=== PATIENT | male | born 1935 | race Hispanic/Latino ===

== ENCOUNTER 2016-10-25 07:08 | Inpatient (IN) | payer MEDICARE ==
[2016-10-25] MEDS ORDERED: BABY ASPIRIN PO ONE (07:36)
--- NOTE | 2016-10-25 07:41 | Emergency Department Report ---
ED Chest Pain HPI - General Chief Complaint: Chest Pain Stated Complaint: CHEST PAIN Time Seen by Provider: 10/25/16 07:35 Source: patient Mode of arrival: Ambulatory Limitations: No Limitations - History of Present Illness Initial Comments: 81-year-old male presents to the emergency department complaining of chest pain. Patient reports the onset of chest pain last night before going to bed. Patient states he does not know what time this was. Pain has been constant since onset. Pain is located in the center of his chest and radiates both to the left and to the right. Pain is described as "just pain". Patient reports one episode of nausea and vomiting. He denies shortness of breath, dizziness, or diaphoresis. Patient reports a history of [place], and states he thinks this feels different. There are no other complaints. MD Complaint: chest pain -: Gradual, During the night Onset: during rest Pain Location: substernal Pain Radiation: other (right and left chest) Severity: moderate Quality: other ("pain") Consistency: constant Improves With: nothing Worsens With: nothing re: nausea, vomting. denies: diaphoresis, dyspnea Other Symptoms: denies: syncope, palpitations Treatments Prior to Arrival: none Aspirin use within the Past 7 Days: (1) Yes - Related Data Home Medications Medication Instructions Recorded Confirmed Last Taken Unobtainable 10/25/16 10/25/16 Unknown Allergies Allergy/AdvReac Type Severity Reaction Status Date / Time No Known Allergies Allergy Unverified 10/25/16 07:21 HAMMAD score - Hammad Score Age > 65: (1) Yes Aspirin use within the Past 7 Days: (1) Yes 3 or more CAD Risk Factors: (1) Yes 2 or more Angina events in past 24 hrs: (0) No Known CAD with more than 50% Stenosis: (1) Yes Elevated Cardiac Markers: (1) Yes ST Deviation Greater than 0.5mm: (1) Yes HAMMAD Score: 6 ED Review of Systems ROS: Stated complaint: CHEST PAIN Other details as noted in HPI Comment: All other systems reviewed and negative Cardiovascular: chest pain Gastrointestinal: nausea, vomiting ED Past Medical Hx - Past Medical History Previous Medical History?: Yes Hx Heart Attack/AMI: Yes Additional medical history: CAD, [place] - Surgical History Past Surgical History?: Yes Hx Open Heart Surgery: Yes - Family History Family history: no significant - Social History Smoking Status: Current Every Day Smoker Substance Use Type: Prescribed - Medications Home Medications: Home Medications Medication Instructions Recorded Confirmed Last Taken Type Unobtainable 10/25/16 10/25/16 Unknown History ED Physical Exam - General Limitations: No Limitations General appearance: alert, in no apparent distress - Head Head exam: Present: atraumatic, normocephalic - Eye Eye exam: Present: normal appearance, PERRL, EOMI - ENT ENT exam: Present: normal exam, normal orophraynx, mucous membranes moist - Neck Neck exam: Present: normal inspection, full ROM. Absent: tenderness - Respiratory Respiratory exam: Present: normal lung sounds bilaterally. Absent: respiratory distress - Cardiovascular Cardiovascular Exam: Present: regular rate, normal rhythm, normal heart sounds - GI/Abdominal GI/Abdominal exam: Present: soft, normal bowel sounds. Absent: distended, tenderness - Extremities Exam Extremities exam: Present: normal inspection, full ROM. Absent: tenderness - Back Exam Back exam: Present: normal inspection, full ROM. Absent: tenderness - Neurological Exam Neurological exam: Present: alert, oriented X3. Absent: motor sensory deficit - Skin Skin exam: Present: warm, dry, intact ED Course Vital Signs 10/25/16 10/25/16 10/25/16 07:21 07:29 07:31 Temperature 97.5 F L Pulse Rate 86 89 Respiratory 20 13 Rate Blood Pressure 103/67 99/66 99/66 O2 Sat by Pulse 95 86 92 Oximetry 10/25/16 10/25/16 07:41 07:51 Temperature Pulse Rate 88 86 Respiratory 20 18 Rate Blood Pressure 99/66 99/66 O2 Sat by Pulse 96 95 Oximetry ED Medical Decision Making - Lab Data Result diagrams: 10/25/16 07:27 10/25/16 07:27 - EKG Data -: EKG Interpreted by Me EKG shows normal: sinus rhythm, intervals Rate: normal - EKG Data When compared to previous EKG there are: previous EKG unavailable Interpretation: other (sinus rhythm, first-degree AV block, ventricular trigeminy, less than [address] elevation in leads 3 and aVF, ST depression in leads 1, aVL, V1 through V4) 10/25/16 08:52 Repeat ECG done approximately 30 minutes after the first, read by me. Normal sinus rhythm with first-degree AV block. Ventricular trigeminy has resolved. Persistent ST segment deviation as noted on the original ECG. - Medical Decision Making Lab results reviewed and discussed with the patient. Patient has a mildly elevated initial troponin. Patient has been discussed with Dr. Hughes, cardiology. At this time, there is no indication for catheter finisher and inspector. Patient will be admitted by the hospitalist for further evaluation. - Differential Diagnosis ACS, GERD, chest wall pain Critical care attestation.: If time is entered above; I have spent that time in minutes in the direct care of this critically ill patient, excluding procedure time. ED Disposition Clinical Impression: Chest pain in adult, Elevated troponin Disposition: OP ADMITTED IP TO THIS HOSP Is pt being admited?: Yes Condition: Stable Instructions: Chest Pain (ED) Time of Disposition: 08:54
[2016-10-25 07:45] LABS: Basophils % (Auto) 0.8 % (0.0-1.8); Eosinophils % (Auto) 0.1 % (0.0-4.3); Hematocrit 48.9 % (35.5-45.6); Hemoglobin 15.8 gm/dl (11.8-15.2); Mean Corpuscular HGB Conc 32 % (32-34); Mean Corpuscular Hemoglobin 28 pg (28-32); Mean Corpuscular Volume 86 fl (84-94); Platelet Count 181 K/mm3 (140-440); Red Blood Count 5.69 M/mm3 (3.65-5.03); Red Cell Distribution Width 14.4 % (13.2-15.2); White Blood Count 12.7 K/mm3 (4.5-11.0)
[2016-10-25 07:54] LABS: Anion Gap 19 mmol/L; BUN/Creatinine Ratio 16.36; Blood Urea Nitrogen 18 mg/dL (9-20); Calcium 9.4 mg/dL (8.4-10.2); Carbon Dioxide 22 mmol/L (22-30); Chloride 96.9 mmol/L (98-107); Glucose 316 mg/dL (75-100); Potassium 4.3 mmol/L (3.6-5.0); Sodium 134 mmol/L (137-145)
[2016-10-25] MEDS ORDERED: NACL 0.9% 1000 ML 1,000 ML IV ONE (08:17)
[2016-10-25] MEDS ORDERED: MORPHINE IV ONE ×2 (08:17→09:34)
[2016-10-25 09:05] LABS: Cholesterol 249 mg/dL (50-199); HDL Cholesterol 40 mg/dL (40-59); LDL Cholesterol,Direct 182 mg/dL (50-130); Triglycerides 139 mg/dL (2-149)
--- NOTE | 2016-10-25 09:05 | Admit Criteria Form ---
Admission Criteria Documentation: CHEST PAIN Clinical Indications for Admission to Inpatient Care (Place 'X' for any and all applicable criteria): Admission is indicated for chest pain and ANY ONE of the following(1)(2)(3)(4)(5 ): [ ]I. Angina with acute coronary syndrome (Also use Myocardial Infarction or Angina guideline) [ ]II. Hemodynamic instability [ X]III. Angina needing acute intervention as indicated by ALL of the following (11)(12): [X ]a) Unstable angina is present as indicated by angina that is ANY ONE of the following: [ ]i) New onset [X ]ii) Nocturnal [ ]iii) Prolonged at rest [ ]iv) Progressive [ X]b) Angina warrants acute intervention as indicated by ANY ONE of the following: [ ]i) Recurrent angina (e.g, not responding as previously to treatment) [ ]ii) Angina at rest or with low-level activities despite initial medical therapy [ ]iii) New or presumably new ST-segment depression on ECG [ ]iv) Signs or symptoms of heart failure (eg, dyspnea, pulmonary edema) [ ]v) New or worsening mitral regurgitation [ ]vi) Hemodynamic instability [ ]vii) Dangerous arrhythmia (eg, sustained ventricular tachycardia) [ ]viii) History of percutaneous coronary intervention within 6 months [ ]ix) History of coronary artery bypass graft surgery [X ]x) HAMMAD risk score of 2 or greater[A] [ ]xi) History of Diabetes(14) [ ]xii) High-risk cardiac ischemia findings on noninvasive testing (e.g, echocardiogram, treadmill testing, nuclear scan) [ ]xiii) Chronic renal insufficiency (ie, estimated GFR less than 60 mL/min/1.732m) [ ]xiv) Left ventricular ejection fraction less than 40% [ X]IV. Evidence of VT (eg, cardiac biomarkers positive, ST-segment elevation on ECG) also use Myocardial Infarction Criteria Form. [ ]V. Pulmonary edema [ ]. Respiratory distress [ ]VII. Chest pain indicative of serious diagnosis other than coronary artery disease (eg, aortic dissection) [ ]VIII. Contraindications and/or Inappropriate clinical situations for Observational Care in patients with Chest Pain, when ANY ONE of the following is required: [ ]a) Patient with risk factor for pulmonary embolism, acute coronary syndrome and myocardial infarction (18) [ ]b) Patient with Pulmonary embolism require an average LOS of 4.3 days, therefore emergency department observation management is inappropriate 18,23 [ ]c) Painful condition/s in the elderly, have the highest rate of recidivism after emergency department observation management (10.8%) 20,21,22 [ ]d) Elevated cardiac biomarker requires intensive and exhaustive care (19) [ X]IX. General contraindications and/or Inappropriate clinical situations for Observational Care in patients with Chest Pain, when ANY ONE of the following is required: [X ]a) Prediction of prolongation of LOS based on ANY ONE of the following may be considered as a contraindication for observational care 2, 3, 4, 5, 6, 7, 8, 9, 10, 11 [X ]i) Age > 65 yrs. [ ]ii) Patient arriving by ambulance [ ]iii) Patient with high acuity [ ]iv) Patient requiring vital sign monitoring [ ]v) Patient on IV medication [ ]b) Systolic blood pressures 180mmHg 3,12 [ ]c) Patient with altered mental status including delirium and other alteration of consciousness, (3) [ ]d) Patient whose discharge disposition will be to a residential home or rehabilitation home should not be managed in Emergency Department Observation Unit. CMS rule requires 3 days hospital stay before such placement. 3,13 [ ]e) Patient with failure to thrive due to broad array of etiologies 3,16,17 [ ]f) Inability to ambulate 3,14 Extended stay beyond goal length of stay may be needed for (1)(28): [ ]a) Specific condition diagnosed after evaluation (eg, pulmonary embolism, aortic dissection) [ ]b) Unstable angina [ ]c) Continued suspicion of acute coronary syndrome with inability to complete needed cardiac evaluation (eg, patient clinically unable to undergo stress testing) [ ]d) Myocardial infarction (Contents from ANGINA and CHEST PAIN clinical indications for admission to inpatient care have been integrated in this form) The original [employer] content created by [employer] has been revised. The portions of the content which have been revised are identified through the use of italic text or in bold, and [facility] has neither reviewed nor approved the modified material. All other unmodified content is copyright [employer] [facility]. Please see references footnoted in the original [facility] [employer] edition 2016 Admission Criteria Met: Yes
--- NOTE | 2016-10-25 10:21 | XRay Report ---
AP CHEST: HISTORY: chest pain No comparison. Previous CABG changes are noted. Mild cardiomegaly and moderate pulmonary venous congestion are identified. Trace pleural effusions are likely present. No consolidation or pneumothorax. The thoracic cage is intact. IMPRESSION: Correlate for mild CHF.
[2016-10-25] MEDS ORDERED: ZOFRAN IV PRN (11:24)
[2016-10-25] MEDS ORDERED: MILK OF MAGNESIA PO PRN (11:24)
[2016-10-25] MEDS ORDERED: TYLENOL PO PRN (11:24)
[2016-10-25] MEDS ORDERED: DULCOLAX PR PRN (11:24)
[2016-10-25] MEDS ORDERED: D50W (25GM) IV PRN (11:30)
[2016-10-25] MEDS: HEPARIN/ 0.45% NACL-25,000 UNIT/500 ML 25,000 UNITS/500 ML BAG IV SCH (11:51)
[2016-10-25 11:55] LABS: INR 1.05 (0.87-1.13)
[2016-10-25 11:56] LABS: Partial Thromboplastin Time 24.6 Sec. (24.2-36.6)
[2016-10-25] MEDS ORDERED: LASIX IV SCH (12:00)
--- NOTE | 2016-10-25 15:01 | History and Physical Report ---
History of Present Illness Date of admission: 10/25/16 08:55 Chief complaint: This is a 81-year-old man who presents with chest pain 1 day. He has a past medical history hypertension and history of circumflex coronary artery disease and [place] in the past. Status post CABG, follows with [facility]. Who presents with chest pain since upper last night. He states that the pain is substernal in 10 and radiates to both sides of his chest he has vomited 1, since the injury ER he had an episode of shortness of breath dizziness and weakness. He had an episode of hypotension in the ER, he then went on to receive some IV fluids, after which she became hypoxic, and was treated with some Lasix. He states that he feels better now but chest pain still comes and goes. Past History Past Medical History: other (hypertension, coronary artery disease status post CABG) Past Surgical History: Other (CABG) Social history: no significant social history Family history: no significant family history Medications and Allergies Allergies Allergy/AdvReac Type Severity Reaction Status Date / Time No Known Allergies Allergy Verified 10/25/16 11:07 Home Medications Medication Instructions Recorded Confirmed Last Taken Type Unobtainable 10/25/16 10/25/16 Unknown History Active Meds: Active Medications Acetaminophen (Tylenol) 650 mg PO Q4H PRN PRN Reason: Pain MILD(1-3)/Fever >100.5/BLAKE Bisacodyl (Dulcolax) 10 mg MS QDAY PRN PRN Reason: Constipation unrelieved by MOM Dextrose (D50w (25gm)) 50 ml IV PRN PRN PRN Reason: Hypoglycemia Furosemide (Lasix) 20 mg IV Q12H BUTCH Last Admin: 10/25/16 12:04 Dose: 20 mg Heparin Sodium/Sodium Chloride (Heparin/ 0.45% Nacl-25,000 Unit/500 Ml) 25,000 units in 500 mls @ 20 mls/hr IV TITRATE BUTCH; 1,000 UNITS/HR PRN Reason: Protocol Last Admin: 10/25/16 11:51 Dose: 1,000 units/hr, 20 mls/hr Insulin Human Regular (Novolin R) 0 units SUB-Q Q6HR BUTCH PRN Reason: Protocol Last Admin: 10/25/16 12:21 Dose: Not Given Magnesium Hydroxide (Milk Of Magnesia) 30 ml PO Q4H PRN PRN Reason: Constipation Morphine Sulfate (Morphine) 2 mg IV Q4H PRN PRN Reason: Pain, Moderate (4-6) Ondansetron HCl (Zofran) 4 mg IV Q8H PRN PRN Reason: N/V unrelieved by Reglan Oxycodone/Acetaminophen (Percocet 5/325) 1 tab PO Q6H PRN PRN Reason: Pain, Moderate (4-6) Review of Systems All systems: negative (as stated in HPI) Exam - Physical Exam Narrative exam: General: Appears ill HEENT: MMM, EOMI cardiac: S1-S2 heard lungs: Bibasilar crackles abdomen: soft, nontender, nondistended bowel sounds positive extremities: no edema clubbing or cyanosis Skin: no rash or lesion Neuro: no focal deficit Psych: appropriate behavior and mood, cognition intact - Constitutional Vitals: Temp Pulse Resp BP Pulse Ox 97.5 F L 90 17 101/74 90 10/25/16 07:21 10/25/16 13:00 10/25/16 13:00 10/25/16 13:00 10/25/16 14:07 Results - Labs CBC & Chem 7: 10/25/16 07:27 10/25/16 07:27 Labs: Laboratory Last Values WBC 12.7 K/mm3 (4.5-11.0) H 10/25/16 07:27 RBC 5.69 M/mm3 (3.65-5.03) H 10/25/16 07:27 Hgb 15.8 gm/dl (11.8-15.2) H 10/25/16 07:27 Hct 48.9 % (35.5-45.6) H 10/25/16 07:27 MCV 86 fl (84-94) 10/25/16 07:27 MCH 28 pg (28-32) 10/25/16 07:27 MCHC 32 % (32-34) 10/25/16 07:27 RDW 14.4 % (13.2-15.2) 10/25/16 07:27 Plt Count 181 K/mm3 (140-440) 10/25/16 07:27 Lymph % (Auto) 11.5 % (13.4-35.0) L 10/25/16 07:27 [place] % (Auto) 2.7 % (0.0-7.3) 10/25/16 07:27 Eos % (Auto) 0.1 % (0.0-4.3) 10/25/16 07:27 Baso % (Auto) 0.8 % (0.0-1.8) 10/25/16 07:27 Lymph # 1.5 K/mm3 (1.2-5.4) 10/25/16 07:27 [place] # 0.3 K/mm3 (0.0-0.8) 10/25/16 07:27 Eos # 0.0 K/mm3 (0.0-0.4) 10/25/16 07: Baso # 0.1 K/mm3 (0.0-0.1) 10/25/16 07:27 Seg Neutrophils % 84.9 % (40.0-70.0) H 10/25/16 07:27 Seg Neutrophils # 10.8 K/mm3 (1.8-7.7) H 10/25/16 07:27 PT 13.6 Sec. (12.2-14.9) 10/25/16 11:21 INR 1.05 (0.87-1.13) 10/25/16 11:21 APTT 24.6 Sec. (24.2-36.6) 10/25/16 11:21 Sodium 134 mmol/L (137-145) L 10/25/16 07:27 Potassium 4.3 mmol/L (3.6-5.0) 10/25/16 07:27 Chloride 96.9 mmol/L (98-107) L 10/25/16 07:27 Carbon Dioxide 22 mmol/L (22-30) 10/25/16 07:27 Anion Gap 19 mmol/L 10/25/16 07:27 BUN 18 mg/dL (9-20) 10/25/16 07:27 Creatinine 1.1 mg/dL (0.8-1.5) 10/25/16 07:27 Estimated GFR > 60 ml/min 10/25/16 07:27 BUN/Creatinine Ratio 16.36 % 10/25/16 07:27 Glucose 316 mg/dL (75-100) H 10/25/16 07:27 POC Glucose 299 (70-105) H 10/25/16 11:55 Calcium 9.4 mg/dL (8.4-10.2) 10/25/16 07:27 Troponin T 0.167 ng/mL (0.00-0.029) H* D 10/25/16 10:23 NT-Pro-B Natriuret Pep 1278 pg/mL (0-900) H 10/25/16 10:19 Triglycerides 139 mg/dL (2-149) 10/25/16 07:27 Cholesterol 249 mg/dL (50-199) H 10/25/16 07:27 LDL Cholesterol Direct 182 mg/dL (50-130) H 10/25/16 07:27 HDL Cholesterol 40 mg/dL (40-59) 10/25/16 07:27 Cholesterol/HDL Ratio 6.22 % 10/25/16 07:27 - Imaging and Cardiology Chest x-ray: image reviewed (no pneumonia seen) Assessment and Plan Assessment and plan: 81-year-old male past medical history of coronary artery disease who presented chest pain found to have non-STEMI 1. Non-STEMI Cardiology, [place] helping consult for possible, continue heparin drip 2. CHF exacerbation with pulmonary venous congestion Status post Lasix, judicious use of fluids 3. Acute hypoxic respiratory failure Continue oxygen supplementation 4. Diabetes Continues with sliding scale This patient is critically ill and is being admitted to the ICU, critical care time spent 32 minutes
--- NOTE | 2016-10-25 18:23 | Consultation ---
History of Present Illness Consult date: 10/25/16 Consult reason: chest pain, congestive heart failure History of present illness: The patient is a 81-year-old man with an extensive cardiac history. He underwent three-way coronary bypass surgery more than 25 years ago. Since then , he has also undergone coronary stent placement. There has been no recent cardiac ischemic workup. He is admitted to the hospital at this time with chest pain. While in the emergency room, he was reported to develop acute pulmonary edema. He is currently on the telemetry unit, on oxygen facemask. His shortness of breath has improved but not completely resolved. There is no further chest pain. I reviewed his serial ECGs. There is normal sinus rhythm, with ischemic ST depression in the anterior precordial leads. There is evidence of an inferior myocardial infarction of undetermined age. Past History Past Medical History: CAD, other (hypertension, coronary artery disease status post CABG) Past Surgical History: CABG, Other (CABG) Social history: no significant social history Family history: no significant family history Medications and Allergies Allergies Allergy/AdvReac Type Severity Reaction Status Date / Time No Known Allergies Allergy Verified 10/25/16 11:07 Home Medications Medication Instructions Recorded Confirmed Last Taken Type Unobtainable 10/25/16 10/25/16 Unknown History Active Meds: Active Medications Acetaminophen (Tylenol) 650 mg PO Q4H PRN PRN Reason: Pain MILD(1-3)/Fever >100.5/BLAKE Bisacodyl (Dulcolax) 10 mg NE QDAY PRN PRN Reason: Constipation unrelieved by MOM Dextrose (D50w (25gm)) 50 ml IV PRN PRN PRN Reason: Hypoglycemia Furosemide (Lasix) 20 mg IV Q12H BUTCH Last Admin: 10/25/16 12:04 Dose: 20 mg Heparin Sodium/Sodium Chloride (Heparin/ 0.45% Nacl-25,000 Unit/500 Ml) 25,000 units in 500 mls @ 20 mls/hr IV TITRATE BUTCH; 1,000 UNITS/HR PRN Reason: Protocol Last Admin: 10/25/16 11:51 Dose: 1,000 units/hr, 20 mls/hr Influenza Virus Vaccine Quadrival (Fluarix Quad [id number](36 Mos+)) 60 mcg IM .ONCE ONE Stop: 10/26/16 12:01 Insulin Human Regular (Novolin R) 0 units SUB-Q Q6HR BUTCH PRN Reason: Protocol Last Admin: 10/25/16 17:36 Dose: 1 units Magnesium Hydroxide (Milk Of Magnesia) 30 ml PO Q4H PRN PRN Reason: Constipation Morphine Sulfate (Morphine) 2 mg IV Q4H PRN PRN Reason: Pain, Moderate (4-6) Ondansetron HCl (Zofran) 4 mg IV Q8H PRN PRN Reason: N/V unrelieved by Reglan Oxycodone/Acetaminophen (Percocet 5/325) 1 tab PO Q6H PRN PRN Reason: Pain, Moderate (4-6) Pneumococcal Polyvalent Vaccine (Pneumovax 23) 0.5 ml IM .ONCE ONE Stop: 10/26/16 12:01 Review of Systems Cardiovascular: chest pain, shortness of breath, no orthopnea, no palpitations, no rapid/irregular heart beat, no edema, no syncope, no lightheadedness Physical Examination Vital Signs Temp Pulse Resp BP Pulse Ox 97.5 F L 86 20 103/67 95 10/25/16 07:21 10/25/16 07:21 10/25/16 07:21 10/25/16 07:21 10/25/16 07:21 General appearance: mild distress HEENT: Positive: PERRL Neck: Positive: neck supple Cardiac: Positive: Reg Rate and Rhythm Lungs: Positive: Decreased Breath Sounds, Rhonchi Neuro: Positive: Grossly Intact Abdomen: Positive: Soft Male genitourinary: Positive: normal Skin: Positive: Clear Extremities: Absent: edema Results 10/25/16 07:27 10/25/16 07:27 Coagulation 10/25/16 Range/Units 11:21 PT 13.6 (12.2-14.9) Sec. INR 1.05 (0.87-1.13) APTT 24.6 (24.2-36.6) Sec. EKG interpretations - Telemetry EKG Rhythm: Sinus Rhythm Assessment and Plan - Patient Problems (1) Acute myocardial infarction Current Visit: Yes Status: Acute Qualifiers: Myocardial infarction ST status: M Involved coronary artery: I Plan to address problem: The patient will be recommended to the better managed in the CCU, transfer to the CCU is recommended. Heparin, beta blockers and nitrates. Cardiac catheterization will be recommended in the morning once his shortness of breath is resolved he is able to lay flat comfortably. (2) Acute pulmonary edema Current Visit: Yes Status: Acute Plan to address problem: Diuretics, optimal heart failure treatment.
[2016-10-25] MEDS ORDERED: NACL 0.9% 500 ML 500 ML IV SCH (19:00)
[2016-10-25] MEDS: ECOTRIN PO SCH (22:25)
[2016-10-25] MEDS: LOPRESSOR PO SCH (22:49)
[2016-10-26] MEDS ORDERED: GEODON IM ONE (01:28)
[2016-10-26] MEDS: MORPHINE IV PRN ×3 (01:30→20:50)
[2016-10-26] MEDS ORDERED: WATER FOR INJ (PF) 10 ML ONE (01:45)
[2016-10-26] MEDS ORDERED: DUONEB 0.5 MG-3 MG/3 ML SOLN IH ONE (02:29)
[2016-10-26 02:39] LABS: ISTAT Base Excess -6; ISTAT HCO3 19.4; ISTAT PCO2 31.6 (35-45); ISTAT PH 7.395 (7.35-7.45); ISTAT PO2 58 (80-105); ISTAT SO2 90; ISTAT TCO2 20
[2016-10-26] MEDS: LASIX IV SCH ×2 (02:43→18:31)
[2016-10-26 04:55] LABS: Basophils % (Auto) 0.2 % (0.0-1.8); Eosinophils % (Auto) 0.1 % (0.0-4.3); Hemoglobin 15.6 gm/dl (11.8-15.2); Mean Corpuscular HGB Conc 33 % (32-34); Mean Corpuscular Hemoglobin 28 pg (28-32); Mean Corpuscular Volume 86 fl (84-94); Platelet Count 164 K/mm3 (140-440); White Blood Count 16.2 K/mm3 (4.5-11.0)
[2016-10-26 04:56] LABS: BUN/Creatinine Ratio 19.16; Calcium 8.4 mg/dL (8.4-10.2); Chloride 96.5 mmol/L (98-107)
[2016-10-26 05:20] LABS: Potassium 4.6 mmol/L (3.6-5.0)
[2016-10-26] MEDS: NITRO-BID 2% TP SCH ×4 (05:58→18:30)
[2016-10-26] MEDS ORDERED: LASIX IV SCH (06:00)
[2016-10-26] MEDS ORDERED: HEPARIN 10,000 UNITS/10 ML IV ONE (06:01)
[2016-10-26] MEDS: ECOTRIN PO SCH (07:36)
[2016-10-26] MEDS ORDERED: HEPARIN/NS 5000 UNIT/500ML(CATH LAB) 1,000 ML IR ONE (09:59)
[2016-10-26] MEDS ORDERED: VERSED ONE (09:59)
[2016-10-26] MEDS ORDERED: XYLOCAINE 2% INFILTRATI ONE (09:59)
[2016-10-26] MEDS ORDERED: SUBLIMAZE ONE (09:59)
[2016-10-26] MEDS ORDERED: NITROGLYCERIN SYRINGE 3 ML ONE (10:00)
--- NOTE | 2016-10-26 10:06 | Progress Note ---
Assessment and Plan Assessment and plan: Acute NSTEMI. On aspirin Plavix , Lopressor. Discussed with cardiology. For cardiac cath today Chest pain due to acute NSTEMI. Acute systolic heart failure. Continue Lasix, Lopressor Ischemic cardiomyopathy CAD s/p CABG Acute encephalopathy. haldol prn Diabetes mellitus type II. Fingerstick glucose before every meal and at bedtime DVT prophylaxis. On Heparin. Full code status History Interval history: chest pain, confused Hospitalist Physical - Physical exam Narrative exam: Gen: Not in acute distress, obese HEENT: Normocephalic, atraumatic Neck: supple, no JVD Lungs: Bilateral cracklesLungs clear to auscultation, bilaterally, no crackles or wheeze Heart S1-S2 regular, no murmurs, rubs or gallop, Abdomen: soft, non tender, normal bowel sounds present Ext: No edema, no clubbing, no cyanosis Neuro: Awake.alert, confused. oriented to person but not to place or time. - Constitutional Vitals: Temp Pulse Resp BP Pulse Ox 97.7 F 98 H 17 98/59 96 10/26/16 05:23 10/26/16 08:00 10/26/16 08:00 10/26/16 08:00 10/26/16 08:56 General appearance: Present: mild distress Results - Labs CBC & Chem 7: 10/26/16 03:40 10/26/16 03:40 Labs: Laboratory Last Values WBC 16.2 K/mm3 (4.5-11.0) H 10/26/16 03:40 RBC 5.60 M/mm3 (3.65-5.03) H 10/26/16 03:40 Hgb 15.6 gm/dl (11.8-15.2) H 10/26/16 03:40 Hct 48.0 % (35.5-45.6) H 10/26/16 03:40 MCV 86 fl (84-94) 10/26/16 03:40 MCH 28 pg (28-32) 10/26/16 03:40 MCHC 33 % (32-34) 10/26/16 03:40 RDW 14.0 % (13.2-15.2) 10/26/16 03:40 Plt Count 164 K/mm3 (140-440) 10/26/16 03:40 Lymph % (Auto) 8.1 % (13.4-35.0) L 10/26/16 03:40 [place] % (Auto) 5.5 % (0.0-7.3) 10/26/16 03:40 Eos % (Auto) 0.1 % (0.0-4.3) 10/26/16 03:40 Baso % (Auto) 0.2 % (0.0-1.8) 10/26/16 03:40 Lymph # 1.3 K/mm3 (1.2-5.4) 10/26/16 03:40 [place] # 0.9 K/mm3 (0.0-0.8) H 10/26/16 03:40 Eos # 0.0 K/mm3 (0.0-0.4) 10/26/16 03:40 Baso # 0.0 K/mm3 (0.0-0.1) 10/26/16 03:40 Seg Neutrophils % 86.1 % (40.0-70.0) H 10/26/16 03:40 Seg Neutrophils # 14.0 K/mm3 (1.8-7.7) H 10/26/16 03:40 PT 13.6 Sec. (12.2-14.9) 10/25/16 11:21 INR 1.05 (0.87-1.13) 10/25/16 11:21 APTT 24.6 Sec. (24.2-36.6) 10/25/16 11:21 Heparin Anti-Xa Level < 0.10 U.I./ml (0.3-0.7) L 10/26/16 03:40 POC ABG pH 7.395 (7.35-7.45) 10/26/16 02:24 POC ABG pCO2 31.6 (35-45) L 10/26/16 02:24 POC ABG pO2 58 (80-105) L 10/26/16 02:24 POC ABG HCO3 19.4 10/26/16 02:24 POC ABG Total CO2 20 10/26/16 02:24 POC ABG O2 Sat 90 10/26/16 02:24 POC ABG Base Excess -6 10/26/16 02:24 FiO2 50 % 10/26/16 02:24 Sodium 134 mmol/L (137-145) L 10/26/16 03:40 Potassium 4.6 mmol/L (3.6-5.0) 10/26/16 03:40 Chloride 96.5 mmol/L (98-107) L 10/26/16 03:40 Carbon Dioxide 17 mmol/L (22-30) L 10/26/16 03:40 Anion Gap 25 mmol/L 10/26/16 03:40 BUN 23 mg/dL (9-20) H 10/26/16 03:40 Creatinine 1.2 mg/dL (0.8-1.5) 10/26/16 03:40 Estimated GFR 58 ml/min 10/26/16 03:40 BUN/Creatinine Ratio 19.16 % 10/26/16 03:40 Glucose 301 mg/dL (75-100) H 10/26/16 03:40 POC Glucose 288 (70-105) H 10/26/16 05:50 Calcium 8.4 mg/dL (8.4-10.2) 10/26/16 03:40 Troponin T 0.209 ng/mL (0.00-0.029) H* D 10/25/16 13:59 NT-Pro-B Natriuret Pep 1278 pg/mL (0-900) H 10/25/16 10:19 Triglycerides 139 mg/dL (2-149) 10/25/16 07:27 Cholesterol 249 mg/dL (50-199) H 10/25/16 07:27 LDL Cholesterol Direct 182 mg/dL (50-130) H 10/25/16 07:27 HDL Cholesterol 40 mg/dL (40-59) 10/25/16 07:27 Cholesterol/HDL Ratio 6.22 % 10/25/16 07:27
[2016-10-26] MEDS ORDERED: LOPRESSOR IV ONE (10:32)
--- NOTE | 2016-10-26 11:11 | Consultation ---
History of Present Illness Consult date: 10/26/16 Requesting physician: WALESKA TOWNSEND Reason for consult: other (Acute Hypoxemic respiratory Failure; Acute NH) History of present illness: PULMONARY/CCM CONSULT (Full note dictated # [id number]) Please see dictated notes for full details Past History Past Medical History: CAD, other (hypertension, coronary artery disease status post CABG) Past Surgical History: CABG, Other (CABG) Social history: no significant social history Family history: no significant family history Medications and Allergies Allergies Allergy/AdvReac Type Severity Reaction Status Date / Time No Known Allergies Allergy Verified 10/25/16 11:07 Home Medications Medication Instructions Recorded Confirmed Last Taken Type Unobtainable 10/25/16 10/25/16 Unknown History Active Meds: Active Medications Acetaminophen (Tylenol) 650 mg PO Q4H PRN PRN Reason: Pain MILD(1-3)/Fever >100.5/BLAKE Aspirin (Ecotrin) 325 mg PO QDAY [facility] Last Admin: 10/26/16 07:36 Dose: 325 mg Atorvastatin Calcium (Lipitor) 20 mg PO QHS BUTCH Last Admin: 10/25/16 22:25 Dose: 20 mg Bisacodyl (Dulcolax) 10 mg WA QDAY PRN PRN Reason: Constipation unrelieved by MOM Dextrose (D50w (25gm)) 50 ml IV PRN PRN PRN Reason: Hypoglycemia Furosemide (Lasix) 40 mg IV 0600,1800 [facility] Last Admin: 10/26/16 02:43 Dose: 40 mg Heparin Sodium/Sodium Chloride (Heparin/ 0.45% Nacl-25,000 Unit/500 Ml) 25,000 units in 500 mls @ 20 mls/hr IV TITRATE BUTCH; 1,000 UNITS/HR PRN Reason: Protocol Last Titration: 10/26/16 06:39 Dose: 1,350 units/hr, 27 mls/hr Influenza Virus Vaccine Quadrival (Fluarix Quad [id number](36 Mos+)) 60 mcg IM .ONCE ONE Stop: 10/26/16 12:01 Insulin Human Regular (Novolin R) 0 units SUB-Q Q6HR BUTCH PRN Reason: Protocol Last Admin: 10/26/16 06:38 Dose: 3 units Lisinopril (Zestril) 2.5 mg PO QDAY BUTCH Magnesium Hydroxide (Milk Of Magnesia) 30 ml PO Q4H PRN PRN Reason: Constipation Metoprolol Tartrate (Lopressor) 25 mg PO BID [facility] Last Admin: 10/25/16 22:49 Dose: Not Given Morphine Sulfate (Morphine) 2 mg IV Q4H PRN PRN Reason: Pain, Moderate (4-6) Last Admin: 10/26/16 01:30 Dose: 2 mg Nitroglycerin (Nitro-Bid 2%) 1 inch TP QIDNTG BUTCH PRN Reason: Protocol Last Admin: 10/26/16 05:58 Dose: Not Given Ondansetron HCl (Zofran) 4 mg IV Q8H PRN PRN Reason: N/V unrelieved by Reglan Oxycodone/Acetaminophen (Percocet 5/325) 1 tab PO Q6H PRN PRN Reason: Pain, Moderate (4-6) Pneumococcal Polyvalent Vaccine (Pneumovax 23) 0.5 ml IM .ONCE ONE Stop: 10/26/16 12:01 Physical Examination Vital signs: Vital Signs Temp Pulse Resp BP Pulse Ox 97.5 F L 86 20 103/67 95 10/25/16 07:21 10/25/16 07:21 10/25/16 07:21 10/25/16 07:21 10/25/16 07:21 Results - Laboratory Findings CBC and BMP: 10/26/16 03:40 10/26/16 03:40 ABG POC ABG pH 7.395 (7.35-7.45) 10/26/16 02:24 POC ABG pCO2 31.6 (35-45) L 10/26/16 02:24 POC ABG pO2 58 (80-105) L 10/26/16 02:24 POC ABG HCO3 19.4 10/26/16 02:24 POC ABG Total CO2 20 10/26/16 02:24 POC ABG O2 Sat 90 10/26/16 02:24 PT/INR, D-dimer PT 13.6 Sec. (12.2-14.9) 10/25/16 11:21 INR 1.05 (0.87-1.13) 10/25/16 11:21 Abnormal lab findings: Abnormal Labs 10/25/16 10/25/16 10/25/16 10:19 10:23 11:55 WBC RBC Hgb Hct Lymph % (Auto) [place] # Seg Neutrophils % Seg Neutrophils # Heparin Anti-Xa Level POC ABG pCO2 POC ABG pO2 Sodium Chloride Carbon Dioxide BUN Glucose POC Glucose 299 H Troponin T 0.167 H* D NT-Pro-B Natriuret Pep 1278 H 10/25/16 10/25/16 10/25/16 13:59 17:31 22:12 WBC RBC Hgb Hct Lymph % (Auto) [place] # Seg Neutrophils % Seg Neutrophils # Heparin Anti-Xa Level 2.00 H POC ABG pCO2 POC ABG pO2 Sodium Chloride Carbon Dioxide BUN Glucose POC Glucose 188 H Troponin T 0.209 H* D NT-Pro-B Natriuret Pep 10/26/16 10/26/16 10/26/16 00:05 02:24 03:40 WBC 16.2 H RBC 5.60 H Hgb 15.6 H Hct 48.0 H Lymph % (Auto) 8.1 L [place] # 0.9 H Seg Neutrophils % 86.1 H Seg Neutrophils # 14.0 H Heparin Anti-Xa Level POC ABG pCO2 31.6 L POC ABG pO2 58 L Sodium Chloride Carbon Dioxide BUN Glucose POC Glucose 264 H Troponin T NT-Pro-B Natriuret Pep 10/26/16 10/26/16 10/26/16 03:40 03:40 05:50 WBC RBC Hgb Hct Lymph % (Auto) [place] # Seg Neutrophils % Seg Neutrophils # Heparin Anti-Xa Level < 0.10 L POC ABG pCO2 POC ABG pO2 Sodium 134 L Chloride 96.5 L Carbon Dioxide 17 L BUN 23 H Glucose 301 H POC Glucose 288 H Troponin T NT-Pro-B Natriuret Pep
--- NOTE | 2016-10-26 11:42 | Progress Note ---
Assessment and Plan Assessment: Acute NM CAD s/p CABG Patent BRISCOE to LAD Patent SVG to Diag Occluded SVG to OM Severely calcified [place] vessel disease: 100% proximal LAD, 90% diffuse Cx, and 99% scattered in stent restenosis of the proximal and mid RCA Ischemic cardiomyopathy, LVEF 20% Acute systolic heart failure Leukocytosis, likely reactive Poorly controlled DM Poorly controlled hyperlipidemia Mild dementia Recommendations: Medical therapy for underlying CAD (Dr Hughes will review the coronary angiograms also) Resume IV heparin in 6 hours post cath (for a total of 48 hours) Load with plavix po 300 mg now and 75 mg starting tomorrow Increase lipitor to 80 mg po qhs Aggressive DM control Subjective Date of service: 10/26/16 Principal diagnosis: Acute NM Interval history: Patient underwent a heart cath today without complications Objective Vital Signs Temp Pulse Pulse Pulse Pulse Pulse Resp 10/26/16 08:56 10/26/16 08:00 98 H 17 10/26/16 07:31 100 H 21 10/26/16 07:01 10/26/16 06:31 107 H 21 10/26/16 06:01 106 H 19 10/26/16 05:58 10/26/16 05:30 105 H 19 10/26/16 05:23 97.7 F 10/26/16 05:15 113 H 22 10/26/16 05:01 113 H 22 10/26/16 04:31 94 H 34 H 10/26/16 04:10 98.3 F 10/26/16 04:00 100 H 21 10/26/16 03:31 112 H 24 10/26/16 03:00 100 H 20 10/26/16 02:45 119 H 20 10/26/16 02:42 102 H 10/26/16 02:35 99 H 10/26/16 02:30 105 H 22 10/26/16 02:25 105 H 10/26/16 02:00 130 H 34 H 10/26/16 01:31 120 H 35 H 10/26/16 01:30 120 H 35 H 10/26/16 01:00 94 H 20 10/26/16 00:31 95 H 24 10/26/16 00:00 94 H 19 10/25/16 23:55 97.7 F 10/25/16 23:30 100 H 23 10/25/16 23:00 99 H 24 10/25/16 22:30 94 H 19 10/25/16 22:00 96 H 20 10/25/16 21:36 10/25/16 21:31 94 H 16 10/25/16 21:24 93 H 10/25/16 15:37 98.5 F 88 89 24 10/25/16 15:33 10/25/16 14:07 10/25/16 13:31 100 H 26 H 10/25/16 13:00 90 17 10/25/16 12:00 94 H 23 Resp Resp BP BP Pulse Ox 10/26/16 08:56 96 10/26/16 08:00 98/59 94 10/26/16 07:31 100/72 97 10/26/16 07:01 110/58 98 10/26/16 06:31 110/58 96 10/26/16 06:01 110/58 96 10/26/16 05:58 110/58 10/26/16 05:30 110/58 93 10/26/16 05:23 10/26/16 05:15 10/26/16 05:01 103/57 88 10/26/16 04:31 97/61 89 10/26/16 04:10 10/26/16 04:00 83/53 92 10/26/16 03:31 87/56 94 10/26/16 03:00 87/56 10/26/16 02:45 26 H 10/26/16 02:42 10/26/16 02:35 22 10/26/16 02:30 107/70 87 10/26/16 02:25 22 10/26/16 02:00 134/87 84 10/26/16 01:31 99/61 82 L 10/26/16 01:30 34 H 10/26/16 01:00 91/57 90 10/26/16 00:31 95/63 89 10/26/16 00:00 95/63 93 10/25/16 23:55 10/25/16 23:30 103/61 92 10/25/16 23:00 93/56 89 10/25/16 22:30 104/74 92 10/25/16 22:00 108/76 90 10/25/16 21:36 96 10/25/16 21:31 93 10/25/16 21:24 92 10/25/16 15:37 154/88 90 10/25/16 15:33 101/ 97 10/25/16 14:07 90 10/25/16 13:31 101/74 92 10/25/16 13:00 89 10/25/16 12:00 102/66 94 - Physical Examination HEENT: Positive: PERRL Neck: Positive: neck supple Cardiac: Positive: Reg Rate and Rhythm Lungs: Positive: Decreased Breath Sounds, Wheezes, Rhonchi Neuro: Positive: Grossly Intact Abdomen: Positive: Soft Skin: Positive: Clear Extremities: Absent: edema - Labs and Meds Coagulation 10/25/16 Range/Units 11:21 PT 13.6 (12.2-14.9) Sec. INR 1.05 (0.87-1.13) APTT 24.6 (24.2-36.6) Sec. CBC 10/26/16 Range/Units 03:40 WBC 16.2 H (4.5-11.0) K/mm3 RBC 5.60 H (3.65-5.03) M/mm3 Hgb 15.6 H (11.8-15.2) gm/dl Hct 48.0 H (35.5-45.6) % Plt Count 164 (140-440) K/mm3 Lymph # 1.3 (1.2-5.4) K/mm3 [place] # 0.9 H (0.0-0.8) K/mm3 Eos # 0.0 (0.0-0.4) K/mm3 Baso # 0.0 (0.0-0.1) K/mm3 Comprehensive Metabolic Panel 10/26/16 Range/Units 03:40 Sodium 134 L (137-145) mmol/L Potassium 4.6 (3.6-5.0) mmol/L Chloride 96.5 L (98-107) mmol/L Carbon Dioxide 17 L (22-30) mmol/L BUN 23 H (9-20) mg/dL Creatinine 1.2 (0.8-1.5) mg/dL Glucose 301 H (75-100) mg/dL Calcium 8.4 (8.4-10.2) mg/dL
[2016-10-26] MEDS ORDERED: FLUARIX QUAD 2016-2017(36 MOS+) IM ONE (12:00)
[2016-10-26] MEDS ORDERED: PNEUMOVAX 23 IM ONE (12:00)
[2016-10-26] MEDS: LOPRESSOR PO SCH ×2 (12:22→21:23)
[2016-10-26] MEDS: ZESTRIL PO SCH (12:23)
[2016-10-26] MEDS ORDERED: PLAVIX PO ONE (13:00)
--- NOTE | 2016-10-26 14:00 | Cardiac Catherization Report ---
LEFT HEART CATHETERIZATION INDICATION FOR PROCEDURE: Acute myocardial infarction. ORDERING PHYSICIAN: Di Hughes MD PROCEDURES PERFORMED: 1. Selective left and right coronary angiography. 2. Selective angiography of the saphenous vein graft to the first diagonal artery. 3. Selective angiography to saphenous vein graft to the obtuse marginal. 4. Selective angiography of the BRISCOE graft to the LAD. 5. Left ventriculography. DESCRIPTION OF PROCEDURE: After obtaining written consent, the patient was draped using sterile technique. Lidocaine 2% was injected into the right groin. Using a micropuncture technique, a 5-Turkmen vascular sheath was inserted into the right common femoral artery. A 5-Turkmen JR4 catheter was used to selectively engage the left coronary artery. A 5-Turkmen JR4 catheter was used to selectively engage the right coronary artery. A 5-Turkmen JR4 catheter was used to perform a hand injected LV gram. A 5-Turkmen JR4 catheter was used to selectively engage the saphenous vein graft to the first diagonal artery. A 5-Turkmen JR4 catheter was used to selectively engage the saphenous vein graft to the obtuse marginal. An ROSSANA graft was used to selectively engage the BRISCOE graft to the LAD. No complications occurred during the procedure. Hemostasis was achieved at the end of the procedure using manual pressure. SPECIMEN REMOVED: None. ESTIMATED BLOOD LOSS: Minimal. FINDINGS: HEMODYNAMICS: The aortic pressure was 103/69 with a left ventricular systolic pressure of 102 mmHg and the left ventricular end-diastolic pressure of 24 mmHg. CARDIAC STRUCTURES: The left ventricle is severely hypokinetic. The left ventricular ejection fraction is estimated at 20%. CORONARY ANATOMY: 1. This is a right dominant circulation. 2. The left main has evidence of a distal 50% stenosis. 3. The LAD is 100% occluded distal to the takeoff of the first septal product accountant. The proximal and ostial LAD are heavily diseased diffusely. 4. The left circumflex artery is a very small caliber vessel that is severely and diffusely diseased all the way from the ostium extending into the distal AV groove vessel and the distal circumflex. 5. The right coronary artery has evidence of a stent noted in the proximal and mid segment. There is extensive calcified in-stent restenosis of this stent with close to 90% to 99% luminal compromise. 6. The saphenous vein graft to the diagonal artery is patent with good distal vessel run-off. 7. The BRISCOE to the LAD graft is patent with good distal vessel run-off. 8. The saphenous vein graft to the obtuse marginal is occluded in the first, third segment of this graft. There is staining and the contrast x2 hang in this segment for a prolonged period of time after injection. Cannot rule out an acute thrombus. IMPRESSION: 1. Severe [place] vessel coronary artery disease with a 50% distal left main, 100% proximal LAD, 90% severe calcified diffuse circumflex disease, and 99% calcified in-stent restenosis of the proximal and mid right coronary artery. 2. Patent BRISCOE to the LAD and patent saphenous vein graft to the first diagonal artery. 3. Occluded saphenous vein graft to the first obtuse marginal with 100% occlusion noted in the first, third portion of this graft, cannot also exclude an acute thrombus. This is likely the etiology of this patient's myocardial infarction. 4. Severely hypokinetic left ventricle with an ejection fraction of 20%. 5. LVEDP measured at 24 mmHg. RECOMMENDATIONS: 1. Continue medical therapy for the time being. 2. Load with Plavix [address] Hughes will review coronary angiograms and decide on plan. 2. Discussed at length with the patient as well as his son, Mr. Mark Anthony Espinoza. JOB# [id number] TERE/LEXI
[2016-10-26] MEDS: HALDOL IM PRN ×2 (16:13→21:37)
[2016-10-26] MEDS ORDERED: PROVENTIL IH PRN (17:02)
--- NOTE | 2016-10-26 17:32 | Event Note ---
Date: 10/26/16 Cardiac cath angio reviewed: 1. Patent BRISCOE-LAD 2. Patent SVG-Diag 3. Occluded SVG-OM. This appears to be a [employer], target vessel is a small caliber OM. 4. RCA was not previously bypassed, BUT has a prior stent mid vessel. Vessel is subtotally occluded within stented segment. 5. Severe ischemic cardiomyopathy, EF 20%. SVG to OM not a reasonable target-[employer] in a 27y old SVG. The RCA complex instent restenosis is possible target, but high risk in elderly patient with advanced heart failure and multiple co-morbidities. Discussed with patient's son-they agree to pursue medical therapy for CAD and heart failure. In addition to aggressive antiischemic and heart failure meds, we will add a trial of IV Milrinone.
[2016-10-26] MEDS: LEVAQUIN PO SCH (18:32)
[2016-10-26] MEDS: PRIMACOR 20 MG in D5W 80 ML IV SCH (18:52)
[2016-10-26] MEDS: PERCOCET 5/325 PO PRN (19:15)
[2016-10-26] MEDS: PULMICORT IH SCH (19:29)
[2016-10-26] MEDS: BROVANA NEBU IH SCH (19:29)
[2016-10-26 20:54] LABS: C-Reactive Protein 9.3 mg/dL (0.00-1.30); Magnesium 1.8 mg/dL (1.7-2.3); Phosphorous 2.8 mg/dL (2.5-4.5)
[2016-10-26] MEDS: ZAROXOLYN PO SCH (21:27)
[2016-10-26] MEDS: PEPCID PO SCH (21:36)
--- NOTE | 2016-10-27 00:59 | Consultation ---
CONSULTING PHYSICIAN: Merna Johnson MD REASON FOR CONSULTATION: Acute coronary syndrome, pulmonary edema, acute hypoxemic respiratory failure. CHIEF COMPLAINT AND HISTORY OF PRESENT ILLNESS: The patient is a 81-year-old male with past medical history indeed significant for diagnosis of coronary artery disease, and according to his son, he did have coronary artery bypass grafting done about 25-30 years ago. He describes his dad has been noncompliant, continuing to smoke. He came into the Emergency Room complaining of chest pain. This is about yesterday. He described it has happened the night before presentation. It has been constant, located in the center of his chest, radiated to both left and right-side. Really a poor historian or just got tired of telling the same story over and over. He h ad one episode of nausea and vomiting and was evaluated in the Emergency Room. Las were done. They did show elevation in cardiac enzymes, Cardiology consult was placed. The patient also seems to have gone into flash pulmonary edema while in the Emergency Room. They report that he developed new onset wheezing and ultimately Cardiology was consulted. The plan was to initially admit him to the critical care unit and stabilize him, but he was taken in for a cardiac catheterization this morning. When I stopped to see him, he was resting in bed. He denied any chest pains. He denied any cough or expectoration. He apparently has not been on any of his medications for about a year. According to his family, he got tired of taking all the medications. He has a 20+ pack year tobacco smoking history. Denied any gross or streaky hemoptysis. That really is as much of the history of presentation as I have. PAST MEDICAL HISTORY: Coronary artery disease, history of hypertension. He is hard of hearing. He is obese. PAST SURGICAL HISTORY: He has had coronary artery bypass grafting in the past according to the kids. MEDICATIONS: List is as follows: Tylenol 650 mg p.o. q.4h. p.r.n., aspirin 325 mg p.o. daily, Lipitor 80 mg p.o. at bedtime, Plavix 75 mg p.o. daily, Pepcid 20 mg p.o. daily, Lasix 40 mg IV q.12h., Haldol 5 mg IM q.6h. p.r.n. agitation. He is on a heparin drip, insulin via sliding scale, lisinopril 2.5 mg p.o. daily, metoprolol 25 mg p.o. b.i.d., p.r.n. morphine sulfate 2 mg IV q.4h. p.r.n. moderate pain, nitroglycerin 2% patch 1 inch q.i.d., Zofran 4 mg IV q.4h. p.r.n., and p.r.n. Percocet. ALLERGIES: No known drug allergies. DIET: He is obese, acute weight loss or gain history is unknown. FAMILY AND SOCIAL HISTORY: Lives in the community. He has a 20+ pack year tobacco smoking history. No alcohol, tobacco, or illicit drug use or abuse reported otherwise. REVIEW OF SYSTEMS: No overt loss of consciousness. No new onset seizures. No new onset focal weakness. No gross hematochezia or melena. No gross hematuria or dysuria. No hematemesis. No hemoptysis. He did have nausea and vomiting. Complete review of systems obtained. Pertinent positives and/or negatives as in body of history above, otherwise they are noncontributory. PHYSICAL EXAMINATION: VITAL SIGNS: At presentation in the emergency room, he was afebrile, temperature 97.5 degrees Fahrenheit, pulse was 86, respiratory rate was 20, blood pressure was 103/67, oxygen sats 95%, inspired oxygen concentration was not recorded at that time. Currently, he is on about 2 liters nasal cannula, doing about 95%. HEAD, EYES, EARS, NOSE, AND THROAT: Pupils are equal, round, about 3 mm, reactive to light. Extraocular muscle movements could not be assessed. Grossly, there were no palpable lymph nodes in the supraclavicular or submandibular lymph node chains. Oropharynx is a Mallampati #3-4 oropharynx. No significant posterior oropharyngeal erythema. LUNGS: Auscultation of both lung grey, diminished bilateral breath sounds, slightly prolonged expiratory phase, bibasilar rales, no wheezing. HEART: Heart sounds 1 and 2 are heard at the time of my evaluation, regular rate and rhythm. ABDOMEN: Soft, full, bowel sounds are positive, did not appear tender. EXTREMITIES: Without overt digital clubbing, cyanosis, or pedal edema. NEUROLOGIC: The exam was grossly nonfocal. LABORATORY DATA: From my review are as follows: White cell count 12,700, hemoglobin 15.8, hematocrit 48.9, and platelet count 181. INR 1.05. Serum sodium was 134, potassium 4.3, chloride 97, bicarbonate 22, BUN 18, creatinine 1.1, glucose 316. Troponin was up at 0.041, up to 0.209 prior to cardiac catheterization. LDL cholesterol was 182. Radiographic studies have been reviewed. I have also reviewed the radiologist's interpretation, I do agree with him. Apart from increased interstitial markings that appear chronically looking he has hilar predominant infiltrates with some cephalization and increased interstitial markings bilaterally. Median sternotomy wires are in place. No gross pneumothorax, no overt pleural effusions. ASSESSMENT AND PLAN: We have an elderly gentleman coming in with apart from acute coronary syndrome really acute chronic obstructive pulmonary disease exacerbation. I do agree there is probably an element of flash pulmonary edema that might have happened. It is unclear what will have caused the flash pulmonary edema except to blame it on the acute coronary syndrome itself. In terms of his ejection fraction that is measured at 20% systolic ejection fraction on the catheterization report. From a respiratory standpoint, I will offer him CPAP therapy at bedtime. He may well have an element of sleep apnea. It will help with the cardiovascular hemodynamics and help improve his oxygenation and recruit alveoli. Bronchodilator treatments will be scheduled those will be longacting bronchodilators and inhaled corticosteroids. I will make the short acting bronchodilators p.r.n. No plan or indication for systemic steroids at this time. Sputum will be sent for Gram stain, cultures and sensitivities and he will be treated with community-acquired pneumonia therapy empirically. From a severe COPD standpoint, plus or minus possible occult pneumonia. Sputum will be sent for Gram stain, cultures and sensitivities. From a cardiovascular standpoint, he is status post cardiac catheterization. Discussions are ongoing as to the best management, he seems to have multivessel disease. Medical management might be the recommendation. It is unclear if he is a surgical candidate. I will defer to cardiology in terms of the treatment. For now, he is on antiplatelet therapy and the pertinent disease modifying drugs including LAURENT inhibitor therapy. Finally from a respiratory standpoint, diuresis should continue. From a cardiovascular standpoint, as mentioned above, I will defer to Cardiology. From a GI and nutritional standpoint, oral nutrition will be the feeding modality of choice. He is appropriately on GI prophylaxis. Aspiration precautions will be maintained. From a renal standpoint, no major electrolyte abnormalities. I do note the serum bicarbonate level is suggesting possible metabolic acidosis, we will follow that closely. Inputs and outputs will be monitored. Electrolytes will be corrected as necessary. From an infectious disease standpoint, I will put him on Levaquin monotherapy. Sputum will be sent for Gram stain culture and sensitivities and hopefully after about 5 days of therapy, we can stop that if he is still here. From a SENIOR DATA WAREHOUSE ARCHITECT standpoint, the exam is grossly nonfocal. No acute indication for neuro imaging. We will follow him clinically. From a hematologic standpoint, he is on full anticoagulation. I will keep an eye on his platelet count and followed him clinically. From a general and hospital healthcare maintenance standpoint, he is on GI and DVT prophylaxis, I should say GI prophylaxis and full anticoagulation. Flu and pneumonia vaccination will be per protocol. Thank you very much for the consult. He will be observed in the intensive care unit while decisions are made on his care. He certainly is at risk for further decompensation. He is critically ill. At this point, I spent about 30-35 minutes of critical care time without overlap and excluding any procedural time that may be necessary. I have discussed the care plan with the family and they are in agreement. JOB# [id number] ELI/LEXI
[2016-10-27] MEDS: MORPHINE IV PRN (01:03)
[2016-10-27 04:33] LABS: Hemoglobin 14.8 gm/dl (11.8-15.2)
[2016-10-27] MEDS: LASIX IV SCH ×2 (05:56→18:44)
[2016-10-27] MEDS: PULMICORT IH SCH ×2 (07:23→20:11)
[2016-10-27] MEDS: BROVANA NEBU IH SCH ×2 (07:23→20:11)
--- NOTE | 2016-10-27 09:30 | XRay Report ---
Single view chest: Compared to 10/25/16. History: Pneumonia versus pulmonary edema. Findings: Cardiomegaly. Trachea is midline. Decrease in pulmonary vascular congestion compared to previous study. Normal CP angles. Impression: Improvement in pulmonary venous congestion compared to previous study.
--- NOTE | 2016-10-27 09:33 | Progress Note ---
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 The RCA complex instent restenosis is possible target, but high risk in elderly patient with advanced heart failure and multiple co-morbidities. Dr. Hughes has discussed with patient's son - they have agreed to pursue medical therapy Continue BB, DAPT, and statin. On heparin gtt. Ischemic cardiomyopathy, LVEF 20% - continue BB, ACEi and milrinone. Continue current therapy Acute systolic heart failure Leukocytosis, likely reactive Poorly controlled DM Poorly controlled hyperlipidemia Mild dementia Subjective Date of service: 10/27/16 Principal diagnosis: Acute NC Interval history: No acute events overnight. Resting comfortably. Patient is restrained. He is alert, but oriented only to person. Telemetry shows sinus tachycardia. Objective Vital Signs Temp Pulse Pulse Pulse Pulse Resp Resp 10/27/16 07:44 10/27/16 07:36 10/27/16 07:35 127 H 20 10/27/16 07:24 120 H 24 10/27/16 06:00 118 H 15 10/27/16 05:00 120 H 14 10/27/16 04:00 98.7 F 132 H 123 H 20 16 10/27/16 03:00 124 H 18 10/27/16 02:00 125 H 17 10/27/16 01:03 21 10/27/16 01:00 121 H 17 10/27/16 00:00 98.3 F 123 H 18 10/26/16 23:00 122 H 21 10/26/16 22:09 137 H 27 H 10/26/16 22:00 143 H 28 H 10/26/16 21:23 140 H 10/26/16 21:20 22 10/26/16 21:01 149 H 20 10/26/16 20:50 33 H 10/26/16 20:01 128 H 20 10/26/16 20:00 97.2 F L 140 H 142 H 137 H 33 H 10/26/16 19:45 82 22 10/26/16 19:30 80 22 10/26/16 19:15 15 10/26/16 19:00 127 H 25 H 04/21/17 18:30 128 H 10/26/16 18:03 81 29 H 10/26/16 18:01 95 H 30 H 10/26/16 17:31 10/26/16 17:00 97.7 F 99 H 25 H 10/26/16 16:31 117 H 21 10/26/16 16:00 111 H 21 10/26/16 15:31 107 H 13 10/26/16 15:00 96 H 22 10/26/16 14:30 95 H 15 10/26/16 14:00 98 H 14 10/26/16 13:30 94 H 19 10/26/16 13:00 97.7 F 96 H 19 10/26/16 12:30 99 H 16 10/26/16 12:00 94 H 22 10/26/16 11:33 94 H Resp BP Pulse Ox 10/27/16 07:44 96 10/27/16 07:36 96 10/27/16 07:35 10/27/16 07:24 10/27/16 06:00 112/68 98 10/27/16 05:00 105/65 96 10/27/16 04:00 26 H 108/64 98 10/27/16 03:00 103/73 99 10/27/16 02:00 105/58 98 10/27/16 01:03 10/27/16 01:00 102/63 98 10/27/16 00:00 96/61 96 10/26/16 23:00 103/66 97 10/26/16 22:09 107/67 96 10/26/16 22:00 107/67 94 10/26/16 21:23 113/75 10/26/16 21:20 10/26/16 21:01 124/79 83 L 10/26/16 20:50 10/26/16 20:01 124/79 90 10/26/16 20:00 33 H 107/67 93 10/26/16 19:45 10/26/16 19:30 10/26/16 19:15 10/26/16 19:00 114/84 86 10/26/16 18:30 115/88 10/26/16 18:03 115/88 10/26/16 18:01 115/88 10/26/16 17:31 96/58 10/26/16 17:00 96/58 94 10/26/16 16:31 108/72 91 10/26/16 16:00 114/82 89 10/26/16 15:31 100/67 87 10/26/16 15:00 105/71 92 10/26/16 14:30 95/66 94 10/26/16 14:00 99/67 91 10/26/16 13:30 96/66 95 10/26/16 13:00 95/60 93 10/26/16 12:30 87/59 91 10/26/16 12:00 92/64 91 10/26/16 11:33 101/67 93 - Physical Examination HEENT: Positive: PERRL Neck: Positive: neck supple Neuro: Positive: Grossly Intact Abdomen: Positive: Soft Skin: Positive: Clear Extremities: Absent: edema - Labs and Meds CBC 10/27/16 Range/Units 04:11 Hgb 14.8 (11.8-15.2) gm/dl Hct 45.0 (35.5-45.6) % Plt Count 157 (140-440) K/mm3
--- NOTE | 2016-10-27 09:33 | Progress Note ---
Assessment and Plan Assessment and plan: Acute NSTEMI. On aspirin Plavix , Lopressor. Cardiac cath done yesterday showed multivessel disease. Medical management recommended. Chest pain due to acute NSTEMI. No more chest pain-resolved. Acute systolic heart failure. Continue Lasix iv, Lopressor Ischemic cardiomyopathy. EF 20% CAD s/p CABG Acute encephalopathy with altered mental status. haldol prn. CT head without contrast ordered to rule out any pathology Diabetes mellitus type II. Fingerstick glucose before every meal and at bedtime DVT prophylaxis. On Heparin. Full code status History Interval history: No more chest pain, Still confused Agitated-0n restraints Hospitalist Physical - Physical exam Narrative exam: Gen: Not in acute distress, obese HEENT: Normocephalic, atraumatic Neck: supple, no JVD Lungs: Bilateral crackles, no wheezing Heart S1-S2 regular, no murmurs, rubs or gallop, Abdomen: soft, non tender, normal bowel sounds present Ext: No edema, no clubbing, no cyanosis Neuro: Awake.alert, confused. oriented to person but not to place or time. - Constitutional Vitals: Temp Pulse Resp BP Pulse Ox 98.7 F 127 H 20 112/68 96 10/27/16 04:00 10/27/16 07:35 10/27/16 07:35 10/27/16 06:00 10/27/16 07:44 General appearance: Present: mild distress Results - Labs CBC & Chem 7: 10/27/16 04:11 10/26/16 03:40 Labs: Laboratory Last Values WBC 16.2 K/mm3 (4.5-11.0) H 10/26/16 03:40 RBC 5.60 M/mm3 (3.65-5.03) H 10/26/16 03:40 Hgb 14.8 gm/dl (11.8-15.2) 10/27/16 04:11 Hct 45.0 % (35.5-45.6) 10/27/16 04:11 MCV 86 fl (84-94) 10/26/16 03:40 MCH 28 pg (28-32) 10/26/16 03:40 MCHC 33 % (32-34) 10/26/16 03:40 RDW 14.0 % (13.2-15.2) 10/26/16 03:40 Plt Count 157 K/mm3 (140-440) 10/27/16 04:11 Lymph % (Auto) 8.1 % (13.4-35.0) L 10/26/16 03:40 [place] % (Auto) 5.5 % (0.0-7.3) 10/26/16 03:40 Eos % (Auto) 0.1 % (0.0-4.3) 10/26/16 03:40 Baso % (Auto) 0.2 % (0.0-1.8) 10/26/16 03:40 Lymph # 1.3 K/mm3 (1.2-5.4) 10/26/16 03:40 [place] # 0.9 K/mm3 (0.0-0.8) H 10/26/16 03:40 Eos # 0.0 K/mm3 (0.0-0.4) 10/26/16 03:40 Baso # 0.0 K/mm3 (0.0-0.1) 10/26/16 03:40 Seg Neutrophils % 86.1 % (40.0-70.0) H 10/26/16 03:40 Seg Neutrophils # 14.0 K/mm3 (1.8-7.7) H 10/26/16 03:40 PT 13.6 Sec. (12.2-14.9) 10/25/16 11:21 INR 1.05 (0.87-1.13) 10/25/16 11:21 APTT 24.6 Sec. (24.2-36.6) 10/25/16 11:21 Heparin Anti-Xa Level 0.63 U.I./ml (0.3-0.7) 10/27/16 04:11 POC ABG pH 7.395 (7.35-7.45) 10/26/16 02:24 POC ABG pCO2 31.6 (35-45) L 10/26/16 02:24 POC ABG pO2 58 (80-105) L 10/26/16 02:24 POC ABG HCO3 19.4 10/26/16 02:24 POC ABG Total CO2 20 10/26/16 02:24 POC ABG O2 Sat 90 10/26/16 02:24 POC ABG Base Excess -6 10/26/16 02:24 FiO2 50 % 10/26/16 02:24 Sodium 134 mmol/L (137-145) L 10/26/16 03:40 Potassium 4.6 mmol/L (3.6-5.0) 10/26/16 03:40 Chloride 96.5 mmol/L (98-107) L 10/26/16 03:40 Carbon Dioxide 17 mmol/L (22-30) L 10/26/16 03:40 Anion Gap 25 mmol/L 10/26/16 03:40 BUN 23 mg/dL (9-20) H 10/26/16 03:40 Creatinine 1.2 mg/dL (0.8-1.5) 10/26/16 03:40 Estimated GFR 58 ml/min 10/26/16 03:40 BUN/Creatinine Ratio 19.16 % 10/26/16 03:40 Glucose 301 mg/dL (75-100) H 10/26/16 03:40 POC Glucose 270 (70-105) H 10/27/16 08:09 Calcium 8.4 mg/dL (8.4-10.2) 10/26/16 03:40 Phosphorus 2.8 mg/dL (2.5-4.5) 10/26/16 20:21 Magnesium 1.8 mg/dL (1.7-2.3) 10/26/16 20:21 Troponin T 0.209 ng/mL (0.00-0.029) H* D 10/25/16 13:59 C-Reactive Protein 9.30 mg/dL (0.00-1.30) H 10/26/16 20:21 NT-Pro-B Natriuret Pep 1278 pg/mL (0-900) H 10/25/16 10:19 Triglycerides 139 mg/dL (2-149) 10/25/16 07:27 Cholesterol 249 mg/dL (50-199) H 10/25/16 07:27 LDL Cholesterol Direct 182 mg/dL (50-130) H 10/25/16 07:27 HDL Cholesterol 40 mg/dL (40-59) 10/25/16 07:27 Cholesterol/HDL Ratio 6.22 % 10/25/16 07:27
[2016-10-27] MEDS: ZAROXOLYN PO SCH (10:00)
[2016-10-27] MEDS: ZESTRIL PO SCH (10:00)
[2016-10-27] MEDS: NITRO-BID 2% TP SCH ×3 (10:30→18:45)
[2016-10-27] MEDS: PEPCID PO SCH (10:31)
[2016-10-27] MEDS: ECOTRIN PO SCH (10:31)
[2016-10-27] MEDS: PLAVIX PO SCH (10:31)
[2016-10-27] MEDS: LOPRESSOR PO SCH ×2 (10:32→21:42)
[2016-10-27] MEDS: LEVAQUIN PO SCH (10:37)
--- NOTE | 2016-10-27 13:25 | Progress Note ---
Assessment and Plan - Patient Problems (1) Acute hypoxemic respiratory failure Current Visit: Yes Status: Acute Plan to address problem: - continue supplemental oxygen - continue qhs CPAP - continue diuresis - continue to optimize CAD medical management - continue milrinone drip per cardiology - continue bronchodilators and pulmonary toilet (2) Acute pulmonary edema Current Visit: Yes Status: Acute Plan to address problem: - as above (3) Obesity (BMI 30.0-34.9) Current Visit: Yes Status: Acute Plan to address problem: - weight loss counselled - outpatient PSG (4) Acute myocardial infarction Current Visit: Yes Status: Acute Qualifiers: Myocardial infarction ST status: M Involved coronary artery: I Plan to address problem: - on milrinone drip - diuresis - DMOD's per cardiology (5) Discharge planning issues Current Visit: Yes Status: Acute Plan to address problem: - observe in ICU overnight on milrinone drip ...remains critically ill on life sustaining interventions including vasopressors and at risk for further deterioration including ...32' CCT Subjective Date of service: 10/27/16 Principal diagnosis: Acute Hypoxemic Respiratory Failure; Acute [place] Interval history: Seen and examined at bedside; 24 hour events reviewed; nursing and respiratory care staff consulted; no adverse overnight events reported to me; resting peacefully in bed; denies acute chest pains or increased SOB; tolerated CPAP overnight Objective Vital Signs - 12hr 10/27/16 10/27/16 10/27/16 02:00 03:00 04:00 Temperature 98.7 F Pulse Rate 125 H 124 H 132 H Pulse Rate [ 123 H Anterior Bilateral Throughout] Respiratory 17 18 20 Rate Respiratory 16 Rate [Anterior Bilateral Throughout] Respiratory 26 H Rate [Chest] Blood Pressure 105/58 103/73 108/64 O2 Sat by Pulse 98 99 98 Oximetry 10/27/16 10/27/16 10/27/16 05:00 06:00 07:24 Temperature Pulse Rate 120 H 118 H Pulse Rate [ 120 H Anterior Bilateral Throughout] Respiratory 14 15 Rate Respiratory 24 Rate [Anterior Bilateral Throughout] Respiratory Rate [Chest] Blood Pressure 105/65 112/68 O2 Sat by Pulse 96 98 Oximetry 10/27/16 10/27/16 10/27/16 07:35 07:36 07:44 Temperature Pulse Rate Pulse Rate [ 127 H Anterior Bilateral Throughout] Respiratory Rate Respiratory 20 Rate [Anterior Bilateral Throughout] Respiratory Rate [Chest] Blood Pressure O2 Sat by Pulse 96 96 Oximetry 10/27/16 10/27/16 10/27/16 08:00 10:00 10:30 Temperature 98.4 F 98.1 F Pulse Rate 128 H Pulse Rate [ Anterior Bilateral Throughout] Respiratory Rate Respiratory Rate [Anterior Bilateral Throughout] Respiratory Rate [Chest] Blood Pressure 103/64 O2 Sat by Pulse Oximetry 10/27/16 10:32 Temperature Pulse Rate 127 H Pulse Rate [ Anterior Bilateral Throughout] Respiratory Rate Respiratory Rate [Anterior Bilateral Throughout] Respiratory Rate [Chest] Blood Pressure 103/64 O2 Sat by Pulse Oximetry Constitutional: no acute distress, alert Eyes: non-icteric ENT: oropharynx moist Neck: supple, no lymphadenopathy Effort: normal Ascultation: Bilateral: diminished breath sounds, rales (posterior bases but scant) Cardiovascular: regular rate and rhythm Gastrointestinal: normoactive bowel sounds, soft, non-tender, non-distended Integumentary: normal Extremities: no cyanosis, no edema, pink and warm, pulses normal Neurologic: normal mental status, non-focal exam, pupils equal and round, motor strength normal and Psychiatric: mood appropriate, affect normal CBC and BMP: 10/27/16 04:11 10/26/16 03:40 ABG, PT/INR, D-dimer: ABG POC ABG pH 7.395 (7.35-7.45) 10/26/16 02:24 POC ABG pCO2 31.6 (35-45) L 10/26/16 02:24 POC ABG pO2 58 (80-105) L 10/26/16 02:24 POC ABG HCO3 19.4 10/26/16 02:24 POC ABG Total CO2 20 10/26/16 02:24 POC ABG O2 Sat 90 10/26/16 02:24 PT/INR, D-dimer PT 13.6 Sec. (12.2-14.9) 10/25/16 11:21 INR 1.05 (0.87-1.13) 10/25/16 11:21 Abnormal lab findings: Abnormal Labs 10/25/16 10/25/16 10/25/16 10:19 10:23 11:55 WBC RBC Hgb Hct Lymph % (Auto) [place] # Seg Neutrophils % Seg Neutrophils # Heparin Anti-Xa Level POC ABG pCO2 POC ABG pO2 Sodium Chloride Carbon Dioxide BUN Glucose POC Glucose 299 H Hemoglobin A1c Troponin T 0.167 H* D C-Reactive Protein NT-Pro-B Natriuret Pep 1278 H 10/25/16 10/25/16 10/25/16 13:59 17:31 22:12 WBC RBC Hgb Hct Lymph % (Auto) [place] # Seg Neutrophils % Seg Neutrophils # Heparin Anti-Xa Level 2.00 H POC ABG pCO2 POC ABG pO2 Sodium Chloride Carbon Dioxide BUN Glucose POC Glucose 188 H Hemoglobin A1c Troponin T 0.209 H* D C-Reactive Protein NT-Pro-B Natriuret Pep 10/26/16 10/26/16 10/26/16 00:05 02:24 03:40 WBC 16.2 H RBC 5.60 H Hgb 15.6 H Hct 48.0 H Lymph % (Auto) 8.1 L [place] # 0.9 H Seg Neutrophils % 86.1 H Seg Neutrophils # 14.0 H Heparin Anti-Xa Level POC ABG pCO2 31.6 L POC ABG pO2 58 L Sodium Chloride Carbon Dioxide BUN Glucose POC Glucose 264 H Hemoglobin A1c Troponin T C-Reactive Protein NT-Pro-B Natriuret Pep 10/26/16 10/26/16 10/26/16 03:40 03:40 05:50 WBC RBC Hgb Hct Lymph % (Auto) [place] # Seg Neutrophils % Seg Neutrophils # Heparin Anti-Xa Level < 0.10 L POC ABG pCO2 POC ABG pO2 Sodium 134 L Chloride 96.5 L Carbon Dioxide 17 L BUN 23 H Glucose 301 H POC Glucose 288 H Hemoglobin A1c Troponin T C-Reactive Protein NT-Pro-B Natriuret Pep 10/26/16 10/26/16 10/26/16 11:54 17:15 20:21 WBC RBC Hgb Hct Lymph % (Auto) [place] # Seg Neutrophils % Seg Neutrophils # Heparin Anti-Xa Level < 0.10 L POC ABG pCO2 POC ABG pO2 Sodium Chloride Carbon Dioxide BUN Glucose POC Glucose 254 H 189 H Hemoglobin A1c Troponin T C-Reactive Protein NT-Pro-B Natriuret Pep 10/26/16 10/26/16 10/27/16 20:21 22:44 00:20 WBC RBC Hgb Hct Lymph % (Auto) [place] # Seg Neutrophils % Seg Neutrophils # Heparin Anti-Xa Level 0.19 L POC ABG pCO2 POC ABG pO2 Sodium Chloride Carbon Dioxide BUN Glucose POC Glucose 195 H Hemoglobin A1c Troponin T C-Reactive Protein 9.30 H NT-Pro-B Natriuret Pep 10/27/16 10/27/16 10/27/16 04:11 08:09 11:38 WBC RBC Hgb Hct Lymph % (Auto) [place] # Seg Neutrophils % Seg Neutrophils # Heparin Anti-Xa Level POC ABG pCO2 POC ABG pO2 Sodium Chloride Carbon Dioxide BUN Glucose POC Glucose 270 H 286 H Hemoglobin A1c 9.5 H Troponin T C-Reactive Protein NT-Pro-B Natriuret Pep Chest x-ray: image reviewed
[2016-10-27] MEDS: PRIMACOR 20 MG in D5W 80 ML IV SCH ×2 (14:00→22:00)
[2016-10-27] MEDS: HEPARIN/ 0.45% NACL-25,000 UNIT/500 ML 25,000 UNITS/500 ML BAG IV SCH (17:40)
--- NOTE | 2016-10-27 18:46 | Cat Scan Report ---
FINAL REPORT EXAM: CT HEAD/BRAIN WO CON HISTORY: Altered mental status TECHNIQUE: Axial noncontrast CT images of the brain were performed. Total exam DLP 1792.70 mGy-cm FINDINGS: There is severe cortical and central atrophy with confluent periventricular white matter hypodensity compatible with small vessel ischemic disease. There are multiple completed locations in the basal ganglia and anterior limb internal capsule on the left. There is normal ju[place]-white differentiation without midline shift or mass effect. There are no acute extra-axial fluid collections or intraparenchymal blood products. Ventricles and cisterns have normal size and configuration. There is bilateral ethmoid and right mastoid opacification. The nasal septum is deviated to the left. There is no displaced calvarial fracture. IMPRESSION: Extensive cortical and central atrophy with completed basal ganglia lacunar infarcts. No acute bleed or transcortical infarct. If clinically indicated, recommend MRI brain with diffusion-weighted imaging.
[2016-10-27] MEDS: HALDOL IM PRN (21:41)
[2016-10-28 05:37] LABS: Hematocrit 41.4 % (35.5-45.6); Hemoglobin 13.6 gm/dl (11.8-15.2); Mean Corpuscular HGB Conc 33 % (32-34); Mean Corpuscular Hemoglobin 28 pg (28-32); Mean Corpuscular Volume 85 fl (84-94); Platelet Count 150 K/mm3 (140-440); Red Blood Count 4.87 M/mm3 (3.65-5.03); Red Cell Distribution Width 14.1 % (13.2-15.2); White Blood Count 12.5 K/mm3 (4.5-11.0)
[2016-10-28 05:41] LABS: Calcium 8.5 mg/dL (8.4-10.2)
[2016-10-28 05:47] LABS: Potassium 3.2 mmol/L (3.6-5.0)
[2016-10-28] MEDS: LASIX IV SCH ×2 (06:34→18:00)
[2016-10-28] MEDS: NITRO-BID 2% TP SCH ×4 (06:34→18:20)
[2016-10-28] MEDS: BROVANA NEBU IH SCH ×2 (08:37→20:40)
[2016-10-28] MEDS: PULMICORT IH SCH ×2 (08:38→20:40)
--- NOTE | 2016-10-28 08:41 | Progress Note ---
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 The RCA complex instent restenosis is possible target, but high risk in elderly patient with advanced heart failure and multiple co-morbidities. Dr. Hughes has discussed with patient's son - they have agreed to pursue medical therapy Continue BB, DAPT, and statin. On heparin gtt. Ischemic cardiomyopathy, LVEF 20% - continue BB, ACEi and milrinone. Continue current therapy. I/Os not accurate due to patient voiding in the bed. No mena in place. Acute systolic heart failure - on BB, ACEi and milrinone. Leukocytosis, likely reactive Poorly controlled DM Poorly controlled hyperlipidemia - now on high intensity statin Mild dementia Subjective Date of service: 10/28/16 Principal diagnosis: Acute Hypoxemic Respiratory Failure; Acute [place] Interval history: No acute events overnight. Resting comfortably. Patient is restrained. Telemetry shows sinus tachycardia with heart rate slightly improved. Patient is sleeping with BiPaP. Remains confused. Objective Vital Signs Temp Pulse Pulse Pulse Pulse Resp Resp 10/28/16 08:32 10/28/16 08:10 116 H 24 10/28/16 06:34 117 H 10/28/16 06:00 123 H 22 10/28/16 05:00 129 H 18 10/28/16 04:00 98.8 F 134 H 121 H 16 10/28/16 03:00 128 H 16 10/28/16 02:00 124 H 22 10/28/16 01:00 128 H 10/28/16 00:00 98.6 F 108 H 124 H 20 10/27/16 23:00 109 H 21 10/27/16 22:47 106 H 20 10/27/16 22:00 120 H 23 10/27/16 21:42 134 H 10/27/16 21:00 143 H 25 H 10/27/16 20:22 127 H 15 10/27/16 20:16 98.2 F 10/27/16 20:13 124 H 14 10/27/16 20:11 10/27/16 20:00 120 H 120 H 22 10/27/16 19:00 98.4 F 118 H 21 10/27/16 18:45 118 H 10/27/16 18:00 122 H 18 10/27/16 17:00 132 H 16 10/27/16 16:00 98.6 F 111 H 118 H 118 H 16 10/27/16 15:00 112 H 19 10/27/16 14:00 112 H 17 10/27/16 13:00 129 H 17 10/27/16 12:00 98.1 F 121 H 16 10/27/16 11:00 125 H 18 10/27/16 10:32 127 H 10/27/16 10:30 128 H 10/27/16 10:00 118 H 21 10/27/16 09:00 133 H 122 H 122 H 26 H BP Pulse Ox 10/28/16 08:32 99 10/28/16 08:10 10/28/16 06:34 99/55 10/28/16 06:00 99/55 97 10/28/16 05:00 98/60 91 10/28/16 04:00 106/74 97 10/28/16 03:00 99 10/28/16 02:00 101/62 98 10/28/16 01:00 113/69 97 10/28/16 00:00 106/71 96 10/27/16 23:00 112/78 100 10/27/16 22:47 96/62 99 10/27/16 22:00 95/64 94 10/27/16 21:42 104/62 10/27/16 21:00 104/69 94 10/27/16 20:22 10/27/16 20:16 10/27/16 20:13 10/27/16 20:11 96 10/27/16 20:00 115/50 96 10/27/16 19:00 96/63 95 10/27/16 18:45 97/65 10/27/16 18:00 103/80 96 10/27/16 17:00 115/65 96 10/27/16 16:00 111/55 95 10/27/16 15:00 97/60 97 10/27/16 14:00 100/60 92 10/27/16 13:00 82/45 93 10/27/16 12:00 98/60 95 04/22/17 11:00 90/65 94 04/22/17 10:32 103/64 10/27/16 10:30 103/64 10/27/16 10:00 88/60 90 10/27/16 09:00 95/53 94 - Physical Examination HEENT: Positive: PERRL Neck: Positive: neck supple Neuro: Positive: Grossly Intact Abdomen: Positive: Soft Skin: Positive: Clear Extremities: Absent: edema - Labs and Meds CBC 10/28/16 Range/Units 04:43 WBC 12.5 H (4.5-11.0) K/mm3 RBC 4.87 (3.65-5.03) M/mm3 Hgb 13.6 (11.8-15.2) gm/dl Hct 41.4 (35.5-45.6) % Plt Count 150 (140-440) K/mm3 Comprehensive Metabolic Panel 10/28/16 Range/Units 04:43 Potassium 3.2 L D (3.6-5.0) mmol/L Carbon Dioxide 21 L (22-30) mmol/L BUN 27 H (9-20) mg/dL Creatinine 1.5 (0.8-1.5) mg/dL Glucose 183 H (75-100) mg/dL Calcium 8.5 (8.4-10.2) mg/dL
[2016-10-28] MEDS: K-DUR PO SCH ×2 (09:24→14:06)
[2016-10-28] MEDS: PRIMACOR 20 MG in D5W 80 ML IV SCH ×2 (09:26→19:00)
[2016-10-28] MEDS: PLAVIX PO SCH (09:27)
[2016-10-28] MEDS: PEPCID PO SCH (09:27)
[2016-10-28] MEDS: ECOTRIN PO SCH (09:27)
[2016-10-28] MEDS: LEVAQUIN PO SCH (09:28)
[2016-10-28] MEDS: ZAROXOLYN PO SCH (10:00)
[2016-10-28] MEDS: ZESTRIL PO SCH (10:00)
[2016-10-28] MEDS: LOPRESSOR PO SCH ×2 (10:00→21:57)
--- NOTE | 2016-10-28 12:27 | Progress Note ---
Assessment and Plan Assessment and plan: Acute NSTEMI. On aspirin Plavix , Lopressor. Cardiac cath done,showed multivessel disease. Medical management recommended. Chest pain due to acute NSTEMI. No more chest pain-resolved. Acute systolic heart failure. Continue Lasix iv, Lopressor, Milrinone drip Ischemic cardiomyopathy. EF 20% CAD s/p CABG Acute encephalopathy with altered mental status. haldol prn. CT head without contrast no acute changes. Diabetes mellitus type II. Fingerstick glucose before every meal and at bedtime DVT prophylaxis. On Heparin. Full code status poss dementia. agitated,confused. Haldol prn History Interval history: No more chest pain, Still confused Agitated-0n restraints Hospitalist Physical - Physical exam Narrative exam: Gen: Not in acute distress, obese HEENT: Normocephalic, atraumatic Neck: supple, no JVD Lungs: Bilateral crackles, no wheezing Heart S1-S2 regular, no murmurs, rubs or gallop, Abdomen: soft, non tender, normal bowel sounds present Ext: No edema, no clubbing, no cyanosis Neuro: Awake.alert, confused. oriented to person but not to place or time, agitated on and off - Constitutional Vitals: Temp Pulse Resp BP Pulse Ox 98.8 F 120 H 19 95/64 97 10/28/16 12:00 10/28/16 12:00 10/28/16 12:00 10/28/16 12:00 10/28/16 11:00 Results - Labs CBC & Chem 7: 10/28/16 04:43 10/28/16 04:43 Labs: Laboratory Last Values WBC 12.5 K/mm3 (4.5-11.0) H 10/28/16 04:43 RBC 4.87 M/mm3 (3.65-5.03) 10/28/16 04:43 Hgb 13.6 gm/dl (11.8-15.2) 10/28/16 04:43 Hct 41.4 % (35.5-45.6) 10/28/16 04:43 MCV 85 fl (84-94) 10/28/16 04:43 MCH 28 pg (28-32) 10/28/16 04:43 MCHC 33 % (32-34) 10/28/16 04:43 RDW 14.1 % (13.2-15.2) 10/28/16 04:43 Plt Count 150 K/mm3 (140-440) 10/28/16 04:43 Lymph % (Auto) 8.1 % (13.4-35.0) L 10/26/16 03:40 [place] % (Auto) 5.5 % (0.0-7.3) 10/26/16 03:40 Eos % (Auto) 0.1 % (0.0-4.3) 10/26/16 03:40 Baso % (Auto) 0.2 % (0.0-1.8) 10/26/16 03:40 Lymph # 1.3 K/mm3 (1.2-5.4) 10/26/16 03:40 [place] # 0.9 K/mm3 (0.0-0.8) H 10/26/16 03:40 Eos # 0.0 K/mm3 (0.0-0.4) 10/26/16 03:40 Baso # 0.0 K/mm3 (0.0-0.1) 10/26/16 03:40 Seg Neutrophils % 86.1 % (40.0-70.0) H 10/26/16 03:40 Seg Neutrophils # 14.0 K/mm3 (1.8-7.7) H 10/26/16 03:40 PT 13.6 Sec. (12.2-14.9) 10/25/16 11:21 INR 1.05 (0.87-1.13) 10/25/16 11:21 APTT 24.6 Sec. (24.2-36.6) 10/25/16 11:21 Heparin Anti-Xa Level 0.60 U.I./ml (0.3-0.7) 10/27/16 11:45 POC ABG pH 7.395 (7.35-7.45) 10/26/16 02:24 POC ABG pCO2 31.6 (35-45) L 10/26/16 02:24 POC ABG pO2 58 (80-105) L 10/26/16 02:24 POC ABG HCO3 19.4 10/26/16 02:24 POC ABG Total CO2 20 10/26/16 02:24 POC ABG O2 Sat 90 10/26/16 02:24 POC ABG Base Excess -6 10/26/16 02:24 FiO2 50 % 10/26/16 02:24 Sodium 134 mmol/L (137-145) L 10/26/16 03:40 Potassium 3.2 mmol/L (3.6-5.0) L D 10/28/16 04:43 Chloride 96.5 mmol/L (98-107) L 10/26/16 03:40 Carbon Dioxide 21 mmol/L (22-30) L 10/28/16 04:43 Anion Gap 25 mmol/L 10/26/16 03:40 BUN 27 mg/dL (9-20) H 10/28/16 04:43 Creatinine 1.5 mg/dL (0.8-1.5) 10/28/16 04:43 Estimated GFR 45 ml/min 10/28/16 04:43 BUN/Creatinine Ratio 18.00 % 10/28/16 04:43 Glucose 183 mg/dL (75-100) H 10/28/16 04:43 POC Glucose 271 (70-105) H 10/28/16 11:11 Hemoglobin A1c 9.5 % (4-6) H 10/27/16 04:11 Calcium 8.5 mg/dL (8.4-10.2) 10/28/16 04:43 Phosphorus 2.8 mg/dL (2.5-4.5) 10/26/16 20:21 Magnesium 1.8 mg/dL (1.7-2.3) 10/26/16 20:21 Troponin T 0.209 ng/mL (0.00-0.029) H* D 10/25/16 13:59 C-Reactive Protein 9.30 mg/dL (0.00-1.30) H 10/26/16 20:21 NT-Pro-B Natriuret Pep 1278 pg/mL (0-900) H 10/25/16 10:19 Triglycerides 139 mg/dL (2-149) 10/25/16 07:27 Cholesterol 249 mg/dL (50-199) H 10/25/16 07:27 LDL Cholesterol Direct 182 mg/dL (50-130) H 10/25/16 07:27 HDL Cholesterol 40 mg/dL (40-59) 10/25/16 07:27 Cholesterol/HDL Ratio 6.22 % 10/25/16 07:27
[2016-10-28] MEDS: HEPARIN/ 0.45% NACL-25,000 UNIT/500 ML 25,000 UNITS/500 ML BAG IV SCH (13:39)
--- NOTE | 2016-10-28 15:58 | Progress Note ---
Assessment and Plan - Patient Problems (1) Acute hypoxemic respiratory failure Current Visit: Yes Status: Acute Plan to address problem: - continue supplemental oxygen - continue qhs CPAP - continue diuresis - continue to optimize CAD medical management - continue milrinone drip per cardiology - continue bronchodilators and pulmonary toilet (2) Acute pulmonary edema Current Visit: Yes Status: Acute Plan to address problem: - as above (3) Obesity (BMI 30.0-34.9) Current Visit: Yes Status: Acute Plan to address problem: - weight loss counselled - outpatient PSG (4) Acute myocardial infarction Current Visit: Yes Status: Acute Qualifiers: Myocardial infarction ST status: M Involved coronary artery: I Plan to address problem: - on milrinone drip - diuresis - DMOD's per cardiology (5) Discharge planning issues Current Visit: Yes Status: Acute Plan to address problem: - continue observe in ICU overnight on milrinone drip - transfer out once OK with cardiology team input ...remains critically ill on life sustaining interventions including vasopressors and at risk for further deterioration including ...30' CCT Subjective Date of service: 10/28/16 Principal diagnosis: Acute Hypoxemic Respiratory Failure; Acute [place] Interval history: Seen and examined at bedside; 24 hour events reviewed; nursing and respiratory care staff consulted; no adverse overnight events reported to me; remains on milrinone drip but still with agitation / sundowning syndrome at times Objective Vital Signs - 12hr 10/28/16 10/28/16 10/28/16 04:00 05:00 06:00 Temperature 98.8 F Pulse Rate 134 H 129 H 123 H Pulse Rate [ Anterior Bilateral Throughout] Pulse Rate [ 121 H From Monitor] Pulse Rate [ Left Radial] Pulse Rate [ Right Radial] Respiratory 16 18 22 Rate Respiratory Rate [Anterior Bilateral Throughout] Blood Pressure 106/74 98/60 99/55 O2 Sat by Pulse 97 91 97 Oximetry 10/28/16 10/28/16 10/28/16 06:34 07:00 08:00 Temperature 98.5 F Pulse Rate 117 H 118 H 113 H Pulse Rate [ Anterior Bilateral Throughout] Pulse Rate [ 124 H From Monitor] Pulse Rate [ 124 H Left Radial] Pulse Rate [ 124 H Right Radial] Respiratory 18 19 Rate Respiratory Rate [Anterior Bilateral Throughout] Blood Pressure 99/55 95/64 96/61 O2 Sat by Pulse 98 98 Oximetry 10/28/16 10/28/16 10/28/16 08:10 08:32 09:00 Temperature Pulse Rate 113 H Pulse Rate [ 116 H Anterior Bilateral Throughout] Pulse Rate [ From Monitor] Pulse Rate [ Left Radial] Pulse Rate [ Right Radial] Respiratory 18 Rate Respiratory 24 Rate [Anterior Bilateral Throughout] Blood Pressure 91/60 O2 Sat by Pulse 99 94 Oximetry 10/28/16 10/28/16 10/28/16 09:16 10:00 11:00 Temperature Pulse Rate 129 H 114 H 114 H Pulse Rate [ Anterior Bilateral Throughout] Pulse Rate [ 111 H From Monitor] Pulse Rate [ 111 H Left Radial] Pulse Rate [ 111 H Right Radial] Respiratory 22 19 Rate Respiratory Rate [Anterior Bilateral Throughout] Blood Pressure 91/60 82/52 92/58 O2 Sat by Pulse 98 97 Oximetry 10/28/16 10/28/16 12:00 14:06 Temperature 98.8 F Pulse Rate 114 H 114 H Pulse Rate [ Anterior Bilateral Throughout] Pulse Rate [ From Monitor] Pulse Rate [ Left Radial] Pulse Rate [ Right Radial] Respiratory 19 Rate Respiratory Rate [Anterior Bilateral Throughout] Blood Pressure 95/64 90/50 O2 Sat by Pulse Oximetry Constitutional: no acute distress, alert Eyes: non-icteric ENT: oropharynx moist Neck: supple, no lymphadenopathy Effort: mildly labored Ascultation: Bilateral: diminished breath sounds, rales (posterior bases but scant) Cardiovascular: regular rate and rhythm Gastrointestinal: normoactive bowel sounds, soft, non-tender, non-distended Integumentary: normal Extremities: no cyanosis, no edema, pink and warm, pulses normal Neurologic: normal mental status, non-focal exam, pupils equal and round, motor strength normal and Psychiatric: mood appropriate, affect normal CBC and BMP: 10/30/16 05:24 10/30/16 05:24 ABG, PT/INR, D-dimer: ABG POC ABG pH 7.395 (7.35-7.45) 10/26/16 02:24 POC ABG pCO2 31.6 (35-45) L 10/26/16 02:24 POC ABG pO2 58 (80-105) L 10/26/16 02:24 POC ABG HCO3 19.4 10/26/16 02:24 POC ABG Total CO2 20 10/26/16 02:24 POC ABG O2 Sat 90 10/26/16 02:24 PT/INR, D-dimer PT 13.6 Sec. (12.2-14.9) 10/25/16 11:21 INR 1.05 (0.87-1.13) 10/25/16 11:21 Abnormal lab findings: Abnormal Labs 10/25/16 10/25/16 10/25/16 10:19 10:23 11:55 WBC RBC Hgb Hct Lymph % (Auto) [place] # Seg Neutrophils % Seg Neutrophils # Heparin Anti-Xa Level POC ABG pCO2 POC ABG pO2 Sodium Potassium Chloride Carbon Dioxide BUN Glucose POC Glucose 299 H Hemoglobin A1c Troponin T 0.167 H* D C-Reactive Protein NT-Pro-B Natriuret Pep 1278 H 10/25/16 10/25/16 10/25/16 13:59 17:31 22:12 WBC RBC Hgb Hct Lymph % (Auto) [place] # Seg Neutrophils % Seg Neutrophils # Heparin Anti-Xa Level 2.00 H POC ABG pCO2 POC ABG pO2 Sodium Potassium Chloride Carbon Dioxide BUN Glucose POC Glucose 188 H Hemoglobin A1c Troponin T 0.209 H* D C-Reactive Protein NT-Pro-B Natriuret Pep 10/26/16 10/26/16 10/26/16 00:05 02:24 03:40 WBC 16.2 H RBC 5.60 H Hgb 15.6 H Hct 48.0 H Lymph % (Auto) 8.1 L [place] # 0.9 H Seg Neutrophils % 86.1 H Seg Neutrophils # 14.0 H Heparin Anti-Xa Level POC ABG pCO2 31.6 L POC ABG pO2 58 L Sodium Potassium Chloride Carbon Dioxide BUN Glucose POC Glucose 264 H Hemoglobin A1c Troponin T C-Reactive Protein NT-Pro-B Natriuret Pep 10/26/16 10/26/16 10/26/16 03:40 03:40 05:50 WBC RBC Hgb Hct Lymph % (Auto) [place] # Seg Neutrophils % Seg Neutrophils # Heparin Anti-Xa Level < 0.10 L POC ABG pCO2 POC ABG pO2 Sodium 134 L Potassium Chloride 96.5 L Carbon Dioxide 17 L BUN 23 H Glucose 301 H POC Glucose 288 H Hemoglobin A1c Troponin T C-Reactive Protein NT-Pro-B Natriuret Pep 10/26/16 10/26/16 10/26/16 11:54 17:15 20:21 WBC RBC Hgb Hct Lymph % (Auto) [place] # Seg Neutrophils % Seg Neutrophils # Heparin Anti-Xa Level < 0.10 L POC ABG pCO2 POC ABG pO2 Sodium Potassium Chloride Carbon Dioxide BUN Glucose POC Glucose 254 H 189 H Hemoglobin A1c Troponin T C-Reactive Protein NT-Pro-B Natriuret Pep 10/26/16 10/26/16 10/27/16 20:21 22:44 00:20 WBC RBC Hgb Hct Lymph % (Auto) [place] # Seg Neutrophils % Seg Neutrophils # Heparin Anti-Xa Level 0.19 L POC ABG pCO2 POC ABG pO2 Sodium Potassium Chloride Carbon Dioxide BUN Glucose POC Glucose 195 H Hemoglobin A1c Troponin T C-Reactive Protein 9.30 H NT-Pro-B Natriuret Pep 10/27/16 10/27/16 10/27/16 04:11 08:09 11:38 WBC RBC Hgb Hct Lymph % (Auto) [place] # Seg Neutrophils % Seg Neutrophils # Heparin Anti-Xa Level POC ABG pCO2 POC ABG pO2 Sodium Potassium Chloride Carbon Dioxide BUN Glucose POC Glucose 270 H 286 H Hemoglobin A1c 9.5 H Troponin T C-Reactive Protein NT-Pro-B Natriuret Pep 10/27/16 10/27/16 10/28/16 16:18 23:20 04:43 WBC 12.5 H RBC Hgb Hct Lymph % (Auto) [place] # Seg Neutrophils % Seg Neutrophils # Heparin Anti-Xa Level POC ABG pCO2 POC ABG pO2 Sodium Potassium Chloride Carbon Dioxide BUN Glucose POC Glucose 236 H 196 H Hemoglobin A1c Troponin T C-Reactive Protein NT-Pro-B Natriuret Pep 10/28/16 10/28/16 10/28/16 04:43 06:06 08:32 WBC RBC Hgb Hct Lymph % (Auto) [place] # Seg Neutrophils % Seg Neutrophils # Heparin Anti-Xa Level POC ABG pCO2 POC ABG pO2 Sodium Potassium 3.2 L D Chloride Carbon Dioxide 21 L BUN 27 H Glucose 183 H POC Glucose 174 H 185 H Hemoglobin A1c Troponin T C-Reactive Protein NT-Pro-B Natriuret Pep 10/28/16 11:11 WBC RBC Hgb Hct Lymph % (Auto) [place] # Seg Neutrophils % Seg Neutrophils # Heparin Anti-Xa Level POC ABG pCO2 POC ABG pO2 Sodium Potassium Chloride Carbon Dioxide BUN Glucose POC Glucose 271 H Hemoglobin A1c Troponin T C-Reactive Protein NT-Pro-B Natriuret Pep
[2016-10-28] MEDS: MORPHINE IV PRN (21:57)
[2016-10-29] MEDS: HALDOL IM PRN (00:01)
[2016-10-29] MEDS: PRIMACOR 20 MG in D5W 80 ML IV SCH (02:23)
[2016-10-29 04:30] LABS: Hematocrit 40.8 % (35.5-45.6); Hemoglobin 13.6 gm/dl (11.8-15.2); Mean Corpuscular HGB Conc 33 % (32-34); Mean Corpuscular Hemoglobin 28 pg (28-32); Mean Corpuscular Volume 84 fl (84-94); Platelet Count 169 K/mm3 (140-440); Red Blood Count 4.84 M/mm3 (3.65-5.03); Red Cell Distribution Width 13.9 % (13.2-15.2); White Blood Count 11.2 K/mm3 (4.5-11.0)
[2016-10-29 04:49] LABS: BUN/Creatinine Ratio 17.33; Calcium 8.5 mg/dL (8.4-10.2); Chloride 93.9 mmol/L (98-107); Potassium 3.6 mmol/L (3.6-5.0)
[2016-10-29] MEDS: NITRO-BID 2% TP SCH ×2 (05:04→10:00)
[2016-10-29] MEDS: LASIX IV SCH (05:08)
--- NOTE | 2016-10-29 08:49 | Progress Note ---
Assessment and Plan Assessment and plan: Acute NSTEMI. On aspirin Plavix , Lopressor. Cardiac cath done,showed multi- vessel disease. Medical management recommended. cardiology following Chest pain due to acute NSTEMI. No more chest pain-resolved. Acute systolic heart failure. Continue Lasix iv, Lopressor, Milrinone drip Ischemic cardiomyopathy. EF 20% CAD s/p CABG Acute encephalopathy with altered mental status. haldol prn. CT head without contrast no acute changes. Diabetes mellitus type II. Fingerstick glucose before every meal and at bedtime DVT prophylaxis. On Heparin. Full code status Likely dementia. He is agitated,confused. On Haldol prn History Interval history: No more chest pain, Still confused Agitated - on restraints Hospitalist Physical - Physical exam Narrative exam: Gen: Not in acute distress, obese HEENT: Normocephalic, atraumatic Neck: supple, no JVD Lungs: Less bilateral crackles, no wheezing Heart S1-S2 regular, no murmurs, rubs or gallop, Abdomen: soft, non tender, normal bowel sounds present Ext: No edema, no clubbing, no cyanosis Neuro: Awake.alert, confused. oriented to person but not to place or time, agitated on and off - Constitutional Vitals: Temp Pulse Resp BP Pulse Ox 97.4 F L 107 H 15 104/61 100 10/29/16 08:00 10/29/16 08:00 10/29/16 08:00 10/29/16 08:00 10/29/16 08:00 General appearance: Present: mild distress Results - Labs CBC & Chem 7: 10/29/16 03:55 10/29/16 03:55 Labs: Laboratory Last Values WBC 11.2 K/mm3 (4.5-11.0) H 10/29/16 03:55 RBC 4.84 M/mm3 (3.65-5.03) 10/29/16 03:55 Hgb 13.6 gm/dl (11.8-15.2) 10/29/16 03:55 Hct 40.8 % (35.5-45.6) 10/29/16 03:55 MCV 84 fl (84-94) 10/29/16 03:55 MCH 28 pg (28-32) 10/29/16 03:55 MCHC 33 % (32-34) 10/29/16 03:55 RDW 13.9 % (13.2-15.2) 10/29/16 03:55 Plt Count 169 K/mm3 (140-440) 10/29/16 03:55 Lymph % (Auto) 8.1 % (13.4-35.0) L 10/26/16 03:40 [place] % (Auto) 5.5 % (0.0-7.3) 10/26/16 03:40 Eos % (Auto) 0.1 % (0.0-4.3) 10/26/16 03:40 Baso % (Auto) 0.2 % (0.0-1.8) 10/26/16 03:40 Lymph # 1.3 K/mm3 (1.2-5.4) 10/26/16 03:40 [place] # 0.9 K/mm3 (0.0-0.8) H 10/26/16 03:40 Eos # 0.0 K/mm3 (0.0-0.4) 10/26/16 03:40 Baso # 0.0 K/mm3 (0.0-0.1) 10/26/16 03:40 Seg Neutrophils % 86.1 % (40.0-70.0) H 10/26/16 03:40 Seg Neutrophils # 14.0 K/mm3 (1.8-7.7) H 10/26/16 03:40 PT 13.6 Sec. (12.2-14.9) 10/25/16 11:21 INR 1.05 (0.87-1.13) 10/25/16 11:21 APTT 24.6 Sec. (24.2-36.6) 10/25/16 11:21 Heparin Anti-Xa Level 0.35 U.I./ml (0.3-0.7) 10/28/16 12:46 POC ABG pH 7.395 (7.35-7.45) 10/26/16 02:24 POC ABG pCO2 31.6 (35-45) L 10/26/16 02:24 POC ABG pO2 58 (80-105) L 10/26/16 02:24 POC ABG HCO3 19.4 10/26/16 02:24 POC ABG Total CO2 20 10/26/16 02:24 POC ABG O2 Sat 90 10/26/16 02:24 POC ABG Base Excess -6 10/26/16 02:24 FiO2 50 % 10/26/16 02:24 Sodium 135 mmol/L (137-145) L 10/29/16 03:55 Potassium 3.6 mmol/L (3.6-5.0) 10/29/16 03:55 Chloride 93.9 mmol/L (98-107) L 10/29/16 03:55 Carbon Dioxide 21 mmol/L (22-30) L 10/29/16 03:55 Anion Gap 24 mmol/L 10/29/16 03:55 BUN 26 mg/dL (9-20) H 10/29/16 03:55 Creatinine 1.5 mg/dL (0.8-1.5) 10/29/16 03:55 Estimated GFR 45 ml/min 10/29/16 03:55 BUN/Creatinine Ratio 17.33 % 10/29/16 03:55 Glucose 197 mg/dL (75-100) H 10/29/16 03:55 POC Glucose 138 (70-105) H 10/29/16 00:11 Hemoglobin A1c 9.5 % (4-6) H 10/27/16 04:11 Calcium 8.5 mg/dL (8.4-10.2) 10/29/16 03:55 Phosphorus 2.8 mg/dL (2.5-4.5) 10/26/16 20:21 Magnesium 1.8 mg/dL (1.7-2.3) 10/26/16 20:21 Troponin T 0.209 ng/mL (0.00-0.029) H* D 10/25/16 13:59 C-Reactive Protein 9.30 mg/dL (0.00-1.30) H 10/26/16 20:21 NT-Pro-B Natriuret Pep 1278 pg/mL (0-900) H 10/25/16 10:19 Triglycerides 139 mg/dL (2-149) 10/25/16 07:27 Cholesterol 249 mg/dL (50-199) H 10/25/16 07:27 LDL Cholesterol Direct 182 mg/dL (50-130) H 10/25/16 07:27 HDL Cholesterol 40 mg/dL (40-59) 10/25/16 07:27 Cholesterol/HDL Ratio 6.22 % 10/25/16 07:27
[2016-10-29] MEDS: HEPARIN/ 0.45% NACL-25,000 UNIT/500 ML 25,000 UNITS/500 ML BAG IV SCH (09:02)
[2016-10-29] MEDS: LOPRESSOR PO SCH ×2 (10:01→16:00)
[2016-10-29] MEDS: ZAROXOLYN PO SCH (10:01)
[2016-10-29] MEDS: ZESTRIL PO SCH (10:02)
[2016-10-29] MEDS: BROVANA NEBU IH SCH ×2 (10:21→20:40)
[2016-10-29] MEDS: PULMICORT IH SCH ×2 (10:21→20:40)
[2016-10-29] MEDS: PEPCID PO SCH (10:45)
[2016-10-29] MEDS: ECOTRIN PO SCH (10:45)
[2016-10-29] MEDS: PLAVIX PO SCH (10:45)
[2016-10-29] MEDS: LEVAQUIN PO SCH (10:45)
--- NOTE | 2016-10-29 11:07 | Progress Note ---
Assessment and Plan - Patient Problems (1) Acute hypoxemic respiratory failure Current Visit: Yes Status: Acute Plan to address problem: - continue supplemental oxygen - continue qhs CPAP - continue diuresis - continue to optimize CAD medical management - continue bronchodilators and pulmonary toilet (2) Acute pulmonary edema Current Visit: Yes Status: Acute Plan to address problem: - as above (3) Obesity (BMI 30.0-34.9) Current Visit: Yes Status: Acute Plan to address problem: - weight loss counselled - outpatient PSG will be beneficial (4) Acute myocardial infarction Current Visit: Yes Status: Acute Qualifiers: Myocardial infarction ST status: M Involved coronary artery: I Plan to address problem: - diuresis - DMOD's per cardiology - medical management planned over surgery (5) Discharge planning issues Current Visit: Yes Status: Acute Plan to address problem: - transfer out once OK with cardiology team input Subjective Date of service: 10/29/16 Principal diagnosis: Acute Hypoxemic Respiratory Failure; Acute [place] Interval history: Seen and examined at bedside; 24 hour events reviewed; nursing and respiratory care staff consulted; no adverse overnight events reported to me; resting in bed ; denies acute chest pains or increased SOB Objective Vital Signs - 12hr 10/28/16 10/29/16 10/29/16 23:35 00:00 01:00 Temperature 98.0 F Pulse Rate 115 H 117 H 116 H Pulse Rate [ Anterior Bilateral Throughout] Pulse Rate [ 106 H From Monitor] Respiratory 24 18 20 Rate Respiratory Rate [Anterior Bilateral Throughout] Blood Pressure 127/85 116/69 111/66 O2 Sat by Pulse 98 98 99 Oximetry 10/29/16 10/29/16 10/29/16 02:00 03:00 04:00 Temperature 97.8 F Pulse Rate 111 H 117 H 105 H Pulse Rate [ Anterior Bilateral Throughout] Pulse Rate [ 107 H From Monitor] Respiratory 20 15 14 Rate Respiratory Rate [Anterior Bilateral Throughout] Blood Pressure 106/68 116/71 101/56 O2 Sat by Pulse 98 98 97 Oximetry 10/29/16 10/29/16 10/29/16 05:00 05:04 06:00 Temperature Pulse Rate 105 H 106 H 109 H Pulse Rate [ Anterior Bilateral Throughout] Pulse Rate [ From Monitor] Respiratory 16 16 Rate Respiratory Rate [Anterior Bilateral Throughout] Blood Pressure 98/60 98/49 98/71 O2 Sat by Pulse 100 100 Oximetry 10/29/16 10/29/16 10/29/16 07:00 08:00 09:01 Temperature 97.4 F L Pulse Rate 101 H 107 H 111 H Pulse Rate [ Anterior Bilateral Throughout] Pulse Rate [ 118 H From Monitor] Respiratory 15 25 H 13 Rate Respiratory Rate [Anterior Bilateral Throughout] Blood Pressure 104/64 104/61 78/24 O2 Sat by Pulse 98 99 97 Oximetry 10/29/16 10/29/16 10/29/16 09:52 10:00 10:01 Temperature Pulse Rate 108 H 110 H Pulse Rate [ Anterior Bilateral Throughout] Pulse Rate [ From Monitor] Respiratory 16 Rate Respiratory Rate [Anterior Bilateral Throughout] Blood Pressure 89/57 93/64 O2 Sat by Pulse 94 96 Oximetry 10/29/16 10/29/16 10:02 10:22 Temperature Pulse Rate 110 H Pulse Rate [ 106 H Anterior Bilateral Throughout] Pulse Rate [ From Monitor] Respiratory Rate Respiratory 14 Rate [Anterior Bilateral Throughout] Blood Pressure 93/64 O2 Sat by Pulse Oximetry Constitutional: no acute distress, alert Eyes: non-icteric ENT: oropharynx moist Neck: supple, no lymphadenopathy Effort: normal Ascultation: Bilateral: diminished breath sounds, rales (posterior bases but scant) Cardiovascular: regular rate and rhythm Gastrointestinal: normoactive bowel sounds, soft, non-tender, non-distended Integumentary: normal Extremities: no cyanosis, no edema, pink and warm, pulses normal Neurologic: normal mental status, non-focal exam, pupils equal and round, motor strength normal and Psychiatric: mood appropriate, affect normal CBC and BMP: 10/31/16 05:11 10/30/16 05:24 ABG, PT/INR, D-dimer: ABG POC ABG pH 7.395 (7.35-7.45) 10/26/16 02:24 POC ABG pCO2 31.6 (35-45) L 10/26/16 02:24 POC ABG pO2 58 (80-105) L 10/26/16 02:24 POC ABG HCO3 19.4 10/26/16 02:24 POC ABG Total CO2 20 10/26/16 02:24 POC ABG O2 Sat 90 10/26/16 02:24 PT/INR, D-dimer PT 13.6 Sec. (12.2-14.9) 10/25/16 11:21 INR 1.05 (0.87-1.13) 10/25/16 11:21 Abnormal lab findings: Abnormal Labs 10/25/16 10/25/16 10/25/16 10:19 10:23 11:55 WBC RBC Hgb Hct Lymph % (Auto) [place] # Seg Neutrophils % Seg Neutrophils # Heparin Anti-Xa Level POC ABG pCO2 POC ABG pO2 Sodium Potassium Chloride Carbon Dioxide BUN Glucose POC Glucose 299 H Hemoglobin A1c Troponin T 0.167 H* D C-Reactive Protein NT-Pro-B Natriuret Pep 1278 H 10/25/16 10/25/16 10/25/16 13:59 17:31 22:12 WBC RBC Hgb Hct Lymph % (Auto) [place] # Seg Neutrophils % Seg Neutrophils # Heparin Anti-Xa Level 2.00 H POC ABG pCO2 POC ABG pO2 Sodium Potassium Chloride Carbon Dioxide BUN Glucose POC Glucose 188 H Hemoglobin A1c Troponin T 0.209 H* D C-Reactive Protein NT-Pro-B Natriuret Pep 10/26/16 10/26/16 10/26/16 00:05 02:24 03:40 WBC 16.2 H RBC 5.60 H Hgb 15.6 H Hct 48.0 H Lymph % (Auto) 8.1 L [place] # 0.9 H Seg Neutrophils % 86.1 H Seg Neutrophils # 14.0 H Heparin Anti-Xa Level POC ABG pCO2 31.6 L POC ABG pO2 58 L Sodium Potassium Chloride Carbon Dioxide BUN Glucose POC Glucose 264 H Hemoglobin A1c Troponin T C-Reactive Protein NT-Pro-B Natriuret Pep 10/26/16 10/26/16 10/26/16 03:40 03:40 05:50 WBC RBC Hgb Hct Lymph % (Auto) [place] # Seg Neutrophils % Seg Neutrophils # Heparin Anti-Xa Level < 0.10 L POC ABG pCO2 POC ABG pO2 Sodium 134 L Potassium Chloride 96.5 L Carbon Dioxide 17 L BUN 23 H Glucose 301 H POC Glucose 288 H Hemoglobin A1c Troponin T C-Reactive Protein NT-Pro-B Natriuret Pep 10/26/16 10/26/16 10/26/16 11:54 17:15 20:21 WBC RBC Hgb Hct Lymph % (Auto) [place] # Seg Neutrophils % Seg Neutrophils # Heparin Anti-Xa Level < 0.10 L POC ABG pCO2 POC ABG pO2 Sodium Potassium Chloride Carbon Dioxide BUN Glucose POC Glucose 254 H 189 H Hemoglobin A1c Troponin T C-Reactive Protein NT-Pro-B Natriuret Pep 10/26/16 10/26/16 10/27/16 20:21 22:44 00:20 WBC RBC Hgb Hct Lymph % (Auto) [place] # Seg Neutrophils % Seg Neutrophils # Heparin Anti-Xa Level 0.19 L POC ABG pCO2 POC ABG pO2 Sodium Potassium Chloride Carbon Dioxide BUN Glucose POC Glucose 195 H Hemoglobin A1c Troponin T C-Reactive Protein 9.30 H NT-Pro-B Natriuret Pep 10/27/16 10/27/16 10/27/16 04:11 08:09 11:38 WBC RBC Hgb Hct Lymph % (Auto) [place] # Seg Neutrophils % Seg Neutrophils # Heparin Anti-Xa Level POC ABG pCO2 POC ABG pO2 Sodium Potassium Chloride Carbon Dioxide BUN Glucose POC Glucose 270 H 286 H Hemoglobin A1c 9.5 H Troponin T C-Reactive Protein NT-Pro-B Natriuret Pep 10/27/16 10/27/16 10/28/16 16:18 23:20 04:43 WBC 12.5 H RBC Hgb Hct Lymph % (Auto) [place] # Seg Neutrophils % Seg Neutrophils # Heparin Anti-Xa Level POC ABG pCO2 POC ABG pO2 Sodium Potassium Chloride Carbon Dioxide BUN Glucose POC Glucose 236 H 196 H Hemoglobin A1c Troponin T C-Reactive Protein NT-Pro-B Natriuret Pep 10/28/16 10/28/16 10/28/16 04:43 06:06 08:32 WBC RBC Hgb Hct Lymph % (Auto) [place] # Seg Neutrophils % Seg Neutrophils # Heparin Anti-Xa Level POC ABG pCO2 POC ABG pO2 Sodium Potassium 3.2 L D Chloride Carbon Dioxide 21 L BUN 27 H Glucose 183 H POC Glucose 174 H 185 H Hemoglobin A1c Troponin T C-Reactive Protein NT-Pro-B Natriuret Pep 10/28/16 10/29/16 10/29/16 11:11 00:11 03:55 WBC 11.2 H RBC Hgb Hct Lymph % (Auto) [place] # Seg Neutrophils % Seg Neutrophils # Heparin Anti-Xa Level POC ABG pCO2 POC ABG pO2 Sodium Potassium Chloride Carbon Dioxide BUN Glucose POC Glucose 271 H 138 H Hemoglobin A1c Troponin T C-Reactive Protein NT-Pro-B Natriuret Pep 10/29/16 03:55 WBC RBC Hgb Hct Lymph % (Auto) [place] # Seg Neutrophils % Seg Neutrophils # Heparin Anti-Xa Level POC ABG pCO2 POC ABG pO2 Sodium 135 L Potassium Chloride 93.9 L Carbon Dioxide 21 L BUN 26 H Glucose 197 H POC Glucose Hemoglobin A1c Troponin T C-Reactive Protein NT-Pro-B Natriuret Pep
--- NOTE | 2016-10-29 12:45 | Progress Note ---
Assessment and Plan Acute OK CAD s/p remote CABG Cardiac cath findings: 1. Patent BRISCOE-LAD 2. Patent SVG-Diag 3. Occluded SVG-OM. This appears to be a [employer]UFA[employer]ING [employer], target vessel is a small caliber OM. 4. RCA was not previously bypassed, BUT has a prior stent mid vessel. Vessel is subtotally occluded within stented segment. 5. Severe ischemic cardiomyopathy, EF 20%. Ischemic Cardiomyopathy Acute systolic heart failure Mild Dementia Diabetes mellitus Hyperlipidemia Recommendations: Medical therapy for CAD and heart failure to include diuretics, nitrates, afterload reduction, beta blockers, DAPT and statin therapy. Ok for transfer to telemetry. Subjective Date of service: 10/29/16 Principal diagnosis: Acute Hypoxemic Respiratory Failure; Acute [place] Interval history: Patient resting in bed comfortably with eyes closed. No cardiac events reported overnight. Objective Vital Signs Temp Pulse Pulse Pulse Pulse Pulse Resp 10/29/16 11:22 108 H 16 10/29/16 11:00 111 H 16 10/29/16 10:22 106 H 10/29/16 10:02 110 H 10/29/16 10:01 110 H 10/29/16 10:00 108 H 16 10/29/16 09:52 10/29/16 09:01 111 H 13 10/29/16 08:00 97.4 F L 107 H 118 H 25 H 10/29/16 07:00 101 H 15 10/29/16 06:00 109 H 16 10/29/16 05:04 106 H 10/29/16 05:00 105 H 16 10/29/16 04:00 97.8 F 105 H 107 H 14 10/29/16 03:00 117 H 15 10/29/16 02:00 111 H 20 10/29/16 01:00 116 H 20 10/29/16 00:00 98.0 F 117 H 106 H 18 10/28/16 23:35 115 H 24 10/28/16 23:01 115 H 21 10/28/16 22:00 114 H 21 10/28/16 21:57 116 H 22 10/28/16 21:00 113 H 22 10/28/16 20:56 114 H 10/28/16 20:43 10/28/16 20:41 112 H 10/28/16 20:03 112 H 22 10/28/16 20:00 98.0 F 115 H 112 H 20 10/28/16 19:00 111 H 21 10/28/16 18:20 109 H 10/28/16 18:00 107 H 20 10/28/16 17:00 115 H 16 10/28/16 16:00 97.6 F 114 H 111 H 111 H 111 H 21 10/28/16 15:00 110 H 16 10/28/16 14:06 114 H 10/28/16 14:00 113 H 18 10/28/16 13:00 122 H 19 Resp BP Pulse Ox 10/29/16 11:22 95 10/29/16 11:00 87/51 95 10/29/16 10:22 14 10/29/16 10:02 93/64 10/29/16 10:01 93/64 10/29/16 10:00 89/57 96 10/29/16 09:52 94 10/29/16 09:01 /24 97 10/29/16 08:00 104/61 99 10/29/16 07:00 104/64 98 10/29/16 06:00 98/71 100 10/29/16 05:04 98/49 10/29/16 05:00 98/60 100 10/29/16 04:00 101/56 97 10/29/16 03:00 116/71 98 10/29/16 02:00 106/68 98 10/29/16 01:00 111/66 99 10/29/16 00:00 116/69 98 10/28/16 23:35 127/85 98 10/28/16 23:01 106/71 95 10/28/16 22:00 102/65 94 10/28/16 21:57 104/67 10/28/16 21:00 102/73 96 10/28/16 20:56 19 10/28/16 20:43 95 10/28/16 20:41 19 10/28/16 20:03 110/72 96 10/28/16 20:00 110/72 97 10/28/16 19:00 107/74 97 10/28/16 18:20 94/64 10/28/16 18:00 96/64 96 10/28/16 17:00 100/55 94 10/28/16 16:00 88/64 95 04/23/17 15:00 87/57 96 04/23/17 14:06 90/50 10/28/16 14:00 82/52 94 10/28/16 13:00 83/55 97 - Physical Examination General: No Apparent Distress Cardiac: Positive: Reg Rate and Rhythm Extremities: Absent: edema - Labs and Meds CBC 10/29/16 Range/Units 03:55 WBC 11.2 H (4.5-11.0) K/mm3 RBC 4.84 (3.65-5.03) M/mm3 Hgb 13.6 (11.8-15.2) gm/dl Hct 40.8 (35.5-45.6) % Plt Count 169 (140-440) K/mm3 Comprehensive Metabolic Panel 10/29/16 Range/Units 03:55 Sodium 135 L (137-145) mmol/L Potassium 3.6 (3.6-5.0) mmol/L Chloride 93.9 L (98-107) mmol/L Carbon Dioxide 21 L (22-30) mmol/L BUN 26 H (9-20) mg/dL Creatinine 1.5 (0.8-1.5) mg/dL Glucose 197 H (75-100) mg/dL Calcium 8.5 (8.4-10.2) mg/dL
[2016-10-29] MEDS: RANEXA ER PO SCH (21:36)
[2016-10-29] MEDS: HEPARIN SUB-Q SCH (21:36)
[2016-10-30] MEDS: LOPRESSOR PO SCH ×3 (01:03→14:47)
[2016-10-30 06:16] LABS: BUN/Creatinine Ratio 20.71; Calcium 9.3 mg/dL (8.4-10.2); Chloride 92.9 mmol/L (98-107)
[2016-10-30 07:41] LABS: Red Blood Count TNR M/mm3 (3.65-5.03); White Blood Count TNR K/mm3 (4.5-11.0)
[2016-10-30 07:42] LABS: Hematocrit TNR % (35.5-45.6); Hemoglobin TNR gm/dl (11.8-15.2); Mean Corpuscular HGB Conc TNR % (32-34); Mean Corpuscular Hemoglobin TNR pg (28-32); Mean Corpuscular Volume TNR fl (84-94); Platelet Count TNR K/mm3 (140-440); Red Cell Distribution Width TNR % (13.2-15.2)
[2016-10-30] MEDS: PULMICORT IH SCH ×2 (07:49→20:50)
[2016-10-30] MEDS: BROVANA NEBU IH SCH ×2 (07:49→20:50)
--- NOTE | 2016-10-30 08:15 | Progress Note ---
Assessment and Plan Assessment and plan: Acute NSTEMI. On aspirin Plavix , Lopressor. Cardiac cath done,showed multi- vessel disease. Medical management recommended. cardiology following Chest pain due to acute NSTEMI. No more chest pain-resolved. Off heparin drip Acute systolic heart failure. Continue Lasix iv, Lopressor. He is now off Milrinone drip Ischemic cardiomyopathy. EF 20% CAD s/p CABG Acute encephalopathy with altered mental status. haldol prn. CT head without contrast no acute changes. Diabetes mellitus type II. Fingerstick glucose before every meal and at bedtime Hyponatremia, mild. DVT prophylaxis. On Heparin. Full code status Likely dementia. He is agitated,confused. On Haldol prn he is medically stable to transfer to Telemetry. History Interval history: No more chest pain, Still confused Hospitalist Physical - Physical exam Narrative exam: Gen: Not in acute distress, obese HEENT: Normocephalic, atraumatic Neck: supple, no JVD Lungs: Less bilateral crackles, no wheezing Heart S1-S2 regular, no murmurs, rubs or gallop, Abdomen: soft, non tender, normal bowel sounds present Ext: No edema, no clubbing, no cyanosis Neuro: Awake.alert, confused. oriented to person but not to place or time, agitated on and off - Constitutional Vitals: Temp Pulse Resp BP Pulse Ox 98.0 F 112 H 21 99/70 88 10/30/16 04:00 10/30/16 07:56 10/30/16 07:56 10/30/16 07:38 10/30/16 07:50 General appearance: Present: mild distress Results - Labs CBC & Chem 7: 10/30/16 05:24 10/30/16 05:24 Labs: Laboratory Last Values WBC TNR 10/30/16 05:24 RBC TNR 10/30/16 05:24 Hgb TNR 10/30/16 05:24 Hct TNR 10/30/16 05:24 MCV TNR 10/30/16 05:24 MCH TNR 10/30/16 05:24 MCHC TNR 10/30/16 05:24 RDW TNR 10/30/16 05:24 Plt Count TNR 10/30/16 05:24 Lymph % (Auto) 8.1 % (13.4-35.0) L 10/26/16 03:40 [place] % (Auto) 5.5 % (0.0-7.3) 10/26/16 03:40 Eos % (Auto) 0.1 % (0.0-4.3) 10/26/16 03:40 Baso % (Auto) 0.2 % (0.0-1.8) 10/26/16 03:40 Lymph # 1.3 K/mm3 (1.2-5.4) 10/26/16 03:40 [place] # 0.9 K/mm3 (0.0-0.8) H 10/26/16 03:40 Eos # 0.0 K/mm3 (0.0-0.4) 10/26/16 03:40 Baso # 0.0 K/mm3 (0.0-0.1) 10/26/16 03:40 Seg Neutrophils % 86.1 % (40.0-70.0) H 10/26/16 03:40 Seg Neutrophils # 14.0 K/mm3 (1.8-7.7) H 10/26/16 03:40 PT 13.6 Sec. (12.2-14.9) 10/25/16 11:21 INR 1.05 (0.87-1.13) 10/25/16 11:21 APTT 24.6 Sec. (24.2-36.6) 10/25/16 11:21 Heparin Anti-Xa Level 0.35 U.I./ml (0.3-0.7) 10/28/16 12:46 POC ABG pH 7.395 (7.35-7.45) 10/26/16 02:24 POC ABG pCO2 31.6 (35-45) L 10/26/16 02:24 POC ABG pO2 58 (80-105) L 10/26/16 02:24 POC ABG HCO3 19.4 10/26/16 02:24 POC ABG Total CO2 20 10/26/16 02:24 POC ABG O2 Sat 90 10/26/16 02:24 POC ABG Base Excess -6 10/26/16 02:24 FiO2 50 % 10/26/16 02:24 Sodium 136 mmol/L (137-145) L 10/30/16 05:24 Potassium 4.0 mmol/L (3.6-5.0) 10/30/16 05:24 Chloride 92.9 mmol/L (98-107) L 10/30/16 05:24 Carbon Dioxide 21 mmol/L (22-30) L 10/30/16 05:24 Anion Gap 26 mmol/L 10/30/16 05:24 BUN 29 mg/dL (9-20) H 10/30/16 05:24 Creatinine 1.4 mg/dL (0.8-1.5) 10/30/16 05:24 Estimated GFR 49 ml/min 10/30/16 05:24 BUN/Creatinine Ratio 20.71 % 10/30/16 05:24 Glucose 200 mg/dL (75-100) H 10/30/16 05:24 POC Glucose 221 (70-105) H 10/30/16 06:54 Hemoglobin A1c 9.5 % (4-6) H 10/27/16 04:11 Calcium 9.3 mg/dL (8.4-10.2) 10/30/16 05:24 Phosphorus 2.8 mg/dL (2.5-4.5) 10/26/16 20:21 Magnesium 1.8 mg/dL (1.7-2.3) 10/26/16 20:21 Troponin T 0.209 ng/mL (0.00-0.029) H* D 10/25/16 13:59 C-Reactive Protein 9.30 mg/dL (0.00-1.30) H 10/26/16 20:21 NT-Pro-B Natriuret Pep 1278 pg/mL (0-900) H 10/25/16 10:19 Triglycerides 139 mg/dL (2-149) 10/25/16 07:27 Cholesterol 249 mg/dL (50-199) H 10/25/16 07:27 LDL Cholesterol Direct 182 mg/dL (50-130) H 10/25/16 07:27 HDL Cholesterol 40 mg/dL (40-59) 10/25/16 07:27 Cholesterol/HDL Ratio 6.22 % 10/25/16 07:27
[2016-10-30] MEDS ORDERED: LASIX PO SCH (10:00)
[2016-10-30] MEDS ORDERED: IMDUR PO SCH (10:00)
[2016-10-30] MEDS ORDERED: ZAROXOLYN PO SCH (10:00)
[2016-10-30] MEDS: LEVAQUIN PO SCH (10:09)
[2016-10-30] MEDS: RANEXA ER PO SCH ×2 (10:09→21:34)
[2016-10-30] MEDS: ZESTRIL PO SCH (10:10)
[2016-10-30] MEDS: PLAVIX PO SCH (10:12)
[2016-10-30] MEDS: HEPARIN SUB-Q SCH ×2 (10:13→21:34)
[2016-10-30] MEDS: HALFPRIN EC PO SCH (10:21)
[2016-10-30] MEDS: HALDOL IM PRN (10:21)
[2016-10-30] MEDS: PEPCID PO SCH (10:42)
--- NOTE | 2016-10-30 11:17 | Progress Note ---
Assessment and Plan - Patient Problems (1) Acute myocardial infarction Current Visit: Yes Status: Acute Qualifiers: Myocardial infarction ST status: M Involved coronary artery: I Plan to address problem: Conservative medical therapy. (2) Acute pulmonary edema Current Visit: Yes Status: Acute Plan to address problem: Heart failure is resolved on medical therapy, recommend removal of the Pa catheter, patient should be transferred to the medical floor with telemetry, and physical therapy initiated. Subjective Date of service: 10/30/16 Principal diagnosis: Acute Hypoxemic Respiratory Failure; Acute [place] Interval history: Patient is nonpitting his chair, breathing comfortably. He appears intermittently confused. Objective Vital Signs Temp Pulse Pulse Pulse Resp Resp BP 10/30/16 10:12 110 H 10/30/16 10:10 112 H 10/30/16 08:00 97.3 F L 10/30/16 07:56 112 H 21 10/30/16 07:55 107 H 22 10/30/16 07:50 10/30/16 07:38 110 H 99/70 10/30/16 07:00 106 H 24 99/70 10/30/16 06:24 122 H 10/30/16 06:01 122 H 20 106/81 10/30/16 05:00 108 H 23 98/72 10/30/16 04:01 117 H 23 98/67 10/30/16 04:00 98.0 F 10/30/16 03:00 119 H 20 98/67 10/30/16 02:00 116 H 26 H 97/70 10/30/16 01:03 109 H 95/64 10/30/16 01:00 109 H 18 87/66 10/30/16 00:15 97.5 F L 10/30/16 00:03 108 H 23 95/64 10/30/16 00:01 111 H 25 H 95/64 10/29/16 23:00 110 H 18 98/70 10/29/16 22:00 112 H 16 94/61 10/29/16 21:45 111 H 10/29/16 21:00 115 H 27 H 102/70 10/29/16 20:47 106 H 20 10/29/16 20:46 10/29/16 20:36 107 H 20 10/29/16 20:00 109 H 22 78/56 10/29/16 19:45 98.1 F 110 H 18 04/24/17 19:00 99 H 16 81/53 10/29/16 18:00 106 H 18 95/58 10/29/16 17:00 101 H 17 95/65 10/29/16 16:01 101 H 12 85/58 10/29/16 16:00 97.6 F 105 H 99 H 15 95/65 10/29/16 15:00 100 H 19 92/64 10/29/16 14:00 103 H 21 91/49 10/29/16 13:00 106 H 15 94/61 10/29/16 12:00 97.9 F 110 H 15 100/58 10/29/16 11:22 108 H 16 Pulse Ox 10/30/16 10:12 10/30/16 10:10 10/30/16 08:00 10/30/16 07:56 10/30/16 07:55 10/30/16 07:50 88 10/30/16 07:38 10/30/16 07:00 91 10/30/16 06:24 92 10/30/16 06:01 91 10/30/16 05:00 90 10/30/16 04:01 10/30/16 04:00 10/30/16 03:00 10/30/16 02:00 10/30/16 01:03 10/30/16 01:00 94 10/30/16 00:15 10/30/16 00:03 10/30/16 00:01 10/29/16 23:00 94 10/29/16 22:00 92 10/29/16 21:45 94 10/29/16 21:00 93 10/29/16 20:47 10/29/16 20:46 95 10/29/16 20:36 10/29/16 20:00 94 10/29/16 19:45 95 10/29/16 19:00 95 10/29/16 18:00 99 10/29/16 17:00 99 10/29/16 16:01 97 10/29/16 16:00 98 10/29/16 15:00 99 10/29/16 14:00 97 10/29/16 13:00 97 10/29/16 12:00 96 10/29/16 11:22 95 - Physical Examination General: No Apparent Distress HEENT: Positive: PERRL Neck: Positive: neck supple Cardiac: Positive: Reg Rate and Rhythm Lungs: Positive: Decreased Breath Sounds Neuro: Positive: Cranial Nerve 2-12 Intact, Motor Function Intact Abdomen: Positive: Soft Skin: Positive: Clear Extremities: Absent: edema - Labs and Meds CBC 10/30/16 Range/Units 05:24 WBC TNR RBC TNR Hgb TNR Hct TNR Plt Count TNR Comprehensive Metabolic Panel 10/30/16 Range/Units 05:24 Sodium 136 L (137-145) mmol/L Potassium 4.0 (3.6-5.0) mmol/L Chloride 92.9 L (98-107) mmol/L Carbon Dioxide 21 L (22-30) mmol/L BUN 29 H (9-20) mg/dL Creatinine 1.4 (0.8-1.5) mg/dL Glucose 200 H (75-100) mg/dL Calcium 9.3 (8.4-10.2) mg/dL
--- NOTE | 2016-10-30 11:40 | Progress Note ---
Assessment and Plan - Patient Problems (1) Acute hypoxemic respiratory failure Current Visit: Yes Status: Acute Plan to address problem: - continue supplemental oxygen - continue qhs CPAP - continue diuresis - continue to optimize CAD medical management - continue bronchodilators and pulmonary toilet (2) Acute pulmonary edema Current Visit: Yes Status: Acute Plan to address problem: - resolved (3) Obesity (BMI 30.0-34.9) Current Visit: Yes Status: Acute Plan to address problem: - weight loss counselled - outpatient PSG will be beneficial (4) Acute myocardial infarction Current Visit: Yes Status: Acute Qualifiers: Myocardial infarction ST status: M Involved coronary artery: I Plan to address problem: - diuresis stopped - DMOD's per cardiology - medical management planned over surgery (5) Discharge planning issues Current Visit: Yes Status: Acute Plan to address problem: - transfer out to telemetry - home at discharge Subjective Date of service: 10/30/16 Principal diagnosis: Acute Hypoxemic Respiratory Failure; Acute [place] Interval history: Seen and examined at bedside; 24 hour events reviewed; nursing and respiratory care staff consulted; no adverse overnight events reported to me; episode of hypotension earlier that responded to volume bolus; doing better; denies acute chest pains or increased SOB Objective Vital Signs - 12hr 10/30/16 10/30/16 10/30/16 00:01 00:03 00:15 Temperature 97.5 F L Pulse Rate 111 H 108 H Pulse Rate [ Anterior Bilateral Throughout] Respiratory 25 H 23 Rate Respiratory Rate [Anterior Bilateral Throughout] Blood Pressure 95/64 95/64 O2 Sat by Pulse Oximetry 10/30/16 10/30/16 10/30/16 01:00 01:03 02:00 Temperature Pulse Rate 109 H 109 H 116 H Pulse Rate [ Anterior Bilateral Throughout] Respiratory 18 26 H Rate Respiratory Rate [Anterior Bilateral Throughout] Blood Pressure 87/66 95/64 97/70 O2 Sat by Pulse 94 Oximetry 10/30/16 10/30/16 10/30/16 03:00 04:00 04:01 Temperature 98.0 F Pulse Rate 119 H 117 H Pulse Rate [ Anterior Bilateral Throughout] Respiratory 20 23 Rate Respiratory Rate [Anterior Bilateral Throughout] Blood Pressure 98/67 98/67 O2 Sat by Pulse Oximetry 10/30/16 10/30/16 10/30/16 05:00 06:01 06:24 Temperature Pulse Rate 108 H 122 H 122 H Pulse Rate [ Anterior Bilateral Throughout] Respiratory 23 20 Rate Respiratory Rate [Anterior Bilateral Throughout] Blood Pressure 98/72 106/81 O2 Sat by Pulse 90 91 92 Oximetry 10/30/16 10/30/16 10/30/16 07:00 07:38 07:50 Temperature Pulse Rate 106 H 110 H Pulse Rate [ Anterior Bilateral Throughout] Respiratory 24 Rate Respiratory Rate [Anterior Bilateral Throughout] Blood Pressure 99/70 99/70 O2 Sat by Pulse 91 88 Oximetry 10/30/16 10/30/16 10/30/16 07:55 07:56 08:00 Temperature 97.3 F L Pulse Rate Pulse Rate [ 107 H 112 H Anterior Bilateral Throughout] Respiratory Rate Respiratory 22 21 Rate [Anterior Bilateral Throughout] Blood Pressure O2 Sat by Pulse Oximetry 10/30/16 10/30/16 10:10 10:12 Temperature Pulse Rate 112 H 110 H Pulse Rate [ Anterior Bilateral Throughout] Respiratory Rate Respiratory Rate [Anterior Bilateral Throughout] Blood Pressure O2 Sat by Pulse Oximetry Constitutional: no acute distress, alert Eyes: non-icteric ENT: oropharynx moist Neck: supple, no lymphadenopathy Effort: normal Ascultation: Bilateral: clear, diminished breath sounds Cardiovascular: regular rate and rhythm Gastrointestinal: normoactive bowel sounds, soft, non-tender, non-distended Integumentary: normal Extremities: no cyanosis, no edema, pink and warm, pulses normal Neurologic: normal mental status, non-focal exam, pupils equal and round, motor strength normal and Psychiatric: mood appropriate, affect normal CBC and BMP: 10/31/16 05:11 10/30/16 05:24 ABG, PT/INR, D-dimer: ABG POC ABG pH 7.395 (7.35-7.45) 10/26/16 02:24 POC ABG pCO2 31.6 (35-45) L 10/26/16 02:24 POC ABG pO2 58 (80-105) L 10/26/16 02:24 POC ABG HCO3 19.4 10/26/16 02:24 POC ABG Total CO2 20 10/26/16 02:24 POC ABG O2 Sat 90 10/26/16 02:24 PT/INR, D-dimer PT 13.6 Sec. (12.2-14.9) 10/25/16 11:21 INR 1.05 (0.87-1.13) 10/25/16 11:21 Abnormal lab findings: Abnormal Labs 10/25/16 10/25/16 10/25/16 10:19 10:23 11:55 WBC RBC Hgb Hct Lymph % (Auto) [place] # Seg Neutrophils % Seg Neutrophils # Heparin Anti-Xa Level POC ABG pCO2 POC ABG pO2 Sodium Potassium Chloride Carbon Dioxide BUN Glucose POC Glucose 299 H Hemoglobin A1c Troponin T 0.167 H* D C-Reactive Protein NT-Pro-B Natriuret Pep 1278 H 10/25/16 10/25/16 10/25/16 13:59 17:31 22:12 WBC RBC Hgb Hct Lymph % (Auto) [place] # Seg Neutrophils % Seg Neutrophils # Heparin Anti-Xa Level 2.00 H POC ABG pCO2 POC ABG pO2 Sodium Potassium Chloride Carbon Dioxide BUN Glucose POC Glucose 188 H Hemoglobin A1c Troponin T 0.209 H* D C-Reactive Protein NT-Pro-B Natriuret Pep 10/26/16 10/26/16 10/26/16 00:05 02:24 03:40 WBC 16.2 H RBC 5.60 H Hgb 15.6 H Hct 48.0 H Lymph % (Auto) 8.1 L [place] # 0.9 H Seg Neutrophils % 86.1 H Seg Neutrophils # 14.0 H Heparin Anti-Xa Level POC ABG pCO2 31.6 L POC ABG pO2 58 L Sodium Potassium Chloride Carbon Dioxide BUN Glucose POC Glucose 264 H Hemoglobin A1c Troponin T C-Reactive Protein NT-Pro-B Natriuret Pep 10/26/16 10/26/16 10/26/16 03:40 03:40 05:50 WBC RBC Hgb Hct Lymph % (Auto) [place] # Seg Neutrophils % Seg Neutrophils # Heparin Anti-Xa Level < 0.10 L POC ABG pCO2 POC ABG pO2 Sodium 134 L Potassium Chloride 96.5 L Carbon Dioxide 17 L BUN 23 H Glucose 301 H POC Glucose 288 H Hemoglobin A1c Troponin T C-Reactive Protein NT-Pro-B Natriuret Pep 10/26/16 10/26/16 10/26/16 11:54 17:15 20:21 WBC RBC Hgb Hct Lymph % (Auto) [place] # Seg Neutrophils % Seg Neutrophils # Heparin Anti-Xa Level < 0.10 L POC ABG pCO2 POC ABG pO2 Sodium Potassium Chloride Carbon Dioxide BUN Glucose POC Glucose 254 H 189 H Hemoglobin A1c Troponin T C-Reactive Protein NT-Pro-B Natriuret Pep 10/26/16 10/26/16 10/27/16 20:21 22:44 00:20 WBC RBC Hgb Hct Lymph % (Auto) [place] # Seg Neutrophils % Seg Neutrophils # Heparin Anti-Xa Level 0.19 L POC ABG pCO2 POC ABG pO2 Sodium Potassium Chloride Carbon Dioxide BUN Glucose POC Glucose 195 H Hemoglobin A1c Troponin T C-Reactive Protein 9.30 H NT-Pro-B Natriuret Pep 10/27/16 10/27/16 10/27/16 04:11 08:09 11:38 WBC RBC Hgb Hct Lymph % (Auto) [place] # Seg Neutrophils % Seg Neutrophils # Heparin Anti-Xa Level POC ABG pCO2 POC ABG pO2 Sodium Potassium Chloride Carbon Dioxide BUN Glucose POC Glucose 270 H 286 H Hemoglobin A1c 9.5 H Troponin T C-Reactive Protein NT-Pro-B Natriuret Pep 10/27/16 10/27/16 10/28/16 16:18 23:20 04:43 WBC 12.5 H RBC Hgb Hct Lymph % (Auto) [place] # Seg Neutrophils % Seg Neutrophils # Heparin Anti-Xa Level POC ABG pCO2 POC ABG pO2 Sodium Potassium Chloride Carbon Dioxide BUN Glucose POC Glucose 236 H 196 H Hemoglobin A1c Troponin T C-Reactive Protein NT-Pro-B Natriuret Pep 10/28/16 10/28/16 10/28/16 04:43 06:06 08:32 WBC RBC Hgb Hct Lymph % (Auto) [place] # Seg Neutrophils % Seg Neutrophils # Heparin Anti-Xa Level POC ABG pCO2 POC ABG pO2 Sodium Potassium 3.2 L D Chloride Carbon Dioxide 21 L BUN 27 H Glucose 183 H POC Glucose 174 H 185 H Hemoglobin A1c Troponin T C-Reactive Protein NT-Pro-B Natriuret Pep 10/28/16 10/28/16 10/29/16 11:11 15:53 00:11 WBC RBC Hgb Hct Lymph % (Auto) [place] # Seg Neutrophils % Seg Neutrophils # Heparin Anti-Xa Level POC ABG pCO2 POC ABG pO2 Sodium Potassium Chloride Carbon Dioxide BUN Glucose POC Glucose 271 H 210 H 138 H Hemoglobin A1c Troponin T C-Reactive Protein NT-Pro-B Natriuret Pep 10/29/16 10/29/16 10/29/16 03:55 03:55 11:44 WBC 11.2 H RBC Hgb Hct Lymph % (Auto) [place] # Seg Neutrophils % Seg Neutrophils # Heparin Anti-Xa Level POC ABG pCO2 POC ABG pO2 Sodium 135 L Potassium Chloride 93.9 L Carbon Dioxide 21 L BUN 26 H Glucose 197 H POC Glucose 238 H Hemoglobin A1c Troponin T C-Reactive Protein NT-Pro-B Natriuret Pep 10/29/16 10/30/16 10/30/16 17:02 00:43 05:24 WBC RBC Hgb Hct Lymph % (Auto) [place] # Seg Neutrophils % Seg Neutrophils # Heparin Anti-Xa Level POC ABG pCO2 POC ABG pO2 Sodium 136 L Potassium Chloride 92.9 L Carbon Dioxide 21 L BUN 29 H Glucose 200 H POC Glucose 144 H 191 H Hemoglobin A1c Troponin T C-Reactive Protein NT-Pro-B Natriuret Pep 10/30/16 06:54 WBC RBC Hgb Hct Lymph % (Auto) [place] # Seg Neutrophils % Seg Neutrophils # Heparin Anti-Xa Level POC ABG pCO2 POC ABG pO2 Sodium Potassium Chloride Carbon Dioxide BUN Glucose POC Glucose 221 H Hemoglobin A1c Troponin T C-Reactive Protein NT-Pro-B Natriuret Pep
[2016-10-30] MEDS: XANAX PO SCH ×2 (14:35→23:32)
[2016-10-30] MEDS ORDERED: NACL 0.9% 500 ML 500 ML IV SCH (21:06)
[2016-10-31] MEDS ORDERED: NACL 0.9% 500 ML 500 ML IV ONE (05:34)
[2016-10-31 07:23] LABS: Hematocrit 42.8 % (35.5-45.6)
[2016-10-31] MEDS: BROVANA NEBU IH SCH ×2 (07:30→20:44)
[2016-10-31] MEDS: PULMICORT IH SCH ×2 (07:30→20:44)
--- NOTE | 2016-10-31 10:03 | Progress Note ---
Assessment and Plan Acute NH CAD s/p remote CABG Cardiac cath findings: 1. Patent BRISCOE-LAD 2. Patent SVG-Diag 3. Occluded SVG-OM. This appears to be a [employer], target vessel is a small caliber OM. 4. RCA was not previously bypassed, BUT has a prior stent mid vessel. Vessel is subtotally occluded within stented segment. 5. Severe ischemic cardiomyopathy, EF 20%. 6. Medical therapy recommended Ischemic Cardiomyopathy Acute systolic heart failure Mild Dementia Diabetes mellitus Hyperlipidemia Subjective Date of service: 10/31/16 Principal diagnosis: Acute Hypoxemic Respiratory Failure; Acute [place] Interval history: Patient resting in bed comfortably. He denies chest pain and shortness of breath. Hypotensive this morning. Patient remains asymptomatic. Objective Vital Signs Temp Pulse Pulse Pulse Pulse Pulse Pulse 10/31/16 07:39 86 10/31/16 07:32 10/31/16 07:31 84 10/31/16 07:20 97.0 F L 90 10/31/16 05:01 97.8 F 94 H 10/31/16 05:00 86 10/31/16 00:15 97.6 F 84 10/30/16 22:42 100 H 10/30/16 21:02 85 88 10/30/16 20:58 10/30/16 20:57 98.2 F 89 10/30/16 16:30 10/30/16 16:00 97.3 F L 84 10/30/16 15:00 92 H 10/30/16 14:51 93 H 10/30/16 14:47 98 H 10/30/16 14:00 10/30/16 12:42 110 H 10/30/16 12:00 97.2 F L 10/30/16 10:12 110 H 10/30/16 10:10 112 H Resp Resp Resp BP BP BP Pulse Ox 10/31/16 07:39 18 10/31/16 07:32 96 10/31/16 07:31 18 10/31/16 07:20 22 72/51 94 10/31/16 05:01 20 74/43 94 10/31/16 05:00 10/31/16 00:15 18 93/57 94 10/30/16 22:42 88/54 10/30/16 21:02 18 16 10/30/16 20:58 94 10/30/16 20:57 20 77/50 92 10/30/16 16:30 93 10/30/16 16:00 21 61/37 93 10/30/16 15:00 23 66/41 91 10/30/16 14:51 107/71 10/30/16 14:47 10/30/16 14:00 94 10/30/16 12:42 10/30/16 12:00 10/30/16 10:12 10/30/16 10:10 - Physical Examination General: No Apparent Distress HEENT: Positive: PERRL Neck: Positive: neck supple Cardiac: Positive: Reg Rate and Rhythm Lungs: Positive: Decreased Breath Sounds Neuro: Positive: Grossly Intact, Weakness - Labs and Meds CBC 10/31/16 Range/Units 05:11 Hgb 14.0 (11.8-15.2) gm/dl Hct 42.8 (35.5-45.6) % Plt Count 168 (140-440) K/mm3
--- NOTE | 2016-10-31 10:26 | Progress Note ---
Assessment and Plan Assessment and plan: Acute NSTEMI. On aspirin Plavix , Lopressor. Cardiac cath done,showed multi- vessel disease. Medical management recommended. cardiology following Chest pain due to acute NSTEMI. No more chest pain-resolved. Off heparin drip Acute systolic heart failure. On Lasix, lopressor. He is now off Milrinone drip Hypotension. hold all anti-hypertensives. Ischemic cardiomyopathy. EF 20% CAD s/p CABG Acute encephalopathy with altered mental status. haldol prn. CT head without contrast no acute changes. Diabetes mellitus type II. Fingerstick glucose before every meal and at bedtime Hyponatremia, mild. DVT prophylaxis. On Heparin. Full code status Likely dementia. He is agitated,confused. On Haldol prn he History Interval history: No more chest pain, Still confused, low blood pressure Hospitalist Physical - Physical exam Narrative exam: Gen: Not in acute distress, obese HEENT: Normocephalic, atraumatic Neck: supple, no JVD Lungs: Less bilateral crackles, no wheezing Heart S1-S2 regular, no murmurs, rubs or gallop, Abdomen: soft, non tender, normal bowel sounds present Ext: No edema, no clubbing, no cyanosis Neuro: Awake.alert, confused. oriented to person but not to place or time, agitated on and off - Constitutional Vitals: Temp Pulse Resp BP Pulse Ox 97.0 F L 86 18 72/51 96 10/31/16 07:20 10/31/16 07:39 10/31/16 07:39 10/31/16 07:20 10/31/16 07:32 General appearance: Present: mild distress Results - Labs CBC & Chem 7: 10/31/16 05:11 10/30/16 05:24 Labs: Laboratory Last Values WBC TNR 10/30/16 05:24 RBC TNR 10/30/16 05:24 Hgb 14.0 gm/dl (11.8-15.2) 10/31/16 05:11 Hct 42.8 % (35.5-45.6) 10/31/16 05:11 MCV TNR 10/30/16 05:24 MCH TNR 10/30/16 05:24 MCHC TNR 10/30/16 05:24 RDW TNR 10/30/16 05:24 Plt Count 168 K/mm3 (140-440) 10/31/16 05:11 Lymph % (Auto) 8.1 % (13.4-35.0) L 10/26/16 03:40 [place] % (Auto) 5.5 % (0.0-7.3) 10/26/16 03:40 Eos % (Auto) 0.1 % (0.0-4.3) 10/26/16 03:40 Baso % (Auto) 0.2 % (0.0-1.8) 10/26/16 03:40 Lymph # 1.3 K/mm3 (1.2-5.4) 10/26/16 03:40 [place] # 0.9 K/mm3 (0.0-0.8) H 10/26/16 03:40 Eos # 0.0 K/mm3 (0.0-0.4) 10/26/16 03:40 Baso # 0.0 K/mm3 (0.0-0.1) 10/26/16 03:40 Seg Neutrophils % 86.1 % (40.0-70.0) H 10/26/16 03:40 Seg Neutrophils # 14.0 K/mm3 (1.8-7.7) H 10/26/16 03:40 PT 13.6 Sec. (12.2-14.9) 10/25/16 11:21 INR 1.05 (0.87-1.13) 10/25/16 11:21 APTT 24.6 Sec. (24.2-36.6) 10/25/16 11:21 Heparin Anti-Xa Level 0.35 U.I./ml (0.3-0.7) 10/28/16 12:46 POC ABG pH 7.395 (7.35-7.45) 10/26/16 02:24 POC ABG pCO2 31.6 (35-45) L 10/26/16 02:24 POC ABG pO2 58 (80-105) L 10/26/16 02:24 POC ABG HCO3 19.4 10/26/16 02:24 POC ABG Total CO2 20 10/26/16 02:24 POC ABG O2 Sat 90 10/26/16 02:24 POC ABG Base Excess -6 10/26/16 02:24 FiO2 50 % 10/26/16 02:24 Sodium 136 mmol/L (137-145) L 10/30/16 05:24 Potassium 4.0 mmol/L (3.6-5.0) 10/30/16 05:24 Chloride 92.9 mmol/L (98-107) L 10/30/16 05:24 Carbon Dioxide 21 mmol/L (22-30) L 10/30/16 05:24 Anion Gap 26 mmol/L 10/30/16 05:24 BUN 29 mg/dL (9-20) H 10/30/16 05:24 Creatinine 1.4 mg/dL (0.8-1.5) 10/30/16 05:24 Estimated GFR 49 ml/min 10/30/16 05:24 BUN/Creatinine Ratio 20.71 % 10/30/16 05:24 Glucose 200 mg/dL (75-100) H 10/30/16 05:24 POC Glucose 137 (70-105) H 10/31/16 06:12 Hemoglobin A1c 9.5 % (4-6) H 10/27/16 04:11 Calcium 9.3 mg/dL (8.4-10.2) 10/30/16 05:24 Phosphorus 2.8 mg/dL (2.5-4.5) 10/26/16 20:21 Magnesium 1.8 mg/dL (1.7-2.3) 10/26/16 20:21 Troponin T 0.209 ng/mL (0.00-0.029) H* D 10/25/16 13:59 C-Reactive Protein 9.30 mg/dL (0.00-1.30) H 10/26/16 20:21 NT-Pro-B Natriuret Pep 1278 pg/mL (0-900) H 10/25/16 10:19 Triglycerides 139 mg/dL (2-149) 10/25/16 07:27 Cholesterol 249 mg/dL (50-199) H 10/25/16 07:27 LDL Cholesterol Direct 182 mg/dL (50-130) H 10/25/16 07:27 HDL Cholesterol 40 mg/dL (40-59) 10/25/16 07:27 Cholesterol/HDL Ratio 6.22 % 10/25/16 07:27
[2016-10-31] MEDS: HEPARIN SUB-Q SCH ×2 (10:52→21:27)
[2016-10-31] MEDS: HALFPRIN EC PO SCH (11:38)
[2016-10-31] MEDS: PLAVIX PO SCH (11:38)
[2016-10-31] MEDS: RANEXA ER PO SCH ×2 (11:38→21:27)
[2016-10-31] MEDS: XANAX PO SCH ×2 (11:40→21:26)
[2016-10-31] MEDS: PEPCID PO SCH (11:42)
--- NOTE | 2016-10-31 11:56 | Progress Note ---
Assessment and Plan Patient sleeping at this time. No acute respiratory distress. Resting on 3 litres O2. O2 satuaration 96%. - Patient Problems (1) Acute hypoxemic respiratory failure Current Visit: Yes Status: Acute Plan to address problem: O2 supplementation 3 litres. Brovanna/Budesonide aerosol treatments q 12 hours. Albuterol inhalor q 6 hours prn for shortness of breath. Continue S/C Heparin. Continue Famotidine. (2) Acute myocardial infarction Current Visit: Yes Status: Acute Qualifiers: Myocardial infarction ST status: M Involved coronary artery: I Plan to address problem: Management as per cardiology. (3) Acute pulmonary edema Current Visit: Yes Status: Acute Plan to address problem: Improved. Repeat chest xray showed improvement in pulmonary venous congestion. (4) Obesity (BMI 30.0-34.9) Current Visit: Yes Status: Acute Plan to address problem: Dietary consultation for weight reduction diet. Recommend sleep study as out patient. Subjective Date of service: 10/31/16 Principal diagnosis: Acute Hypoxemic Respiratory Failure; Acute AR Interval history: Patient sleeping at this time. No acute respiratory distress. Resting on 3 litres O2. O2 satuaration 96%. Objective Vital Signs - 12hr 10/31/16 10/31/16 10/31/16 00:15 05:00 05:01 Temperature 97.6 F 97.8 F Pulse Rate 86 Pulse Rate [ Bilateral] Pulse Rate [ 84 94 H From Monitor] Pulse Rate [ Right Radial] Respiratory 18 20 Rate Respiratory Rate [Bilateral ] Blood Pressure 93/57 74/43 [Left Arm] Blood Pressure [Right Arm] O2 Sat by Pulse 94 94 Oximetry 10/31/16 10/31/16 10/31/16 07:20 07:31 07:32 Temperature 97.0 F L Pulse Rate Pulse Rate [ 84 Bilateral] Pulse Rate [ From Monitor] Pulse Rate [ 90 Right Radial] Respiratory 22 Rate Respiratory 18 Rate [Bilateral ] Blood Pressure [Left Arm] Blood Pressure 72/51 [Right Arm] O2 Sat by Pulse 94 96 Oximetry 10/31/16 07:39 Temperature Pulse Rate Pulse Rate [ 86 Bilateral] Pulse Rate [ From Monitor] Pulse Rate [ Right Radial] Respiratory Rate Respiratory 18 Rate [Bilateral ] Blood Pressure [Left Arm] Blood Pressure [Right Arm] O2 Sat by Pulse Oximetry Constitutional: no acute distress, alert Eyes: non-icteric ENT: oropharynx moist Neck: supple, no lymphadenopathy Effort: mildly labored Ascultation: Bilateral: diminished breath sounds, rales (posterior bases but scant) Cardiovascular: regular rate and rhythm Gastrointestinal: normoactive bowel sounds, soft, non-tender, non-distended Integumentary: normal Extremities: no cyanosis, no edema, pink and warm, pulses normal Neurologic: normal mental status, non-focal exam, pupils equal and round, motor strength normal and Psychiatric: mood appropriate, affect normal CBC and BMP: 10/31/16 05:11 10/30/16 05:24 ABG, PT/INR, D-dimer: ABG POC ABG pH 7.395 (7.35-7.45) 10/26/16 02:24 POC ABG pCO2 31.6 (35-45) L 10/26/16 02:24 POC ABG pO2 58 (80-105) L 10/26/16 02:24 POC ABG HCO3 19.4 10/26/16 02:24 POC ABG Total CO2 20 10/26/16 02:24 POC ABG O2 Sat 90 10/26/16 02:24 PT/INR, D-dimer PT 13.6 Sec. (12.2-14.9) 10/25/16 11:21 INR 1.05 (0.87-1.13) 10/25/16 11:21 Abnormal lab findings: Abnormal Labs 10/25/16 10/25/16 10/25/16 10:19 10:23 11:55 WBC RBC Hgb Hct Lymph % (Auto) Porter # Seg Neutrophils % Seg Neutrophils # Heparin Anti-Xa Level POC ABG pCO2 POC ABG pO2 Sodium Potassium Chloride Carbon Dioxide BUN Glucose POC Glucose 299 H Hemoglobin A1c Troponin T 0.167 H* D C-Reactive Protein NT-Pro-B Natriuret Pep 1278 H 10/25/16 10/25/16 10/25/16 13:59 17:31 22:12 WBC RBC Hgb Hct Lymph % (Auto) [place] # Seg Neutrophils % Seg Neutrophils # Heparin Anti-Xa Level 2.00 H POC ABG pCO2 POC ABG pO2 Sodium Potassium Chloride Carbon Dioxide BUN Glucose POC Glucose 188 H Hemoglobin A1c Troponin T 0.209 H* D C-Reactive Protein NT-Pro-B Natriuret Pep 10/26/16 10/26/16 10/26/16 00:05 02:24 03:40 WBC 16.2 H RBC 5.60 H Hgb 15.6 H Hct 48.0 H Lymph % (Auto) 8.1 L Porter # 0.9 H Seg Neutrophils % 86.1 H Seg Neutrophils # 14.0 H Heparin Anti-Xa Level POC ABG pCO2 31.6 L POC ABG pO2 58 L Sodium Potassium Chloride Carbon Dioxide BUN Glucose POC Glucose 264 H Hemoglobin A1c Troponin T C-Reactive Protein NT-Pro-B Natriuret Pep 10/26/16 10/26/16 10/26/16 03:40 03:40 05:50 WBC RBC Hgb Hct Lymph % (Auto) [place] # Seg Neutrophils % Seg Neutrophils # Heparin Anti-Xa Level < 0.10 L POC ABG pCO2 POC ABG pO2 Sodium 134 L Potassium Chloride 96.5 L Carbon Dioxide 17 L BUN 23 H Glucose 301 H POC Glucose 288 H Hemoglobin A1c Troponin T C-Reactive Protein NT-Pro-B Natriuret Pep 10/26/16 10/26/16 10/26/16 11:54 17:15 20:21 WBC RBC Hgb Hct Lymph % (Auto) [place] # Seg Neutrophils % Seg Neutrophils # Heparin Anti-Xa Level < 0.10 L POC ABG pCO2 POC ABG pO2 Sodium Potassium Chloride Carbon Dioxide BUN Glucose POC Glucose 254 H 189 H Hemoglobin A1c Troponin T C-Reactive Protein NT-Pro-B Natriuret Pep 10/26/16 10/26/16 10/27/16 20:21 22:44 00:20 WBC RBC Hgb Hct Lymph % (Auto) [place] # Seg Neutrophils % Seg Neutrophils # Heparin Anti-Xa Level 0.19 L POC ABG pCO2 POC ABG pO2 Sodium Potassium Chloride Carbon Dioxide BUN Glucose POC Glucose 195 H Hemoglobin A1c Troponin T C-Reactive Protein 9.30 H NT-Pro-B Natriuret Pep 10/27/16 10/27/16 10/27/16 04:11 08:09 11:38 WBC RBC Hgb Hct Lymph % (Auto) [place] # Seg Neutrophils % Seg Neutrophils # Heparin Anti-Xa Level POC ABG pCO2 POC ABG pO2 Sodium Potassium Chloride Carbon Dioxide BUN Glucose POC Glucose 270 H 286 H Hemoglobin A1c 9.5 H Troponin T C-Reactive Protein NT-Pro-B Natriuret Pep 10/27/16 10/27/16 10/28/16 16:18 23:20 04:43 WBC 12.5 H RBC Hgb Hct Lymph % (Auto) [place] # Seg Neutrophils % Seg Neutrophils # Heparin Anti-Xa Level POC ABG pCO2 POC ABG pO2 Sodium Potassium Chloride Carbon Dioxide BUN Glucose POC Glucose 236 H 196 H Hemoglobin A1c Troponin T C-Reactive Protein NT-Pro-B Natriuret Pep 10/28/16 10/28/16 10/28/16 04:43 06:06 08:32 WBC RBC Hgb Hct Lymph % (Auto) [place] # Seg Neutrophils % Seg Neutrophils # Heparin Anti-Xa Level POC ABG pCO2 POC ABG pO2 Sodium Potassium 3.2 L D Chloride Carbon Dioxide 21 L BUN 27 H Glucose 183 H POC Glucose 174 H 185 H Hemoglobin A1c Troponin T C-Reactive Protein NT-Pro-B Natriuret Pep 10/28/16 10/28/16 10/29/16 11:11 15:53 00:11 WBC RBC Hgb Hct Lymph % (Auto) Porter # Seg Neutrophils % Seg Neutrophils # Heparin Anti-Xa Level POC ABG pCO2 POC ABG pO2 Sodium Potassium Chloride Carbon Dioxide BUN Glucose POC Glucose 271 H 210 H 138 H Hemoglobin A1c Troponin T C-Reactive Protein NT-Pro-B Natriuret Pep 10/29/16 10/29/16 10/29/16 03:55 03:55 11:44 WBC 11.2 H RBC Hgb Hct Lymph % (Auto) Porter # Seg Neutrophils % Seg Neutrophils # Heparin Anti-Xa Level POC ABG pCO2 POC ABG pO2 Sodium 135 L Potassium Chloride 93.9 L Carbon Dioxide 21 L BUN 26 H Glucose 197 H POC Glucose 238 H Hemoglobin A1c Troponin T C-Reactive Protein NT-Pro-B Natriuret Pep 10/29/16 10/30/16 10/30/16 17:02 00:43 05:24 WBC RBC Hgb Hct Lymph % (Auto) Porter # Seg Neutrophils % Seg Neutrophils # Heparin Anti-Xa Level POC ABG pCO2 POC ABG pO2 Sodium 136 L Potassium Chloride 92.9 L Carbon Dioxide 21 L BUN 29 H Glucose 200 H POC Glucose 144 H 191 H Hemoglobin A1c Troponin T C-Reactive Protein NT-Pro-B Natriuret Pep 10/30/16 10/30/16 10/30/16 06:54 11:25 16:59 WBC RBC Hgb Hct Lymph % (Auto) [place] # Seg Neutrophils % Seg Neutrophils # Heparin Anti-Xa Level POC ABG pCO2 POC ABG pO2 Sodium Potassium Chloride Carbon Dioxide BUN Glucose POC Glucose 221 H 268 H 122 H Hemoglobin A1c Troponin T C-Reactive Protein NT-Pro-B Natriuret Pep 10/30/16 10/31/16 23:27 06:12 WBC RBC Hgb Hct Lymph % (Auto) Porter # Seg Neutrophils % Seg Neutrophils # Heparin Anti-Xa Level POC ABG pCO2 POC ABG pO2 Sodium Potassium Chloride Carbon Dioxide BUN Glucose POC Glucose 145 H 137 H Hemoglobin A1c Troponin T C-Reactive Protein NT-Pro-B Natriuret Pep
[2016-11-01] MEDS: HEPARIN SUB-Q SCH ×2 (09:48→21:51)
[2016-11-01] MEDS: PERCOCET 5/325 PO PRN ×2 (09:49→18:08)
[2016-11-01] MEDS: HALFPRIN EC PO SCH (09:49)
[2016-11-01] MEDS: PEPCID PO SCH (09:50)
[2016-11-01] MEDS: PLAVIX PO SCH (09:50)
[2016-11-01] MEDS: BROVANA NEBU IH SCH ×2 (09:51→19:55)
[2016-11-01] MEDS: RANEXA ER PO SCH ×2 (09:51→21:51)
[2016-11-01] MEDS: PULMICORT IH SCH ×2 (09:52→19:55)
--- NOTE | 2016-11-01 10:14 | Progress Note ---
Assessment and Plan Acute DC CAD s/p remote CABG Cardiac cath findings: 1. Patent BRISCOE-LAD 2. Patent SVG-Diag 3. Occluded SVG-OM. This appears to be a [place] PACKER, target vessel is a small caliber OM. 4. RCA was not previously bypassed, BUT has a prior stent mid vessel. Vessel is subtotally occluded within stented segment. 5. Severe ischemic cardiomyopathy, EF 20%. 6. Medical therapy recommended Ischemic Cardiomyopathy Acute systolic heart failure Mild Dementia Diabetes mellitus Hyperlipidemia Plan: Lisinopril, imdur, lasix and metolazone discontinued due to hypotension. Continue aspirin, plavix, lipitor and ranexa for coronary artery disease. Patient is being treated conservatively for acute DC and ischemic cardiomyopathy given advanced age and underlying dementia. Subjective Date of service: 11/01/16 Principal diagnosis: Acute Hypoxemic Respiratory Failure; Acute DC Interval history: Patient resting with eyes closed. Daughter at bedside. No cardiac events reported overnight. Stable low normal BP of 101/55 currently. Objective Vital Signs Temp Pulse Pulse Pulse Pulse Pulse Resp 11/01/16 09:01 97.6 F 92 H 20 11/01/16 08:59 98.0 F 92 H 92 H 20 11/01/16 04:00 97.5 F L 93 H 20 11/01/16 00:00 98.4 F 89 22 10/31/16 23:39 94 H 18 10/31/16 20:55 95 H 10/31/16 20:52 98.2 F 95 H 22 10/31/16 20:47 10/31/16 20:46 97 H 10/31/16 20:00 20 10/31/16 19:56 97 H 10/31/16 15:15 98.4 F 88 22 10/31/16 13:00 82 10/31/16 11:35 97.5 F L 82 20 Resp BP BP Pulse Ox 11/01/16 09:01 101/55 100 11/01/16 08:59 101/55 100 11/01/16 04:00 96/55 97 11/01/16 00:00 70/50 98 10/31/16 23:39 97 10/31/16 20:55 20 10/31/16 20:52 80/50 96 10/31/16 20:47 92 10/31/16 20:46 20 10/31/16 20:00 97 10/31/16 19:56 10/31/16 15:15 86/60 93 10/31/16 13:00 10/31/16 11:35 77/51 94 - Physical Examination General: No Apparent Distress Cardiac: Positive: Reg Rate and Rhythm Neuro: Positive: Grossly Intact, Weakness Extremities: Absent: edema
--- NOTE | 2016-11-01 10:36 | Progress Note ---
Assessment and Plan Assessment and plan: Acute NSTEMI. On aspirin Plavix , Lopressor. Cardiac cath done,showed multi- vessel disease. Medical management recommended. cardiology following . No more chest pain Chest pain due to acute NSTEMI. No more chest pain-resolved. Off heparin drip Acute systolic heart failure. On Lasix, lopressor. He is now off Milrinone drip Hypotension. Hold all anti-hypertensives. Ischemic cardiomyopathy. EF 20% CAD s/p CABG Acute encephalopathy with altered mental status. haldol prn. CT head without contrast no acute changes. Diabetes mellitus type II. Fingerstick glucose before every meal and at bedtime Hyponatremia, mild. DVT prophylaxis. On Heparin. Full code status Likely dementia. He is agitated,confused. I discussed with daughter at bedside, who confirms he is at baseline. He was living byself before admission. daughter interested in Rehab. I discussed with community case manager. History Interval history: No more chest pain, Still confused, low blood pressure yesterday, better today Daughter say his mental status at baseline Hospitalist Physical - Physical exam Narrative exam: Gen: Not in acute distress, obese HEENT: Normocephalic, atraumatic Neck: supple, no JVD Lungs: Less bilateral crackles, no wheezing Heart S1-S2 regular, no murmurs, rubs or gallop, Abdomen: soft, non tender, normal bowel sounds present Ext: No edema, no clubbing, no cyanosis Neuro: Awake.alert, confused. oriented to person but not to place or time, - Constitutional Vitals: Temp Pulse Resp BP Pulse Ox 97.6 F 92 H 20 101/55 100 11/01/16 09:01 11/01/16 09:01 11/01/16 09:01 11/01/16 09:01 11/01/16 09:01 Results - Labs CBC & Chem 7: 10/31/16 05:11 10/30/16 05:24 Labs: Laboratory Last Values WBC TNR 10/30/16 05:24 RBC TNR 10/30/16 05:24 Hgb 14.0 gm/dl (11.8-15.2) 10/31/16 05:11 Hct 42.8 % (35.5-45.6) 10/31/16 05:11 MCV TNR 10/30/16 05:24 MCH TNR 10/30/16 05:24 MCHC TNR 10/30/16 05:24 RDW TNR 10/30/16 05:24 Plt Count 168 K/mm3 (140-440) 10/31/16 05:11 Lymph % (Auto) 8.1 % (13.4-35.0) L 10/26/16 03:40 [place] % (Auto) 5.5 % (0.0-7.3) 10/26/16 03:40 Eos % (Auto) 0.1 % (0.0-4.3) 10/26/16 03:40 Baso % (Auto) 0.2 % (0.0-1.8) 10/26/16 03:40 Lymph # 1.3 K/mm3 (1.2-5.4) 10/26/16 03:40 [place] # 0.9 K/mm3 (0.0-0.8) H 10/26/16 03:40 Eos # 0.0 K/mm3 (0.0-0.4) 10/26/16 03:40 Baso # 0.0 K/mm3 (0.0-0.1) 10/26/16 03:40 Seg Neutrophils % 86.1 % (40.0-70.0) H 10/26/16 03:40 Seg Neutrophils # 14.0 K/mm3 (1.8-7.7) H 10/26/16 03:40 PT 13.6 Sec. (12.2-14.9) 10/25/16 11:21 INR 1.05 (0.87-1.13) 10/25/16 11:21 APTT 24.6 Sec. (24.2-36.6) 10/25/16 11:21 Heparin Anti-Xa Level 0.35 U.I./ml (0.3-0.7) 10/28/16 12:46 POC ABG pH 7.395 (7.35-7.45) 10/26/16 02:24 POC ABG pCO2 31.6 (35-45) L 10/26/16 02:24 POC ABG pO2 58 (80-105) L 10/26/16 02:24 POC ABG HCO3 19.4 10/26/16 02:24 POC ABG Total CO2 20 10/26/16 02:24 POC ABG O2 Sat 90 10/26/16 02:24 POC ABG Base Excess -6 10/26/16 02:24 FiO2 50 % 10/26/16 02:24 Sodium 136 mmol/L (137-145) L 10/30/16 05:24 Potassium 4.0 mmol/L (3.6-5.0) 10/30/16 05:24 Chloride 92.9 mmol/L (98-107) L 10/30/16 05:24 Carbon Dioxide 21 mmol/L (22-30) L 10/30/16 05:24 Anion Gap 26 mmol/L 10/30/16 05:24 BUN 29 mg/dL (9-20) H 10/30/16 05:24 Creatinine 1.4 mg/dL (0.8-1.5) 10/30/16 05:24 Estimated GFR 49 ml/min 10/30/16 05:24 BUN/Creatinine Ratio 20.71 % 10/30/16 05:24 Glucose 200 mg/dL (75-100) H 10/30/16 05:24 POC Glucose 70 (70-105) 11/01/16 00:40 Hemoglobin A1c 9.5 % (4-6) H 10/27/16 04:11 Calcium 9.3 mg/dL (8.4-10.2) 10/30/16 05:24 Phosphorus 2.8 mg/dL (2.5-4.5) 10/26/16 20:21 Magnesium 1.8 mg/dL (1.7-2.3) 10/26/16 20:21 Troponin T 0.209 ng/mL (0.00-0.029) H* D 10/25/16 13:59 C-Reactive Protein 9.30 mg/dL (0.00-1.30) H 10/26/16 20:21 NT-Pro-B Natriuret Pep 1278 pg/mL (0-900) H 10/25/16 10:19 Triglycerides 139 mg/dL (2-149) 10/25/16 07:27 Cholesterol 249 mg/dL (50-199) H 10/25/16 07:27 LDL Cholesterol Direct 182 mg/dL (50-130) H 10/25/16 07:27 HDL Cholesterol 40 mg/dL (40-59) 10/25/16 07:27 Cholesterol/HDL Ratio 6.22 % 10/25/16 07:27
--- NOTE | 2016-11-01 12:55 | Consultation ---
History of Present Illness - Reason for Consult Consult date: 11/01/16 Evaluate for Acute IRU - History of Present Illness 81 y.o. male admitted secondary to chest pain and shortness of breath; also noted to have vomiting episode x1 and hypotension. Pt treated for CHF exacerbation with IV lasix, milrinone drip; NSTEMI, s/p cardiac cath and IV heparin. Pt found to have multivessel disease recommended for medical management. Course also significant for acute respiratory failure, on supplemental oxygen (not on at home); acute encephalopathy, now improved, however pt likely with baseline mild dementia; ongoing hypotension, now off all oral anti-hypertensives. Consult placed for post-acute placement recommendations. Past History Past Medical History: CAD, hypertension, other (ischemic cardiomyopathy) Past Surgical History: CABG, Other (cardiac stents) Social history: Lives alone, smoking Family history: CAD, diabetes, hypertension, stroke Medications and Allergies Allergies Allergy/AdvReac Type Severity Reaction Status Date / Time No Known Allergies Allergy Verified 10/25/16 11:07 Home Medications Medication Instructions Recorded Confirmed Last Taken Type Unobtainable 10/25/16 10/25/16 Unknown History Active Meds: Active Medications Acetaminophen (Tylenol) 650 mg PO Q4H PRN PRN Reason: Pain MILD(1-3)/Fever >100.5/BLAKE Albuterol (Proventil) 2.5 mg IH Q4HRT PRN PRN Reason: Shortness Of Breath Arformoterol Tartrate (Brovana Nebu) 15 mcg IH Q12HRT [facility] Last Admin: 11/01/16 09:51 Dose: 15 mcg Aspirin (Halfprin Ec) 81 mg PO QDAY [facility] Last Admin: 11/01/16 09:49 Dose: 81 mg Atorvastatin Calcium (Lipitor) 80 mg PO QHS [facility] Last Admin: 10/31/16 21:26 Dose: 80 mg Bisacodyl (Dulcolax) 10 mg [place] QDAY PRN PRN Reason: Constipation unrelieved by MOM Budesonide (Pulmicort) 0.5 mg IH Q12HRT [facility] Last Admin: 11/01/16 09:52 Dose: 0.5 mg Clopidogrel Bisulfate (Plavix) 75 mg PO QDAY [facility] Last Admin: 11/01/16 09:50 Dose: 75 mg Dextrose (D50w (25gm)) 50 ml IV PRN PRN PRN Reason: Hypoglycemia Famotidine (Pepcid) 20 mg PO QDAY [facility] Last Admin: 11/01/16 09:50 Dose: 20 mg Haloperidol Lactate (Haldol) 5 mg IM Q6H PRN PRN Reason: Agitation Last Admin: 10/30/16 10:21 Dose: 5 mg Heparin Sodium (Porcine) (Heparin) 5,000 unit SUB-Q Q12HR [facility] Last Admin: 11/01/16 09:48 Dose: 5,000 unit Insulin Human Isoph/Insulin Regular (Novolin 70/30) 15 unit SUB-Q BIDDIAB [facility] Last Admin: 10/31/16 18:45 Dose: 15 unit Insulin Human Regular (Novolin R) 0 units SUB-Q Q6HR [facility] PRN Reason: Protocol Last Admin: 11/01/16 08:41 Dose: Not Given Magnesium Hydroxide (Milk Of Magnesia) 30 ml PO Q4H PRN PRN Reason: Constipation Ondansetron HCl (Zofran) 4 mg IV Q8H PRN PRN Reason: N/V unrelieved by Reglan Oxycodone/Acetaminophen (Percocet 5/325) 1 tab PO Q6H PRN PRN Reason: Pain, Moderate (4-6) Last Admin: 11/01/16 09:49 Dose: 1 tab Quetiapine Fumarate (Seroquel) 50 mg PO QHS [facility] Last Admin: 10/31/16 21:26 Dose: 50 mg Ranolazine (Ranexa Er) 500 mg PO BID [facility] Last Admin: 11/01/16 09:51 Dose: 500 mg Review of Systems All systems: negative Constitutional: poor appetite (graces at baseline) Ears, nose, mouth and throat: no headache Cardiovascular: lightheadedness, no chest pain Respiratory: no cough Gastrointestinal: no nausea, no vomiting Genitourinary Male: other (mena) Musculoskeletal: gait dysfunction Exam - Constitutional Vitals: Vital Signs - 12hr 11/01/16 11/01/16 11/01/16 04:00 08:59 09:01 Temperature 97.5 F L 98.0 F 97.6 F Pulse Rate 92 H Pulse Rate [ 93 H 92 H From Monitor] Pulse Rate [ 92 H Right Radial] Respiratory 20 20 20 Rate Blood Pressure 96/55 101/55 101/55 [Right Arm] O2 Sat by Pulse 97 100 100 Oximetry 11/01/16 10:00 Temperature Pulse Rate Pulse Rate [ From Monitor] Pulse Rate [ Right Radial] Respiratory 18 Rate Blood Pressure [Right Arm] O2 Sat by Pulse 97 Oximetry General appearance: no acute distress - EENT Eyes: EOM intact ENT: hearing intact - Neck Neck: supple, normal ROM - Respiratory Respiratory effort: normal Respiratory: bilateral: CTA - Cardiovascular Rhythm: regular Heart Sounds: Present: S1 & S2 - Extremities Extremities: No edema - Gastrointestinal General gastrointestinal: Present: soft, non-tender, non-distended, normal bowel sounds - Integumentary Integumentary: Present: clear - Neurologic Neurologic: CNII-XII intact, moves all extremities (4/5) - Psychiatric Psychiatric: appropriate mood/affect, no memory intact (pleasantly confused; oriented to self, birthdate, family), cooperative - Allied health notes Allied health notes reviewed: PT (supervision/SBA for bed mobility, transfers, gait 20 feet) FIMS assesment as documented by PT/OT/ST: Locomotion- walk/wheelchair Ambulation Distance 20 - Labs CBC & Chem 7: 10/31/16 05:11 10/30/16 05:24 Labs: Laboratory Results - last 72 hr 10/25/16 10/29/16 10/29/16 10:23 11:44 17:02 WBC RBC Hgb Hct MCV MCH MCHC RDW Plt Count Sodium Potassium Chloride Carbon Dioxide Anion Gap BUN Creatinine Estimated GFR BUN/Creatinine Ratio Glucose POC Glucose 238 H 144 H Calcium Troponin T 0.167 H* D 10/30/16 10/30/16 10/30/16 00:43 05:24 05:24 WBC TNR RBC TNR Hgb TNR Hct TNR MCV TNR MCH TNR MCHC TNR RDW TNR Plt Count TNR Sodium 136 L Potassium 4.0 Chloride 92.9 L Carbon Dioxide 21 L Anion Gap 26 BUN 29 H Creatinine 1.4 Estimated GFR 49 BUN/Creatinine Ratio 20.71 Glucose 200 H POC Glucose 191 H Calcium 9.3 Troponin T 10/30/16 10/30/16 10/30/16 06:54 11:25 16:59 WBC RBC Hgb Hct MCV MCH MCHC RDW Plt Count Sodium Potassium Chloride Carbon Dioxide Anion Gap BUN Creatinine Estimated GFR BUN/Creatinine Ratio Glucose POC Glucose 221 H 268 H 122 H Calcium Troponin T 10/30/16 10/31/16 10/31/16 23:27 05:11 06:12 WBC RBC Hgb 14.0 Hct 42.8 MCV MCH MCHC RDW Plt Count 168 Sodium Potassium Chloride Carbon Dioxide Anion Gap BUN Creatinine Estimated GFR BUN/Creatinine Ratio Glucose POC Glucose 145 H 137 H Calcium Troponin T 10/31/16 11/01/16 11:37 00:40 WBC RBC Hgb Hct MCV MCH MCHC RDW Plt Count Sodium Potassium Chloride Carbon Dioxide Anion Gap BUN Creatinine Estimated GFR BUN/Creatinine Ratio Glucose POC Glucose 166 H 70 Calcium Troponin T Assessment and Plan Patient was assessed and evaluated for Acute Inpatient Rehab Unit. 81 y.o. male with acute NSTEMI, acute CHF exacerbation, acute respiratory failure, hypotension; unsteady gait. Rehab options discussed in detail with pt and family (daughter and son present in room). At current, pt continues with symptomatic hypotension with standing; SBP dropped to 70s attempting to ambulate with PT. Functionally, pt is doing well requiring S/SBA for bed mobility, transfers, and gait. Once BP has stabilized, pt will likely not have therapy needs. However, pt may need more family supervision at discharge due to mild confusion for safety, as patient lived alone prior to admission. Case discussed with IM, Dr. Hahn, on today. Will continue to follow. Thank you for consultation. - Patient Problems (1) Acute myocardial infarction Current Visit: Yes Status: Acute Qualifiers: Myocardial infarction ST status: M Involved coronary artery: I (2) CHF (congestive heart failure) Current Visit: Yes Status: Acute Qualifiers: Congestive heart failure type: C Congestive heart failure chronicity: C (3) Acute hypoxemic respiratory failure Current Visit: Yes Status: Acute (4) Hypotension Current Visit: Yes Status: Acute Qualifiers: Hypotension type: orthostatic hypotension Trimester: T Qualified Code(s) : I95.1 - Orthostatic hypotension (5) Unsteady gait Current Visit: Yes Status: Acute
--- NOTE | 2016-11-01 13:02 | Progress Note ---
Assessment and Plan - Patient Problems (1) Acute hypoxemic respiratory failure Current Visit: Yes Status: Acute Plan to address problem: - continue supplemental oxygen - continue qhs CPAP - diuresis per cardiology recs - continue to optimize CAD medical management - continue bronchodilators and pulmonary toilet (2) Acute pulmonary edema Current Visit: Yes Status: Acute Plan to address problem: - resolved (3) Obesity (BMI 30.0-34.9) Current Visit: Yes Status: Acute Plan to address problem: - weight loss counselled - outpatient PSG will be beneficial (4) Acute myocardial infarction Current Visit: Yes Status: Acute Qualifiers: Myocardial infarction ST status: M Involved coronary artery: I Plan to address problem: - diuresis stopped - DMOD's per cardiology - medical management planned over surgery (5) Discharge planning issues Current Visit: Yes Status: Acute Plan to address problem: - acute rehabilitation vs SNF Subjective Date of service: 11/01/16 Principal diagnosis: Acute Hypoxemic Respiratory Failure; Acute [place] Interval history: Seen and examined at bedside; 24 hour events reviewed; nursing and respiratory care staff consulted; no adverse overnight events reported to me; resting peacefully; remains on supplemental oxygen; no emesis or overt aspiration; tolerating qhs CPAP Objective Vital Signs - 12hr 11/01/16 11/01/16 11/01/16 04:00 08:59 09:01 Temperature 97.5 F L 98.0 F 97.6 F Pulse Rate 92 H Pulse Rate [ 93 H 92 H From Monitor] Pulse Rate [ 92 H Right Radial] Respiratory 20 20 20 Rate Blood Pressure 96/55 101/55 101/55 [Right Arm] O2 Sat by Pulse 97 100 100 Oximetry 11/01/16 10:00 Temperature Pulse Rate Pulse Rate [ From Monitor] Pulse Rate [ Right Radial] Respiratory 18 Rate Blood Pressure [Right Arm] O2 Sat by Pulse 97 Oximetry Constitutional: no acute distress, alert Eyes: non-icteric ENT: oropharynx moist Neck: supple, no lymphadenopathy Effort: mildly labored Ascultation: Bilateral: diminished breath sounds, rales (posterior bases but scant) Cardiovascular: regular rate and rhythm Gastrointestinal: normoactive bowel sounds, soft, non-tender, non-distended Integumentary: normal Extremities: no cyanosis, no edema, pink and warm, pulses normal Neurologic: normal mental status, non-focal exam, pupils equal and round, motor strength normal and Psychiatric: mood appropriate, affect normal CBC and BMP: 11/02/16 04:53 11/02/16 05:02 ABG, PT/INR, D-dimer: ABG POC ABG pH 7.395 (7.35-7.45) 10/26/16 02:24 POC ABG pCO2 31.6 (35-45) L 10/26/16 02:24 POC ABG pO2 58 (80-105) L 10/26/16 02:24 POC ABG HCO3 19.4 10/26/16 02:24 POC ABG Total CO2 20 10/26/16 02:24 POC ABG O2 Sat 90 10/26/16 02:24 PT/INR, D-dimer PT 13.6 Sec. (12.2-14.9) 10/25/16 11:21 INR 1.05 (0.87-1.13) 10/25/16 11:21 Abnormal lab findings: Abnormal Labs 10/25/16 10/25/16 10/25/16 10:19 10:23 11:55 WBC RBC Hgb Hct Lymph % (Auto) [place] # Seg Neutrophils % Seg Neutrophils # Heparin Anti-Xa Level POC ABG pCO2 POC ABG pO2 Sodium Potassium Chloride Carbon Dioxide BUN Glucose POC Glucose 299 H Hemoglobin A1c Troponin T 0.167 H* D C-Reactive Protein NT-Pro-B Natriuret Pep 1278 H 10/25/16 10/25/16 10/25/16 13:59 17:31 22:12 WBC RBC Hgb Hct Lymph % (Auto) [place] # Seg Neutrophils % Seg Neutrophils # Heparin Anti-Xa Level 2.00 H POC ABG pCO2 POC ABG pO2 Sodium Potassium Chloride Carbon Dioxide BUN Glucose POC Glucose 188 H Hemoglobin A1c Troponin T 0.209 H* D C-Reactive Protein NT-Pro-B Natriuret Pep 10/26/16 10/26/16 10/26/16 00:05 02:24 03:40 WBC 16.2 H RBC 5.60 H Hgb 15.6 H Hct 48.0 H Lymph % (Auto) 8.1 L [place] # 0.9 H Seg Neutrophils % 86.1 H Seg Neutrophils # 14.0 H Heparin Anti-Xa Level POC ABG pCO2 31.6 L POC ABG pO2 58 L Sodium Potassium Chloride Carbon Dioxide BUN Glucose POC Glucose 264 H Hemoglobin A1c Troponin T C-Reactive Protein NT-Pro-B Natriuret Pep 10/26/16 10/26/16 10/26/16 03:40 03:40 05:50 WBC RBC Hgb Hct Lymph % (Auto) [place] # Seg Neutrophils % Seg Neutrophils # Heparin Anti-Xa Level < 0.10 L POC ABG pCO2 POC ABG pO2 Sodium 134 L Potassium Chloride 96.5 L Carbon Dioxide 17 L BUN 23 H Glucose 301 H POC Glucose 288 H Hemoglobin A1c Troponin T C-Reactive Protein NT-Pro-B Natriuret Pep 10/26/16 10/26/16 10/26/16 11:54 17:15 20:21 WBC RBC Hgb Hct Lymph % (Auto) [place] # Seg Neutrophils % Seg Neutrophils # Heparin Anti-Xa Level < 0.10 L POC ABG pCO2 POC ABG pO2 Sodium Potassium Chloride Carbon Dioxide BUN Glucose POC Glucose 254 H 189 H Hemoglobin A1c Troponin T C-Reactive Protein NT-Pro-B Natriuret Pep 10/26/16 10/26/16 10/27/16 20:21 22:44 00:20 WBC RBC Hgb Hct Lymph % (Auto) [place] # Seg Neutrophils % Seg Neutrophils # Heparin Anti-Xa Level 0.19 L POC ABG pCO2 POC ABG pO2 Sodium Potassium Chloride Carbon Dioxide BUN Glucose POC Glucose 195 H Hemoglobin A1c Troponin T C-Reactive Protein 9.30 H NT-Pro-B Natriuret Pep 10/27/16 10/27/16 10/27/16 04:11 08:09 11:38 WBC RBC Hgb Hct Lymph % (Auto) [place] # Seg Neutrophils % Seg Neutrophils # Heparin Anti-Xa Level POC ABG pCO2 POC ABG pO2 Sodium Potassium Chloride Carbon Dioxide BUN Glucose POC Glucose 270 H 286 H Hemoglobin A1c 9.5 H Troponin T C-Reactive Protein NT-Pro-B Natriuret Pep 10/27/16 10/27/16 10/28/16 16:18 23:20 04:43 WBC 12.5 H RBC Hgb Hct Lymph % (Auto) [place] # Seg Neutrophils % Seg Neutrophils # Heparin Anti-Xa Level POC ABG pCO2 POC ABG pO2 Sodium Potassium Chloride Carbon Dioxide BUN Glucose POC Glucose 236 H 196 H Hemoglobin A1c Troponin T C-Reactive Protein NT-Pro-B Natriuret Pep 10/28/16 10/28/16 10/28/16 04:43 06:06 08:32 WBC RBC Hgb Hct Lymph % (Auto) [place] # Seg Neutrophils % Seg Neutrophils # Heparin Anti-Xa Level POC ABG pCO2 POC ABG pO2 Sodium Potassium 3.2 L D Chloride Carbon Dioxide 21 L BUN 27 H Glucose 183 H POC Glucose 174 H 185 H Hemoglobin A1c Troponin T C-Reactive Protein NT-Pro-B Natriuret Pep 10/28/16 10/28/16 10/29/16 11:11 15:53 00:11 WBC RBC Hgb Hct Lymph % (Auto) [place] # Seg Neutrophils % Seg Neutrophils # Heparin Anti-Xa Level POC ABG pCO2 POC ABG pO2 Sodium Potassium Chloride Carbon Dioxide BUN Glucose POC Glucose 271 H 210 H 138 H Hemoglobin A1c Troponin T C-Reactive Protein NT-Pro-B Natriuret Pep 10/29/16 10/29/16 10/29/16 03:55 03:55 11:44 WBC 11.2 H RBC Hgb Hct Lymph % (Auto) [place] # Seg Neutrophils % Seg Neutrophils # Heparin Anti-Xa Level POC ABG pCO2 POC ABG pO2 Sodium 135 L Potassium Chloride 93.9 L Carbon Dioxide 21 L BUN 26 H Glucose 197 H POC Glucose 238 H Hemoglobin A1c Troponin T C-Reactive Protein NT-Pro-B Natriuret Pep 10/29/16 10/30/16 10/30/16 17:02 00:43 05:24 WBC RBC Hgb Hct Lymph % (Auto) [place] # Seg Neutrophils % Seg Neutrophils # Heparin Anti-Xa Level POC ABG pCO2 POC ABG pO2 Sodium 136 L Potassium Chloride 92.9 L Carbon Dioxide 21 L BUN 29 H Glucose 200 H POC Glucose 144 H 191 H Hemoglobin A1c Troponin T C-Reactive Protein NT-Pro-B Natriuret Pep 10/30/16 10/30/16 10/30/16 06:54 11:25 16:59 WBC RBC Hgb Hct Lymph % (Auto) [place] # Seg Neutrophils % Seg Neutrophils # Heparin Anti-Xa Level POC ABG pCO2 POC ABG pO2 Sodium Potassium Chloride Carbon Dioxide BUN Glucose POC Glucose 221 H 268 H 122 H Hemoglobin A1c Troponin T C-Reactive Protein NT-Pro-B Natriuret Pep 10/30/16 10/31/16 10/31/16 23:27 06:12 11:37 WBC RBC Hgb Hct Lymph % (Auto) [place] # Seg Neutrophils % Seg Neutrophils # Heparin Anti-Xa Level POC ABG pCO2 POC ABG pO2 Sodium Potassium Chloride Carbon Dioxide BUN Glucose POC Glucose 145 H 137 H 166 H Hemoglobin A1c Troponin T C-Reactive Protein NT-Pro-B Natriuret Pep
[2016-11-02 05:26] LABS: Hematocrit 43.8 % (35.5-45.6); Hemoglobin 14.5 gm/dl (11.8-15.2); Mean Corpuscular HGB Conc 33 % (32-34); Mean Corpuscular Hemoglobin 28 pg (28-32); Mean Corpuscular Volume 84 fl (84-94); Platelet Count 186 K/mm3 (140-440); Red Cell Distribution Width 14.3 % (13.2-15.2); White Blood Count 10.2 K/mm3 (4.5-11.0)
[2016-11-02 06:27] LABS: BUN/Creatinine Ratio 22.72; Calcium 8.7 mg/dL (8.4-10.2); Chloride 93.9 mmol/L (98-107); Potassium 3.5 mmol/L (3.6-5.0)
[2016-11-02] MEDS: PERCOCET 5/325 PO PRN ×3 (07:50→18:50)
[2016-11-02] MEDS: BROVANA NEBU IH SCH ×2 (07:56→20:37)
[2016-11-02] MEDS: PULMICORT IH SCH ×2 (07:56→20:37)
--- NOTE | 2016-11-02 09:42 | Consultation ---
History of Present Illness - Reason for Consult Consult date: 11/02/16 acute renal failure, hypokalemia - History of Present Illness The patient is a 81-year-old WM with history significant for Obesity, Dm type 2 , Hypertension, CAD s/p CABG and Tobacco use presented to the ER on 10/25/16 with one day h/o chest pain. On further evaluation he was found to have Pulmonary edema. Patient underwent Cardiac Cath and decided by Cards to continue medical treatment. His baseline creatinine is between 1.2 and 1.5, which has increased to 2.2 today. BP is low for the past few days. With diuresis his pulmonary edema and shortness of breath has improved. Patient denies any h/o kidney stone or recurrent UTIs. He is not followed by any Process Controls Technician. Past History Past Medical History: CAD, diabetes, hypertension, other (ischemic cardiomyopathy) Past Surgical History: CABG, Other (cardiac stents) Social history: Lives alone, smoking Family history: CAD, diabetes, hypertension, stroke Medications and Allergies Allergies Allergy/AdvReac Type Severity Reaction Status Date / Time No Known Allergies Allergy Verified 10/25/16 11:07 Home Medications Medication Instructions Recorded Confirmed Last Taken Type Unobtainable 10/25/16 10/25/16 Unknown History Active Meds: Active Medications Acetaminophen (Tylenol) 650 mg PO Q4H PRN PRN Reason: Pain MILD(1-3)/Fever >100.5/BLAKE Albuterol (Proventil) 2.5 mg IH Q4HRT PRN PRN Reason: Shortness Of Breath Arformoterol Tartrate (Brovana Nebu) 15 mcg IH Q12HRT [facility] Last Admin: 11/02/16 07:56 Dose: 15 mcg Aspirin (Halfprin Ec) 81 mg PO QDAY [facility] Last Admin: 11/01/16 09:49 Dose: 81 mg Atorvastatin Calcium (Lipitor) 80 mg PO QHS [facility] Last Admin: 11/01/16 21:51 Dose: 80 mg Bisacodyl (Dulcolax) 10 mg MI QDAY PRN PRN Reason: Constipation unrelieved by MOM Budesonide (Pulmicort) 0.5 mg IH Q12HRT [facility] Last Admin: 11/02/16 07:56 Dose: 0.5 mg Clopidogrel Bisulfate (Plavix) 75 mg PO QDAY [facility] Last Admin: 11/01/16 09:50 Dose: 75 mg Dextrose (D50w (25gm)) 50 ml IV PRN PRN PRN Reason: Hypoglycemia Famotidine (Pepcid) 20 mg PO QDAY [facility] Last Admin: 11/01/16 09:50 Dose: 20 mg Haloperidol Lactate (Haldol) 5 mg IM Q6H PRN PRN Reason: Agitation Last Admin: 10/30/16 10:21 Dose: 5 mg Heparin Sodium (Porcine) (Heparin) 5,000 unit SUB-Q Q12HR [facility] Last Admin: 11/01/16 21:51 Dose: 5,000 unit Insulin Human Isoph/Insulin Regular (Novolin 70/30) 6 unit SUB-Q BIDDIAB [facility] Last Admin: 11/02/16 08:42 Dose: Not Given Insulin Human Regular (Novolin R) 0 units SUB-Q Q6HR [facility] PRN Reason: Protocol Last Admin: 11/02/16 06:25 Dose: Not Given Magnesium Hydroxide (Milk Of Magnesia) 30 ml PO Q4H PRN PRN Reason: Constipation Ondansetron HCl (Zofran) 4 mg IV Q8H PRN PRN Reason: N/V unrelieved by Reglan Oxycodone/Acetaminophen (Percocet 5/325) 1 tab PO Q6H PRN PRN Reason: Pain, Moderate (4-6) Last Admin: 11/02/16 07:50 Dose: 1 tab Quetiapine Fumarate (Seroquel) 50 mg PO QHS [facility] Last Admin: 11/01/16 21:51 Dose: 50 mg Ranolazine (Ranexa Er) 500 mg PO BID [facility] Last Admin: 11/01/16 21:51 Dose: 500 mg Review of Systems Constitutional: no weight loss, no weight gain, no fever, no chills, no anorexia Ears, nose, mouth and throat: no sinus pain, no epistaxis Cardiovascular: chest pain, orthopnea, shortness of breath, dyspnea on exertion , high blood pressure, no edema, no syncope, no lightheadedness, no leg edema Respiratory: cough, shortness of breath, dyspnea on exertion, no hemoptysis Gastrointestinal: no abdominal pain, no nausea, no vomiting, no melena Genitourinary Male: no dysuria, no hematuria Rectal: no bleeding Musculoskeletal: no neck stiffness, no neck pain Integumentary: no rash, no wounds Neurological: no head injury, no seizures Psychiatric: no disorientation, no hallucinations Hematologic/Lymphatic: no easy bleeding Allergic/Immunologic: no wheezing Exam - Vital Signs Vital signs: Vital Signs Temp Pulse Resp BP Pulse Ox 97.5 F L 86 20 103/67 95 10/25/16 07:21 10/25/16 07:21 10/25/16 07:21 10/25/16 07:21 10/25/16 07:21 - General Appearance General appearance: well-developed, well-nourished, appears stated age, obese, other (no distress) EENT: ATNC, PERRL, mucous membranes moist, hearing intact, vision intact Neck: Present: neck supple, trachea midline Respiratory: Clear to Ascultation Heart: regular, S1S2, no murmurs Gastrointestinal: Present: normoactive bowel sounds. 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 Will avoid IV fluids due to the h/o Pulmonary edema. If BP remains low consider Midodrine. Monitor renal function. Renal US pending. Replete K. (2) Acute pulmonary edema Current Visit: Yes Status: Acute Plan to address problem: Resolved. (3) Acute myocardial infarction Current Visit: Yes Status: Acute Qualifiers: Myocardial infarction ST status: M Involved coronary artery: I Plan to address problem: NSTEMI. (4) Acute hypoxemic respiratory failure Current Visit: Yes Status: Acute Plan to address problem: Improving. (5) Hypotension Current Visit: Yes Status: Acute Qualifiers: Hypotension type: orthostatic hypotension Trimester: T Qualified Code(s) : I95.1 - Orthostatic hypotension Plan to address problem: Monitor BP. (6) CAD (coronary artery disease), autologous vein bypass graft Current Visit: Yes Status: Chronic Qualifiers: Associated angina: A
[2016-11-02] MEDS: HALFPRIN EC PO SCH (09:54)
[2016-11-02] MEDS: RANEXA ER PO SCH ×2 (09:54→22:53)
[2016-11-02] MEDS: PEPCID PO SCH (09:54)
[2016-11-02] MEDS: PLAVIX PO SCH (09:54)
[2016-11-02] MEDS: HEPARIN SUB-Q SCH ×2 (09:55→22:58)
--- NOTE | 2016-11-02 10:50 | Progress Note ---
Assessment and Plan Assessment and plan: Acute NSTEMI. On aspirin Plavix , Lopressor. Cardiac cath done,showed multi- vessel disease. Medical management recommended. cardiology following . No more chest pain Chest pain due to acute NSTEMI. No more chest pain-resolved. Off heparin drip Acute systolic heart failure. On Lasix, lopressor. He is now off Milrinone drip. Acute kidney injury. Creatinine 2.2 today. Consult Nephro conceptor Hypotension. Held all anti-hypertensives. Ischemic cardiomyopathy. EF 20% CAD s/p CABG Acute encephalopathy with altered mental status. haldol prn. CT head without contrast no acute changes. Diabetes mellitus type II. Fingerstick glucose before every meal and at bedtime Hyponatremia, mild. DVT prophylaxis. On Heparin. Full code status Likely dementia. He is agitated,confused. I discussed with daughter at bedside, who confirms he is at baseline. He was living by himself before admission. daughter interested in Rehab. I discussed with market relationship manager. History Interval history: No more chest pain, Still confused, low blood pressure yesterday, better today Daughter say his mental status at baseline Hospitalist Physical - Physical exam Narrative exam: Gen: Not in acute distress, obese HEENT: Normocephalic, atraumatic Neck: supple, no JVD Lungs: Less bilateral crackles, no wheezing Heart S1-S2 regular, no murmurs, rubs or gallop, Abdomen: soft, non tender, normal bowel sounds present Ext: No edema, no clubbing, no cyanosis Neuro: Awake.alert, confused. oriented to person but not to place or time, - Constitutional Vitals: Temp Pulse Resp BP Pulse Ox 98.2 F 87 16 99/60 96 11/02/16 09:49 11/02/16 09:49 11/02/16 09:49 11/02/16 09:49 11/02/16 09:49 General appearance: Present: mild distress Results - Labs CBC & Chem 7: 11/02/16 04:53 11/03/16 06:52 Labs: Laboratory Last Values WBC 10.2 K/mm3 (4.5-11.0) 11/02/16 04:53 RBC 5.20 M/mm3 (3.65-5.03) H 11/02/16 04:53 Hgb 14.5 gm/dl (11.8-15.2) 11/02/16 04:53 Hct 43.8 % (35.5-45.6) 11/02/16 04:53 MCV 84 fl (84-94) 11/02/16 04:53 MCH 28 pg (28-32) 11/02/16 04:53 MCHC 33 % (32-34) 11/02/16 04:53 RDW 14.3 % (13.2-15.2) 11/02/16 04:53 Plt Count 186 K/mm3 (140-440) 11/02/16 04:53 Lymph % (Auto) 8.1 % (13.4-35.0) L 10/26/16 03:40 [place] % (Auto) 5.5 % (0.0-7.3) 10/26/16 03:40 Eos % (Auto) 0.1 % (0.0-4.3) 10/26/16 03:40 Baso % (Auto) 0.2 % (0.0-1.8) 10/26/16 03:40 Lymph # 1.3 K/mm3 (1.2-5.4) 10/26/16 03:40 [place] # 0.9 K/mm3 (0.0-0.8) H 10/26/16 03:40 Eos # 0.0 K/mm3 (0.0-0.4) 10/26/16 03:40 Baso # 0.0 K/mm3 (0.0-0.1) 10/26/16 03:40 Seg Neutrophils % 86.1 % (40.0-70.0) H 10/26/16 03:40 Seg Neutrophils # 14.0 K/mm3 (1.8-7.7) H 10/26/16 03:40 PT 13.6 Sec. (12.2-14.9) 10/25/16 11:21 INR 1.05 (0.87-1.13) 10/25/16 11:21 APTT 24.6 Sec. (24.2-36.6) 10/25/16 11:21 Heparin Anti-Xa Level 0.35 U.I./ml (0.3-0.7) 10/28/16 12:46 POC ABG pH 7.395 (7.35-7.45) 10/26/16 02:24 POC ABG pCO2 31.6 (35-45) L 10/26/16 02:24 POC ABG pO2 58 (80-105) L 10/26/16 02:24 POC ABG HCO3 19.4 10/26/16 02:24 POC ABG Total CO2 20 10/26/16 02:24 POC ABG O2 Sat 90 10/26/16 02:24 POC ABG Base Excess -6 10/26/16 02:24 FiO2 50 % 10/26/16 02:24 Sodium 134 mmol/L (137-145) L 11/02/16 05:02 Potassium 3.5 mmol/L (3.6-5.0) L 11/02/16 05:02 Chloride 93.9 mmol/L (98-107) L 11/02/16 05:02 Carbon Dioxide 22 mmol/L (22-30) 11/02/16 05:02 Anion Gap 22 mmol/L 11/02/16 05:02 BUN 50 mg/dL (9-20) H 11/02/16 05:02 Creatinine 2.2 mg/dL (0.8-1.5) H D 11/02/16 05:02 Estimated GFR 29 ml/min 11/02/16 05:02 BUN/Creatinine Ratio 22.72 % 11/02/16 05:02 Glucose 102 mg/dL (75-100) H 11/02/16 05:02 POC Glucose 93 (70-105) 11/02/16 06:06 Hemoglobin A1c 9.5 % (4-6) H 10/27/16 04:11 Calcium 8.7 mg/dL (8.4-10.2) 11/02/16 05:02 Phosphorus 2.8 mg/dL (2.5-4.5) 10/26/16 20:21 Magnesium 1.8 mg/dL (1.7-2.3) 10/26/16 20:21 Troponin T 0.209 ng/mL (0.00-0.029) H* D 10/25/16 13:59 C-Reactive Protein 9.30 mg/dL (0.00-1.30) H 10/26/16 20:21 NT-Pro-B Natriuret Pep 1278 pg/mL (0-900) H 10/25/16 10:19 Triglycerides 139 mg/dL (2-149) 10/25/16 07:27 Cholesterol 249 mg/dL (50-199) H 10/25/16 07:27 LDL Cholesterol Direct 182 mg/dL (50-130) H 10/25/16 07:27 HDL Cholesterol 40 mg/dL (40-59) 10/25/16 07:27 Cholesterol/HDL Ratio 6.22 % 10/25/16 07:27
--- NOTE | 2016-11-02 11:20 | Progress Note ---
Assessment and Plan Acute PR CAD s/p remote CABG Cardiac cath findings: 1. Patent BRISCOE-LAD 2. Patent SVG-Diag 3. Occluded SVG-OM. This appears to be a CLAY DIGGER, target vessel is a small caliber OM. 4. RCA was not previously bypassed, BUT has a prior stent mid vessel. Vessel is subtotally occluded within stented segment. 5. Severe ischemic cardiomyopathy, EF 20%. 6. Medical therapy recommended Ischemic Cardiomyopathy Acute systolic heart failure Acute renal failure Mild Dementia Diabetes mellitus Hyperlipidemia Plan: Patient is being treated conservatively for acute PR and ischemic cardiomyopathy given advanced age and underlying dementia. Subjective Date of service: 11/02/16 Principal diagnosis: Acute Hypoxemic Respiratory Failure; Acute PR Interval history: Patient resting with eyes closed. Son at bedside. No cardiac events reported overnight. Objective Vital Signs Temp Pulse Pulse Pulse Pulse Resp Resp 11/02/16 09:49 98.2 F 87 16 11/02/16 08:10 92 H 18 11/02/16 08:01 11/02/16 07:56 90 18 11/02/16 05:00 97.8 F 88 20 11/02/16 01:00 98.3 F 97 H 20 11/02/16 00:49 11/01/16 23:00 90 18 11/01/16 22:00 86 97 H 20 11/01/16 21:00 98.1 F 87 20 11/01/16 20:15 84 18 11/01/16 20:00 80 11/01/16 19:55 85 18 11/01/16 17:10 97.9 F 92 H 22 11/01/16 13:00 98.2 F 85 18 BP Pulse Ox 11/02/16 09:49 99/60 96 11/02/16 08:10 11/02/16 08:01 95 11/02/16 07:56 11/02/16 05:00 119/78 98 11/02/16 01:00 90/61 96 11/02/16 00:49 94 11/01/16 23:00 96 11/01/16 22:00 96 11/01/16 21:00 80/61 93 11/01/16 20:15 11/01/16 20:00 11/01/16 19:55 95 11/01/16 17:10 88/58 97 11/01/16 13:00 96/52 - Physical Examination General: No Apparent Distress Cardiac: Positive: Reg Rate and Rhythm Neuro: Positive: Grossly Intact, Weakness Extremities: Absent: edema - Labs and Meds CBC 11/02/16 Range/Units 04:53 WBC 10.2 (4.5-11.0) K/mm3 RBC 5.20 H (3.65-5.03) M/mm3 Hgb 14.5 (11.8-15.2) gm/dl Hct 43.8 (35.5-45.6) % Plt Count 186 (140-440) K/mm3 Comprehensive Metabolic Panel 11/02/16 Range/Units 05:02 Sodium 134 L (137-145) mmol/L Potassium 3.5 L (3.6-5.0) mmol/L Chloride 93.9 L (98-107) mmol/L Carbon Dioxide 22 (22-30) mmol/L BUN 50 H (9-20) mg/dL Creatinine 2.2 H D (0.8-1.5) mg/dL Glucose 102 H (75-100) mg/dL Calcium 8.7 (8.4-10.2) mg/dL
--- NOTE | 2016-11-02 13:14 | Progress Note ---
Assessment and Plan - Patient Problems (1) Acute hypoxemic respiratory failure Current Visit: Yes Status: Acute Plan to address problem: - continue supplemental oxygen - continue qhs CPAP - diuresis per cardiology recs - continue to optimize CAD medical management - continue bronchodilators and pulmonary toilet (2) Acute pulmonary edema Current Visit: Yes Status: Acute Plan to address problem: - resolved (3) Obesity (BMI 30.0-34.9) Current Visit: Yes Status: Acute Plan to address problem: - weight loss counselled - outpatient PSG will be beneficial (4) Acute myocardial infarction Current Visit: Yes Status: Acute Qualifiers: Myocardial infarction ST status: M Involved coronary artery: I Plan to address problem: - diuresis stopped - DMOD's per cardiology - medical management planned over surgery (5) VENITA (acute kidney injury) Current Visit: Yes Status: Acute Plan to address problem: - non oliguric - per nephrology recs (6) Discharge planning issues Current Visit: Yes Status: Acute Plan to address problem: - CPAP prescribed for its salutary effects on cardiovascular hemodynamics; he will benefit from a PSG post discharge but can be discharged without CPAP at this point . - acute rehabilitation vs SNF Subjective Date of service: 11/02/16 Principal diagnosis: Acute Hypoxemic Respiratory Failure; Acute [place] Interval history: Seen and examined at bedside; 24 hour events reviewed; nursing and respiratory care staff consulted; no adverse overnight events reported to me; no new issues ; d/c planning ongoing; he was seen by nephrology due to rising creatinine & BUN ; son in room Objective Vital Signs - 12hr 11/02/16 11/02/16 11/02/16 05:00 07:56 08:01 Temperature 97.8 F Pulse Rate [ 90 Anterior Bilateral Throughout] Pulse Rate [ 88 From Monitor] Pulse Rate [ Right Radial] Respiratory 20 Rate Respiratory 18 Rate [Anterior Bilateral Throughout] Blood Pressure 119/78 [Right Arm] O2 Sat by Pulse 98 95 Oximetry 11/02/16 11/02/16 08:10 09:49 Temperature 98.2 F Pulse Rate [ 92 H Anterior Bilateral Throughout] Pulse Rate [ From Monitor] Pulse Rate [ 87 Right Radial] Respiratory 16 Rate Respiratory 18 Rate [Anterior Bilateral Throughout] Blood Pressure 99/60 [Right Arm] O2 Sat by Pulse 96 Oximetry Constitutional: no acute distress, alert Eyes: non-icteric ENT: oropharynx moist Neck: supple, no lymphadenopathy Effort: normal Ascultation: Bilateral: clear, diminished breath sounds Cardiovascular: regular rate and rhythm Gastrointestinal: normoactive bowel sounds, soft, non-tender, non-distended Integumentary: normal Extremities: no cyanosis, no edema, pink and warm, pulses normal Neurologic: normal mental status, non-focal exam, pupils equal and round, motor strength normal and Psychiatric: mood appropriate, affect normal CBC and BMP: 11/02/16 04:53 11/02/16 05:02 ABG, PT/INR, D-dimer: ABG POC ABG pH 7.395 (7.35-7.45) 10/26/16 02:24 POC ABG pCO2 31.6 (35-45) L 10/26/16 02:24 POC ABG pO2 58 (80-105) L 10/26/16 02:24 POC ABG HCO3 19.4 10/26/16 02:24 POC ABG Total CO2 20 10/26/16 02:24 POC ABG O2 Sat 90 10/26/16 02:24 PT/INR, D-dimer PT 13.6 Sec. (12.2-14.9) 10/25/16 11:21 INR 1.05 (0.87-1.13) 10/25/16 11:21 Abnormal lab findings: Abnormal Labs 10/25/16 10/25/16 10/25/16 10:19 10:23 11:55 WBC RBC Hgb Hct Lymph % (Auto) [place] # Seg Neutrophils % Seg Neutrophils # Heparin Anti-Xa Level POC ABG pCO2 POC ABG pO2 Sodium Potassium Chloride Carbon Dioxide BUN Creatinine Glucose POC Glucose 299 H Hemoglobin A1c Troponin T 0.167 H* D C-Reactive Protein NT-Pro-B Natriuret Pep 1278 H 10/25/16 10/25/16 10/25/16 13:59 17:31 22:12 WBC RBC Hgb Hct Lymph % (Auto) [place] # Seg Neutrophils % Seg Neutrophils # Heparin Anti-Xa Level 2.00 H POC ABG pCO2 POC ABG pO2 Sodium Potassium Chloride Carbon Dioxide BUN Creatinine Glucose POC Glucose 188 H Hemoglobin A1c Troponin T 0.209 H* D C-Reactive Protein NT-Pro-B Natriuret Pep 10/26/16 10/26/16 10/26/16 00:05 02:24 03:40 WBC 16.2 H RBC 5.60 H Hgb 15.6 H Hct 48.0 H Lymph % (Auto) 8.1 L [place] # 0.9 H Seg Neutrophils % 86.1 H Seg Neutrophils # 14.0 H Heparin Anti-Xa Level POC ABG pCO2 31.6 L POC ABG pO2 58 L Sodium Potassium Chloride Carbon Dioxide BUN Creatinine Glucose POC Glucose 264 H Hemoglobin A1c Troponin T C-Reactive Protein NT-Pro-B Natriuret Pep 10/26/16 10/26/16 10/26/16 03:40 03:40 05:50 WBC RBC Hgb Hct Lymph % (Auto) [place] # Seg Neutrophils % Seg Neutrophils # Heparin Anti-Xa Level < 0.10 L POC ABG pCO2 POC ABG pO2 Sodium 134 L Potassium Chloride 96.5 L Carbon Dioxide 17 L BUN 23 H Creatinine Glucose 301 H POC Glucose 288 H Hemoglobin A1c Troponin T C-Reactive Protein NT-Pro-B Natriuret Pep 10/26/16 10/26/16 10/26/16 11:54 17:15 20:21 WBC RBC Hgb Hct Lymph % (Auto) [place] # Seg Neutrophils % Seg Neutrophils # Heparin Anti-Xa Level < 0.10 L POC ABG pCO2 POC ABG pO2 Sodium Potassium Chloride Carbon Dioxide BUN Creatinine Glucose POC Glucose 254 H 189 H Hemoglobin A1c Troponin T C-Reactive Protein NT-Pro-B Natriuret Pep 10/26/16 10/26/16 10/27/16 20:21 22:44 00:20 WBC RBC Hgb Hct Lymph % (Auto) [place] # Seg Neutrophils % Seg Neutrophils # Heparin Anti-Xa Level 0.19 L POC ABG pCO2 POC ABG pO2 Sodium Potassium Chloride Carbon Dioxide BUN Creatinine Glucose POC Glucose 195 H Hemoglobin A1c Troponin T C-Reactive Protein 9.30 H NT-Pro-B Natriuret Pep 10/27/16 10/27/16 10/27/16 04:11 08:09 11:38 WBC RBC Hgb Hct Lymph % (Auto) [place] # Seg Neutrophils % Seg Neutrophils # Heparin Anti-Xa Level POC ABG pCO2 POC ABG pO2 Sodium Potassium Chloride Carbon Dioxide BUN Creatinine Glucose POC Glucose 270 H 286 H Hemoglobin A1c 9.5 H Troponin T C-Reactive Protein NT-Pro-B Natriuret Pep 10/27/16 10/27/16 10/28/16 16:18 23:20 04:43 WBC 12.5 H RBC Hgb Hct Lymph % (Auto) [place] # Seg Neutrophils % Seg Neutrophils # Heparin Anti-Xa Level POC ABG pCO2 POC ABG pO2 Sodium Potassium Chloride Carbon Dioxide BUN Creatinine Glucose POC Glucose 236 H 196 H Hemoglobin A1c Troponin T C-Reactive Protein NT-Pro-B Natriuret Pep 10/28/16 10/28/16 10/28/16 04:43 06:06 08:32 WBC RBC Hgb Hct Lymph % (Auto) [place] # Seg Neutrophils % Seg Neutrophils # Heparin Anti-Xa Level POC ABG pCO2 POC ABG pO2 Sodium Potassium 3.2 L D Chloride Carbon Dioxide 21 L BUN 27 H Creatinine Glucose 183 H POC Glucose 174 H 185 H Hemoglobin A1c Troponin T C-Reactive Protein NT-Pro-B Natriuret Pep 10/28/16 10/28/16 10/29/16 11:11 15:53 00:11 WBC RBC Hgb Hct Lymph % (Auto) [place] # Seg Neutrophils % Seg Neutrophils # Heparin Anti-Xa Level POC ABG pCO2 POC ABG pO2 Sodium Potassium Chloride Carbon Dioxide BUN Creatinine Glucose POC Glucose 271 H 210 H 138 H Hemoglobin A1c Troponin T C-Reactive Protein NT-Pro-B Natriuret Pep 10/29/16 10/29/16 10/29/16 03:55 03:55 11:44 WBC 11.2 H RBC Hgb Hct Lymph % (Auto) [place] # Seg Neutrophils % Seg Neutrophils # Heparin Anti-Xa Level POC ABG pCO2 POC ABG pO2 Sodium 135 L Potassium Chloride 93.9 L Carbon Dioxide 21 L BUN 26 H Creatinine Glucose 197 H POC Glucose 238 H Hemoglobin A1c Troponin T C-Reactive Protein NT-Pro-B Natriuret Pep 10/29/16 10/30/16 10/30/16 17:02 00:43 05:24 WBC RBC Hgb Hct Lymph % (Auto) [place] # Seg Neutrophils % Seg Neutrophils # Heparin Anti-Xa Level POC ABG pCO2 POC ABG pO2 Sodium 136 L Potassium Chloride 92.9 L Carbon Dioxide 21 L BUN 29 H Creatinine Glucose 200 H POC Glucose 144 H 191 H Hemoglobin A1c Troponin T C-Reactive Protein NT-Pro-B Natriuret Pep 10/30/16 10/30/16 10/30/16 06:54 11:25 16:59 WBC RBC Hgb Hct Lymph % (Auto) [place] # Seg Neutrophils % Seg Neutrophils # Heparin Anti-Xa Level POC ABG pCO2 POC ABG pO2 Sodium Potassium Chloride Carbon Dioxide BUN Creatinine Glucose POC Glucose 221 H 268 H 122 H Hemoglobin A1c Troponin T C-Reactive Protein NT-Pro-B Natriuret Pep 10/30/16 10/31/16 10/31/16 23:27 06:12 11:37 WBC RBC Hgb Hct Lymph % (Auto) [place] # Seg Neutrophils % Seg Neutrophils # Heparin Anti-Xa Level POC ABG pCO2 POC ABG pO2 Sodium Potassium Chloride Carbon Dioxide BUN Creatinine Glucose POC Glucose 145 H 137 H 166 H Hemoglobin A1c Troponin T C-Reactive Protein NT-Pro-B Natriuret Pep 11/01/16 11/02/16 11/02/16 12:25 00:05 04:53 WBC RBC 5.20 H Hgb Hct Lymph % (Auto) [place] # Seg Neutrophils % Seg Neutrophils # Heparin Anti-Xa Level POC ABG pCO2 POC ABG pO2 Sodium Potassium Chloride Carbon Dioxide BUN Creatinine Glucose POC Glucose 151 H 64 L Hemoglobin A1c Troponin T C-Reactive Protein NT-Pro-B Natriuret Pep 11/02/16 05:02 WBC RBC Hgb Hct Lymph % (Auto) [place] # Seg Neutrophils % Seg Neutrophils # Heparin Anti-Xa Level POC ABG pCO2 POC ABG pO2 Sodium 134 L Potassium 3.5 L Chloride 93.9 L Carbon Dioxide BUN 50 H Creatinine 2.2 H D Glucose 102 H POC Glucose Hemoglobin A1c Troponin T C-Reactive Protein NT-Pro-B Natriuret Pep
[2016-11-02] MEDS ORDERED: K-DUR PO ONE (13:15)
--- NOTE | 2016-11-02 13:28 | Ultrasound Report ---
Renal ultrasound: Renal failure. The right renal length is 10 cm and the left is 11.5 cm. Both kidneys are moderately echogenic. In the dorsum of the left kidney there is a 1 cm lucency consistent with small cyst. In the superior pole of the left kidney there is a focal echogenicity measuring 6 mm the may represent a calculus. No hydronephrosis apparent. The patient has a Pa catheter in the urinary bladder and the bladder is contracted. Impressions: 1. Echogenic kidneys consistent with medical renal disease. 2. Small bowel obstructing left renal calculus.
[2016-11-02 13:40] LABS: Bilirubin,Urine NEG (Negative); Blood,Urine MOD (Negative); Ketones,Urine TR mg/dL (Negative); Leukocyte Esterase,Urine SM (Negative); Mucus,Urine FEW /HPF; Nitrite,Urine NEG (Negative); Protein,Urine <15 mg/dL mg/dL (Negative); Urobilinogen,Urine < 2.0 mg/dL (<2.0)
--- NOTE | 2016-11-02 14:58 | Event Note ---
Date: 11/02/16 IPR F/U, CHF, NSTEMI. Pt seen in room on this afternoon; continues with hypotension, unable to participate with PT on today. On PT evaluation completed on yesterday, pt S/SBA for bed mobility, transfers, and gait. Unable to safely participate in aggressive therapies due to hypotension; also supervision for mobility. Case discussed with CM; pending SNF placement.
[2016-11-02] MEDS: PROAMATINE PO SCH ×2 (17:50→22:54)
[2016-11-03] MEDS: HALDOL IM PRN (00:29)
[2016-11-03] MEDS: PROAMATINE PO SCH ×3 (07:05→21:59)
[2016-11-03] MEDS: PERCOCET 5/325 PO PRN (07:06)
[2016-11-03] MEDS: BROVANA NEBU IH SCH ×2 (07:32→19:54)
[2016-11-03] MEDS: PULMICORT IH SCH ×2 (07:32→19:54)
[2016-11-03 07:38] LABS: BUN/Creatinine Ratio 21.66; Calcium 8.8 mg/dL (8.4-10.2); Chloride 93.1 mmol/L (98-107); Magnesium 2.4 mg/dL (1.7-2.3); Potassium 3.8 mmol/L (3.6-5.0)
--- NOTE | 2016-11-03 08:41 | Progress Note ---
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 Creatinine is improving. Monitor renal function. Renal US pending. Replete K. (2) Acute pulmonary edema Current Visit: Yes Status: Acute Plan to address problem: Improved. (3) Acute myocardial infarction Current Visit: Yes Status: Acute Qualifiers: Myocardial infarction ST status: M Involved coronary artery: I Plan to address problem: NSTEMI. (4) Acute hypoxemic respiratory failure Current Visit: Yes Status: Acute Plan to address problem: Improving. (5) Hypotension Current Visit: Yes Status: Acute Qualifiers: Hypotension type: orthostatic hypotension Trimester: T Qualified Code(s) : I95.1 - Orthostatic hypotension Plan to address problem: Monitor BP. (6) CAD (coronary artery disease), autologous vein bypass graft Current Visit: Yes Status: Chronic Qualifiers: Associated angina: A Subjective Date of service: 11/03/16 Principal diagnosis: Acute Hypoxemic Respiratory Failure; Acute [place] Interval history: Patient is confused. Objective - Vital Signs Vital signs: Vital Signs - 12hr 11/02/16 11/02/16 11/02/16 20:45 20:58 22:00 Temperature Pulse Rate 90 Pulse Rate [ 90 Anterior Bilateral Throughout] Pulse Rate [ 90 From Monitor] Respiratory 16 Rate Respiratory 15 Rate [Anterior Bilateral Throughout] Blood Pressure [Right Arm] O2 Sat by Pulse 94 96 Oximetry 11/03/16 11/03/16 11/03/16 00:00 04:00 07:32 Temperature 97.6 F 97.9 F Pulse Rate Pulse Rate [ 85 Anterior Bilateral Throughout] Pulse Rate [ 98 H 88 From Monitor] Respiratory 20 20 Rate Respiratory 18 Rate [Anterior Bilateral Throughout] Blood Pressure 105/63 107/57 [Right Arm] O2 Sat by Pulse 90 99 Oximetry 11/03/16 11/03/16 11/03/16 07:37 07:38 07:50 Temperature Pulse Rate Pulse Rate [ 84 Anterior Bilateral Throughout] Pulse Rate [ From Monitor] Respiratory Rate Respiratory 18 Rate [Anterior Bilateral Throughout] Blood Pressure [Right Arm] O2 Sat by Pulse 100 100 Oximetry - General Appearance General appearance: well-developed, well-nourished, appears stated age, obese, other (on restrains) EENT: ATNC Neck: supple Respiratory: Present: Clear to Ascultation Cardiology: regular, S1S2, no murmurs Gastrointestinal: normoactive bowel sounds, no tenderness, no distended, obese Integumentary: no rash Neurologic: no focal deficit, no asterixis, confused, disoriented Musculoskeletal: other (no edema) - Lab 11/04/16 07:28 11/04/16 07:28 Most recent lab results Calcium 8.8 mg/dL (8.4-10.2) 11/03/16 06:52 Phosphorus 2.8 mg/dL (2.5-4.5) 10/26/16 20:21 Magnesium 2.40 mg/dL (1.7-2.3) H 11/03/16 06:52 Urine Creatinine 83.8 mg/dL (0.1-20.0) H 11/02/16 13:06 Urine Sodium 90 mEq/L 11/02/16 13:06
[2016-11-03] MEDS: PLAVIX PO SCH (10:17)
[2016-11-03] MEDS: HALFPRIN EC PO SCH (10:17)
[2016-11-03] MEDS: FLOMAX PO SCH (10:18)
[2016-11-03] MEDS: PEPCID PO SCH (10:18)
[2016-11-03] MEDS: RANEXA ER PO SCH ×2 (10:18→21:59)
[2016-11-03] MEDS: HEPARIN SUB-Q SCH ×2 (10:19→22:00)
--- NOTE | 2016-11-03 11:32 | Progress Note ---
Assessment and Plan Assessment and plan: Acute NSTEMI. On aspirin Plavix , Lopressor. Cardiac cath done,showed multi- vessel disease. Medical management recommended. cardiology following . No more chest pain Chest pain due to acute NSTEMI. No more chest pain-resolved. Off heparin drip Acute systolic heart failure. On Lasix, lopressor. He is now off Milrinone drip. Acute kidney injury due to ATN. Creatinine 1.8 today, improving. Nephrology following. Acute tubular necrosis. Hypotension. Held all anti-hypertensives. Started on Midodrine Ischemic cardiomyopathy. EF 20% CAD s/p CABG Acute encephalopathy with altered mental status. haldol prn. CT head without contrast no acute changes. Diabetes mellitus type II. Fingerstick glucose before every meal and at bedtime Hyponatremia, mild. DVT prophylaxis. On Heparin. Full code status Likely dementia. He is agitated,confused. I discussed with daughter at bedside, who confirms he is confused at baseline. He was living by himself before admission. manager programs working on rehab. History Interval history: No more chest pain, Still confused, BP on low side Daughter say his mental status at baseline Hospitalist Physical - Physical exam Narrative exam: Gen: Not in acute distress, obese HEENT: Normocephalic, atraumatic Neck: supple, no JVD Lungs: Less bilateral crackles, no wheezing Heart S1-S2 regular, no murmurs, rubs or gallop, Abdomen: soft, non tender, normal bowel sounds present Ext: No edema, no clubbing, no cyanosis Neuro: Awake.alert, confused. oriented to person but not to place or time, - Constitutional Vitals: Temp Pulse Resp BP Pulse Ox 98.6 F 92 H 20 103/69 100 11/03/16 08:00 11/03/16 08:00 11/03/16 08:00 11/03/16 08:00 11/03/16 08:00 General appearance: Present: mild distress Results - Labs CBC & Chem 7: 11/02/16 04:53 11/03/16 06:52 Labs: Laboratory Last Values WBC 10.2 K/mm3 (4.5-11.0) 11/02/16 04:53 RBC 5.20 M/mm3 (3.65-5.03) H 11/02/16 04:53 Hgb 14.5 gm/dl (11.8-15.2) 11/02/16 04:53 Hct 43.8 % (35.5-45.6) 11/02/16 04:53 MCV 84 fl (84-94) 11/02/16 04:53 MCH 28 pg (28-32) 11/02/16 04:53 MCHC 33 % (32-34) 11/02/16 04:53 RDW 14.3 % (13.2-15.2) 11/02/16 04:53 Plt Count 186 K/mm3 (140-440) 11/02/16 04:53 Lymph % (Auto) 8.1 % (13.4-35.0) L 10/26/16 03:40 Mcd[place] % (Auto) 5.5 % (0.0-7.3) 10/26/16 03:40 Eos % (Auto) 0.1 % (0.0-4.3) 10/26/16 03:40 Baso % (Auto) 0.2 % (0.0-1.8) 10/26/16 03:40 Lymph # 1.3 K/mm3 (1.2-5.4) 10/26/16 03:40 [place] # 0.9 K/mm3 (0.0-0.8) H 10/26/16 03:40 Eos # 0.0 K/mm3 (0.0-0.4) 10/26/16 03:40 Baso # 0.0 K/mm3 (0.0-0.1) 10/26/16 03:40 Seg Neutrophils % 86.1 % (40.0-70.0) H 10/26/16 03:40 Seg Neutrophils # 14.0 K/mm3 (1.8-7.7) H 10/26/16 03:40 PT 13.6 Sec. (12.2-14.9) 10/25/16 11:21 INR 1.05 (0.87-1.13) 10/25/16 11:21 APTT 24.6 Sec. (24.2-36.6) 10/25/16 11:21 Heparin Anti-Xa Level 0.35 U.I./ml (0.3-0.7) 10/28/16 12:46 POC ABG pH 7.395 (7.35-7.45) 10/26/16 02:24 POC ABG pCO2 31.6 (35-45) L 10/26/16 02:24 POC ABG pO2 58 (80-105) L 10/26/16 02:24 POC ABG HCO3 19.4 10/26/16 02:24 POC ABG Total CO2 20 10/26/16 02:24 POC ABG O2 Sat 90 10/26/16 02:24 POC ABG Base Excess -6 10/26/16 02:24 FiO2 50 % 10/26/16 02:24 Sodium 135 mmol/L (137-145) L 11/03/16 06:52 Potassium 3.8 mmol/L (3.6-5.0) 11/03/16 06:52 Chloride 93.1 mmol/L (98-107) L 11/03/16 06:52 Carbon Dioxide 26 mmol/L (22-30) 11/03/16 06:52 Anion Gap 20 mmol/L 11/03/16 06:52 BUN 39 mg/dL (9-20) H 11/03/16 06:52 Creatinine 1.8 mg/dL (0.8-1.5) H 11/03/16 06:52 Estimated GFR 37 ml/min 11/03/16 06:52 BUN/Creatinine Ratio 21.66 % 11/03/16 06:52 Glucose 156 mg/dL (75-100) H 11/03/16 06:52 POC Glucose 145 (70-105) H 11/03/16 07:13 Hemoglobin A1c 9.5 % (4-6) H 10/27/16 04:11 Calcium 8.8 mg/dL (8.4-10.2) 11/03/16 06:52 Phosphorus 2.8 mg/dL (2.5-4.5) 10/26/16 20:21 Magnesium 2.40 mg/dL (1.7-2.3) H 11/03/16 06:52 Troponin T 0.209 ng/mL (0.00-0.029) H* D 10/25/16 13:59 C-Reactive Protein 9.30 mg/dL (0.00-1.30) H 10/26/16 20:21 NT-Pro-B Natriuret Pep 1278 pg/mL (0-900) H 10/25/16 10:19 Triglycerides 139 mg/dL (2-149) 10/25/16 07:27 Cholesterol 249 mg/dL (50-199) H 10/25/16 07:27 LDL Cholesterol Direct 182 mg/dL (50-130) H 10/25/16 07:27 HDL Cholesterol 40 mg/dL (40-59) 10/25/16 07:27 Cholesterol/HDL Ratio 6.22 % 10/25/16 07:27 Urine Color Yellow (Yellow) 11/02/16 13:06 Urine Turbidity Clear (Clear) 11/02/16 13:06 Urine pH 5.0 (5.0-7.0) 11/02/16 13:06 Ur Specific [place] 1.013 (1.003-1.030) 11/02/16 13:06 Urine Protein <15 mg/dl mg/dL (Negative) 11/02/16 13:06 Urine Glucose (UA) Neg mg/dL (Negative) 11/02/16 13:06 Urine Ketones Tr mg/dL (Negative) 11/02/16 13:06 Urine Blood Mod (Negative) 11/02/16 13:06 Urine Nitrite Neg (Negative) 11/02/16 13:06 Urine Bilirubin Neg (Negative) 11/02/16 13:06 Urine Urobilinogen < 2.0 mg/dL (<2.0) 11/02/16 13:06 Ur Leukocyte Esterase Sm (Negative) 11/02/16 13:06 Urine WBC (Auto) 9.0 /HPF (0.0-6.0) H 11/02/16 13:06 Urine RBC (Auto) 21.0 /HPF (0.0-6.0) 11/02/16 13:06 U Epithel Cells (Auto) < 1.0 /HPF (0-13.0) 11/02/16 13:06 Urine Mucus Few /HPF 11/02/16 13:06 Urine Eosinophils None seen (None Seen) 11/02/16 13:06 Urine Creatinine 83.8 mg/dL (0.1-20.0) H 11/02/16 13:06 Urine Sodium 90 mEq/L 11/02/16 13:06
--- NOTE | 2016-11-03 13:21 | Progress Note ---
Assessment and Plan Acute SD CAD s/p remote CABG Cardiac cath findings: 1. Patent BRISCOE-LAD 2. Patent SVG-Diag 3. Occluded SVG-OM. This appears to be a [employer], target vessel is a small caliber OM. 4. RCA was not previously bypassed, BUT has a prior stent mid vessel. Vessel is subtotally occluded within stented segment. 5. Severe ischemic cardiomyopathy, EF 20%. 6. Medical therapy recommended Ischemic Cardiomyopathy Chronic hypotension: Improved with midodrine Acute renal failure Mild Dementia Diabetes mellitus Hyperlipidemia Plan: Patient is being treated conservatively for acute [place] and ischemic cardiomyopathy given advanced age and underlying dementia. Continue current therapy. Subjective Date of service: 11/03/16 Principal diagnosis: Acute Hypoxemic Respiratory Failure; Acute [place] Interval history: No cardiac complaints or acute events. Objective Vital Signs Temp Pulse Pulse Pulse Pulse Resp Resp 11/03/16 08:00 98.6 F 92 H 20 11/03/16 07:50 84 18 11/03/16 07:38 11/03/16 07:37 11/03/16 07:32 85 18 11/03/16 04:00 97.9 F 88 20 11/03/16 00:00 97.6 F 98 H 20 11/02/16 22:00 90 90 16 11/02/16 20:58 90 15 11/02/16 20:45 11/02/16 20:37 94 H 19 11/02/16 20:35 98.7 F 91 H 20 11/02/16 17:39 90 BP Pulse Ox 11/03/16 08:00 103/69 100 11/03/16 07:50 11/03/16 07:38 100 11/03/16 07:37 100 11/03/16 07:32 11/03/16 04:00 107/57 99 11/03/16 00:00 105/63 90 11/02/16 22:00 96 11/02/16 20:58 11/02/16 20:45 94 11/02/16 20:37 11/02/16 20:35 99/64 95 11/02/16 17:39 94/56 - Physical Examination General: No Apparent Distress HEENT: Positive: PERRL Neck: Positive: neck supple, trachea midline Cardiac: Positive: Reg Rate and Rhythm Lungs: Positive: clear to auscultation Neuro: Positive: Grossly Intact, Weakness Abdomen: Positive: Soft Skin: Positive: Clear Extremities: Absent: edema - Labs and Meds Comprehensive Metabolic Panel 11/03/16 Range/Units 06:52 Sodium 135 L (137-145) mmol/L Potassium 3.8 (3.6-5.0) mmol/L Chloride 93.1 L (98-107) mmol/L Carbon Dioxide 26 (22-30) mmol/L BUN 39 H (9-20) mg/dL Creatinine 1.8 H (0.8-1.5) mg/dL Glucose 156 H (75-100) mg/dL Calcium 8.8 (8.4-10.2) mg/dL
--- NOTE | 2016-11-03 16:11 | Progress Note ---
Assessment and Plan Patient sleeping at this time. No acute respiratory distress. Resting on 21/2 litres O2. O2 satuaration 92%. - Patient Problems (1) Acute hypoxemic respiratory failure Current Visit: Yes Status: Acute Plan to address problem: O2 supplementation 21/2 litres. Brovanna/Budesonide aerosol treatments q 12 hours. Albuterol inhalor q 6 hours prn for shortness of breath. Continue S/C Heparin. Continue Famotidine. (2) Acute myocardial infarction Current Visit: Yes Status: Acute Qualifiers: Myocardial infarction ST status: M Involved coronary artery: I Plan to address problem: Management as per cardiology. (3) Acute pulmonary edema Current Visit: Yes Status: Acute Plan to address problem: Improved. Repeat chest xray showed improvement in pulmonary venous congestion. (4) Obesity (BMI 30.0-34.9) Current Visit: Yes Status: Acute Plan to address problem: Dietary consultation for weight reduction diet. Recommend sleep study as out patient. Subjective Date of service: 11/03/16 Principal diagnosis: Acute Hypoxemic Respiratory Failure; Acute [place] Interval history: Patient sleeping at this time. No acute respiratory distress. Resting on 21/2 litres O2. O2 satuaration 92%. Objective Vital Signs - 12hr 11/03/16 11/03/16 11/03/16 07:32 07:37 07:38 Temperature Pulse Rate [ 85 Anterior Bilateral Throughout] Pulse Rate [ From Monitor] Respiratory Rate Respiratory 18 Rate [Anterior Bilateral Throughout] Blood Pressure [Right Arm] O2 Sat by Pulse 100 100 Oximetry 11/03/16 11/03/16 11/03/16 07:50 08:00 12:00 Temperature 98.6 F 97.4 F L Pulse Rate [ 84 Anterior Bilateral Throughout] Pulse Rate [ 92 H 89 From Monitor] Respiratory 20 20 Rate Respiratory 18 Rate [Anterior Bilateral Throughout] Blood Pressure 103/69 94/50 [Right Arm] O2 Sat by Pulse 100 92 Oximetry Constitutional: no acute distress, alert Eyes: non-icteric ENT: oropharynx moist Neck: supple, no lymphadenopathy Effort: normal Ascultation: Bilateral: diminished breath sounds, rales (posterior bases but scant) Cardiovascular: regular rate and rhythm Gastrointestinal: normoactive bowel sounds, soft, non-tender, non-distended Integumentary: normal Extremities: no cyanosis, no edema, pink and warm, pulses normal Neurologic: normal mental status, non-focal exam, pupils equal and round, motor strength normal and Psychiatric: mood appropriate, affect normal CBC and BMP: 11/02/16 04:53 11/03/16 06:52 ABG, PT/INR, D-dimer: ABG POC ABG pH 7.395 (7.35-7.45) 10/26/16 02:24 POC ABG pCO2 31.6 (35-45) L 10/26/16 02:24 POC ABG pO2 58 (80-105) L 10/26/16 02:24 POC ABG HCO3 19.4 10/26/16 02:24 POC ABG Total CO2 20 10/26/16 02:24 POC ABG O2 Sat 90 10/26/16 02:24 PT/INR, D-dimer PT 13.6 Sec. (12.2-14.9) 10/25/16 11:21 INR 1.05 (0.87-1.13) 10/25/16 11:21 Abnormal lab findings: Abnormal Labs 10/25/16 10/25/16 10/25/16 10:19 10:23 11:55 WBC RBC Hgb Hct Lymph % (Auto) Edgar # Seg Neutrophils % Seg Neutrophils # Heparin Anti-Xa Level POC ABG pCO2 POC ABG pO2 Sodium Potassium Chloride Carbon Dioxide BUN Creatinine Glucose POC Glucose 299 H Hemoglobin A1c Magnesium Troponin T 0.167 H* D C-Reactive Protein NT-Pro-B Natriuret Pep 1278 H Urine WBC (Auto) Urine Creatinine 10/25/16 10/25/16 10/25/16 13:59 17:31 22:12 WBC RBC Hgb Hct Lymph % (Auto) Edgar # Seg Neutrophils % Seg Neutrophils # Heparin Anti-Xa Level 2.00 H POC ABG pCO2 POC ABG pO2 Sodium Potassium Chloride Carbon Dioxide BUN Creatinine Glucose POC Glucose 188 H Hemoglobin A1c Magnesium Troponin T 0.209 H* D C-Reactive Protein NT-Pro-B Natriuret Pep Urine WBC (Auto) Urine Creatinine 10/26/16 10/26/16 10/26/16 00:05 02:24 03:40 WBC 16.2 H RBC 5.60 H Hgb 15.6 H Hct 48.0 H Lymph % (Auto) 8.1 L Edgar # 0.9 H Seg Neutrophils % 86.1 H Seg Neutrophils # 14.0 H Heparin Anti-Xa Level POC ABG pCO2 31.6 L POC ABG pO2 58 L Sodium Potassium Chloride Carbon Dioxide BUN Creatinine Glucose POC Glucose 264 H Hemoglobin A1c Magnesium Troponin T C-Reactive Protein NT-Pro-B Natriuret Pep Urine WBC (Auto) Urine Creatinine 10/26/16 10/26/16 10/26/16 03:40 03:40 05:50 WBC RBC Hgb Hct Lymph % (Auto) Edgar # Seg Neutrophils % Seg Neutrophils # Heparin Anti-Xa Level < 0.10 L POC ABG pCO2 POC ABG pO2 Sodium 134 L Potassium Chloride 96.5 L Carbon Dioxide 17 L BUN 23 H Creatinine Glucose 301 H POC Glucose 288 H Hemoglobin A1c Magnesium Troponin T C-Reactive Protein NT-Pro-B Natriuret Pep Urine WBC (Auto) Urine Creatinine 10/26/16 10/26/16 10/26/16 11:54 17:15 20:21 WBC RBC Hgb Hct Lymph % (Auto) Edgar # Seg Neutrophils % Seg Neutrophils # Heparin Anti-Xa Level < 0.10 L POC ABG pCO2 POC ABG pO2 Sodium Potassium Chloride Carbon Dioxide BUN Creatinine Glucose POC Glucose 254 H 189 H Hemoglobin A1c Magnesium Troponin T C-Reactive Protein NT-Pro-B Natriuret Pep Urine WBC (Auto) Urine Creatinine 10/26/16 10/26/16 10/27/16 20:21 22:44 00:20 WBC RBC Hgb Hct Lymph % (Auto) Edgar # Seg Neutrophils % Seg Neutrophils # Heparin Anti-Xa Level 0.19 L POC ABG pCO2 POC ABG pO2 Sodium Potassium Chloride Carbon Dioxide BUN Creatinine Glucose POC Glucose 195 H Hemoglobin A1c Magnesium Troponin T C-Reactive Protein 9.30 H NT-Pro-B Natriuret Pep Urine WBC (Auto) Urine Creatinine 10/27/16 10/27/16 10/27/16 04:11 08:09 11:38 WBC RBC Hgb Hct Lymph % (Auto) Edgar # Seg Neutrophils % Seg Neutrophils # Heparin Anti-Xa Level POC ABG pCO2 POC ABG pO2 Sodium Potassium Chloride Carbon Dioxide BUN Creatinine Glucose POC Glucose 270 H 286 H Hemoglobin A1c 9.5 H Magnesium Troponin T C-Reactive Protein NT-Pro-B Natriuret Pep Urine WBC (Auto) Urine Creatinine 10/27/16 10/27/16 10/28/16 16:18 23:20 04:43 WBC 12.5 H RBC Hgb Hct Lymph % (Auto) Edgar # Seg Neutrophils % Seg Neutrophils # Heparin Anti-Xa Level POC ABG pCO2 POC ABG pO2 Sodium Potassium Chloride Carbon Dioxide BUN Creatinine Glucose POC Glucose 236 H 196 H Hemoglobin A1c Magnesium Troponin T C-Reactive Protein NT-Pro-B Natriuret Pep Urine WBC (Auto) Urine Creatinine 10/28/16 10/28/16 10/28/16 04:43 06:06 08:32 WBC RBC Hgb Hct Lymph % (Auto) Edgar # Seg Neutrophils % Seg Neutrophils # Heparin Anti-Xa Level POC ABG pCO2 POC ABG pO2 Sodium Potassium 3.2 L D Chloride Carbon Dioxide 21 L BUN 27 H Creatinine Glucose 183 H POC Glucose 174 H 185 H Hemoglobin A1c Magnesium Troponin T C-Reactive Protein NT-Pro-B Natriuret Pep Urine WBC (Auto) Urine Creatinine 10/28/16 10/28/16 10/29/16 11:11 15:53 00:11 WBC RBC Hgb Hct Lymph % (Auto) Edgar # Seg Neutrophils % Seg Neutrophils # Heparin Anti-Xa Level POC ABG pCO2 POC ABG pO2 Sodium Potassium Chloride Carbon Dioxide BUN Creatinine Glucose POC Glucose 271 H 210 H 138 H Hemoglobin A1c Magnesium Troponin T C-Reactive Protein NT-Pro-B Natriuret Pep Urine WBC (Auto) Urine Creatinine 10/29/16 10/29/16 10/29/16 03:55 03:55 11:44 WBC 11.2 H RBC Hgb Hct Lymph % (Auto) Edgar # Seg Neutrophils % Seg Neutrophils # Heparin Anti-Xa Level POC ABG pCO2 POC ABG pO2 Sodium 135 L Potassium Chloride 93.9 L Carbon Dioxide 21 L BUN 26 H Creatinine Glucose 197 H POC Glucose 238 H Hemoglobin A1c Magnesium Troponin T C-Reactive Protein NT-Pro-B Natriuret Pep Urine WBC (Auto) Urine Creatinine 10/29/16 10/30/16 10/30/16 17:02 00:43 05:24 WBC RBC Hgb Hct Lymph % (Auto) Edgar # Seg Neutrophils % Seg Neutrophils # Heparin Anti-Xa Level POC ABG pCO2 POC ABG pO2 Sodium 136 L Potassium Chloride 92.9 L Carbon Dioxide 21 L BUN 29 H Creatinine Glucose 200 H POC Glucose 144 H 191 H Hemoglobin A1c Magnesium Troponin T C-Reactive Protein NT-Pro-B Natriuret Pep Urine WBC (Auto) Urine Creatinine 10/30/16 10/30/16 10/30/16 06:54 11:25 16:59 WBC RBC Hgb Hct Lymph % (Auto) Edgar # Seg Neutrophils % Seg Neutrophils # Heparin Anti-Xa Level POC ABG pCO2 POC ABG pO2 Sodium Potassium Chloride Carbon Dioxide BUN Creatinine Glucose POC Glucose 221 H 268 H 122 H Hemoglobin A1c Magnesium Troponin T C-Reactive Protein NT-Pro-B Natriuret Pep Urine WBC (Auto) Urine Creatinine 10/30/16 10/31/16 10/31/16 23:27 06:12 11:37 WBC RBC Hgb Hct Lymph % (Auto) Edgar # Seg Neutrophils % Seg Neutrophils # Heparin Anti-Xa Level POC ABG pCO2 POC ABG pO2 Sodium Potassium Chloride Carbon Dioxide BUN Creatinine Glucose POC Glucose 145 H 137 H 166 H Hemoglobin A1c Magnesium Troponin T C-Reactive Protein NT-Pro-B Natriuret Pep Urine WBC (Auto) Urine Creatinine 11/01/16 11/02/16 11/02/16 12:25 00:05 04:53 WBC RBC 5.20 H Hgb Hct Lymph % (Auto) Edgar # Seg Neutrophils % Seg Neutrophils # Heparin Anti-Xa Level POC ABG pCO2 POC ABG pO2 Sodium Potassium Chloride Carbon Dioxide BUN Creatinine Glucose POC Glucose 151 H 64 L Hemoglobin A1c Magnesium Troponin T C-Reactive Protein NT-Pro-B Natriuret Pep Urine WBC (Auto) Urine Creatinine 11/02/16 11/02/16 11/02/16 05:02 13:06 13:06 WBC RBC Hgb Hct Lymph % (Auto) Edgar # Seg Neutrophils % Seg Neutrophils # Heparin Anti-Xa Level POC ABG pCO2 POC ABG pO2 Sodium 134 L Potassium 3.5 L Chloride 93.9 L Carbon Dioxide BUN 50 H Creatinine 2.2 H D Glucose 102 H POC Glucose Hemoglobin A1c Magnesium Troponin T C-Reactive Protein NT-Pro-B Natriuret Pep Urine WBC (Auto) 9.0 H Urine Creatinine 83.8 H 11/02/16 11/02/16 11/03/16 18:45 23:53 06:52 WBC RBC Hgb Hct Lymph % (Auto) Edgar # Seg Neutrophils % Seg Neutrophils # Heparin Anti-Xa Level POC ABG pCO2 POC ABG pO2 Sodium 135 L Potassium Chloride 93.1 L Carbon Dioxide BUN 39 H Creatinine 1.8 H Glucose 156 H POC Glucose 226 H 171 H Hemoglobin A1c Magnesium 2.40 H Troponin T C-Reactive Protein NT-Pro-B Natriuret Pep Urine WBC (Auto) Urine Creatinine 11/03/16 07:13 WBC RBC Hgb Hct Lymph % (Auto) Edgar # Seg Neutrophils % Seg Neutrophils # Heparin Anti-Xa Level POC ABG pCO2 POC ABG pO2 Sodium Potassium Chloride Carbon Dioxide BUN Creatinine Glucose POC Glucose 145 H Hemoglobin A1c Magnesium Troponin T C-Reactive Protein NT-Pro-B Natriuret Pep Urine WBC (Auto) Urine Creatinine
[2016-11-04] MEDS: PROAMATINE PO SCH ×2 (06:26→14:58)
[2016-11-04 08:21] LABS: Hematocrit 45.3 % (35.5-45.6); Hemoglobin 15.1 gm/dl (11.8-15.2); Mean Corpuscular HGB Conc 33 % (32-34); Mean Corpuscular Hemoglobin 28 pg (28-32); Mean Corpuscular Volume 85 fl (84-94); Platelet Count 208 K/mm3 (140-440); Red Blood Count 5.34 M/mm3 (3.65-5.03); Red Cell Distribution Width 14.2 % (13.2-15.2)
[2016-11-04] MEDS: PULMICORT IH SCH ×2 (08:25→21:29)
[2016-11-04] MEDS: BROVANA NEBU IH SCH ×2 (08:25→21:29)
[2016-11-04 08:34] LABS: BUN/Creatinine Ratio 18.75; Calcium 8.8 mg/dL (8.4-10.2); Potassium 3.7 mmol/L (3.6-5.0)
--- NOTE | 2016-11-04 10:23 | Progress Note ---
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 Creatinine continues to improve. Monitor renal function. (2) Acute pulmonary edema Current Visit: Yes Status: Acute Plan to address problem: Improved. (3) Acute myocardial infarction Current Visit: Yes Status: Acute Qualifiers: Myocardial infarction ST status: M Involved coronary artery: I Plan to address problem: NSTEMI. Followed by Cards. (4) Acute hypoxemic respiratory failure Current Visit: Yes Status: Acute Plan to address problem: Followed by Pulmonary. (5) Hypotension Current Visit: Yes Status: Acute Qualifiers: Hypotension type: orthostatic hypotension Trimester: T Qualified Code(s) : I95.1 - Orthostatic hypotension Plan to address problem: On Midodrine. (6) CAD (coronary artery disease), autologous vein bypass graft Current Visit: Yes Status: Chronic Qualifiers: Associated angina: A Subjective Date of service: 11/04/16 Principal diagnosis: Acute Hypoxemic Respiratory Failure; Acute [place] Interval history: Patient is wearing BIPAP. Objective - Vital Signs Vital signs: Vital Signs - 12hr 11/03/16 11/04/16 11/04/16 22:37 00:00 04:00 Temperature 97.6 F 97.7 F Pulse Rate 103 H Pulse Rate [ 97 H 90 From Monitor] Respiratory 20 20 20 Rate Blood Pressure 113/71 117/76 [Right Arm] O2 Sat by Pulse 92 100 99 Oximetry 11/04/16 08:00 Temperature 97.5 F L Pulse Rate Pulse Rate [ 86 From Monitor] Respiratory 20 Rate Blood Pressure 89/58 [Right Arm] O2 Sat by Pulse 99 Oximetry - General Appearance General appearance: well-developed, well-nourished, appears stated age, obese, other (on BIPAP) EENT: ATNC, PERRL Neck: supple Respiratory: Present: Clear to Ascultation Cardiology: regular, S1S2, no murmurs Gastrointestinal: normoactive bowel sounds, no tenderness, no distended, obese Integumentary: no rash, warm and dry Neurologic: other (somnolent) Musculoskeletal: other (no edema) - Lab 11/04/16 07:28 11/04/16 07:28 Most recent lab results Calcium 8.8 mg/dL (8.4-10.2) 11/04/16 07:28 Phosphorus 2.8 mg/dL (2.5-4.5) 10/26/16 20:21 Magnesium 2.40 mg/dL (1.7-2.3) H 11/03/16 06:52 Urine Creatinine 83.8 mg/dL (0.1-20.0) H 11/02/16 13:06 Urine Sodium 90 mEq/L 11/02/16 13:06
[2016-11-04] MEDS: HALFPRIN EC PO SCH (10:26)
[2016-11-04] MEDS: PEPCID PO SCH (10:26)
[2016-11-04] MEDS: PLAVIX PO SCH (10:26)
[2016-11-04] MEDS: HEPARIN SUB-Q SCH ×2 (10:26→23:03)
[2016-11-04] MEDS: RANEXA ER PO SCH ×2 (10:26→23:04)
[2016-11-04] MEDS: FLOMAX PO SCH (10:26)
--- NOTE | 2016-11-04 10:35 | Progress Note ---
Assessment and Plan Acute AK CAD s/p remote CABG Cardiac cath findings: 1. Patent BRISCOE-LAD 2. Patent SVG-Diag 3. Occluded SVG-OM. 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 4. RCA was not previously bypassed, BUT has a prior stent mid vessel. Vessel is subtotally occluded within stented segment. 5. Severe ischemic cardiomyopathy, EF 20%. 6. Medical therapy recommended Ischemic Cardiomyopathy Chronic hypotension: Improved with midodrine Acute renal failure Mild Dementia Diabetes mellitus Hyperlipidemia Plan: Patient is being treated conservatively for acute AK and ischemic cardiomyopathy given advanced age and underlying dementia. Continue current therapy. Subjective Date of service: 11/04/16 Principal diagnosis: Acute Hypoxemic Respiratory Failure; Acute [place] Interval history: No acute events Objective Vital Signs Temp Pulse Pulse Pulse Resp Resp BP 11/04/16 08:00 97.5 F L 86 20 89/58 11/04/16 04:00 97.7 F 90 20 117/76 11/04/16 00:00 97.6 F 97 H 20 113/71 11/03/16 22:37 103 H 20 11/03/16 22:00 88 11/03/16 20:18 102 H 20 11/03/16 20:00 98.8 F 100 H 20 86/50 11/03/16 19:57 11/03/16 19:56 89 20 11/03/16 16:00 97.4 F L 96 H 20 94/61 11/03/16 12:00 97.4 F L 89 20 94/50 Pulse Ox 11/04/16 08:00 99 11/04/16 04:00 99 11/04/16 00:00 100 11/03/16 22:37 92 11/03/16 22:00 11/03/16 20:18 11/03/16 20:00 92 11/03/16 19:57 91 11/03/16 19:56 11/03/16 16:00 94 11/03/16 12:00 92 - Physical Examination General: No Apparent Distress HEENT: Positive: PERRL Neck: Positive: neck supple, trachea midline Cardiac: Positive: Reg Rate and Rhythm Lungs: Positive: clear to auscultation Neuro: Positive: Weakness Abdomen: Positive: Soft Skin: Positive: Clear Extremities: Absent: edema - Labs and Meds CBC 11/04/16 Range/Units 07:28 WBC 9.0 (4.5-11.0) K/mm3 RBC 5.34 H (3.65-5.03) M/mm3 Hgb 15.1 (11.8-15.2) gm/dl Hct 45.3 (35.5-45.6) % Plt Count 208 (140-440) K/mm3 Comprehensive Metabolic Panel 11/04/16 Range/Units 07:28 Sodium 133 L (137-145) mmol/L Potassium 3.7 (3.6-5.0) mmol/L Chloride 91.0 L (98-107) mmol/L Carbon Dioxide 27 (22-30) mmol/L BUN 30 H (9-20) mg/dL Creatinine 1.6 H (0.8-1.5) mg/dL Glucose 174 H (75-100) mg/dL Calcium 8.8 (8.4-10.2) mg/dL
--- NOTE | 2016-11-04 11:26 | Progress Note ---
Assessment and Plan Assessment and plan: Acute NSTEMI. On aspirin Plavix , Lopressor. Cardiac cath done,showed multi- vessel disease. Medical management recommended. cardiology following . No more chest pain Chest pain due to acute NSTEMI. No more chest pain-resolved. Off heparin drip Acute systolic heart failure. On Lasix, lopressor. He is now off Milrinone drip. Acute kidney injury due to ATN. Improving, Creatinine 1.6 today, improving. Nephrology following. Acute tubular necrosis. Hypotension. Held all anti-hypertensives. Continue Midodrine. Ischemic cardiomyopathy. EF 20% CAD s/p CABG Acute encephalopathy with altered mental status. haldol prn. CT head without contrast no acute changes. Diabetes mellitus type II. Fingerstick glucose before every meal and at bedtime Hyponatremia, mild. DVT prophylaxis. On Heparin. Full code status Likely dementia. He is agitated,confused. I discussed with daughter at bedside few days ago. She states he is confused at baseline, and probably has dementia.. He was living by himself before admission. alliance manager working on rehab. History Interval history: No more chest pain, Still confused, BP on low side Hospitalist Physical - Physical exam Narrative exam: Gen: Not in acute distress, obese HEENT: Normocephalic, atraumatic Neck: supple, no JVD Lungs: Less bilateral crackles, no wheezing Heart S1-S2 regular, no murmurs, rubs or gallop, Abdomen: soft, non tender, normal bowel sounds present Ext: No edema, no clubbing, no cyanosis Neuro: Awake.alert, confused. oriented to person but not to place or time, - Constitutional Vitals: Temp Pulse Resp BP Pulse Ox 97.5 F L 86 20 89/58 99 11/04/16 08:00 11/04/16 08:00 11/04/16 08:00 11/04/16 08:00 11/04/16 08:00 General appearance: Present: mild distress Results - Labs CBC & Chem 7: 11/04/16 07:28 11/04/16 07:28 Labs: Laboratory Last Values WBC 9.0 K/mm3 (4.5-11.0) 11/04/16 07:28 RBC 5.34 M/mm3 (3.65-5.03) H 11/04/16 07:28 Hgb 15.1 gm/dl (11.8-15.2) 11/04/16 07:28 Hct 45.3 % (35.5-45.6) 11/04/16 07:28 MCV 85 fl (84-94) 11/04/16 07:28 MCH 28 pg (28-32) 11/04/16 07:28 MCHC 33 % (32-34) 11/04/16 07:28 RDW 14.2 % (13.2-15.2) 11/04/16 07:28 Plt Count 208 K/mm3 (140-440) 11/04/16 07:28 Lymph % (Auto) 8.1 % (13.4-35.0) L 10/26/16 03:40 Patrick % (Auto) 5.5 % (0.0-7.3) 10/26/16 03:40 Eos % (Auto) 0.1 % (0.0-4.3) 10/26/16 03:40 Baso % (Auto) 0.2 % (0.0-1.8) 10/26/16 03:40 Lymph # 1.3 K/mm3 (1.2-5.4) 10/26/16 03:40 Patrick # 0.9 K/mm3 (0.0-0.8) H 10/26/16 03:40 Eos # 0.0 K/mm3 (0.0-0.4) 10/26/16 03:40 Baso # 0.0 K/mm3 (0.0-0.1) 10/26/16 03:40 Seg Neutrophils % 86.1 % (40.0-70.0) H 10/26/16 03:40 Seg Neutrophils # 14.0 K/mm3 (1.8-7.7) H 10/26/16 03:40 PT 13.6 Sec. (12.2-14.9) 10/25/16 11:21 INR 1.05 (0.87-1.13) 10/25/16 11:21 APTT 24.6 Sec. (24.2-36.6) 10/25/16 11:21 Heparin Anti-Xa Level 0.35 U.I./ml (0.3-0.7) 10/28/16 12:46 POC ABG pH 7.395 (7.35-7.45) 10/26/16 02:24 POC ABG pCO2 31.6 (35-45) L 10/26/16 02:24 POC ABG pO2 58 (80-105) L 10/26/16 02:24 POC ABG HCO3 19.4 10/26/16 02:24 POC ABG Total CO2 20 10/26/16 02:24 POC ABG O2 Sat 90 10/26/16 02:24 POC ABG Base Excess -6 10/26/16 02:24 FiO2 50 % 10/26/16 02:24 Sodium 133 mmol/L (137-145) L 11/04/16 07:28 Potassium 3.7 mmol/L (3.6-5.0) 11/04/16 07:28 Chloride 91.0 mmol/L (98-107) L 11/04/16 07:28 Carbon Dioxide 27 mmol/L (22-30) 11/04/16 07:28 Anion Gap 19 mmol/L 11/04/16 07:28 BUN 30 mg/dL (9-20) H 11/04/16 07:28 Creatinine 1.6 mg/dL (0.8-1.5) H 11/04/16 07:28 Estimated GFR 42 ml/min 11/04/16 07:28 BUN/Creatinine Ratio 18.75 % 11/04/16 07:28 Glucose 174 mg/dL (75-100) H 11/04/16 07:28 POC Glucose 160 (70-105) H 11/04/16 06:29 Hemoglobin A1c 9.5 % (4-6) H 10/27/16 04:11 Calcium 8.8 mg/dL (8.4-10.2) 11/04/16 07:28 Phosphorus 2.8 mg/dL (2.5-4.5) 10/26/16 20:21 Magnesium 2.40 mg/dL (1.7-2.3) H 11/03/16 06:52 Troponin T 0.209 ng/mL (0.00-0.029) H* D 10/25/16 13:59 C-Reactive Protein 9.30 mg/dL (0.00-1.30) H 10/26/16 20:21 NT-Pro-B Natriuret Pep 1278 pg/mL (0-900) H 10/25/16 10:19 Triglycerides 139 mg/dL (2-149) 10/25/16 07:27 Cholesterol 249 mg/dL (50-199) H 10/25/16 07:27 LDL Cholesterol Direct 182 mg/dL (50-130) H 10/25/16 07:27 HDL Cholesterol 40 mg/dL (40-59) 10/25/16 07:27 Cholesterol/HDL Ratio 6.22 % 10/25/16 07:27 Urine Color Yellow (Yellow) 11/02/16 13:06 Urine Turbidity Clear (Clear) 11/02/16 13:06 Urine pH 5.0 (5.0-7.0) 11/02/16 13:06 Ur Specific [place] 1.013 (1.003-1.030) 11/02/16 13:06 Urine Protein <15 mg/dl mg/dL (Negative) 11/02/16 13:06 Urine Glucose (UA) Neg mg/dL (Negative) 11/02/16 13:06 Urine Ketones Tr mg/dL (Negative) 11/02/16 13:06 Urine Blood Mod (Negative) 11/02/16 13:06 Urine Nitrite Neg (Negative) 11/02/16 13:06 Urine Bilirubin Neg (Negative) 11/02/16 13:06 Urine Urobilinogen < 2.0 mg/dL (<2.0) 11/02/16 13:06 Ur Leukocyte Esterase Sm (Negative) 11/02/16 13:06 Urine WBC (Auto) 9.0 /HPF (0.0-6.0) H 11/02/16 13:06 Urine RBC (Auto) 21.0 /HPF (0.0-6.0) 11/02/16 13:06 U Epithel Cells (Auto) < 1.0 /HPF (0-13.0) 11/02/16 13:06 Urine Mucus Few /HPF 11/02/16 13:06 Urine Eosinophils None seen (None Seen) 11/02/16 13:06 Urine Creatinine 83.8 mg/dL (0.1-20.0) H 11/02/16 13:06 Urine Sodium 90 mEq/L 11/02/16 13:06
--- NOTE | 2016-11-04 12:32 | Progress Note ---
Assessment and Plan Patient sleeping at this time. No acute respiratory distress. Resting on 21/2 litres O2. O2 satuaration 98%. - Patient Problems (1) Acute hypoxemic respiratory failure Current Visit: Yes Status: Acute Plan to address problem: O2 supplementation 21/2 litres. Brovanna/Budesonide aerosol treatments q 12 hours. Albuterol inhalor q 6 hours prn for shortness of breath. Continue S/C Heparin. Continue Famotidine. (2) Acute myocardial infarction Current Visit: Yes Status: Acute Qualifiers: Myocardial infarction ST status: M Involved coronary artery: I Plan to address problem: Management as per cardiology. (3) Acute pulmonary edema Current Visit: Yes Status: Acute Plan to address problem: Improved. Repeat chest xray showed improvement in pulmonary venous congestion. (4) Obesity (BMI 30.0-34.9) Current Visit: Yes Status: Acute Plan to address problem: Dietary consultation for weight reduction diet. Recommend sleep study as out patient. Subjective Date of service: 11/04/16 Principal diagnosis: Acute Hypoxemic Respiratory Failure; Acute LA Interval history: Patient sleeping at this time. No acute respiratory distress. Resting on 21/2 litres O2. O2 satuaration 96%. Objective Vital Signs - 12hr 11/04/16 11/04/16 11/04/16 04:00 08:00 10:00 Temperature 97.7 F 97.5 F L Pulse Rate 88 Pulse Rate [ 90 86 From Monitor] Respiratory 20 20 20 Rate Blood Pressure 117/76 89/58 [Right Arm] O2 Sat by Pulse 99 99 97 Oximetry Constitutional: no acute distress, alert Eyes: non-icteric ENT: oropharynx moist Neck: supple, no lymphadenopathy Effort: normal Ascultation: Bilateral: diminished breath sounds, rales (posterior bases but scant) Cardiovascular: regular rate and rhythm Gastrointestinal: normoactive bowel sounds, soft, non-tender, non-distended Integumentary: normal Extremities: no cyanosis, no edema, pink and warm, pulses normal Neurologic: normal mental status, non-focal exam, pupils equal and round, motor strength normal and Psychiatric: mood appropriate, affect normal CBC and BMP: 11/04/16 07:28 11/04/16 07:28 ABG, PT/INR, D-dimer: ABG POC ABG pH 7.395 (7.35-7.45) 10/26/16 02:24 POC ABG pCO2 31.6 (35-45) L 10/26/16 02:24 POC ABG pO2 58 (80-105) L 10/26/16 02:24 POC ABG HCO3 19.4 10/26/16 02:24 POC ABG Total CO2 20 10/26/16 02:24 POC ABG O2 Sat 90 10/26/16 02:24 PT/INR, D-dimer PT 13.6 Sec. (12.2-14.9) 10/25/16 11:21 INR 1.05 (0.87-1.13) 10/25/16 11:21 Abnormal lab findings: Abnormal Labs 10/25/16 10/25/16 10/25/16 10:19 10:23 11:55 WBC RBC Hgb Hct Lymph % (Auto) [place] # Seg Neutrophils % Seg Neutrophils # Heparin Anti-Xa Level POC ABG pCO2 POC ABG pO2 Sodium Potassium Chloride Carbon Dioxide BUN Creatinine Glucose POC Glucose 299 H Hemoglobin A1c Magnesium Troponin T 0.167 H* D C-Reactive Protein NT-Pro-B Natriuret Pep 1278 H Urine WBC (Auto) Urine Creatinine 10/25/16 10/25/16 10/25/16 13:59 17:31 22:12 WBC RBC Hgb Hct Lymph % (Auto) [place] # Seg Neutrophils % Seg Neutrophils # Heparin Anti-Xa Level 2.00 H POC ABG pCO2 POC ABG pO2 Sodium Potassium Chloride Carbon Dioxide BUN Creatinine Glucose POC Glucose 188 H Hemoglobin A1c Magnesium Troponin T 0.209 H* D C-Reactive Protein NT-Pro-B Natriuret Pep Urine WBC (Auto) Urine Creatinine 10/26/16 10/26/16 10/26/16 00:05 02:24 03:40 WBC 16.2 H RBC 5.60 H Hgb 15.6 H Hct 48.0 H Lymph % (Auto) 8.1 L [place] # 0.9 H Seg Neutrophils % 86.1 H Seg Neutrophils # 14.0 H Heparin Anti-Xa Level POC ABG pCO2 31.6 L POC ABG pO2 58 L Sodium Potassium Chloride Carbon Dioxide BUN Creatinine Glucose POC Glucose 264 H Hemoglobin A1c Magnesium Troponin T C-Reactive Protein NT-Pro-B Natriuret Pep Urine WBC (Auto) Urine Creatinine 10/26/16 10/26/16 10/26/16 03:40 03:40 05:50 WBC RBC Hgb Hct Lymph % (Auto) [place] # Seg Neutrophils % Seg Neutrophils # Heparin Anti-Xa Level < 0.10 L POC ABG pCO2 POC ABG pO2 Sodium 134 L Potassium Chloride 96.5 L Carbon Dioxide 17 L BUN 23 H Creatinine Glucose 301 H POC Glucose 288 H Hemoglobin A1c Magnesium Troponin T C-Reactive Protein NT-Pro-B Natriuret Pep Urine WBC (Auto) Urine Creatinine 10/26/16 10/26/16 10/26/16 11:54 17:15 20:21 WBC RBC Hgb Hct Lymph % (Auto) [place] # Seg Neutrophils % Seg Neutrophils # Heparin Anti-Xa Level < 0.10 L POC ABG pCO2 POC ABG pO2 Sodium Potassium Chloride Carbon Dioxide BUN Creatinine Glucose POC Glucose 254 H 189 H Hemoglobin A1c Magnesium Troponin T C-Reactive Protein NT-Pro-B Natriuret Pep Urine WBC (Auto) Urine Creatinine 10/26/16 10/26/16 10/27/16 20:21 22:44 00:20 WBC RBC Hgb Hct Lymph % (Auto) [place] # Seg Neutrophils % Seg Neutrophils # Heparin Anti-Xa Level 0.19 L POC ABG pCO2 POC ABG pO2 Sodium Potassium Chloride Carbon Dioxide BUN Creatinine Glucose POC Glucose 195 H Hemoglobin A1c Magnesium Troponin T C-Reactive Protein 9.30 H NT-Pro-B Natriuret Pep Urine WBC (Auto) Urine Creatinine 10/27/16 10/27/16 10/27/16 04:11 08:09 11:38 WBC RBC Hgb Hct Lymph % (Auto) [place] # Seg Neutrophils % Seg Neutrophils # Heparin Anti-Xa Level POC ABG pCO2 POC ABG pO2 Sodium Potassium Chloride Carbon Dioxide BUN Creatinine Glucose POC Glucose 270 H 286 H Hemoglobin A1c 9.5 H Magnesium Troponin T C-Reactive Protein NT-Pro-B Natriuret Pep Urine WBC (Auto) Urine Creatinine 10/27/16 10/27/16 10/28/16 16:18 23:20 04:43 WBC 12.5 H RBC Hgb Hct Lymph % (Auto) [place] # Seg Neutrophils % Seg Neutrophils # Heparin Anti-Xa Level POC ABG pCO2 POC ABG pO2 Sodium Potassium Chloride Carbon Dioxide BUN Creatinine Glucose POC Glucose 236 H 196 H Hemoglobin A1c Magnesium Troponin T C-Reactive Protein NT-Pro-B Natriuret Pep Urine WBC (Auto) Urine Creatinine 10/28/16 10/28/16 10/28/16 04:43 06:06 08:32 WBC RBC Hgb Hct Lymph % (Auto) [place] # Seg Neutrophils % Seg Neutrophils # Heparin Anti-Xa Level POC ABG pCO2 POC ABG pO2 Sodium Potassium 3.2 L D Chloride Carbon Dioxide 21 L BUN 27 H Creatinine Glucose 183 H POC Glucose 174 H 185 H Hemoglobin A1c Magnesium Troponin T C-Reactive Protein NT-Pro-B Natriuret Pep Urine WBC (Auto) Urine Creatinine 10/28/16 10/28/16 10/29/16 11:11 15:53 00:11 WBC RBC Hgb Hct Lymph % (Auto) [place] # Seg Neutrophils % Seg Neutrophils # Heparin Anti-Xa Level POC ABG pCO2 POC ABG pO2 Sodium Potassium Chloride Carbon Dioxide BUN Creatinine Glucose POC Glucose 271 H 210 H 138 H Hemoglobin A1c Magnesium Troponin T C-Reactive Protein NT-Pro-B Natriuret Pep Urine WBC (Auto) Urine Creatinine 10/29/16 10/29/16 10/29/16 03:55 03:55 11:44 WBC 11.2 H RBC Hgb Hct Lymph % (Auto) [place] # Seg Neutrophils % Seg Neutrophils # Heparin Anti-Xa Level POC ABG pCO2 POC ABG pO2 Sodium 135 L Potassium Chloride 93.9 L Carbon Dioxide 21 L BUN 26 H Creatinine Glucose 197 H POC Glucose 238 H Hemoglobin A1c Magnesium Troponin T C-Reactive Protein NT-Pro-B Natriuret Pep Urine WBC (Auto) Urine Creatinine 10/29/16 10/30/16 10/30/16 17:02 00:43 05:24 WBC RBC Hgb Hct Lymph % (Auto) [place] # Seg Neutrophils % Seg Neutrophils # Heparin Anti-Xa Level POC ABG pCO2 POC ABG pO2 Sodium 136 L Potassium Chloride 92.9 L Carbon Dioxide 21 L BUN 29 H Creatinine Glucose 200 H POC Glucose 144 H 191 H Hemoglobin A1c Magnesium Troponin T C-Reactive Protein NT-Pro-B Natriuret Pep Urine WBC (Auto) Urine Creatinine 10/30/16 10/30/16 10/30/16 06:54 11:25 16:59 WBC RBC Hgb Hct Lymph % (Auto) [place] # Seg Neutrophils % Seg Neutrophils # Heparin Anti-Xa Level POC ABG pCO2 POC ABG pO2 Sodium Potassium Chloride Carbon Dioxide BUN Creatinine Glucose POC Glucose 221 H 268 H 122 H Hemoglobin A1c Magnesium Troponin T C-Reactive Protein NT-Pro-B Natriuret Pep Urine WBC (Auto) Urine Creatinine 10/30/16 10/31/16 10/31/16 23:27 06:12 11:37 WBC RBC Hgb Hct Lymph % (Auto) [place] # Seg Neutrophils % Seg Neutrophils # Heparin Anti-Xa Level POC ABG pCO2 POC ABG pO2 Sodium Potassium Chloride Carbon Dioxide BUN Creatinine Glucose POC Glucose 145 H 137 H 166 H Hemoglobin A1c Magnesium Troponin T C-Reactive Protein NT-Pro-B Natriuret Pep Urine WBC (Auto) Urine Creatinine 11/01/16 11/02/16 11/02/16 12:25 00:05 04:53 WBC RBC 5.20 H Hgb Hct Lymph % (Auto) [place] # Seg Neutrophils % Seg Neutrophils # Heparin Anti-Xa Level POC ABG pCO2 POC ABG pO2 Sodium Potassium Chloride Carbon Dioxide BUN Creatinine Glucose POC Glucose 151 H 64 L Hemoglobin A1c Magnesium Troponin T C-Reactive Protein NT-Pro-B Natriuret Pep Urine WBC (Auto) Urine Creatinine 11/02/16 11/02/16 11/02/16 05:02 13:06 13:06 WBC RBC Hgb Hct Lymph % (Auto) [place] # Seg Neutrophils % Seg Neutrophils # Heparin Anti-Xa Level POC ABG pCO2 POC ABG pO2 Sodium 134 L Potassium 3.5 L Chloride 93.9 L Carbon Dioxide BUN 50 H Creatinine 2.2 H D Glucose 102 H POC Glucose Hemoglobin A1c Magnesium Troponin T C-Reactive Protein NT-Pro-B Natriuret Pep Urine WBC (Auto) 9.0 H Urine Creatinine 83.8 H 11/02/16 11/02/16 11/03/16 18:45 23:53 06:52 WBC RBC Hgb Hct Lymph % (Auto) [place] # Seg Neutrophils % Seg Neutrophils # Heparin Anti-Xa Level POC ABG pCO2 POC ABG pO2 Sodium 135 L Potassium Chloride 93.1 L Carbon Dioxide BUN 39 H Creatinine 1.8 H Glucose 156 H POC Glucose 226 H 171 H Hemoglobin A1c Magnesium 2.40 H Troponin T C-Reactive Protein NT-Pro-B Natriuret Pep Urine WBC (Auto) Urine Creatinine 11/03/16 11/03/16 11/03/16 07:13 11:47 16:17 WBC RBC Hgb Hct Lymph % (Auto) [place] # Seg Neutrophils % Seg Neutrophils # Heparin Anti-Xa Level POC ABG pCO2 POC ABG pO2 Sodium Potassium Chloride Carbon Dioxide BUN Creatinine Glucose POC Glucose 145 H 204 H 271 H Hemoglobin A1c Magnesium Troponin T C-Reactive Protein NT-Pro-B Natriuret Pep Urine WBC (Auto) Urine Creatinine 11/03/16 11/04/16 11/04/16 21:27 06:29 07:28 WBC RBC 5.34 H Hgb Hct Lymph % (Auto) [place] # Seg Neutrophils % Seg Neutrophils # Heparin Anti-Xa Level POC ABG pCO2 POC ABG pO2 Sodium Potassium Chloride Carbon Dioxide BUN Creatinine Glucose POC Glucose 155 H 160 H Hemoglobin A1c Magnesium Troponin T C-Reactive Protein NT-Pro-B Natriuret Pep Urine WBC (Auto) Urine Creatinine 11/04/16 07:28 WBC RBC Hgb Hct Lymph % (Auto) [place] # Seg Neutrophils % Seg Neutrophils # Heparin Anti-Xa Level POC ABG pCO2 POC ABG pO2 Sodium 133 L Potassium Chloride 91.0 L Carbon Dioxide BUN 30 H Creatinine 1.6 H Glucose 174 H POC Glucose Hemoglobin A1c Magnesium Troponin T C-Reactive Protein NT-Pro-B Natriuret Pep Urine WBC (Auto) Urine Creatinine
[2016-11-04 16:23] LABS: ISTAT Base Excess 4; ISTAT DEVICE 0; ISTAT HCO3 28.7; ISTAT PCO2 43.9 (35-45); ISTAT PH 7.424 (7.35-7.45); ISTAT PO2 58 (80-105); ISTAT SO2 90; ISTAT TCO2 30
[2016-11-04] MEDS ORDERED: PROAMATINE PO SCH (18:29)
--- NOTE | 2016-11-05 07:49 | XRay Report ---
ROUTINE CHEST, TWO VIEWS: HISTORY: Hypoxemia, shortness of breath. Compared to 10/27/16. Previous CABG changes are suspected. Mild cardiomegaly, mild pulmonary venous congestion and trace pleural effusions are identified. No consolidation or pneumothorax. The bony structures are grossly intact. IMPRESSION: Mild CHF.
[2016-11-05] MEDS: PROAMATINE PO SCH (08:13)
[2016-11-05 08:53] LABS: Magnesium 2.2 mg/dL (1.7-2.3); Phosphorous 3.4 mg/dL (2.5-4.5)
[2016-11-05 09:37] LABS: BUN/Creatinine Ratio 16.25; Chloride 90.4 mmol/L (98-107); Potassium 3.8 mmol/L (3.6-5.0)
[2016-11-05] MEDS: FLOMAX PO SCH (09:38)
[2016-11-05] MEDS: PLAVIX PO SCH (09:38)
[2016-11-05] MEDS: HALFPRIN EC PO SCH (09:38)
[2016-11-05] MEDS: RANEXA ER PO SCH (09:38)
[2016-11-05] MEDS: PEPCID PO SCH (09:38)
[2016-11-05] MEDS: BROVANA NEBU IH SCH (09:45)
[2016-11-05] MEDS: PULMICORT IH SCH (09:45)
--- NOTE | 2016-11-05 09:45 | Progress Note ---
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 Creatinine is better overall. Monitor renal function. F/u with me in 2-3 weeks. D/w his daughter at the bedside. (2) Acute pulmonary edema Current Visit: Yes Status: Acute Plan to address problem: Improved. (3) Acute myocardial infarction Current Visit: Yes Status: Acute Qualifiers: Myocardial infarction ST status: M Involved coronary artery: I Plan to address problem: NSTEMI. Followed by Cards. (4) Acute hypoxemic respiratory failure Current Visit: Yes Status: Acute Plan to address problem: Followed by Pulmonary. (5) Hypotension Current Visit: Yes Status: Acute Qualifiers: Hypotension type: orthostatic hypotension Trimester: T Qualified Code(s) : I95.1 - Orthostatic hypotension Plan to address problem: On Midodrine. (6) CAD (coronary artery disease), autologous vein bypass graft Current Visit: Yes Status: Chronic Qualifiers: Associated angina: A Subjective Date of service: 11/05/16 Principal diagnosis: Acute Hypoxemic Respiratory Failure; Acute AR Interval history: Patient is doing ok. Objective - Vital Signs Vital signs: Vital Signs - 12hr 11/04/16 11/04/16 11/04/16 21:56 21:57 22:00 Temperature Pulse Rate 103 H 94 H Pulse Rate [ Left Radial] Respiratory 19 Rate Blood Pressure [Right Arm] O2 Sat by Pulse 95 97 Oximetry 11/05/16 11/05/16 00:00 04:00 Temperature 97.3 F L 97.3 F L Pulse Rate Pulse Rate [ 100 H 92 H Left Radial] Respiratory 18 18 Rate Blood Pressure 85/61 111/72 [Right Arm] O2 Sat by Pulse 100 97 Oximetry - General Appearance General appearance: well-developed, well-nourished, appears stated age, obese, other (no distress) EENT: ATNC, PERRL, mucous membranes moist, hearing intact, vision intact Neck: supple Respiratory: Present: Rales Cardiology: regular, S1S2, no murmurs Gastrointestinal: normoactive bowel sounds, no tenderness, no distended Integumentary: no rash Neurologic: no focal deficit, no asterixis, confused, disoriented, CN 3-12 intact Musculoskeletal: other (no edema) Psychiatric: mood/affect appropriate, cooperative - Lab 11/04/16 07:28 11/05/16 07:25 Most recent lab results Calcium 9.0 mg/dL (8.4-10.2) 11/05/16 07:25 Phosphorus 3.40 mg/dL (2.5-4.5) 11/05/16 06:40 Magnesium 2.20 mg/dL (1.7-2.3) 11/05/16 06:40 Urine Creatinine 83.8 mg/dL (0.1-20.0) H 11/02/16 13:06 Urine Sodium 90 mEq/L 11/02/16 13:06
--- NOTE | 2016-11-05 09:51 | Discharge Summary ---
Providers - Providers Date of Admission: 10/25/16 08:55 Date of discharge: 11/05/16 Attending physician: MARGARITA RODRIGUEZ 10/25/16 17:48 Consult to Physician [CONS] Routine Consulting Provider: NEEL DURAN Reason For Exam: NSTEMI Place consult to:: Notified:: yes 10/26/16 11:43 Consult to Cardiac Rehabilitation [CONS] Routine Reason For Exam: Cardiac Rehab Evaluation 10/28/16 23:38 Consult to Wound/ET Nurse [CONS] Urgent Reason For Exam: wound eval 10/31/16 08:15 Physical Therapy Evaluation and Treat [CONS] Routine Comment: Reason For Exam: SKILL FOR DISCHARGE 11/01/16 10:14 Consult Acute Rehabilitation [CONS] Routine Consulting Provider: ENMA MA Reason For Exam: iru eval 11/02/16 07:25 Consult to Physician [CONS] Routine Consulting Provider: ROB OSORIO Reason For Exam: VENITA Place consult to:: Dr. Osorio Notified:: Bi VALDEZ Phone number called:: Was contact made?: Yes If yes, spoke with:: Dr. Osorio Time called:: 09:17 Primary care physician: RN FIELD CASE MANAGER Hospitalization Condition: Fair Hospital course: Patient is 81 yo with hypertension, diabetes, CAD s/p CABG. He presented with chest pain. He had EKG changes and elevated Troponin. He was diagnosed with NSTEMI, started on Aspirin , Plavix, Lopressor and admitted to ICU. He was evaluated by Cardiology. Cardiac cath was done on 10/27/16 revealing multivessel CAD. Medical management was recommended. He was put on Milrinone drip, Lasix for CHF. He felt better, was transferred out of ICU to Telemetry. His BP became low so Imdur and Metoprolol were discontinued and he was put on Midodrine. His BP improved on Midodrine. patient and family were interested in SNF and he was discharged to SNF on 11/05/16. Total time spent on discharge, 42 mins. Disposition: DC/TX SNF W [facility] CERT - Discharge Diagnoses (1) NSTEMI (non-ST elevated myocardial infarction) Status: Acute (2) VENITA (acute kidney injury) Status: Acute (3) Acute hypoxemic respiratory failure Status: Acute (4) Obesity (BMI 30.0-34.9) Status: Acute (5) CAD (coronary artery disease), autologous vein bypass graft Status: Chronic Qualifiers: Associated angina: A (6) Acute systolic CHF (congestive heart failure) Status: Acute (7) Diabetes mellitus type 2 in obese Status: Chronic Core Measure Documentation - Palliative Care Palliative Care/ Comfort Measures: Not Applicable - Core Measures Any of the following diagnoses?: acute CO, heart failure - Acute CO Discharge Requirements Aspirin at discharge: Yes LAURENT/ARB for LVSD if EF <40%: No Reason for no LAURENT/ARB: Hypotension Beta zuleika at discharge: No Reason for no beta zuleika on DC: Hypotension Statin for LDL = or >100 mg/dl on DC: Yes - Heart Failure Discharge Requirements LAURENT/ARB for LVSD if EF <40%: No Reason for no LAURENT/ARB: Hypotension Beta zuleika at discharge: No Reason for no beta zuleika on DC: Hypotension Exam - Physical Exam Narrative exam: Gen: Not in acute distress, obese HEENT: Normocephalic, atraumatic Neck: supple, no JVD Lungs: Less bilateral crackles, no wheezing Heart S1-S2 regular, no murmurs, rubs or gallop, Abdomen: soft, non tender, normal bowel sounds present Ext: No edema, no clubbing, no cyanosis Neuro: Awake.alert, confused. oriented to person but not to place or time, - Constitutional Vitals: Temp Pulse Resp BP Pulse Ox 97.3 F L 96 H 18 111/72 95 11/05/16 04:00 11/05/16 09:40 11/05/16 09:40 11/05/16 04:00 11/05/16 09:30 Plan Activity: advance as tolerated Diet: low fat, low cholesterol, low salt, diabetic, renal Special Instructions: home oxygen via Additional Instructions: 1.To be seen by Physician in SNF in 3-5 days. 2.Follow up with Francisco Farris in 1 week. 3[address]Follow with Dr. Mathews, in 1 week. 4.Continuous Oxygen by [place] at 2l/min Follow up with: PRIMARY CARE, [Primary Care Provider] - 3-5 Days Prescriptions: Aspirin EC [Aspirin Enteric Coated TAB] 81 mg PO QDAY #30 tablet AtorvaSTATin [Lipitor] 80 mg PO QHS #30 tablet Clopidogrel [Plavix] 75 mg PO QDAY #30 tablet Famotidine [Pepcid] 20 mg PO QDAY #60 tablet Midodrine [Proamatine] 5 mg PO Q8HR #90 tablet QUEtiapine [SEROquel] 50 mg PO QHS #30 tablet Ranolazine ER [Ranexa ER] 500 mg PO BID #60 tablet Tamsulosin [Flomax] 0.4 mg PO QDAY #30 capsule
[2016-11-05] MEDS: HEPARIN SUB-Q SCH (10:34)
--- NOTE | 2016-11-05 10:53 | Progress Note ---
Assessment and Plan Acute IA CAD s/p remote CABG Cardiac cath findings: 1. Patent BRISCOE-LAD 2. Patent SVG-Diag 3. Occluded SVG-OM. This appears to be a CAT WAGON OPERATOR, target vessel is a small caliber OM. 4. RCA was not previously bypassed, BUT has a prior stent mid vessel. Vessel is subtotally occluded within stented segment. 5. Severe ischemic cardiomyopathy, EF 20%. 6. Medical therapy recommended Ischemic Cardiomyopathy Acute systolic heart failure Acute renal failure Mild Dementia Diabetes mellitus Hyperlipidemia Plan: Conservative cardiac management for acute IA and ischemic cardiomyopathy given advanced age and underlying dementia. Subjective Date of service: 11/05/16 Principal diagnosis: Acute Hypoxemic Respiratory Failure; Acute IA Interval history: No interval changes. For planned discharge to SNF today. Objective Vital Signs Temp Pulse Pulse Pulse Pulse Pulse Resp 11/05/16 09:58 97.8 F 67 18 11/05/16 09:40 96 H 11/05/16 09:30 98 H 11/05/16 04:00 97.3 F L 92 H 18 11/05/16 00:00 97.3 F L 100 H 18 11/04/16 22:00 94 H 11/04/16 21:57 103 H 19 11/04/16 21:56 11/04/16 21:38 103 H 11/04/16 21:25 100 H 11/04/16 20:00 97.8 F 99 H 19 11/04/16 16:00 97.7 F 100 H 20 11/04/16 15:59 11/04/16 12:00 97.6 F 91 H 20 Resp BP Pulse Ox 11/05/16 09:58 102/68 92 11/05/16 09:40 18 11/05/16 09:30 18 95 11/05/16 04:00 111/72 97 11/05/16 00:00 85/61 100 11/04/16 22:00 11/04/16 21:57 97 11/04/16 21:56 95 11/04/16 21:38 22 11/04/16 21:25 20 11/04/16 20:00 94/57 94 11/04/16 16:00 78/55 97 11/04/16 15:59 89 11/04/16 12:00 94/55 96 - Physical Examination General: No Apparent Distress HEENT: Positive: PERRL Neck: Positive: trachea midline Cardiac: Positive: Reg Rate and Rhythm Extremities: Absent: edema - Labs and Meds Comprehensive Metabolic Panel 11/05/16 Range/Units 07:25 Sodium 134 L (137-145) mmol/L Potassium 3.8 (3.6-5.0) mmol/L Chloride 90.4 L (98-107) mmol/L Carbon Dioxide 28 (22-30) mmol/L BUN 26 H (9-20) mg/dL Creatinine 1.6 H (0.8-1.5) mg/dL Glucose 154 H (75-100) mg/dL Calcium 9.0 (8.4-10.2) mg/dL
[2016-11-05 14:28] VITALS: BP 124/64
== END 2016-11-05 14:25 | DRG 280 ==
LOC: ED 07:08 → 4A 08:55 → CC1 20:00 → 4A 10-30 20:28
PROVIDERS: ADMIT Internal Medicine; ATTEND Internal Medicine
PROC: 4A033R1 Measurement of Arterial Saturation, Peripheral, Percutaneous Approach (ICD-10-PCS; 2016-10-25)
PROC: 4A023N7 Measurement of Cardiac Sampling and Pressure, Left Heart, Percutaneous Approach (ICD-10-PCS; principal; 2016-10-26)
PROC: B2111ZZ Fluoroscopy of Multiple Coronary Arteries using Low Osmolar Contrast (ICD-10-PCS; 2016-10-26)
PROC: B2131ZZ Fluoroscopy of Multiple Coronary Artery Bypass Grafts using Low Osmolar Contrast (ICD-10-PCS; 2016-10-26)
PROC: B2151ZZ Fluoroscopy of Left Heart using Low Osmolar Contrast (ICD-10-PCS; 2016-10-26)
PROC: B2181ZZ Fluoroscopy of Left Internal Mammary Bypass Graft using Low Osmolar Contrast (ICD-10-PCS; 2016-10-26)
DX: T82.855A Stenosis of coronary artery stent, initial encounter (principal); I21.4 Non-ST elevation (NSTEMI) myocardial infarction; J96.01 Acute respiratory failure with hypoxia; J81.0 Acute pulmonary edema; G93.40 Encephalopathy, unspecified; N17.0 Acute kidney failure with tubular necrosis; I50.23 Acute on chronic systolic (congestive) heart failure; E87.1 Hypo-osmolality and hyponatremia; J44.1 Chronic obstructive pulmonary disease with (acute) exacerbation; I13.0 Hypertensive heart and chronic kidney disease with heart failure and stage 1 through stage 4 chronic kidney disease, or unspecified chronic kidney disease; I25.810 Atherosclerosis of coronary artery bypass graft(s) without angina pectoris; F17.210 Nicotine dependence, cigarettes, uncomplicated; E66.9 Obesity, unspecified; I25.5 Ischemic cardiomyopathy; E78.5 Hyperlipidemia, unspecified; D72.829 Elevated white blood cell count, unspecified; I95.1 Orthostatic hypotension; R26.81 Unsteadiness on feet; F03.90 Unspecified dementia, unspecified severity, without behavioral disturbance, psychotic disturbance, mood disturbance, and anxiety; N18.3 Chronic kidney disease, stage 3 (moderate); E11.9 Type 2 diabetes mellitus without complications; I25.2 Old myocardial infarction; Z91.14 Patient's other noncompliance with medication regimen; Z83.3 Family history of diabetes mellitus; Z82.49 Family history of ischemic heart disease and other diseases of the circulatory system; Z82.3 Family history of stroke; Z68.33 Body mass index [BMI] 33.0-33.9, adult
CPT/HCPCS: 36415; 36600; 70450; 71010; 71020; 76770; 80048; 80061; 81001; 82570; 82803; 82962; 83036; 83735; 83880; 84100; 84300; 84484; 85014; 85018; 85025; 85027; 85049; 85520; 85610; 85730; 86140; 87205; 89050; 90471; 90686; 90732; 93005; 93010; 93459; 94640; 94660; 94760; 96361; 96374; 96375; 96376; A9270-GY; C1769; G0008; G0009; G8978-GP; G8979-GP; J1630; J1644; J1815; J1940; J2250; J2260; J2270; J3010; J3486; J7030; J7040; Q9967

== ENCOUNTER 2016-12-17 13:51 | Inpatient (IN) | payer MEDICARE ==
[2016-12-17 14:45] LABS: Basophils % (Auto) 0.9 % (0.0-1.8); Eosinophils % (Auto) 1.2 % (0.0-4.3); Hematocrit 40.6 % (35.5-45.6); Hemoglobin 13.4 gm/dl (11.8-15.2); Mean Corpuscular HGB Conc 33 % (32-34); Mean Corpuscular Hemoglobin 28 pg (28-32); Mean Corpuscular Volume 86 fl (84-94); Platelet Count 192 K/mm3 (140-440); Red Blood Count 4.73 M/mm3 (3.65-5.03); Red Cell Distribution Width 16.1 % (13.2-15.2); White Blood Count 9.2 K/mm3 (4.5-11.0)
[2016-12-17 15:02] LABS: BUN/Creatinine Ratio 9.33; Calcium 8.7 mg/dL (8.4-10.2); Chloride 100.8 mmol/L (98-107); Potassium 4.1 mmol/L (3.6-5.0)
--- NOTE | 2016-12-17 15:30 | XRay Report ---
ROUTINE CHEST, TWO VIEWS: HISTORY: Shortness of breath. Cardiomegaly, pulmonary venous congestion and small bilateral pleural effusions are identified. These findings are new or increased since 11/04/16. Previous CABG changes are noted. IMPRESSION: CHF.
[2016-12-17] MEDS ORDERED: LASIX IV ONE (17:39)
[2016-12-17] MEDS ORDERED: ASPIRIN PO ONE (17:39)
--- NOTE | 2016-12-17 17:40 | Emergency Department Report ---
ED General Adult HPI - General Chief complaint: Arrhythmia/Palpitations Stated complaint: PALPATATIONS Time Seen by Provider: 12/17/16 17:30 Source: patient, family, RN notes reviewed, old records reviewed Mode of arrival: Ambulatory Limitations: Other (patient is a poor historian, history is obtained from the patient's family.) - History of Present Illness Initial comments: This is a 81-year-old male. He is previously unknown to me. Cardiology: [facility] Past medical history: Congestive heart failure, ejection fraction 20%, heart disease, known history of noncompliance with medication Patient is brought to the hospital by family for bilateral lower extremity swelling, left greater than right, and patient reporting shortness of breath. The patient denies chest pain to me. He denies hematemesis and bright red blood per rectum. He denies abdominal pain. He denies chest pain. In the emergency department, the patient was found to be in mild respiratory distress, saturating at 89-91% on room air. His x-ray of the chest demonstrated pulmonary vascular congestion and bilateral pleural effusions, he was noted to have bilateral lower extremity edema and JVD. The patient was given Lasix, aspirin, and placed on supplemental oxygen. The case was discussed with the Hospital physician, Dr. Winston, who accepted the patient to his service for partially decompensated congestive heart failure. The case was discussed with the covering maintenance services dispatcher, Dr. Viramontes, who indicated his group would be amenable to following as a cardiology consult. -: Gradual Location: left, right, lower extremity Improves with: rest Worsens with: movement Associated Symptoms: cough, shortness of breath, weakness. denies: confusion, chest pain - Related Data Previous Rx's Medication Instructions Recorded Last Taken Type Aspirin EC [Aspirin Enteric Coated 81 mg PO QDAY #30 tablet 11/05/16 Unknown Rx TAB] AtorvaSTATin [Lipitor] 80 mg PO QHS #30 tablet 11/05/16 Unknown Rx Clopidogrel [Plavix] 75 mg PO QDAY #30 tablet 11/05/16 Unknown Rx Famotidine [Pepcid] 20 mg PO QDAY #60 tablet 11/05/16 Unknown Rx Insulin NPH/Regular [NovoLIN 70/30] 6 unit SUB-Q BIDDIAB units 11/05/16 Unknown Rx Insulin Regular, Human [HumuLIN R] 0 units SUB-Q Q6HR units 11/05/16 Unknown Rx Midodrine [Proamatine] 5 mg PO Q8HR #90 tablet 11/05/16 Unknown Rx QUEtiapine [SEROquel] 50 mg PO QHS #30 tablet 11/05/16 Unknown Rx Ranolazine ER [Ranexa ER] 500 mg PO BID #60 tablet 11/05/16 Unknown Rx Tamsulosin [Flomax] 0.4 mg PO QDAY #30 capsule 11/05/16 Unknown Rx Allergies Allergy/AdvReac Type Severity Reaction Status Date / Time No Known Allergies Allergy Verified 10/25/16 11:07 ED Review of Systems ROS: Stated complaint: PALPATATIONS Other details as noted in HPI Constitutional: malaise. denies: fever Eyes: denies: vision change ENT: denies: hearing loss Respiratory: shortness of breath Cardiovascular: dyspnea on exertion, edema Gastrointestinal: denies: vomiting Genitourinary: as per HPI Musculoskeletal: as per HPI Skin: as per HPI Neurological: as per HPI Psychiatric: as per HPI ED Past Medical Hx - Past Medical History Previous Medical History?: Yes Hx Heart Attack/AMI: Yes Additional medical history: CAD, LAC VIEUX - Surgical History Past Surgical History?: Yes Hx Open Heart Surgery: Yes Additional Surgical History: stents - Social History Smoking Status: Current Every Day Smoker Substance Use Type: None - Medications Home Medications: Home Medications Medication Instructions Recorded Confirmed Last Taken Type Aspirin EC [Aspirin Enteric Coated 81 mg PO QDAY #30 tablet 11/05/16 Unknown Rx TAB] AtorvaSTATin [Lipitor] 80 mg PO QHS #30 tablet 11/05/16 Unknown Rx Clopidogrel [Plavix] 75 mg PO QDAY #30 tablet 11/05/16 Unknown Rx Famotidine [Pepcid] 20 mg PO QDAY #60 tablet 11/05/16 Unknown Rx Insulin NPH/Regular [NovoLIN 70/30] 6 unit SUB-Q BIDDIAB units 11/05/16 Unknown Rx Insulin Regular, Human [HumuLIN R] 0 units SUB-Q Q6HR units 11/05/16 Unknown Rx Midodrine [Proamatine] 5 mg PO Q8HR #90 tablet 11/05/16 Unknown Rx QUEtiapine [SEROquel] 50 mg PO QHS #30 tablet 11/05/16 Unknown Rx Ranolazine ER [Ranexa ER] 500 mg PO BID #60 tablet 11/05/16 Unknown Rx Tamsulosin [Flomax] 0.4 mg PO QDAY #30 capsule 11/05/16 Unknown Rx ED Physical Exam - General Limitations: Other (poor historian) General appearance: alert, in no apparent distress - Head Head exam: Present: atraumatic, normocephalic - Eye Eye exam: Present: normal appearance, EOMI. Absent: nystagmus - ENT ENT exam: Present: normal exam, normal orophraynx, mucous membranes moist - Neck Neck exam: Present: normal inspection, full ROM. Absent: tenderness, meningismus - Respiratory Respiratory exam: Present: decreased breath sounds. Absent: respiratory distress, wheezes, rales - Cardiovascular Cardiovascular Exam: Present: regular rate, normal rhythm, normal heart sounds. Absent: bradycardia, systolic murmur, diastolic murmur, rubs, gallop - GI/Abdominal GI/Abdominal exam: Present: soft, normal bowel sounds. Absent: distended, tenderness, guarding, rebound, rigid, pulsatile mass - Rectal Rectal exam: Present: deferred - Extremities Exam Extremities exam: Present: normal inspection, normal capillary refill, pedal edema. Absent: calf tenderness - Back Exam Back exam: Present: normal inspection, full ROM. Absent: tenderness, CVA tenderness (R), CVA tenderness (L), muscle spasm, paraspinal tenderness, vertebral tenderness - Neurological Exam Neurological exam: Present: alert, other (Extraocular movements intact. Tongue midline. No facial droop. Facial sensation intact to light touch in the V1, V2 , V3 distribution bilaterally. 5 and 5 strength in 4 extremities.. Sensation is intact to light touch in 4 extremities.). Absent: motor sensory deficit - Psychiatric Psychiatric exam: Present: normal affect, normal mood - Skin Skin exam: Present: warm, dry, intact, normal color. Absent: rash ED Course Vital Signs 12/17/16 12/17/16 12/17/16 14:05 17:57 18:00 Temperature 97.8 F Pulse Rate 104 H 142 H 107 H Respiratory 18 22 26 H Rate Blood Pressure 102/53 Blood Pressure [Right] O2 Sat by Pulse 91 90 90 Oximetry 12/17/16 12/17/16 12/17/16 18:10 18:17 18:20 Temperature Pulse Rate 100 H 100 H Respiratory 28 H 18 17 Rate Blood Pressure Blood Pressure [Right] O2 Sat by Pulse 93 90 91 Oximetry 12/17/16 12/17/16 12/17/16 18:30 18:40 18:43 Temperature 98.6 F Pulse Rate 104 H 98 H 86 Respiratory 21 19 18 Rate Blood Pressure Blood Pressure 132/82 [Right] O2 Sat by Pulse 95 93 90 Oximetry 12/17/16 12/17/16 12/17/16 18:50 19:00 19:10 Temperature Pulse Rate 99 H 99 H 95 H Respiratory 22 20 24 Rate Blood Pressure Blood Pressure [Right] O2 Sat by Pulse 94 94 96 Oximetry 12/17/16 12/17/16 12/17/16 19:20 19:30 19:40 Temperature Pulse Rate 94 H 95 H Respiratory 22 24 25 H Rate Blood Pressure Blood Pressure [Right] O2 Sat by Pulse 95 98 95 Oximetry 12/17/16 12/17/16 12/17/16 19:50 20:00 20:10 Temperature Pulse Rate 92 H 95 H 92 H Respiratory 21 27 H 23 Rate Blood Pressure Blood Pressure [Right] O2 Sat by Pulse 97 95 95 Oximetry 12/17/16 12/17/16 12/17/16 20:20 20:30 20:40 Temperature Pulse Rate 108 H 96 H 100 H Respiratory 24 23 20 Rate Blood Pressure Blood Pressure [Right] O2 Sat by Pulse 92 93 93 Oximetry 12/17/16 12/17/16 12/17/16 20:50 21:00 21:10 Temperature Pulse Rate 107 H 98 H 102 H Respiratory 15 20 25 H Rate Blood Pressure Blood Pressure [Right] O2 Sat by Pulse 92 91 93 Oximetry 12/17/16 21:20 Temperature Pulse Rate 111 H Respiratory 20 Rate Blood Pressure Blood Pressure [Right] O2 Sat by Pulse 93 Oximetry ED Medical Decision Making - Lab Data Result diagrams: 12/17/16 14:29 12/17/16 14:29 Vital Signs 12/17/16 12/17/16 14:05 18:17 Temperature 97.8 F Pulse Rate 104 H Respiratory 18 18 Rate Blood Pressure 102/53 O2 Sat by Pulse 91 90 Oximetry Lab Results 12/17/16 12/17/16 12/17/16 Range/Units 14:29 14:29 17:52 WBC 9.2 (4.5-11.0) K/mm3 RBC 4.73 (3.65-5.03) M/mm3 Hgb 13.4 (11.8-15.2) gm/dl Hct 40.6 (35.5-45.6) % MCV 86 (84-94) fl MCH 28 (28-32) pg MCHC 33 (32-34) % RDW 16.1 H (13.2-15.2) % Plt Count 192 (140-440) K/mm3 Lymph % (Auto) 13.8 (13.4-35.0) % [place] % (Auto) 6.5 (0.0-7.3) % Eos % (Auto) 1.2 (0.0-4.3) % Baso % (Auto) 0.9 (0.0-1.8) % Lymph # 1.3 (1.2-5.4) K/mm3 [place] # 0.6 (0.0-0.8) K/mm3 Eos # 0.1 (0.0-0.4) K/mm3 Baso # 0.1 (0.0-0.1) K/mm3 Seg Neutrophils % 77.6 H (40.0-70.0) % Seg Neutrophils # 7.1 (1.8-7.7) K/mm3 PT 15.2 H (12.2-14.9) Sec. INR 1.21 H (0.87-1.13) Sodium 140 (137-145) mmol/L Potassium 4.1 (3.6-5.0) mmol/L Chloride 100.8 (98-107) mmol/L Carbon Dioxide 23 (22-30) mmol/L Anion Gap 20 mmol/L BUN 14 (9-20) mg/dL Creatinine 1.5 (0.8-1.5) mg/dL Estimated GFR 45 ml/min BUN/Creatinine Ratio 9.33 % Glucose 221 H (75-100) mg/dL Calcium 8.7 (8.4-10.2) mg/dL Troponin T 0.054 H (0.00-0.029) ng/mL Triglycerides 94 (2-149) mg/dL Cholesterol 140 (50-199) mg/dL LDL Cholesterol Direct 80 (50-130) mg/dL HDL Cholesterol 42 (40-59) mg/dL Cholesterol/HDL Ratio 3.33 % - EKG Data -: EKG Interpreted by Hi EKG shows normal: sinus rhythm - EKG Data 12/17/16 18:27 Sinus tachycardia, 110 bpm, QTC 421 ms, borderline left axis deviation, left anterior fascicular block, right bundle branch block, abnormal EKG, not morphologically consistent with STEMI. - Radiology Data Radiology results: report reviewed, image reviewed X-ray of the chest demonstrates bilateral pleural effusions, CHF, status post sternotomy - Medical Decision Making Differential diagnosis: Congestive heart failure, acute coronary syndrome Assessment and plan: 81-year-old male with mildly decompensated congestive heart failure. Elevated troponin is appreciated, this is most likely secondary to demand. Has mild renal insufficiency, there may be a component of cardio renal syndrome. Lasix as ordered. Aspirin is ordered. Patient to be admitted for diuresis, and further inpatient management. Critical care attestation.: If time is entered above; I have spent that time in minutes in the direct care of this critically ill patient, excluding procedure time. ED Disposition Clinical Impression: Elevated troponin, CHF (congestive heart failure) Disposition: OP ADMIT IP TO THIS HOSP Is pt being admited?: Yes Condition: Good
[2016-12-17 18:23] LABS: INR 1.21 (0.87-1.13)
--- NOTE | 2016-12-17 18:42 | History and Physical Report ---
History of Present Illness Chief complaint: "I cant breathe worth nothing yvonne" History of present illness: 81 YO Male with ME, CAD S/P CABG, Nicotine Dependence, DM, CHF (Systolic, EF 20% ),Medication Noncompliance presents to ED for evaluation. Pt states that he has experienced shortness of breath for the past ten days or so with worsening symptoms over the past 3 days, with bilateral leg swelling, and early fatigue with ambulating short distances. Pt Acknowledges orthopnea, PND, dietary and medication noncompliance. Pt denies fever, chills, CP, Palpitations, NVD, productive cough, recent ill contacts, unilateral leg swelling, calf pain, prolonged travel/immobility, individual/family history of DVT/PE, skin rashes, trauma, hemoptysis, vertigo, or syncope. Past History Past Medical History: acute ME, CAD, diabetes, heart failure Past Surgical History: CABG Social history: , lives with family, smoking. denies: alcohol abuse, prescription drug abuse, IV drug use Family history: diabetes, hypertension Medications and Allergies Allergies Allergy/AdvReac Type Severity Reaction Status Date / Time No Known Allergies Allergy Verified 10/25/16 11:07 Home Medications Medication Instructions Recorded Confirmed Last Taken Type Aspirin EC [Aspirin Enteric Coated 81 mg PO QDAY #30 tablet 11/05/16 Unknown Rx TAB] AtorvaSTATin [Lipitor] 80 mg PO QHS #30 tablet 11/05/16 Unknown Rx Clopidogrel [Plavix] 75 mg PO QDAY #30 tablet 11/05/16 Unknown Rx Famotidine [Pepcid] 20 mg PO QDAY #60 tablet 11/05/16 Unknown Rx Insulin NPH/Regular [NovoLIN 70/30] 6 unit SUB-Q BIDDIAB units 11/05/16 Unknown Rx Insulin Regular, Human [HumuLIN R] 0 units SUB-Q Q6HR units 11/05/16 Unknown Rx Midodrine [Proamatine] 5 mg PO Q8HR #90 tablet 11/05/16 Unknown Rx QUEtiapine [SEROquel] 50 mg PO QHS #30 tablet 11/05/16 Unknown Rx Ranolazine ER [Ranexa ER] 500 mg PO BID #60 tablet 11/05/16 Unknown Rx Tamsulosin [Flomax] 0.4 mg PO QDAY #30 capsule 11/05/16 Unknown Rx Review of Systems All systems: negative Cardiovascular: orthopnea, shortness of breath, dyspnea on exertion Exam - Constitutional Vitals: Temp Pulse Resp BP Pulse Ox 97.8 F 104 H 18 102/53 90 12/17/16 14:05 12/17/16 14:05 12/17/16 18:17 12/17/16 14:05 12/17/16 18:17 General appearance: Present: mild distress - EENT Eyes: Present: PERRL ENT: hearing intact, clear oral mucosa - Neck Neck: Present: supple, normal ROM - Respiratory Respiratory effort: labored Respiratory: bilateral: diminished, rhonchi - Cardiovascular Rhythm: regular Heart Sounds: Present: S1 & S2 - Extremities Extremities: no ischemia Extremity abnormal: edema Peripheral Pulses: within normal limits - Abdominal General gastrointestinal: Present: soft, non-tender Male genitourinary: Present: normal - Integumentary Integumentary: Present: clear, warm, dry - Musculoskeletal Musculoskeletal: generalized weakness - Psychiatric Psychiatric: appropriate mood/affect, intact judgment & insight - Neurologic Neurologic: CNII-XII intact, moves all extremities Results - Labs CBC & Chem 7: 12/17/16 14:29 12/17/16 14:29 Labs: Abnormal lab results 12/17/16 12/17/16 12/17/16 Range/Units 14:29 14:29 17:52 RDW 16.1 H (13.2-15.2) % Seg Neutrophils % 77.6 H (40.0-70.0) % PT 15.2 H (12.2-14.9) Sec. INR 1.21 H (0.87-1.13) Glucose 221 H (75-100) mg/dL Troponin T 0.054 H (0.00-0.029) ng/mL Assessment and Plan - Patient Problems (1) Acute hypoxemic respiratory failure Current Visit: No Status: Acute Plan to address problem: Supplemental oxygen, nebulizer therapy, pulmonary toilet, supportive care, repeat physical exam, NIPPV as clinically indicated, (2) CHF (congestive heart failure) Current Visit: Yes Status: Acute Qualifiers: Congestive heart failure type: C Congestive heart failure chronicity: C Plan to address problem: Serial cardiac enzymes, ekg, telemetry, cardiology consulted in ED, diuretics, afterload reduction, fluid restriction, daily weight, monitor uop q shift, negative fluid balance, resume home medication, (3) Diabetes Current Visit: Yes Status: Acute Qualifiers: Diabetes mellitus type: D Diabetes mellitus complication status: D Diabetes mellitus complication detail: D Diabetic retinopathy severity: D Proliferative retinopathy type: P Diabetes mellitus macular edema: D Diabetes mellitus medical terminologist insulin use: D Laterality: L Chronic kidney disease stage: C Plan to address problem: ADA diet, insulin, accu check (4) Nicotine dependence Current Visit: Yes Status: Acute Qualifiers: Nicotine product type: N Substance use status: S Plan to address problem: Pt counseled, refused to pick quit dated, (5) CAD (coronary artery disease), autologous vein bypass graft Current Visit: No Status: Chronic Qualifiers: Associated angina: without angina Qualified Code(s): I25.810 - Atherosclerosis of coronary artery bypass graft(s) without angina pectoris Plan to address problem: resume home medication, supportive care, (6) DVT prophylaxis Current Visit: Yes Status: Acute
[2016-12-17] MEDS ORDERED: TYLENOL PO PRN (18:48)
[2016-12-17] MEDS ORDERED: DUONEB 0.5 MG-3 MG/3 ML SOLN IH PRN (18:48)
[2016-12-17] MEDS ORDERED: MILK OF MAGNESIA PO PRN (18:48)
[2016-12-17] MEDS ORDERED: DULCOLAX PR PRN (18:48)
[2016-12-17] MEDS ORDERED: SODIUM CHLORIDE FLUSH SYRINGE 10 ML IV PRN (18:48)
[2016-12-17] MEDS ORDERED: ZOFRAN IV PRN (18:48)
[2016-12-17 19:04] LABS: Magnesium 2.3 mg/dL (1.7-2.3)
[2016-12-17 19:21] LABS: Bacteria,Urine 1+ /HPF (Negative); Bilirubin,Urine NEG (Negative); Blood,Urine NEG (Negative); Ketones,Urine NEG (Negative); Leukocyte Esterase,Urine TR (Negative); Mucus,Urine 2+ /HPF; Nitrite,Urine NEG (Negative); Urobilinogen,Urine < 2.0 mg/dL (<2.0)
[2016-12-17] MEDS: FLOMAX PO SCH (21:40)
[2016-12-17] MEDS: PLAVIX PO SCH (21:41)
[2016-12-17] MEDS: PEPCID PO SCH (21:41)
[2016-12-17] MEDS ORDERED: PROAMATINE PO SCH (22:00)
[2016-12-17 22:21] LABS: Creatine Kinase MB 4.1 ng/mL (0.0-4.0)
--- NOTE | 2016-12-17 23:15 | Admit Criteria Form ---
Admission Criteria Documentation: HEART FAILURE: COMMON COMPLICATIONS Clinical Indications for Inpatient Care (Place 'X' for any and all applicable criteria): Ongoing inpatient care may be indicated for heart failure with ANY ONE of the following (1)(2)(3)(4)(5): [ ]I. Ongoing need for care for primary condition requiring frequent therapy adjustments because of changes in cardiac function (eg, drug dosage changes for drugs that are renally metabolized) [ ]II. New-onset heart failure [ ]III. Heart failure with decreased urine output not responsive to attempts to optimize volume status [ ]IV. Acute cardiac ischemia causing or associated with failure [X ]V. Complications of heart failure, including ANY ONE of the following: [ ]a) Pericardial effusion [ ]b) Symptomatic pleural effusion [ ]c) O2 saturation <90% or PO2 < 60 mm Hg (8.0 kPa) on room air or require baseline supplemental O2 [ ]d) Tachypnea [X ]e) Dyspnea [ ]f) Syncope [ ]g) Change in mental status [ ]h) Acute renal insufficiency that is severe (reduction of more than 50% in estimated glomerular filtration rate from baseline) or progressive reduction of more than 25% in estimated glomerular filtration rate from baseline, with creatinine continuing to rise) [ ]i) Hemodynamic instability [ ]j) Anasarca [ ]k) Clinically significant metabolic abnormalities due to heart failure (eg, new-onset metabolic acidosis) Extended stay beyond goal length of stay for primary condition may be needed until ALL of the following are present(1)(3): [ ]a) Stable and effective diuretic regimen established (or patient on stable dialysis regimen if in chronic renal failure) [ ]b) Breathing comfortably at rest [ ]c) Saturation of arterial oxygen greater than 90% or at acceptable baseline [ ]d) Pulmonary edema absent or improved [ ]e) Hemodynamic stability [ ]f) Volume status acceptable on oral medication [ ]g) Peripheral or sacral edema absent or improved [ ]h) Renal function stable and manageable at a lower level of care [ ]i) Complications (eg, pleural effusion) resolved or manageable at a lower level of care [ ]j) Patient or caregiver has received written discharge instructions or educational material addressing activity level, diet, discharge medications, follow-up appointment, weight monitoring, and what to do if symptoms worsen The original [facility] content created by [employer] has been revised. The portions of the content which have been revised are identified through the use of italic text or in bold, and [facility] has neither reviewed nor approved the modified material.All other unmodified content is copyright [facility]. Please see references footnoted in the original [facility] edition 2016 Admission Criteria Met: Yes
[2016-12-18 01:39] LABS: Creatine Kinase MB 3.7 ng/mL (0.0-4.0)
[2016-12-18] MEDS: RANEXA ER PO SCH ×2 (02:07→11:00)
--- NOTE | 2016-12-18 07:52 | XRay Report ---
ROUTINE CHEST, TWO VIEWS: HISTORY: chest pain. No change in cardiomegaly, pulmonary venous congestion and small pleural effusions since earlier today at 1456 hrs. IMPRESSION: CHF unchanged.
[2016-12-18] MEDS: PROAMATINE PO SCH ×2 (11:00→17:19)
[2016-12-18] MEDS: PLAVIX PO SCH (11:00)
[2016-12-18] MEDS: PEPCID PO SCH (11:00)
[2016-12-18] MEDS: HALFPRIN EC PO SCH (11:00)
[2016-12-18] MEDS: FLOMAX PO SCH (11:00)
[2016-12-18] MEDS ORDERED: LOPRESSOR IV PRN ×3 (11:29→22:16)
[2016-12-18] MEDS ORDERED: LOPRESSOR IV ONE ×3 (11:34→22:16)
[2016-12-18] MEDS ORDERED: CORDARONE 300 MG in D5W 100 ML IV ONE (12:00)
[2016-12-18] MEDS: CORDARONE 900 MG in D5W 482 ML IV SCH (12:05)
--- NOTE | 2016-12-18 12:07 | Progress Note ---
Assessment and Plan Assessment and plan: Acute hypoxemia respiratory failure. Continue supplemental oxygen, nebulizer therapy, pulmonary toileting, supportive care and NIPPV as clinically indicated Acute on chronic systolic CHF exacerbation. Cardiology following. Continue diuresis and afterload reducing agents. Continue Midodrine, fluid restriction, daily weight, monitor uop q shift, negative fluid balance and home medications Diabetes mellitus type 2. Continue ADA diet, sliding scale insulin and Accu- Cheks. Nicotine dependence. Patient has been counseled. Coronary artery disease. DVT prophylaxis. History Interval history: No new issues overnight. Hospitalist Physical - Constitutional Vitals: Temp Pulse Resp BP Pulse Ox 97.9 F 155 H 20 107/69 90 12/18/16 07:45 12/18/16 11:43 12/18/16 07:45 12/18/16 11:43 12/18/16 07:45 General appearance: Present: no acute distress - EENT Eyes: Present: PERRL, EOM intact ENT: hearing intact, clear oral mucosa, dentition normal - Neck Neck: Present: supple, normal ROM - Respiratory Respiratory effort: normal Respiratory: bilateral: CTA - Cardiovascular Rhythm: regular Heart Sounds: Present: S1 & S2. Absent: gallop, rub - Extremities Extremities: no ischemia, No edema, Full ROM - Abdominal General gastrointestinal: soft, non-tender, non-distended, normal bowel sounds - Integumentary Integumentary: Present: clear, warm, dry - Neurologic Neurologic: CNII-XII intact, moves all extremities Results - Labs CBC & Chem 7: 12/17/16 14:29 12/17/16 14:29 Labs: Laboratory Last Values WBC 9.2 K/mm3 (4.5-11.0) 12/17/16 14:29 RBC 4.73 M/mm3 (3.65-5.03) 12/17/16 14:29 Hgb 13.4 gm/dl (11.8-15.2) 12/17/16 14:29 Hct 40.6 % (35.5-45.6) 12/17/16 14:29 MCV 86 fl (84-94) 12/17/16 14:29 MCH 28 pg (28-32) 12/17/16 14:29 MCHC 33 % (32-34) 12/17/16 14:29 RDW 16.1 % (13.2-15.2) H 12/17/16 14:29 Plt Count 192 K/mm3 (140-440) 12/17/16 14:29 Lymph % (Auto) 13.8 % (13.4-35.0) 12/17/16 14:29 [place] % (Auto) 6.5 % (0.0-7.3) 12/17/16 14:29 Eos % (Auto) 1.2 % (0.0-4.3) 12/17/16 14:29 Baso % (Auto) 0.9 % (0.0-1.8) 12/17/16 14: Lymph # 1.3 K/mm3 (1.2-5.4) 12/17/16 14: [place] # 0.6 K/mm3 (0.0-0.8) 12/17/16 14: Eos # 0.1 K/mm3 (0.0-0.4) 12/17/16 14: Baso # 0.1 K/mm3 (0.0-0.1) 12/17/16 14:29 Seg Neutrophils % 77.6 % (40.0-70.0) H 12/17/16 14:29 Seg Neutrophils # 7.1 K/mm3 (1.8-7.7) 12/17/16 14:29 PT 15.2 Sec. (12.2-14.9) H 12/17/16 17:52 INR 1.21 (0.87-1.13) H 12/17/16 17:52 D-Dimer 551.1 ng/mlDDU (0-234) H 12/17/16 17:52 Sodium 140 mmol/L (137-145) 12/17/16 14:29 Potassium 4.1 mmol/L (3.6-5.0) 12/17/16 14:29 Chloride 100.8 mmol/L (98-107) 12/17/16 14:29 Carbon Dioxide 23 mmol/L (22-30) 12/17/16 14:29 Anion Gap 20 mmol/L 12/17/16 14:29 BUN 14 mg/dL (9-20) 12/17/16 14:29 Creatinine 1.5 mg/dL (0.8-1.5) 12/17/16 14:29 Estimated GFR 45 ml/min 12/17/16 14:29 BUN/Creatinine Ratio 9.33 % 12/17/16 14:29 Glucose 221 mg/dL (75-100) H 12/17/16 14:29 POC Glucose 148 (70-105) H 12/17/16 21:02 Calcium 8.7 mg/dL (8.4-10.2) 12/17/16 14:29 Magnesium 2.30 mg/dL (1.7-2.3) 12/17/16 17:52 Total Creatine Kinase 141 units/L (55-170) 12/18/16 01:09 CK-MB (CK-2) 3.7 ng/mL (0.0-4.0) 12/18/16 01:09 CK-MB (CK-2) Rel Index 2.6 (0-4) 12/18/16 01:09 Troponin T 0.067 ng/mL (0.00-0.029) H 12/18/16 01:09 NT-Pro-B Natriuret Pep 7813 pg/mL (0-900) H 12/17/16 17:52 Triglycerides 94 mg/dL (2-149) 12/17/16 14:29 Cholesterol 140 mg/dL (50-199) 12/17/16 14:29 LDL Cholesterol Direct 80 mg/dL (50-130) 12/17/16 14:29 HDL Cholesterol 42 mg/dL (40-59) 12/17/16 14:29 Cholesterol/HDL Ratio 3.33 % 12/17/16 14:29 Urine Color Yellow (Yellow) 12/17/16 19:09 Urine Turbidity Clear (Clear) 12/17/16 19:09 Urine pH 5.0 (5.0-7.0) 12/17/16 19:09 Ur Specific [place] 1.018 (1.003-1.030) 12/17/16 19:09 Urine Protein 30 mg/dl mg/dL (Negative) 12/17/16 19:09 Urine Glucose (UA) Neg mg/dL (Negative) 12/17/16 19:09 Urine Ketones Neg mg/dL (Negative) 12/17/16 19:09 Urine Blood Neg (Negative) 12/17/16 19:09 Urine Nitrite Neg (Negative) 12/17/16 19:09 Urine Bilirubin Neg (Negative) 12/17/16 19:09 Urine Urobilinogen < 2.0 mg/dL (<2.0) 12/17/16 19:09 Ur Leukocyte Esterase Tr (Negative) 12/17/16 19:09 Urine WBC (Auto) 1.0 /HPF (0.0-6.0) 12/17/16 19:09 Urine RBC (Auto) 1.0 /HPF (0.0-6.0) 12/17/16 19:09 U Epithel Cells (Auto) 1.0 /HPF (0-13.0) 12/17/16 19:09 Urine Bacteria (Auto) 1+ /HPF (Negative) 12/17/16 19:09 Urine Mucus 2+ /HPF 12/17/16 19:09
--- NOTE | 2016-12-18 13:07 | Consultation ---
History of Present Illness Consult date: 12/18/16 Consult reason: congestive heart failure History of present illness: This is a 81yr old male with cardiac history of coronary artery disease with remote 3 vessel bypass grafting. A cardiac cath a month ago demonstrated: 1. Patent BRISCOE-LAD 2. Patent SVG-Diag 3. Occluded SVG-OM. This appears to be a ADJUSTER ARBITRATOR, target vessel is a small caliber OM. 4. RCA was not previously bypassed, BUT has a prior stent mid vessel. Vessel is subtotally occluded within stented segment. 5. Severe ischemic cardiomyopathy, EF 20%. 6. Medical therapy recommended for CAD and heart failure given advanced age and underlying dementia. He presented to the ED with complaints of palpitations, shortness of breath, lower extremity edema and admitted with decompensated heart failure thus this cardiac consultation. Today, on auscultation, patient noted rapid tachycardia. Patient denied chest pain and shortness of breath. He denied palpitations and dizziness. A 12 lead ECG demonstrates supraventricular tachycardia versus atrial flutter with a rate 157. His blood pressure is stable at 114/80. Past History Past Medical History: acute [place], CAD, diabetes, heart failure Past Surgical History: CABG Social history: , lives with family, smoking. denies: alcohol abuse, prescription drug abuse, IV drug use Family history: diabetes, hypertension Medications and Allergies Allergies Allergy/AdvReac Type Severity Reaction Status Date / Time No Known Allergies Allergy Verified 10/25/16 11:07 Home Medications Medication Instructions Recorded Confirmed Last Taken Type Aspirin EC [Aspirin Enteric Coated 81 mg PO QDAY #30 tablet 11/05/16 12/18/16 1 Day Ago Rx TAB] AtorvaSTATin [Lipitor] 80 mg PO QHS #30 tablet 11/05/16 12/18/16 1 Day Ago Rx Clopidogrel [Plavix] 75 mg PO QDAY #30 tablet 11/05/16 12/18/16 1 Day Ago Rx Famotidine [Pepcid] 20 mg PO QDAY #60 tablet 11/05/16 12/18/16 1 Day Ago Rx Insulin NPH/Regular [NovoLIN 70/30] 6 unit SUB-Q BIDDIAB units 11/05/16 1 Day Ago Rx Insulin Regular, Human [HumuLIN R] 0 units SUB-Q Q6HR units 11/05/16 12/18/16 1 Day Ago Rx Midodrine [Proamatine] 5 mg PO Q8HR #90 tablet 11/05/16 12/18/16 1 Day Ago Rx QUEtiapine [SEROquel] 50 mg PO QHS #30 tablet 11/05/16 12/18/16 1 Day Ago Rx Ranolazine ER [Ranexa ER] 500 mg PO BID #60 tablet 11/05/16 12/18/16 2 Days Ago Rx Tamsulosin [Flomax] 0.4 mg PO QDAY #30 capsule 11/05/16 12/18/16 1 Day Ago Rx Active Meds: Active Medications Acetaminophen (Tylenol) 650 mg PO Q4H PRN PRN Reason: Pain MILD(1-3)/Fever >100.5/BLAKE Albuterol (Proventil) 2.5 mg IH Q4HRT PRN PRN Reason: Shortness Of Breath Aspirin (Halfprin Ec) 81 mg PO QDAY [facility] Last Admin: 12/18/16 11:00 Dose: 81 mg Atorvastatin Calcium (Lipitor) 80 mg PO QHS [facility] Last Admin: 12/18/16 02:07 Dose: 80 mg Bisacodyl (Dulcolax) 10 mg SD QDAY PRN PRN Reason: Constipation unrelieved by MOM Clopidogrel Bisulfate (Plavix) 75 mg PO QDAY [facility] Last Admin: 12/18/16 11:00 Dose: 75 mg Famotidine (Pepcid) 20 mg PO QDAY [facility] Last Admin: 12/18/16 11:00 Dose: 20 mg Amiodarone HCl 900 mg/ (Dextrose) 500 mls @ 33.33 mls/hr IV DIRECT BUTCH; 1 MG /MIN PRN Reason: Protocol Insulin Human Isoph/Insulin Regular (Novolin 70/30) 6 unit SUB-Q BIDDIAB [facility] Last Admin: 12/18/16 11:52 Dose: Not Given Magnesium Hydroxide (Milk Of Magnesia) 30 ml PO Q4H PRN PRN Reason: Constipation Metoprolol Tartrate (Lopressor) 5 mg IV Q4H PRN PRN Reason: HR >130 Midodrine (Proamatine) 5 mg PO Q8H [facility] Last Admin: 12/18/16 11:00 Dose: 5 mg Ondansetron HCl (Zofran) 4 mg IV Q8H PRN PRN Reason: N/V unrelieved by Regbraden Quetiapine Fumarate (Seroquel) 50 mg PO QHS [facility] Last Admin: 12/17/16 23:18 Dose: 50 mg Ranolazine (Ranexa Er) 500 mg PO BID [facility] Last Admin: 12/18/16 11:00 Dose: 500 mg Sodium Chloride (Sodium Chloride Flush Syringe 10 Ml) 10 ml IV PRN PRN PRN Reason: LINE FLUSH Tamsulosin HCl (Flomax) 0.4 mg PO QDAY [facility] Last Admin: 12/18/16 11:00 Dose: 0.4 mg Physical Examination Vital Signs Temp Pulse Resp BP Pulse Ox 97.8 F 104 H 18 102/53 91 12/17/16 14:05 12/17/16 14:05 12/17/16 14:05 12/17/16 14:05 12/17/16 14:05 General appearance: no acute distress HEENT: Positive: PERRL Neck: Positive: trachea midline Cardiac: Positive: Tachycardia Results 12/17/16 14:29 12/17/16 14:29 Cardiac Enzymes 12/17/16 12/18/16 Range/Units 20:45 01:09 CK-MB (CK-2) 4.1 H 3.7 (0.0-4.0) ng/mL Assessment and Plan Acute systolic heart failure SVT CAD s/p remote CABG Cardiac cath findings 11/2016: 1. Patent BRISCOE-LAD 2. Patent SVG-Diag 3. Occluded SVG-OM. This appears to be a ADJUSTER ARBITRATOR, target vessel is a small caliber OM. 4. RCA was not previously bypassed, BUT has a prior stent mid vessel. Vessel is subtotally occluded within stented segment. 5. Severe ischemic cardiomyopathy, EF 20%. 6. Medical therapy recommended Ischemic Cardiomyopathy Mild Dementia Diabetes mellitus Hyperlipidemia Chronic hypotension on midodrine as an outpatient Recommendations: Start intravenous amiodarone drip. We will use IV lopressor 2.5mg as needed for heart rate greater than 130. Transfer to CCU for close monitoring.
--- NOTE | 2016-12-18 13:29 | Consultation ---
History of Present Illness Consult date: 12/18/16 Requesting physician: PABLO TANG Reason for consult: other (Atrial fibrilation with RVR) History of present illness: PULMONARY/CCM CONSULT NOTE (Full dictation # [id number]) Please see dictated notes for full details Past History Past Medical History: acute [place], CAD, diabetes, heart failure Past Surgical History: CABG Social history: , lives with family, smoking. denies: alcohol abuse, prescription drug abuse, IV drug use Family history: diabetes, hypertension Medications and Allergies Allergies Allergy/AdvReac Type Severity Reaction Status Date / Time No Known Allergies Allergy Verified 10/25/16 11:07 Home Medications Medication Instructions Recorded Confirmed Last Taken Type Aspirin EC [Aspirin Enteric Coated 81 mg PO QDAY #30 tablet 11/05/16 12/18/16 1 Day Ago Rx TAB] AtorvaSTATin [Lipitor] 80 mg PO QHS #30 tablet 11/05/16 12/18/16 1 Day Ago Rx Clopidogrel [Plavix] 75 mg PO QDAY #30 tablet 11/05/16 12/18/16 1 Day Ago Rx Famotidine [Pepcid] 20 mg PO QDAY #60 tablet 11/05/16 12/18/16 1 Day Ago Rx Insulin NPH/Regular [NovoLIN 70/30] 6 unit SUB-Q BIDDIAB units 11/05/16 1 Day Ago Rx Insulin Regular, Human [HumuLIN R] 0 units SUB-Q Q6HR units 11/05/16 12/18/16 1 Day Ago Rx Midodrine [Proamatine] 5 mg PO Q8HR #90 tablet 11/05/16 12/18/16 1 Day Ago Rx QUEtiapine [SEROquel] 50 mg PO QHS #30 tablet 11/05/16 12/18/16 1 Day Ago Rx Ranolazine ER [Ranexa ER] 500 mg PO BID #60 tablet 11/05/16 12/18/16 2 Days Ago Rx Tamsulosin [Flomax] 0.4 mg PO QDAY #30 capsule 11/05/16 12/18/16 1 Day Ago Rx Active Meds: Active Medications Acetaminophen (Tylenol) 650 mg PO Q4H PRN PRN Reason: Pain MILD(1-3)/Fever >100.5/BLAKE Albuterol (Proventil) 2.5 mg IH Q4HRT PRN PRN Reason: Shortness Of Breath Aspirin (Halfprin Ec) 81 mg PO QDAY [facility] Last Admin: 12/18/16 11:00 Dose: 81 mg Atorvastatin Calcium (Lipitor) 80 mg PO QHS [facility] Last Admin: 12/18/16 02:07 Dose: 80 mg Bisacodyl (Dulcolax) 10 mg [place] QDAY PRN PRN Reason: Constipation unrelieved by MOM Clopidogrel Bisulfate (Plavix) 75 mg PO QDAY [facility] Last Admin: 12/18/16 11:00 Dose: 75 mg Famotidine (Pepcid) 20 mg PO QDAY [facility] Last Admin: 12/18/16 11:00 Dose: 20 mg Amiodarone HCl 900 mg/ (Dextrose) 500 mls @ 33.33 mls/hr IV DIRECT BUTCH; 1 MG /MIN PRN Reason: Protocol Insulin Human Isoph/Insulin Regular (Novolin 70/30) 6 unit SUB-Q BIDDIAB [facility] Last Admin: 12/18/16 11:52 Dose: Not Given Magnesium Hydroxide (Milk Of Magnesia) 30 ml PO Q4H PRN PRN Reason: Constipation Metoprolol Tartrate (Lopressor) 5 mg IV Q4H PRN PRN Reason: HR >130 Midodrine (Proamatine) 5 mg PO Q8H [facility] Last Admin: 12/18/16 11:00 Dose: 5 mg Ondansetron HCl (Zofran) 4 mg IV Q8H PRN PRN Reason: N/V unrelieved by Reglan Quetiapine Fumarate (Seroquel) 50 mg PO QHS [facility] Last Admin: 12/17/16 23:18 Dose: 50 mg Ranolazine (Ranexa Er) 500 mg PO BID [facility] Last Admin: 12/18/16 11:00 Dose: 500 mg Sodium Chloride (Sodium Chloride Flush Syringe 10 Ml) 10 ml IV PRN PRN PRN Reason: LINE FLUSH Tamsulosin HCl (Flomax) 0.4 mg PO QDAY [facility] Last Admin: 12/18/16 11:00 Dose: 0.4 mg Physical Examination Vital signs: Vital Signs Temp Pulse Resp BP Pulse Ox 97.8 F 104 H 18 102/53 91 12/17/16 14:05 12/17/16 14:05 12/17/16 14:05 12/17/16 14:05 12/17/16 14:05 Results - Laboratory Findings CBC and BMP: 12/17/16 14:29 12/17/16 14:29 PT/INR, D-dimer PT 15.2 Sec. (12.2-14.9) H 12/17/16 17:52 INR 1.21 (0.87-1.13) H 12/17/16 17:52 D-Dimer 551.1 ng/mlDDU (0-234) H 12/17/16 17:52 Abnormal lab findings: Abnormal Labs 12/17/16 12/17/16 12/18/16 20:45 21:02 01:09 POC Glucose 148 H CK-MB (CK-2) 4.1 H Troponin T 0.058 H 0.067 H
[2016-12-18] MEDS ORDERED: ATIVAN ONE (17:28)
--- NOTE | 2016-12-18 17:38 | Event Note ---
Date: 12/18/16 Discussed case with cardiology; patient had runs of sustained wide complex tachycardia and with the severity of his baseline cardio-myopathy is best managed in the short course in the ICU A&P: - transfer to ICU
--- NOTE | 2016-12-18 17:40 | Event Note ---
Date: 12/18/16 81-year-old man with coronary artery disease and ischemic cardiomyopathy, on medical therapy. He presented to the hospital at this time with suspected fluid overload and acute on chronic systolic heart failure. This morning, while on telemetry he developed sustained wide complex tachycardia at heart rate 160. The morphology appears to be atrial tachycardia or atrial flutter with aberrant QRS complexes, but cannot entirely exclude sustained ventricular tachycardia. Recommend amiodarone intravenous therapy, and the patient will be transferred to the CCU for further monitoring.
[2016-12-18] MEDS: ATIVAN IV PRN (22:46)
[2016-12-18] MEDS: PROVENTIL IH PRN (23:27)
[2016-12-19 00:04] LABS: ISTAT Base Excess 0; ISTAT HCO3 24.3; ISTAT PCO2 37.3 (35-45); ISTAT PH 7.421 (7.35-7.45); ISTAT PO2 68 (80-105); ISTAT SO2 94; ISTAT TCO2 25
[2016-12-19] MEDS: DUONEB 0.5 MG-3 MG/3 ML SOLN IH SCH ×4 (02:38→20:38)
--- NOTE | 2016-12-19 04:59 | Consultation ---
CONSULTING PHYSICIAN: Dr. Winston and Dr. Rodríguez REASON FOR CONSULTATION: Atrial fibrillation with a rapid ventricular response. CHIEF COMPLAINT AND HISTORY OF PRESENT ILLNESS: The patient is a 81-year-old male with past medical history significant amongst other things for cardiomyopathy, CHF with ejection fraction of 20% and also history of arrhythmias in the past, very noncompliant with medications. He was brought in by his family for bilateral lower extremity swelling, left greater than right. He also complained of some shortness of breath. He denied chest pain to me and to the Emergency Room physician. In the Emergency Department he was also hypoxemic, O2 sats at 89% to 91% on room air. X-ray was consistent with volume overload. He was titrated ultimately to the telemetry floor. Earlier today, on telemetry floor, he went to atrial fibrillation with rapid ventricular response in the 150s. A decision was made to put him on amiodarone drip and also to observe him to try and transfer him to the Intensive Care Unit for further evaluation. I, however, stopped upstairs to see the patient in the room. At that time, he must have responded to his initial bolus of amiodarone. Pulse was trending downwards in the 100s, occasional will go up to about 120. He was clinically doing fine. Denied palpitations. Denied nausea, denied vomiting, denies shortness of breath. Now with regards to the patient's tobacco use/abuse history, he has a 30+ pack year tobacco smoking history. That really is as much of the history of presentation as I have. PAST MEDICAL HISTORY: Again, significant for congestive heart failure, coronary artery disease. He is hard of hearing. He is obese. PAST SURGICAL HISTORY: He has had coronary artery bypass grafting in the past and he has had stents placed. MEDICATIONS: He was on, at the time I stopped by to see him, according to the medication administration record included the followin. Tylenol 650 mg p.o. q. 4 hours p.r.n., mild pain. 2. Amiodarone drip had been ordered and started at 1 mg per minute. 3. Aspirin 81 mg p.o. daily. 4. Lipitor 80 mg p.o. at bedtime. 5. Plavix 75 mg p.o. daily. 6. Pepcid 20 mg p.o. daily. 7. A 70/30 insulin 6 units subq b.i.d. 8. P.r.n. milk of magnesia. 9. Lopressor 5 mg IV q. 4 hours p.r.n., heart rate greater than 130. 10. Midodrine 5 mg p.o. q. 8 hours. 11. Zofran 4 mg IV q. 8 hours p.r.n. nausea and vomiting. 12. Seroquel 50 mg p.o. at bedtime. 13. Ranexa ER 500 mg p.o. b.i.d. 14. Tamsulosin 0.4 mg p.o. daily. ALLERGIES: No known drug allergies. DIET: Obese gentleman, no significant weight changes since I have last seen him. FAMILY AND SOCIAL HISTORY: Lives in the community, 30+ pack year tobacco smoking history. Denies alcohol or illicit drug use or abuse. REVIEW OF SYSTEMS: No loss of consciousness. No new onset seizures. No new onset focal weakness. Denies gross hematochezia or melena. Denies gross hematuria or dysuria. No hematemesis. No hemoptysis. Denies palpitations. Complete review of systems is obtained. Pertinent positives and/or negatives as in body of history above, otherwise they are noncontributory. PHYSICAL EXAMINATION: VITAL SIGNS: At presentation, he was afebrile with temperature 97.8, pulse 104, respiratory rate 18, blood pressure 102/53, oxygen sats were 91%, inspired oxygen concentration was not recorded. HEAD, EYES, EARS, NOSE AND THROAT: Pupils are equal, round, about 4 mm, reactive to light. Extraocular muscle movements appeared intact. Oropharynx is a Mallampati #4 oropharynx without posterior oropharyngeal erythema. Grossly, no palpable lymph nodes in the supraclavicular or submandibular lymph node chains. No gross jugular venous distention. LUNGS: Auscultation of both lung grey, basilar reduced air entry, basilar rales and slightly prolonged expiratory phase with diminished breath sounds. No active wheezing. HEART: Heart sounds 1 and 2 are heard. They were irregular in rate and rhythm at time of my evaluation. ABDOMEN: Soft. Bowel sounds are positive. Full, nontender. EXTREMITIES: Without overt digital clubbing, cyanosis, or pedal edema. NEUROLOGIC: The exam was grossly nonfocal also no calf tenderness. LABORATORY DATA: From my review are as follows: Admission white cell count 9200, hemoglobin 13.4, hematocrit 48.6, platelets 192. INR 1.21, D-dimer up at 551. Serum sodium 140, potassium 4.1, chloride 101, bicarbonate 23, BUN 14, creatinine 1.5, and glucose was 221. Troponin 0.054 which is peaked at 0.067 for now. LDL cholesterol 80, urinalysis was unremarkable. He did have trace leukocyte esterase with only 1 white cell per high power field. Radiographic studies have been reviewed. I am pulling those up; however, I have reviewed the radiologist's interpretation. Initial chest x-ray at admission was read as an impression of CHF; however, another x-ray was done about 3 to 4 hours later that again shows CHF unchanged. ASSESSMENT AND PLAN: We have an elderly gentleman, very noncompliant. Certainly with his age and comorbidities, it is important that he be watched closely. He is appropriately on the telemetry floor. He appears to be responding to the amiodarone drip at this point, the charge nurse on the floor tells me that they should be able to manage the amiodarone while he is on the floor. I will reach out to his sex offender treatment professional and see if we can manage this patient on the Medical Floor. If, however, he does not respond or needs other interventions that ____ be managed the telemetry floor we will be glad to accept him into the intensive care unit. I will keep a close eye on him and I will be back to reevaluate him in the next 1-2 hours and hopefully by that time I am able to reach out to his sex offender treatment professional. Thank you very much for the consult. We will follow along. We will make further recommendations as picture progresses/becomes clearer. He is to continue on supplemental oxygen therapy. I have a rather little clinical suspicion for venous thromboembolic phenomenon and I believe his cardiomyopathy explains the atrial fibrillation, better. JOB# [id number] ELI/LEXI
[2016-12-19 05:51] LABS: Basophils % (Auto) 0.6 % (0.0-1.8); Eosinophils % (Auto) 2.2 % (0.0-4.3); Hematocrit 41.3 % (35.5-45.6); Hemoglobin 13.5 gm/dl (11.8-15.2); Mean Corpuscular HGB Conc 33 % (32-34); Mean Corpuscular Hemoglobin 28 pg (28-32); Mean Corpuscular Volume 86 fl (84-94); Platelet Count 151 K/mm3 (140-440); Red Blood Count 4.78 M/mm3 (3.65-5.03); Red Cell Distribution Width 16.4 % (13.2-15.2); White Blood Count 10.7 K/mm3 (4.5-11.0)
[2016-12-19 06:15] LABS: BUN/Creatinine Ratio 11.42; Calcium 8.7 mg/dL (8.4-10.2); Chloride 96.1 mmol/L (98-107); Potassium 3.8 mmol/L (3.6-5.0)
[2016-12-19] MEDS: PROAMATINE PO SCH ×2 (09:28→10:23)
[2016-12-19] MEDS: PLAVIX PO SCH (09:29)
[2016-12-19] MEDS: PEPCID PO SCH (09:29)
[2016-12-19] MEDS: HALFPRIN EC PO SCH (09:29)
[2016-12-19 09:43] LABS: ISTAT Base Excess -1; ISTAT HCO3 23.8; ISTAT PCO2 36.1 (35-45); ISTAT PH 7.427 (7.35-7.45); ISTAT PO2 67 (80-105); ISTAT SO2 94; ISTAT TCO2 25
--- NOTE | 2016-12-19 10:21 | Progress Note ---
Assessment and Plan 1. Atypical atrial flutter and paroxysmal atrial fibrillation on tele Reverted to SR on IV amiodarone 2. Ischemic cardiomyopathy, LVEF 20% 3. CAD s/p CABG Non-revascularizable CAD 4. Chronic renal failure, Creatinine 1.4 5. Dementia 6. COPD 7. Type II DM Recommendations: Change IV to po amiodarone 200 mg bid Start eliquis 2.5 mg po bid (Age 81 and creatinine 1.4) Start low dose toprol XL for underlying cardiomyopathy Monitor blood pressure closely and hold for SBP less than or equal to 90 mm Hg May transfer to tele Subjective Date of service: 12/19/16 Principal diagnosis: Atrial flutter Interval history: Patient is somnolent, in restraint Patient not able to give coherent history Objective Vital Signs Temp Pulse Pulse Pulse Resp Resp BP 12/19/16 09:22 12/19/16 09:20 24 L 25 H 12/19/16 09:05 24 L 27 H 12/19/16 08:10 76 17 104/71 12/19/16 08:00 80 17 104/71 12/19/16 07:53 97.9 F 12/19/16 07:50 88 17 104/72 12/19/16 07:40 91 H 24 104/72 12/19/16 07:30 87 17 114/66 12/19/16 07:20 86 18 114/66 12/19/16 07:10 88 18 114/66 12/19/16 07:00 82 14 104/72 12/19/16 06:50 83 16 114/66 12/19/16 06:40 78 16 114/66 12/19/16 06:30 86 17 114/66 12/19/16 06:20 85 17 114/66 12/19/16 06:10 87 16 114/66 12/19/16 06:00 97.4 F L 80 17 114/66 12/19/16 05:50 85 16 117/74 12/19/16 05:40 85 17 117/74 12/19/16 05:30 80 16 117/74 12/19/16 05:20 75 16 117/74 12/19/16 05:10 84 22 117/74 12/19/16 05:00 87 16 117/74 12/19/16 04:50 76 16 110/73 12/19/16 04:40 86 16 110/73 12/19/16 04:30 85 17 110/73 12/19/16 04:20 73 16 110/73 12/19/16 04:10 86 16 110/73 12/19/16 04:00 99.3 F 86 17 110/73 12/19/16 03:50 80 16 100/73 12/19/16 03:40 83 17 100/73 12/19/16 03:30 76 17 100/73 12/19/16 03:20 87 15 100/73 12/19/16 03:10 92 H 16 100/73 12/19/16 03:00 82 16 100/73 12/19/16 02:50 83 17 106/75 12/19/16 02:45 88 18 12/19/16 02:40 86 17 106/75 12/19/16 02:38 91 H 21 12/19/16 02:30 91 H 22 106/75 12/19/16 02:20 90 18 106/75 12/19/16 02:10 87 19 106/75 12/19/16 02:00 87 18 106/75 12/19/16 01:50 86 17 109/72 12/19/16 01:40 86 16 109/72 12/19/16 01:30 87 17 109/72 12/19/16 01:20 88 17 109/72 12/19/16 01:10 87 20 109/72 12/19/16 01:00 79 18 109/72 12/19/16 00:50 89 18 105/76 12/19/16 00:40 92 H 19 105/76 12/19/16 00:30 93 H 20 105/76 12/19/16 00:20 94 H 21 105/76 12/19/16 00:10 96 H 25 H 105/76 12/19/16 00:00 97.5 F L 98 H 22 105/76 12/18/16 23:50 99 H 23 105/75 12/18/16 23:40 102 H 24 105/75 12/18/16 23:35 104 H 24 12/18/16 23:30 84 28 H 105/75 12/18/16 23:29 12/18/16 23:28 101 H 24 12/18/16 23:20 102 H 26 H 97/73 12/18/16 23:10 87 27 H 105/75 12/18/16 23:00 100 H 24 105/75 12/18/16 22:50 98 H 27 H 97/73 12/18/16 22:44 103 H 97/73 12/18/16 22:40 100 H 25 H 97/73 12/18/16 22:38 103 H 19 97/73 12/18/16 22:10 103 H 26 H 97/73 12/18/16 22:00 98 H 25 H 97/73 12/18/16 21:50 96 H 26 H 97/68 12/18/16 21:40 89 22 97/68 12/18/16 21:30 85 21 12/18/16 21:20 76 23 12/18/16 21:14 20 12/18/16 21:00 97.3 F L 12/18/16 20:20 90 22 89/67 12/18/16 20:10 87 20 89/67 12/18/16 20:00 87 21 89/12/18/16 19:50 88 20 91/65 12/18/16 19:40 89 23 91/65 12/18/16 19:30 90 21 12/18/16 19:20 91 H 16 91/65 12/18/16 19:12 92 H 20 12/18/16 16:35 97.6 F 92 H 24 12/18/16 13:33 12/18/16 13:08 12/18/16 11:43 155 H 107/69 12/18/16 11:35 98.2 F 116 H 20 BP BP Pulse Ox 12/19/16 09:22 92 12/19/16 09:20 12/19/16 09:05 12/19/16 08:10 92 12/19/16 08:00 92 12/19/16 07:53 12/19/16 07:50 90 12/19/16 07:40 88 12/19/16 07:30 91 12/19/16 07:20 91 12/19/16 07:10 91 12/19/16 07:00 91 12/19/16 06:50 91 12/19/16 06:40 91 12/19/16 06:30 91 12/19/16 06:20 90 12/19/16 06:10 90 12/19/16 06:00 91 12/19/16 05:50 91 12/19/16 05:40 90 12/19/16 05:30 91 12/19/16 05:20 90 12/19/16 05:10 89 12/19/16 05:00 91 12/19/16 04:50 89 12/19/16 04:40 89 12/19/16 04:30 89 12/19/16 04:20 88 12/19/16 04:10 89 12/19/16 04:00 89 12/19/16 03:50 89 12/19/16 03:40 89 12/19/16 03:30 90 12/19/16 03:20 86 12/19/16 03:10 92 12/19/16 03:00 91 12/19/16 02:50 93 12/19/16 02:45 12/19/16 02:40 92 12/19/16 02:38 12/19/16 02:30 89 12/19/16 02:20 12/19/16 02:10 12/19/16 02:00 12/19/16 01:50 12/19/16 01:40 12/19/16 01:30 90 12/19/16 01:20 91 12/19/16 01:10 12/19/16 01:00 12/19/16 00:50 12/19/16 00:40 12/19/16 00:30 12/19/16 00:20 12/19/16 00:10 12/19/16 00:00 12/18/16 23:50 12/18/16 23:40 12/18/16 23:35 12/18/16 23:30 89 12/18/16 23:29 89 12/18/16 23:28 12/18/16 23:20 89 12/18/16 23:10 87 12/18/16 23:00 85 12/18/16 22:50 12/18/16 22:44 12/18/16 22:40 12/18/16 22:38 12/18/16 22:10 12/18/16 22:00 90 12/18/16 21:50 12/18/16 21:40 94 12/18/16 21:30 91 12/18/16 21:20 93 12/18/16 21:14 12/18/16 21:00 12/18/16 20:20 12/18/16 20:10 12/18/16 20:00 12/18/16 19:50 12/18/16 19:40 95 12/18/16 19:30 12/18/16 19:20 93 12/18/16 19:12 12/18/16 16:35 95/68 93 12/18/16 13:33 83/72 12/18/16 13:08 12/18/16 11:43 12/18/16 11:35 107/69 93 - Physical Examination HEENT: Positive: PERRL Neck: Positive: trachea midline Cardiac: Positive: Reg Rate and Rhythm Lungs: Positive: Decreased Breath Sounds - Labs and Meds CBC 12/19/16 Range/Units 04:40 WBC 10.7 (4.5-11.0) K/mm3 RBC 4.78 (3.65-5.03) M/mm3 Hgb 13.5 (11.8-15.2) gm/dl Hct 41.3 (35.5-45.6) % Plt Count 151 (140-440) K/mm3 Lymph # 2.5 (1.2-5.4) K/mm3 [place] # 1.0 H (0.0-0.8) K/mm3 Eos # 0.2 (0.0-0.4) K/mm3 Baso # 0.1 (0.0-0.1) K/mm3 Comprehensive Metabolic Panel 12/19/16 Range/Units 04:40 Sodium 138 (137-145) mmol/L Potassium 3.8 (3.6-5.0) mmol/L Chloride 96.1 L (98-107) mmol/L Carbon Dioxide 24 (22-30) mmol/L BUN 16 (9-20) mg/dL Creatinine 1.4 (0.8-1.5) mg/dL Glucose 152 H (75-100) mg/dL Calcium 8.7 (8.4-10.2) mg/dL
[2016-12-19] MEDS ORDERED: CORDARONE PO SCH (11:00)
[2016-12-19] MEDS: TOPROL XL PO SCH (11:59)
[2016-12-19] MEDS: ELIQUIS PO SCH ×2 (12:00→22:03)
--- NOTE | 2016-12-19 12:22 | Progress Note ---
Assessment and Plan - Patient Problems (1) Atrial fibrillation with RVR Current Visit: Yes Status: Acute Plan to address problem: - back on IV amiodarone - follow electrolytes and correct as necessary - continue anticoagulation (Eliquis) - per cardiology otherwise (2) Nicotine dependence Current Visit: Yes Status: Acute Qualifiers: Nicotine product type: N Substance use status: S Plan to address problem: - unclear pack life history - consider nicotine replacement therapy (3) VENITA (acute kidney injury) Current Visit: No Status: Acute Plan to address problem: - stable - follow with prn BMP's - no indication for volume resuscitation - consider inotropic support if worsens (cardio-renal component likely) (4) Acute hypoxemic respiratory failure Current Visit: No Status: Acute Plan to address problem: - begin BIPAP therapy to recruit alveoli and to improve cardiovascular hemodynamics - use prn daytime but scheduled qhs - wean oxygen to kep sats > 94% - prn bronchodilators - aspiration precautions - will get USS chest +/- thoracentesis (5) Acute systolic CHF (congestive heart failure) Current Visit: No Status: Acute Plan to address problem: - continue disease modifying drugs per cardiology - no diuresis acutely re: hypotension - BIPAP will aid cardiac hemodynamics - per cardiology otherwise (6) Obesity (BMI 30.0-34.9) Current Visit: No Status: Acute Plan to address problem: - offered sleep clinic evaluation for possible YAIR to family - weight loss counselled prior (7) Discharge planning issues Current Visit: No Status: Acute Plan to address problem: - to transfer back to telemetry once ok with cardiology Subjective Date of service: 12/19/16 Principal diagnosis: Wide Complex Tachycardia; Altered Mental Status Interval history: Seen and examined at bedside; 24 hour events reviewed; nursing and respiratory care staff consulted; no adverse overnight events reported to me; resting in bed ; was off amiodarone drip prior but developed RVR again and back on amiodarone; hard of hearing but also ? delirium element; family had denied EtOH abuse at last admission; no N/V/F/C but now desaturating Objective Vital Signs - 12hr 12/19/16 12/19/16 12/19/16 00:30 00:40 00:50 Temperature Pulse Rate 93 H 92 H 89 Pulse Rate [ Anterior Bilateral Throughout] Pulse Rate [ From Monitor] Respiratory 20 19 18 Rate Respiratory Rate [Anterior Bilateral Throughout] Blood Pressure 105/76 105/76 105/76 O2 Sat by Pulse 91 90 91 Oximetry 12/19/16 12/19/16 12/19/16 01:00 01:10 01:20 Temperature Pulse Rate 79 87 88 Pulse Rate [ Anterior Bilateral Throughout] Pulse Rate [ From Monitor] Respiratory 18 20 17 Rate Respiratory Rate [Anterior Bilateral Throughout] Blood Pressure 109/72 109/72 109/72 O2 Sat by Pulse 90 90 91 Oximetry 12/19/16 12/19/16 12/19/16 01:30 01:40 01:50 Temperature Pulse Rate 87 86 86 Pulse Rate [ Anterior Bilateral Throughout] Pulse Rate [ From Monitor] Respiratory 17 16 17 Rate Respiratory Rate [Anterior Bilateral Throughout] Blood Pressure 109/72 109/72 109/72 O2 Sat by Pulse 90 91 91 Oximetry 12/19/16 12/19/16 12/19/16 02:00 02:10 02:20 Temperature Pulse Rate 87 87 90 Pulse Rate [ Anterior Bilateral Throughout] Pulse Rate [ From Monitor] Respiratory 18 19 18 Rate Respiratory Rate [Anterior Bilateral Throughout] Blood Pressure 106/75 106/75 106/75 O2 Sat by Pulse 91 90 91 Oximetry 12/19/16 12/19/16 12/19/16 02:30 02:38 02:40 Temperature Pulse Rate 91 H 86 Pulse Rate [ 91 H Anterior Bilateral Throughout] Pulse Rate [ From Monitor] Respiratory 22 17 Rate Respiratory 21 Rate [Anterior Bilateral Throughout] Blood Pressure 106/75 106/75 O2 Sat by Pulse 89 92 Oximetry 12/19/16 12/19/16 12/19/16 02:45 02:50 03:00 Temperature Pulse Rate 83 82 Pulse Rate [ 88 Anterior Bilateral Throughout] Pulse Rate [ From Monitor] Respiratory 17 16 Rate Respiratory 18 Rate [Anterior Bilateral Throughout] Blood Pressure 106/75 100/73 O2 Sat by Pulse 93 91 Oximetry 12/19/16 12/19/16 12/19/16 03:10 03:20 03:30 Temperature Pulse Rate 92 H 87 76 Pulse Rate [ Anterior Bilateral Throughout] Pulse Rate [ From Monitor] Respiratory 16 15 17 Rate Respiratory Rate [Anterior Bilateral Throughout] Blood Pressure 100/73 100/73 100/73 O2 Sat by Pulse 92 86 90 Oximetry 12/19/16 12/19/16 12/19/16 03:40 03:50 04:00 Temperature 99.3 F Pulse Rate 83 80 86 Pulse Rate [ Anterior Bilateral Throughout] Pulse Rate [ From Monitor] Respiratory 17 16 17 Rate Respiratory Rate [Anterior Bilateral Throughout] Blood Pressure 100/73 100/73 110/73 O2 Sat by Pulse 89 89 89 Oximetry 12/19/16 12/19/16 12/19/16 04:10 04:20 04:30 Temperature Pulse Rate 86 73 85 Pulse Rate [ Anterior Bilateral Throughout] Pulse Rate [ From Monitor] Respiratory 16 16 17 Rate Respiratory Rate [Anterior Bilateral Throughout] Blood Pressure 110/73 110/73 110/73 O2 Sat by Pulse 89 88 89 Oximetry 12/19/16 12/19/16 12/19/16 04:40 04:50 05:00 Temperature Pulse Rate 86 76 87 Pulse Rate [ Anterior Bilateral Throughout] Pulse Rate [ From Monitor] Respiratory 16 16 16 Rate Respiratory Rate [Anterior Bilateral Throughout] Blood Pressure 110/73 110/73 117/74 O2 Sat by Pulse 89 89 91 Oximetry 12/19/16 12/19/16 12/19/16 05:10 05:20 05:30 Temperature Pulse Rate 84 75 80 Pulse Rate [ Anterior Bilateral Throughout] Pulse Rate [ From Monitor] Respiratory 22 16 16 Rate Respiratory Rate [Anterior Bilateral Throughout] Blood Pressure 117/74 117/74 117/74 O2 Sat by Pulse 89 90 91 Oximetry 12/19/16 12/19/16 12/19/16 05:40 05:50 06:00 Temperature 97.4 F L Pulse Rate 85 85 80 Pulse Rate [ Anterior Bilateral Throughout] Pulse Rate [ From Monitor] Respiratory 17 16 17 Rate Respiratory Rate [Anterior Bilateral Throughout] Blood Pressure 117/74 117/74 114/66 O2 Sat by Pulse 90 91 91 Oximetry 12/19/16 12/19/16 12/19/16 06:10 06:20 06:30 Temperature Pulse Rate 87 85 86 Pulse Rate [ Anterior Bilateral Throughout] Pulse Rate [ From Monitor] Respiratory 16 17 17 Rate Respiratory Rate [Anterior Bilateral Throughout] Blood Pressure 114/66 114/66 114/66 O2 Sat by Pulse 90 90 91 Oximetry 12/19/16 12/19/16 12/19/16 06:40 06:50 07:00 Temperature Pulse Rate 78 83 82 Pulse Rate [ Anterior Bilateral Throughout] Pulse Rate [ From Monitor] Respiratory 16 16 14 Rate Respiratory Rate [Anterior Bilateral Throughout] Blood Pressure 114/66 114/66 104/72 O2 Sat by Pulse 91 91 91 Oximetry 12/19/16 12/19/16 12/19/16 07:10 07:20 07:30 Temperature Pulse Rate 88 86 87 Pulse Rate [ Anterior Bilateral Throughout] Pulse Rate [ From Monitor] Respiratory 18 18 17 Rate Respiratory Rate [Anterior Bilateral Throughout] Blood Pressure 114/66 114/66 114/66 O2 Sat by Pulse 91 91 91 Oximetry 12/19/16 12/19/16 12/19/16 07:40 07:50 07:53 Temperature 97.9 F Pulse Rate 91 H 88 Pulse Rate [ Anterior Bilateral Throughout] Pulse Rate [ From Monitor] Respiratory 24 17 Rate Respiratory Rate [Anterior Bilateral Throughout] Blood Pressure 104/72 104/72 O2 Sat by Pulse 88 90 Oximetry 12/19/16 12/19/16 12/19/16 08:00 08:10 09:05 Temperature Pulse Rate 80 76 Pulse Rate [ 24 L Anterior Bilateral Throughout] Pulse Rate [ From Monitor] Respiratory 17 17 Rate Respiratory 27 H Rate [Anterior Bilateral Throughout] Blood Pressure 104/71 104/71 O2 Sat by Pulse 92 92 Oximetry 12/19/16 12/19/16 12/19/16 09:20 09:22 10:00 Temperature Pulse Rate Pulse Rate [ 24 L Anterior Bilateral Throughout] Pulse Rate [ 90 From Monitor] Respiratory 18 Rate Respiratory 25 H Rate [Anterior Bilateral Throughout] Blood Pressure O2 Sat by Pulse 92 93 Oximetry 12/19/16 12/19/16 11:42 11:59 Temperature Pulse Rate 109 H Pulse Rate [ Anterior Bilateral Throughout] Pulse Rate [ 90 From Monitor] Respiratory 17 Rate Respiratory Rate [Anterior Bilateral Throughout] Blood Pressure 87/66 O2 Sat by Pulse 92 Oximetry Constitutional: other (somnolent) Eyes: non-icteric ENT: oropharynx moist Neck: supple, no lymphadenopathy Effort: mildly labored Ascultation: Bilateral: diminished breath sounds, rales (scant) Cardiovascular: irregular rhythm Gastrointestinal: normoactive bowel sounds, soft, non-tender, non-distended Integumentary: normal Extremities: no cyanosis, no edema, pink and warm, pulses normal, no ischemia or petechiae Neurologic: unable to assess Psychiatric: other (unable to assess) CBC and BMP: 12/19/16 04:40 12/19/16 04:40 ABG, PT/INR, D-dimer: ABG POC ABG pH 7.427 (7.35-7.45) 12/19/16 09:32 POC ABG pCO2 36.1 (35-45) 12/19/16 09:32 POC ABG pO2 67 (80-105) L 12/19/16 09:32 POC ABG HCO3 23.8 12/19/16 09:32 POC ABG Total CO2 25 12/19/16 09:32 POC ABG O2 Sat 94 12/19/16 09:32 PT/INR, D-dimer PT 15.2 Sec. (12.2-14.9) H 12/17/16 17:52 INR 1.21 (0.87-1.13) H 12/17/16 17:52 D-Dimer 551.1 ng/mlDDU (0-234) H 12/17/16 17:52 Abnormal lab findings: Abnormal Labs 12/17/16 12/17/16 12/18/16 20:45 21:02 01:09 RDW [place] % (Auto) [place] # POC ABG pO2 [place] Glucose POC Glucose 148 H CK-MB (CK-2) 4.1 H Troponin T 0.058 H 0.067 H 12/18/16 12/18/16 12/19/16 16:48 23:57 04:40 RDW 16.4 H [place] % (Auto) 9.0 H [place] # 1.0 H POC ABG pO2 68 L [place] Glucose POC Glucose 183 H CK-MB (CK-2) Troponin T 12/19/16 12/19/16 12/19/16 04:40 07:44 09:32 RDW [place] % (Auto) [place] # POC ABG pO2 67 L Chloride 96.1 L Glucose 152 H POC Glucose 147 H CK-MB (CK-2) Troponin T
--- NOTE | 2016-12-19 12:27 | Progress Note ---
Assessment and Plan Assessment and plan: Acute hypoxemic respiratory failure. Continue supplemental oxygen, nebulizer therapy, pulmonary toileting, supportive care and NIPPV as clinically indicated Acute on chronic systolic CHF exacerbation. Cardiology following. Continue diuresis and afterload reducing agents. Paroxysmal atrial fibrillation. Now in normal sinus rhythm. IV amiodarone switched to 200 mg by mouth twice a day. Started eliquis 2.5 mg by mouth twice a day Ischemic cardiomyopathy, LVEF 20%. Diabetes mellitus type 2. Continue ADA diet, sliding scale insulin and Accu- Cheks. Nicotine dependence. Patient has been counseled. Coronary artery disease. Status post CABG. Not revascularizable. COPD. Compensated. DVT prophylaxis. Disposition. Patient will be transferred to telemetry History Interval history: No new issues overnight. Hospitalist Physical - Constitutional Vitals: Temp Pulse Resp BP Pulse Ox 97.9 F 109 H 17 87/66 92 12/19/16 07:53 12/19/16 11:59 12/19/16 11:42 12/19/16 11:59 12/19/16 11:42 General appearance: Present: no acute distress - EENT Eyes: Present: PERRL, EOM intact ENT: hearing intact, clear oral mucosa, dentition normal - Neck Neck: Present: supple, normal ROM - Respiratory Respiratory effort: normal Respiratory: bilateral: diminished, rhonchi - Cardiovascular Rhythm: regular Heart Sounds: Present: S1 & S2. Absent: gallop, rub - Extremities Extremities: no ischemia, No edema, Full ROM - Abdominal General gastrointestinal: soft, non-tender, non-distended, normal bowel sounds - Integumentary Integumentary: Present: clear, warm, dry - Neurologic Neurologic: CNII-XII intact, moves all extremities Results - Labs CBC & Chem 7: 12/19/16 04:40 12/19/16 04:40 Labs: Laboratory Last Values WBC 10.7 K/mm3 (4.5-11.0) 12/19/16 04:40 RBC 4.78 M/mm3 (3.65-5.03) 12/19/16 04:40 Hgb 13.5 gm/dl (11.8-15.2) 12/19/16 04:40 Hct 41.3 % (35.5-45.6) 12/19/16 04:40 MCV 86 fl (84-94) 12/19/16 04:40 MCH 28 pg (28-32) 12/19/16 04:40 MCHC 33 % (32-34) 12/19/16 04:40 RDW 16.4 % (13.2-15.2) H 12/19/16 04:40 Plt Count 151 K/mm3 (140-440) 12/19/16 04:40 Lymph % (Auto) 23.6 % (13.4-35.0) 12/19/16 04:40 [place] % (Auto) 9.0 % (0.0-7.3) H 12/19/16 04:40 Eos % (Auto) 2.2 % (0.0-4.3) 12/19/16 04:40 Baso % (Auto) 0.6 % (0.0-1.8) 12/19/16 04:40 Lymph # 2.5 K/mm3 (1.2-5.4) 12/19/16 04:40 [place] # 1.0 K/mm3 (0.0-0.8) H 12/19/16 04:40 Eos # 0.2 K/mm3 (0.0-0.4) 12/19/16 04:40 Baso # 0.1 K/mm3 (0.0-0.1) 12/19/16 04:40 Seg Neutrophils % 64.6 % (40.0-70.0) 12/19/16 04:40 Seg Neutrophils # 6.9 K/mm3 (1.8-7.7) 12/19/16 04:40 PT 15.2 Sec. (12.2-14.9) H 12/17/16 17:52 INR 1.21 (0.87-1.13) H 12/17/16 17:52 D-Dimer 551.1 ng/mlDDU (0-234) H 12/17/16 17:52 POC ABG pH 7.427 (7.35-7.45) 12/19/16 09:32 POC ABG pCO2 36.1 (35-45) 12/19/16 09:32 POC ABG pO2 67 (80-105) L 12/19/16 09:32 POC ABG HCO3 23.8 12/19/16 09:32 POC ABG Total CO2 25 12/19/16 09:32 POC ABG O2 Sat 94 12/19/16 09:32 POC ABG Base Excess -1 12/19/16 09:32 FiO2 50 % 12/19/16 09:32 Sodium 138 mmol/L (137-145) 12/19/16 04:40 Potassium 3.8 mmol/L (3.6-5.0) 12/19/16 04:40 Chloride 96.1 mmol/L (98-107) L 12/19/16 04:40 Carbon Dioxide 24 mmol/L (22-30) 12/19/16 04:40 Anion Gap 22 mmol/L 12/19/16 04:40 BUN 16 mg/dL (9-20) 12/19/16 04:40 Creatinine 1.4 mg/dL (0.8-1.5) 12/19/16 04:40 Estimated GFR 49 ml/min 12/19/16 04:40 BUN/Creatinine Ratio 11.42 % 12/19/16 04:40 Glucose 152 mg/dL (75-100) H 12/19/16 04:40 POC Glucose 147 (70-105) H 12/19/16 07:44 Calcium 8.7 mg/dL (8.4-10.2) 12/19/16 04:40 Magnesium 2.30 mg/dL (1.7-2.3) 12/17/16 17:52 Total Creatine Kinase 141 units/L (55-170) 12/18/16 01:09 CK-MB (CK-2) 3.7 ng/mL (0.0-4.0) 12/18/16 01:09 CK-MB (CK-2) Rel Index 2.6 (0-4) 12/18/16 01:09 Troponin T 0.067 ng/mL (0.00-0.029) H 12/18/16 01:09 NT-Pro-B Natriuret Pep 7813 pg/mL (0-900) H 12/17/16 17:52 Triglycerides 94 mg/dL (2-149) 12/17/16 14:29 Cholesterol 140 mg/dL (50-199) 12/17/16 14:29 LDL Cholesterol Direct 80 mg/dL (50-130) 12/17/16 14:29 HDL Cholesterol 42 mg/dL (40-59) 12/17/16 14:29 Cholesterol/HDL Ratio 3.33 % 12/17/16 14:29 Urine Color Yellow (Yellow) 12/17/16 19:09 Urine Turbidity Clear (Clear) 12/17/16 19:09 Urine pH 5.0 (5.0-7.0) 12/17/16 19:09 Ur Specific [place] 1.018 (1.003-1.030) 12/17/16 19:09 Urine Protein 30 mg/dl mg/dL (Negative) 12/17/16 19:09 Urine Glucose (UA) Neg mg/dL (Negative) 12/17/16 19:09 Urine Ketones Neg mg/dL (Negative) 12/17/16 19:09 Urine Blood Neg (Negative) 12/17/16 19:09 Urine Nitrite Neg (Negative) 12/17/16 19:09 Urine Bilirubin Neg (Negative) 12/17/16 19:09 Urine Urobilinogen < 2.0 mg/dL (<2.0) 12/17/16 19:09 Ur Leukocyte Esterase Tr (Negative) 12/17/16 19:09 Urine WBC (Auto) 1.0 /HPF (0.0-6.0) 12/17/16 19:09 Urine RBC (Auto) 1.0 /HPF (0.0-6.0) 12/17/16 19:09 U Epithel Cells (Auto) 1.0 /HPF (0-13.0) 12/17/16 19:09 Urine Bacteria (Auto) 1+ /HPF (Negative) 12/17/16 19:09 Urine Mucus 2+ /HPF 12/17/16 19:09
[2016-12-19] MEDS: ATIVAN IV PRN (22:04)
[2016-12-20] MEDS: DUONEB 0.5 MG-3 MG/3 ML SOLN IH SCH ×4 (01:30→20:00)
[2016-12-20] MEDS: FLOMAX PO SCH (10:39)
[2016-12-20] MEDS: PROAMATINE PO SCH ×2 (10:40→18:30)
[2016-12-20] MEDS: ELIQUIS PO SCH ×2 (10:40→22:26)
[2016-12-20] MEDS: PEPCID PO SCH (10:40)
[2016-12-20] MEDS: PLAVIX PO SCH (10:40)
[2016-12-20] MEDS: TOPROL XL PO SCH (10:41)
--- NOTE | 2016-12-20 12:23 | Progress Note ---
Assessment and Plan Acute systolic heart failure SVT CAD s/p remote CABG Cardiac cath findings 11/2016: 1. Patent BRISCOE-LAD 2. Patent SVG-Diag 3. Occluded SVG-OM. 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 4. RCA was not previously bypassed, BUT has a prior stent mid vessel. Vessel is subtotally occluded within stented segment. 5. Severe ischemic cardiomyopathy, EF 20%. 6. Medical therapy recommended Ischemic Cardiomyopathy Dementia Diabetes mellitus Hyperlipidemia Chronic hypotension on midodrine as an outpatient Atypical atrial flutter and paroxysmal atrial fibrillation on tele on IV amiodarone initiated on low dose eliquis Hx of COPD Subjective Date of service: 12/20/16 Principal diagnosis: Wide Complex Tachycardia; Altered Mental Status Interval history: Remains on Bipap therapy and IV amiodarone. Objective Vital Signs Temp Pulse Pulse Pulse Resp Resp BP 12/20/16 11:10 80 18 104/72 12/20/16 10:41 84 105/76 12/20/16 08:08 86 23 12/20/16 08:04 84 22 103/70 12/20/16 08:01 86 24 12/20/16 08:00 97 F L 12/20/16 06:00 84 12/20/16 04:37 91 H 17 104/63 12/20/16 04:13 98.3 F 12/20/16 02:16 84 20 12/20/16 01:45 90 22 12/20/16 01:30 88 22 12/19/16 23:46 96 H 23 92/65 12/19/16 22:00 84 12/19/16 20:39 83 22 94/53 12/19/16 20:30 86 22 12/19/16 20:15 84 22 12/19/16 20:00 96.1 F L 82 18 12/19/16 18:00 88 17 12/19/16 17:06 90 26 H 12/19/16 16:00 97.5 F L 90 21 12/19/16 14:05 94 H 12 12/19/16 14:00 83 81 21 12/19/16 13:51 82 12 12/19/16 13:30 83 23 Pulse Ox 12/20/16 11:10 97 12/20/16 10:41 12/20/16 08:08 12/20/16 08:04 94 12/20/16 08:01 12/20/16 08:00 12/20/16 06:00 12/20/16 04:37 97 12/20/16 04:13 12/20/16 02:16 95 12/20/16 01:45 12/20/16 01:30 12/19/16 23:46 97 12/19/16 22:00 12/19/16 20:39 95 12/19/16 20:30 12/19/16 20:15 12/19/16 20:00 97 12/19/16 18:00 95 12/19/16 17:06 95 12/19/16 16:00 97 12/19/16 14:05 12/19/16 14:00 95 12/19/16 13:51 12/19/16 13:30 94 - Physical Examination General: No Apparent Distress HEENT: Positive: PERRL Neck: Positive: trachea midline Cardiac: Positive: irregularly irregular
--- NOTE | 2016-12-20 14:04 | Progress Note ---
Assessment and Plan Assessment and plan: Acute hypoxemic respiratory failure. Continue supplemental oxygen, nebulizer therapy, pulmonary toileting, supportive care and NIPPV as clinically indicated. Patient currently on BiPAP. Acute on chronic systolic CHF exacerbation. Cardiology following. Continue diuresis and afterload reducing agents. Paroxysmal atrial fibrillation/SVT. Continue IV amiodarone and transition to by mouth per cardiology. Continue eliquis 2.5 mg by mouth twice a day Ischemic cardiomyopathy, LVEF 20%. Chronic hypotension. On midodrine as an outpatient Diabetes mellitus type 2. Continue ADA diet, sliding scale insulin and Accu- Cheks. Nicotine dependence. Patient has been counseled. Coronary artery disease. Status post CABG. Not revascularizable. COPD. Compensated. DVT prophylaxis. Disposition. Patient will be transferred to telemetry History Interval history: No new issues overnight. Hospitalist Physical - Constitutional Vitals: Temp Pulse Resp BP Pulse Ox 97 F L 80 18 104/72 97 12/20/16 08:00 12/20/16 11:10 12/20/16 11:10 12/20/16 11:10 12/20/16 11:10 General appearance: Present: mild distress, other (on bipap) - EENT Eyes: Present: PERRL, EOM intact ENT: hearing intact, clear oral mucosa, dentition normal - Neck Neck: Present: supple, normal ROM - Respiratory Respiratory effort: normal Respiratory: bilateral: CTA - Cardiovascular Rhythm: regular Heart Sounds: Present: S1 & S2. Absent: gallop, rub - Extremities Extremities: no ischemia, No edema, Full ROM - Abdominal General gastrointestinal: soft, non-tender, non-distended, normal bowel sounds - Integumentary Integumentary: Present: clear, warm, dry - Neurologic Neurologic: CNII-XII intact, moves all extremities Results - Labs CBC & Chem 7: 12/19/16 04:40 12/19/16 04:40 Labs: Laboratory Last Values WBC 10.7 K/mm3 (4.5-11.0) 12/19/16 04:40 RBC 4.78 M/mm3 (3.65-5.03) 12/19/16 04:40 Hgb 13.5 gm/dl (11.8-15.2) 12/19/16 04:40 Hct 41.3 % (35.5-45.6) 12/19/16 04:40 MCV 86 fl (84-94) 12/19/16 04:40 MCH 28 pg (28-32) 12/19/16 04:40 MCHC 33 % (32-34) 12/19/16 04:40 RDW 16.4 % (13.2-15.2) H 12/19/16 04:40 Plt Count 151 K/mm3 (140-440) 12/19/16 04:40 Lymph % (Auto) 23.6 % (13.4-35.0) 12/19/16 04:40 [place] % (Auto) 9.0 % (0.0-7.3) H 12/19/16 04:40 Eos % (Auto) 2.2 % (0.0-4.3) 12/19/16 04:40 Baso % (Auto) 0.6 % (0.0-1.8) 12/19/16 04:40 Lymph # 2.5 K/mm3 (1.2-5.4) 12/19/16 04:40 [place] # 1.0 K/mm3 (0.0-0.8) H 12/19/16 04:40 Eos # 0.2 K/mm3 (0.0-0.4) 12/19/16 04:40 Baso # 0.1 K/mm3 (0.0-0.1) 12/19/16 04:40 Seg Neutrophils % 64.6 % (40.0-70.0) 12/19/16 04:40 Seg Neutrophils # 6.9 K/mm3 (1.8-7.7) 12/19/16 04:40 PT 15.2 Sec. (12.2-14.9) H 12/17/16 17:52 INR 1.21 (0.87-1.13) H 12/17/16 17:52 D-Dimer 551.1 ng/mlDDU (0-234) H 12/17/16 17:52 POC ABG pH 7.427 (7.35-7.45) 12/19/16 09:32 POC ABG pCO2 36.1 (35-45) 12/19/16 09:32 POC ABG pO2 67 (80-105) L 12/19/16 09:32 POC ABG HCO3 23.8 12/19/16 09:32 POC ABG Total CO2 25 12/19/16 09:32 POC ABG O2 Sat 94 12/19/16 09:32 POC ABG Base Excess -1 12/19/16 09:32 FiO2 50 % 12/19/16 09:32 Sodium 138 mmol/L (137-145) 12/19/16 04:40 Potassium 3.8 mmol/L (3.6-5.0) 12/19/16 04:40 Chloride 96.1 mmol/L (98-107) L 12/19/16 04:40 Carbon Dioxide 24 mmol/L (22-30) 12/19/16 04:40 Anion Gap 22 mmol/L 12/19/16 04:40 BUN 16 mg/dL (9-20) 12/19/16 04:40 Creatinine 1.4 mg/dL (0.8-1.5) 12/19/16 04:40 Estimated GFR 49 ml/min 12/19/16 04:40 BUN/Creatinine Ratio 11.42 % 12/19/16 04:40 Glucose 152 mg/dL (75-100) H 12/19/16 04:40 POC Glucose 141 (70-105) H 12/20/16 11:16 Calcium 8.7 mg/dL (8.4-10.2) 12/19/16 04:40 Magnesium 2.30 mg/dL (1.7-2.3) 12/17/16 17:52 Total Creatine Kinase 141 units/L (55-170) 12/18/16 01:09 CK-MB (CK-2) 3.7 ng/mL (0.0-4.0) 12/18/16 01:09 CK-MB (CK-2) Rel Index 2.6 (0-4) 12/18/16 01:09 Troponin T 0.067 ng/mL (0.00-0.029) H 12/18/16 01:09 NT-Pro-B Natriuret Pep 7813 pg/mL (0-900) H 12/17/16 17:52 Triglycerides 94 mg/dL (2-149) 12/17/16 14:29 Cholesterol 140 mg/dL (50-199) 12/17/16 14:29 LDL Cholesterol Direct 80 mg/dL (50-130) 12/17/16 14:29 HDL Cholesterol 42 mg/dL (40-59) 12/17/16 14:29 Cholesterol/HDL Ratio 3.33 % 12/17/16 14:29 Urine Color Yellow (Yellow) 12/17/16 19:09 Urine Turbidity Clear (Clear) 12/17/16 19:09 Urine pH 5.0 (5.0-7.0) 12/17/16 19:09 Ur Specific [place] 1.018 (1.003-1.030) 12/17/16 19:09 Urine Protein 30 mg/dl mg/dL (Negative) 12/17/16 19:09 Urine Glucose (UA) Neg mg/dL (Negative) 12/17/16 19:09 Urine Ketones Neg mg/dL (Negative) 12/17/16 19:09 Urine Blood Neg (Negative) 12/17/16 19:09 Urine Nitrite Neg (Negative) 12/17/16 19:09 Urine Bilirubin Neg (Negative) 12/17/16 19:09 Urine Urobilinogen < 2.0 mg/dL (<2.0) 12/17/16 19:09 Ur Leukocyte Esterase Tr (Negative) 12/17/16 19:09 Urine WBC (Auto) 1.0 /HPF (0.0-6.0) 12/17/16 19:09 Urine RBC (Auto) 1.0 /HPF (0.0-6.0) 12/17/16 19:09 U Epithel Cells (Auto) 1.0 /HPF (0-13.0) 12/17/16 19:09 Urine Bacteria (Auto) 1+ /HPF (Negative) 12/17/16 19:09 Urine Mucus 2+ /HPF 12/17/16 19:09
--- NOTE | 2016-12-20 14:32 | Ultrasound Report ---
ULTRASOUND CHEST History: Pleural effusion. Technique: Transabdominal ultrasound. Findings: Targeted ultrasound was performed on both sides of the chest. The images demonstrate bilateral pleural effusions measuring 371 cc on the right and 520 cc on the left. The pleural fluid appears free flowing and without septation or debris. Impression: Bilateral pleural effusions as described.
--- NOTE | 2016-12-20 14:38 | Progress Note ---
Assessment and Plan - Patient Problems (1) Atrial fibrillation with RVR Current Visit: Yes Status: Acute Plan to address problem: - follow electrolytes and correct as necessary - continue anticoagulation (Eliquis) - per cardiology otherwise - weaned off IV amiodarone (2) Nicotine dependence Current Visit: Yes Status: Acute Qualifiers: Nicotine product type: N Substance use status: S Plan to address problem: - unclear pack life history - added nicotine patch (3) VENITA (acute kidney injury) Current Visit: No Status: Acute Plan to address problem: - stable - follow with prn BMP's - no indication for volume resuscitation - consider inotropic support if worsens (cardio-renal component likely) (4) Acute hypoxemic respiratory failure Current Visit: No Status: Acute Plan to address problem: - begin BIPAP therapy to recruit alveoli and to improve cardiovascular hemodynamics - use prn daytime but scheduled qhs - wean oxygen to kep sats > 94% - prn bronchodilators - aspiration precautions - small effusions on US chests and risks likely outweigh benefits at this point - will place on HFNC and if tolerates time of BIPAP then he can transfer to telemetry pulmonary-[facility] with qhs BIPAP use (5) Acute systolic CHF (congestive heart failure) Current Visit: No Status: Acute Plan to address problem: - continue disease modifying drugs per cardiology - no diuresis acutely re: hypotension - BIPAP will aid cardiac hemodynamics - per cardiology otherwise (6) Obesity (BMI 30.0-34.9) Current Visit: No Status: Acute Plan to address problem: - offered sleep clinic evaluation for possible YAIR to family - weight loss counselled prior (7) Discharge planning issues Current Visit: No Status: Acute Plan to address problem: (discussed with daughter who states that he does not want to be on life support ; she wants to discuss with the other physicians though before she re-instates the DNR) - to transfer to telemetry Subjective Date of service: 12/20/16 Principal diagnosis: Wide Complex Tachycardia; Altered Mental Status Interval history: Seen and examined at bedside; 24 hour events reviewed; nursing and respiratory care staff consulted; no adverse overnight events reported to me; spent the night on BIPAP but still with tachypnea; daughter visiting; given a break and states that he feels better; no N/V/F/C Objective Vital Signs - 12hr 12/20/16 12/20/16 12/20/16 04:13 04:37 06:00 Temperature 98.3 F Pulse Rate 91 H 84 Pulse Rate [ Anterior Bilateral Throughout] Respiratory 17 Rate Respiratory Rate [Anterior Bilateral Throughout] Blood Pressure 104/63 O2 Sat by Pulse 97 Oximetry 12/20/16 12/20/16 12/20/16 08:00 08:01 08:04 Temperature 97 F L Pulse Rate 84 Pulse Rate [ 86 Anterior Bilateral Throughout] Respiratory 22 Rate Respiratory 24 Rate [Anterior Bilateral Throughout] Blood Pressure 103/70 O2 Sat by Pulse 94 Oximetry 12/20/16 12/20/16 12/20/16 08:08 10:41 11:10 Temperature Pulse Rate 84 80 Pulse Rate [ 86 Anterior Bilateral Throughout] Respiratory 18 Rate Respiratory 23 Rate [Anterior Bilateral Throughout] Blood Pressure 105/76 104/72 O2 Sat by Pulse 97 Oximetry 12/20/16 12:00 Temperature 97 F L Pulse Rate Pulse Rate [ Anterior Bilateral Throughout] Respiratory Rate Respiratory Rate [Anterior Bilateral Throughout] Blood Pressure O2 Sat by Pulse Oximetry Constitutional: lethargic, other (delirium really) Eyes: non-icteric ENT: oropharynx moist Neck: supple, no lymphadenopathy Effort: mildly labored Ascultation: Bilateral: diminished breath sounds, rales Cardiovascular: irregular rhythm Gastrointestinal: normoactive bowel sounds, soft, non-tender, non-distended Integumentary: normal Extremities: no cyanosis, no edema, pink and warm, pulses normal, no ischemia or petechiae Neurologic: non-focal exam, pupils equal and round, unable to assess Psychiatric: other (unable to assess) CBC and BMP: 12/19/16 04:40 12/19/16 04:40 ABG, PT/INR, D-dimer: ABG POC ABG pH 7.427 (7.35-7.45) 12/19/16 09:32 POC ABG pCO2 36.1 (35-45) 12/19/16 09:32 POC ABG pO2 67 (80-105) L 12/19/16 09:32 POC ABG HCO3 23.8 12/19/16 09:32 POC ABG Total CO2 25 12/19/16 09:32 POC ABG O2 Sat 94 12/19/16 09:32 PT/INR, D-dimer PT 15.2 Sec. (12.2-14.9) H 12/17/16 17:52 INR 1.21 (0.87-1.13) H 12/17/16 17:52 D-Dimer 551.1 ng/mlDDU (0-234) H 12/17/16 17:52 Abnormal lab findings: Abnormal Labs 12/17/16 12/17/16 12/18/16 20:45 21:02 01:09 RDW [place] % (Auto) [place] # POC ABG pO2 Chloride Glucose POC Glucose 148 H CK-MB (CK-2) 4.1 H Troponin T 0.058 H 0.067 H 12/18/16 12/18/16 12/19/16 16:48 23:57 04:40 RDW 16.4 H [place] % (Auto) 9.0 H [place] # 1.0 H POC ABG pO2 68 L Chloride Glucose POC Glucose 183 H CK-MB (CK-2) Troponin T 12/19/16 12/19/16 12/19/16 04:40 07:44 09:32 RDW [place] % (Auto) [place] # POC ABG pO2 67 L Chloride 96.1 L Glucose 152 H POC Glucose 147 H CK-MB (CK-2) Troponin T 12/19/16 12/19/16 12/20/16 12:18 22:00 00:30 RDW [place] % (Auto) [place] # POC ABG pO2 Chloride Glucose POC Glucose 145 H 120 H 149 H CK-MB (CK-2) Troponin T 12/20/16 12/20/16 12/20/16 09:20 10:29 11:16 RDW [place] % (Auto) [place] # POC ABG pO2 Chloride Glucose POC Glucose 121 H 136 H 141 H CK-MB (CK-2) Troponin T
[2016-12-20] MEDS ORDERED: HABITROL TD ONE (14:42)
[2016-12-20] MEDS: CORDARONE 900 MG in D5W 482 ML IV SCH (17:01)
[2016-12-20] MEDS: ATIVAN IV PRN (20:41)
[2016-12-21] MEDS: DUONEB 0.5 MG-3 MG/3 ML SOLN IH SCH ×4 (02:22→19:44)
[2016-12-21] MEDS: ATIVAN IV PRN ×2 (03:44→15:00)
[2016-12-21] MEDS: PROAMATINE PO SCH ×3 (03:45→17:26)
[2016-12-21 07:51] LABS: Basophils % (Auto) 0.3 % (0.0-1.8); Eosinophils % (Auto) 0.3 % (0.0-4.3); Hematocrit 41.4 % (35.5-45.6); Hemoglobin 13.7 gm/dl (11.8-15.2); Mean Corpuscular HGB Conc 33 % (32-34); Mean Corpuscular Hemoglobin 29 pg (28-32); Mean Corpuscular Volume 86 fl (84-94); Platelet Count 161 K/mm3 (140-440); Red Blood Count 4.81 M/mm3 (3.65-5.03); Red Cell Distribution Width 16.1 % (13.2-15.2); White Blood Count 10.6 K/mm3 (4.5-11.0)
[2016-12-21 08:01] LABS: BUN/Creatinine Ratio 16.66; Calcium 8.5 mg/dL (8.4-10.2); Chloride 99.9 mmol/L (98-107); Potassium 3.9 mmol/L (3.6-5.0)
[2016-12-21] MEDS: FLOMAX PO SCH (11:11)
[2016-12-21] MEDS: PEPCID PO SCH (11:12)
[2016-12-21] MEDS: ELIQUIS PO SCH (11:12)
[2016-12-21] MEDS: PLAVIX PO SCH (11:12)
[2016-12-21] MEDS: TOPROL XL PO SCH (11:13)
--- NOTE | 2016-12-21 12:20 | Progress Note ---
Assessment and Plan - Patient Problems (1) Atrial fibrillation with RVR Current Visit: Yes Status: Acute (2) Nicotine dependence Current Visit: Yes Status: Acute Qualifiers: Nicotine product type: N Substance use status: S (3) VENITA (acute kidney injury) Current Visit: No Status: Acute (4) Acute hypoxemic respiratory failure Current Visit: No Status: Acute (5) Acute systolic CHF (congestive heart failure) Current Visit: No Status: Acute (6) Obesity (BMI 30.0-34.9) Current Visit: No Status: Acute (7) Discharge planning issues Current Visit: No Status: Acute Subjective Date of service: 12/21/16 Principal diagnosis: Wide Complex Tachycardia; Altered Mental Status Interval history: Seen and examined at bedside; 24 hour events reviewed; nursing and respiratory care staff consulted; no adverse overnight events reported to me; Objective Vital Signs - 12hr 12/21/16 12/21/16 12/21/16 00:59 01:00 02:10 Temperature 97.7 F Pulse Rate Pulse Rate [ 110 H Anterior Bilateral Throughout] Pulse Rate [ 111 H Left Radial] Pulse Rate [ Right Radial] Respiratory 22 20 Rate Respiratory 24 Rate [Anterior Bilateral Throughout] Respiratory Rate [Chest] Respiratory Rate [tail bone ] Blood Pressure 136/58 [Left Arm] Blood Pressure [Right Arm] O2 Sat by Pulse 95 100 Oximetry 12/21/16 12/21/16 12/21/16 02:20 03:29 05:00 Temperature 97.5 F L Pulse Rate 102 H Pulse Rate [ 99 H Anterior Bilateral Throughout] Pulse Rate [ 110 H Left Radial] Pulse Rate [ Right Radial] Respiratory 25 H Rate Respiratory 32 H Rate [Anterior Bilateral Throughout] Respiratory 20 Rate [Chest] Respiratory 20 Rate [tail bone ] Blood Pressure 111/75 [Left Arm] Blood Pressure [Right Arm] O2 Sat by Pulse 91 Oximetry 12/21/16 12/21/16 07:20 10:00 Temperature 96.8 F L Pulse Rate Pulse Rate [ Anterior Bilateral Throughout] Pulse Rate [ Left Radial] Pulse Rate [ 95 H Right Radial] Respiratory 16 Rate Respiratory Rate [Anterior Bilateral Throughout] Respiratory 20 Rate [Chest] Respiratory 20 Rate [tail bone ] Blood Pressure [Left Arm] Blood Pressure 123/78 [Right Arm] O2 Sat by Pulse 100 Oximetry Constitutional: lethargic, other (delirium really) Eyes: non-icteric ENT: oropharynx moist Neck: supple, no lymphadenopathy Effort: mildly labored Ascultation: Bilateral: diminished breath sounds, rales Cardiovascular: irregular rhythm Gastrointestinal: normoactive bowel sounds, soft, non-tender, non-distended Integumentary: normal Extremities: no cyanosis, no edema, pink and warm, pulses normal, no ischemia or petechiae Neurologic: non-focal exam, pupils equal and round, unable to assess Psychiatric: other (unable to assess) CBC and BMP: 12/21/16 06:53 12/21/16 06:53 ABG, PT/INR, D-dimer: ABG POC ABG pH 7.427 (7.35-7.45) 12/19/16 09:32 POC ABG pCO2 36.1 (35-45) 12/19/16 09:32 POC ABG pO2 67 (80-105) L 12/19/16 09:32 POC ABG HCO3 23.8 12/19/16 09:32 POC ABG Total CO2 25 12/19/16 09:32 POC ABG O2 Sat 94 12/19/16 09:32 PT/INR, D-dimer PT 15.2 Sec. (12.2-14.9) H 12/17/16 17:52 INR 1.21 (0.87-1.13) H 12/17/16 17:52 D-Dimer 551.1 ng/mlDDU (0-234) H 12/17/16 17:52 Abnormal lab findings: Abnormal Labs 12/17/16 12/17/16 12/18/16 20:45 21:02 01:09 RDW Lymph % (Auto) [place] % (Auto) Lymph # [place] # Seg Neutrophils % Seg Neutrophils # POC ABG pO2 Chloride Glucose POC Glucose 148 H CK-MB (CK-2) 4.1 H Troponin T 0.058 H 0.067 H 12/18/16 12/18/16 12/19/16 16:48 23:57 04:40 RDW 16.4 H Lymph % (Auto) [place] % (Auto) 9.0 H Lymph # [place] # 1.0 H Seg Neutrophils % Seg Neutrophils # POC ABG pO2 68 L Chloride Glucose POC Glucose 183 H CK-MB (CK-2) Troponin T 12/19/16 12/19/16 12/19/16 04:40 07:44 09:32 RDW Lymph % (Auto) [place] % (Auto) Lymph # [place] # Seg Neutrophils % Seg Neutrophils # POC ABG pO2 67 L Chloride 96.1 L Glucose 152 H POC Glucose 147 H CK-MB (CK-2) Troponin T 12/19/16 12/19/16 12/20/16 12:18 22:00 00:30 RDW Lymph % (Auto) [place] % (Auto) Lymph # [place] # Seg Neutrophils % Seg Neutrophils # POC ABG pO2 Chloride Glucose POC Glucose 145 H 120 H 149 H CK-MB (CK-2) Troponin T 12/20/16 12/20/16 12/20/16 09:20 10:29 11:16 RDW Lymph % (Auto) [place] % (Auto) Lymph # [place] # Seg Neutrophils % Seg Neutrophils # POC ABG pO2 Chloride Glucose POC Glucose 121 H 136 H 141 H CK-MB (CK-2) Troponin T 12/20/16 12/20/16 12/21/16 16:15 21:54 06:53 RDW 16.1 H Lymph % (Auto) 5.7 L [place] % (Auto) Lymph # 0.6 L [place] # Seg Neutrophils % 88.5 H Seg Neutrophils # 9.4 H POC ABG pO2 Chloride Glucose POC Glucose 149 H 126 H CK-MB (CK-2) Troponin T 12/21/16 06:53 RDW Lymph % (Auto) [place] % (Auto) Lymph # [place] # Seg Neutrophils % Seg Neutrophils # POC ABG pO2 Chloride Glucose 155 H POC Glucose CK-MB (CK-2) Troponin T
--- NOTE | 2016-12-21 12:33 | Progress Note ---
Assessment and Plan Assessment and plan: Acute hypoxemic respiratory failure. Continue supplemental oxygen, nebulizer therapy, pulmonary toileting, supportive care and NIPPV as clinically indicated. Acute on chronic systolic CHF exacerbation. Cardiology following. Continue diuresis and afterload reducing agents. Bilateral pleural effusions. Continue as above. Paroxysmal atrial fibrillation/SVT. Continue IV amiodarone and transition to by mouth per cardiology. Continue eliquis 2.5 mg by mouth twice a day Ischemic cardiomyopathy, LVEF 20%. Chronic hypotension. On midodrine as an outpatient Diabetes mellitus type 2. Continue ADA diet, sliding scale insulin and Accu- Cheks. Nicotine dependence. Patient has been counseled. Coronary artery disease. Status post CABG. Not revascularizable. COPD. Compensated. DVT prophylaxis. Disposition. I discussed with case management overall poor prognosis. Hospitalist consultation initiated. History Interval history: No new issues overnight. Hospitalist Physical - Constitutional Vitals: Temp Pulse Resp BP Pulse Ox 96.8 F L 95 H 20 123/78 100 12/21/16 07:20 12/21/16 07:20 12/21/16 10:00 12/21/16 07:20 12/21/16 07:20 General appearance: Present: mild distress, other (on bipap) - EENT Eyes: Present: PERRL, EOM intact ENT: hearing intact, clear oral mucosa, dentition normal - Neck Neck: Present: supple, normal ROM - Respiratory Respiratory effort: normal Respiratory: bilateral: diminished, rales - Cardiovascular Rhythm: regular Heart Sounds: Present: S1 & S2. Absent: gallop, rub - Extremities Extremities: no ischemia, No edema, Full ROM - Abdominal General gastrointestinal: soft, non-tender, non-distended, normal bowel sounds - Integumentary Integumentary: Present: clear, warm, dry - Neurologic Neurologic: CNII-XII intact, moves all extremities Results - Labs CBC & Chem 7: 12/21/16 06:53 12/21/16 06:53 Labs: Laboratory Last Values WBC 10.6 K/mm3 (4.5-11.0) 12/21/16 06:53 RBC 4.81 M/mm3 (3.65-5.03) 12/21/16 06:53 Hgb 13.7 gm/dl (11.8-15.2) 12/21/16 06:53 Hct 41.4 % (35.5-45.6) 12/21/16 06:53 MCV 86 fl (84-94) 12/21/16 06:53 MCH 29 pg (28-32) 12/21/16 06:53 MCHC 33 % (32-34) 12/21/16 06:53 RDW 16.1 % (13.2-15.2) H 12/21/16 06:53 Plt Count 161 K/mm3 (140-440) 12/21/16 06:53 Lymph % (Auto) 5.7 % (13.4-35.0) L 12/21/16 06:53 [place] % (Auto) 5.2 % (0.0-7.3) 12/21/16 06:53 Eos % (Auto) 0.3 % (0.0-4.3) 12/21/16 06:53 Baso % (Auto) 0.3 % (0.0-1.8) 12/21/16 06:53 Lymph # 0.6 K/mm3 (1.2-5.4) L 12/21/16 06:53 [place] # 0.6 K/mm3 (0.0-0.8) 12/21/16 06:53 Eos # 0.0 K/mm3 (0.0-0.4) 12/21/16 06:53 Baso # 0.0 K/mm3 (0.0-0.1) 12/21/16 06:53 Seg Neutrophils % 88.5 % (40.0-70.0) H 12/21/16 06:53 Seg Neutrophils # 9.4 K/mm3 (1.8-7.7) H 12/21/16 06:53 PT 15.2 Sec. (12.2-14.9) H 12/17/16 17:52 INR 1.21 (0.87-1.13) H 12/17/16 17:52 D-Dimer 551.1 ng/mlDDU (0-234) H 12/17/16 17:52 POC ABG pH 7.427 (7.35-7.45) 12/19/16 09:32 POC ABG pCO2 36.1 (35-45) 12/19/16 09:32 POC ABG pO2 67 (80-105) L 12/19/16 09:32 POC ABG HCO3 23.8 12/19/16 09:32 POC ABG Total CO2 25 12/19/16 09:32 POC ABG O2 Sat 94 12/19/16 09:32 POC ABG Base Excess -1 12/19/16 09:32 FiO2 50 % 12/19/16 09:32 Sodium 139 mmol/L (137-145) 12/21/16 06:53 Potassium 3.9 mmol/L (3.6-5.0) 12/21/16 06:53 Chloride 99.9 mmol/L (98-107) 12/21/16 06:53 Carbon Dioxide 22 mmol/L (22-30) 12/21/16 06:53 Anion Gap 21 mmol/L 12/21/16 06:53 BUN 20 mg/dL (9-20) 12/21/16 06:53 Creatinine 1.2 mg/dL (0.8-1.5) 12/21/16 06:53 Estimated GFR 58 ml/min 12/21/16 06:53 BUN/Creatinine Ratio 16.66 % 12/21/16 06:53 Glucose 155 mg/dL (75-100) H 12/21/16 06:53 POC Glucose 126 (70-105) H 12/20/16 21:54 Calcium 8.5 mg/dL (8.4-10.2) 12/21/16 06:53 Magnesium 2.30 mg/dL (1.7-2.3) 12/17/16 17:52 Total Creatine Kinase 141 units/L (55-170) 12/18/16 01:09 CK-MB (CK-2) 3.7 ng/mL (0.0-4.0) 12/18/16 01:09 CK-MB (CK-2) Rel Index 2.6 (0-4) 12/18/16 01:09 Troponin T 0.067 ng/mL (0.00-0.029) H 12/18/16 01:09 NT-Pro-B Natriuret Pep 7813 pg/mL (0-900) H 12/17/16 17:52 Triglycerides 94 mg/dL (2-149) 12/17/16 14:29 Cholesterol 140 mg/dL (50-199) 12/17/16 14:29 LDL Cholesterol Direct 80 mg/dL (50-130) 12/17/16 14:29 HDL Cholesterol 42 mg/dL (40-59) 12/17/16 14:29 Cholesterol/HDL Ratio 3.33 % 12/17/16 14:29 Urine Color Yellow (Yellow) 12/17/16 19:09 Urine Turbidity Clear (Clear) 12/17/16 19:09 Urine pH 5.0 (5.0-7.0) 12/17/16 19:09 Ur Specific [place] 1.018 (1.003-1.030) 12/17/16 19:09 Urine Protein 30 mg/dl mg/dL (Negative) 12/17/16 19:09 Urine Glucose (UA) Neg mg/dL (Negative) 12/17/16 19:09 Urine Ketones Neg mg/dL (Negative) 12/17/16 19:09 Urine Blood Neg (Negative) 12/17/16 19:09 Urine Nitrite Neg (Negative) 12/17/16 19:09 Urine Bilirubin Neg (Negative) 12/17/16 19:09 Urine Urobilinogen < 2.0 mg/dL (<2.0) 12/17/16 19:09 Ur Leukocyte Esterase Tr (Negative) 12/17/16 19:09 Urine WBC (Auto) 1.0 /HPF (0.0-6.0) 12/17/16 19:09 Urine RBC (Auto) 1.0 /HPF (0.0-6.0) 12/17/16 19:09 U Epithel Cells (Auto) 1.0 /HPF (0-13.0) 12/17/16 19:09 Urine Bacteria (Auto) 1+ /HPF (Negative) 12/17/16 19:09 Urine Mucus 2+ /HPF 12/17/16 19:09
--- NOTE | 2016-12-21 12:45 | Progress Note ---
Assessment and Plan Acute systolic heart failure CAD s/p remote CABG Cardiac cath findings 11/2016: 1. Patent BRISCOE-LAD 2. Patent SVG-Diag 3. Occluded SVG-OM. 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 4. RCA was not previously bypassed, BUT has a prior stent mid vessel. Vessel is subtotally occluded within stented segment. 5. Severe ischemic cardiomyopathy, EF 20%. 6. Medical therapy recommended Ischemic Cardiomyopathy Dementia Diabetes mellitus Hyperlipidemia Chronic hypotension on midodrine as an outpatient Atypical atrial flutter and paroxysmal atrial fibrillation on tele on IV amiodarone initiated on low dose eliquis Hx of COPD DNR status Conservative cardiac management for coronary artery disease, ischemic cardiomyopathy and paroxysmal atrial fib/flutter. Subjective Date of service: 12/21/16 Principal diagnosis: Wide Complex Tachycardia; Altered Mental Status Interval history: Remains Afib on telemetry. Continues on IV amiodarone. Now made AND/DNR status. Objective Vital Signs Temp Pulse Pulse Pulse Pulse Resp Resp 12/21/16 10:00 12/21/16 07:20 96.8 F L 95 H 16 12/21/16 05:00 97.5 F L 110 H 25 H 12/21/16 03:29 102 H 12/21/16 02:20 99 H 32 H 12/21/16 02:10 110 H 24 12/21/16 01:00 97.7 F 111 H 20 12/21/16 00:59 22 12/20/16 22:30 121 H 37 H 12/20/16 20:10 123 H 20 12/20/16 20:00 97.2 F L 120 H 141 H 20 20 12/20/16 16:45 82 12/20/16 16:43 12/20/16 16:15 97.9 F 99 H 22 12/20/16 15:35 91 H 25 H 12/20/16 15:28 86 23 12/20/16 13:35 Resp Resp BP BP Pulse Ox 12/21/16 10:00 20 20 12/21/16 07:20 123/78 100 12/21/16 05:00 111/75 91 12/21/16 03:29 20 20 12/21/16 02:20 12/21/16 02:10 12/21/16 01:00 136/58 100 12/21/16 00:59 95 12/20/16 22:30 96 12/20/16 20:10 12/20/16 20:00 113/81 95 12/20/16 16:45 12/20/16 16:43 20 20 12/20/16 16:15 109/63 93 12/20/16 15:35 12/20/16 15:28 12/20/16 13:35 95 - Physical Examination General: No Apparent Distress HEENT: Positive: PERRL Neck: Positive: trachea midline Cardiac: Positive: irregularly irregular - Labs and Meds CBC 12/21/16 Range/Units 06:53 WBC 10.6 (4.5-11.0) K/mm3 RBC 4.81 (3.65-5.03) M/mm3 Hgb 13.7 (11.8-15.2) gm/dl Hct 41.4 (35.5-45.6) % Plt Count 161 (140-440) K/mm3 Lymph # 0.6 L (1.2-5.4) K/mm3 [place] # 0.6 (0.0-0.8) K/mm3 Eos # 0.0 (0.0-0.4) K/mm3 Baso # 0.0 (0.0-0.1) K/mm3 Comprehensive Metabolic Panel 12/21/16 Range/Units 06:53 Sodium 139 (137-145) mmol/L Potassium 3.9 (3.6-5.0) mmol/L Chloride 99.9 (98-107) mmol/L Carbon Dioxide 22 (22-30) mmol/L BUN 20 (9-20) mg/dL Creatinine 1.2 (0.8-1.5) mg/dL Glucose 155 H (75-100) mg/dL Calcium 8.5 (8.4-10.2) mg/dL
--- NOTE | 2016-12-21 15:02 | Discharge Summary ---
Providers - Providers Date of Admission: 12/17/16 18:49 Date of discharge: 12/21/16 Attending physician: ANANTH HERNANDEZ 12/18/16 13:29 Consult to Physician [CONS] Routine Consulting Provider: NEEL DURAN Reason For Exam: Critical Care Admission Place consult to:: Dr. Rodríguez Notified:: Dr Rodríguez Phone number called:: in person Was contact made?: Yes If yes, spoke with:: Dr Rodríguez Time called:: 13:30 12/21/16 08:06 Consult to Dietitian/Nutrition [CONS] Routine Physician Instructions: Reason For Exam: Reason for Consult: lexus score 13 Primary care physician: ROLL GRINDER Hospitalization Reason for admission: chf exac Condition: Good Hospital course: This is a 81-year-old male with history of coronary artery disease, ischemic cardiomyopathy, diabetes mellitus type 2, coronary artery disease, COPD and paroxysmal atrial fibrillation with diagnosis of acute hypoxemic respiratory failure secondary to acute on chronic systolic heart failure exacerbation. Patient has a significant cardiac history of coronary artery disease with remote three-vessel bypass grafting and a cardiac catheterization done a month ago that demonstrated patent BRISCOE to the LAD and patent SVG to diagonal. However, patient with occluded SVG-OM. Patient with severe ischemic cardiomyopathy with an EF of 20%. Cardiology recommended medical therapy for the coronary artery disease and heart failure given the advanced age and underlying dementia. Patient had further complications during this hospitalization with a sustained wide complex tachycardia heart rate in the 160s. Patient was treated with amiodarone IV and seen by cardiology in consultation. Patient had continued hypoxemic respiratory failure requiring supplemental oxygen, nebulizer treatments, pulmonary toilet and BiPAP as needed. Patient was also seen by pulmonary consultation. Patient was maintained initially in the ICU then later transferred to the floor. Patient's overall prognosis was being poor and this was expressed to the family. Patient' s daughter opted for DO NOT RESUSCITATE and then later hospice evaluation. Case management was consulted and inpatient hospice was arranged. Dedicated discharge time 35 minutes. Disposition: [facility] ([facility]) Time spent for discharge: 35 - Discharge Diagnoses (1) Atrial fibrillation with RVR Status: Acute (2) CHF (congestive heart failure) Status: Acute Qualifiers: Congestive heart failure type: C Congestive heart failure chronicity: C (3) Diabetes Status: Acute Qualifiers: Diabetes mellitus type: D Diabetes mellitus complication status: D Diabetes mellitus complication detail: D Diabetic retinopathy severity: D Proliferative retinopathy type: P Diabetes mellitus macular edema: D Diabetes mellitus skilled nursing insulin use: D Laterality: L Chronic kidney disease stage: C (4) Acute hypoxemic respiratory failure Status: Acute (5) Acute systolic CHF (congestive heart failure) Status: Acute (6) Hypotension Status: Acute Qualifiers: Hypotension type: orthostatic hypotension Trimester: T Qualified Code(s) : I95.1 - Orthostatic hypotension (7) CAD (coronary artery disease), autologous vein bypass graft Status: Chronic Qualifiers: Associated angina: without angina Qualified Code(s): I25.810 - Atherosclerosis of coronary artery bypass graft(s) without angina pectoris Core Measure Documentation - Palliative Care Palliative Care/ Comfort Measures: Hospice Care - Core Measures Any of the following diagnoses?: heart failure - Heart Failure Discharge Requirements LAURENT/ARB for LVSD if EF <40%: Yes Reason for no LAURENT/ARB: Palliative care Beta zuleika at discharge: Yes Reason for no beta zuleika on DC: Palliative care Exam - Constitutional Vitals: Temp Pulse Resp BP Pulse Ox 96.8 F L 97 H 20 123/78 97 12/21/16 07:20 12/21/16 14:41 12/21/16 14:41 12/21/16 07:20 12/21/16 07:33 General appearance: Present: no acute distress, well-nourished - EENT Eyes: Present: PERRL ENT: hearing intact, clear oral mucosa - Neck Neck: Present: supple, normal ROM - Respiratory Respiratory effort: normal Respiratory: bilateral: diminished, rales - Cardiovascular Heart Sounds: Present: S1 & S2. Absent: rub, click - Extremities Extremities: pulses symmetrical, No edema Peripheral Pulses: within normal limits - Abdominal General gastrointestinal: Present: soft, non-tender, non-distended, normal bowel sounds Male genitourinary: Present: normal - Integumentary Integumentary: Present: clear, warm, dry - Musculoskeletal Musculoskeletal: gait normal, strength equal bilaterally - Psychiatric Psychiatric: appropriate mood/affect, intact judgment & insight - Neurologic Neurologic: CNII-XII intact, moves all extremities Plan Activity: other (per hospice) Diet: low cholesterol, low salt Follow up with: PRIMARY CARE, [Primary Care Provider] - 3-5 Days Prescriptions: ALBUTEROL NEB's [Proventil 0.083% NEBS] 2.5 mg IH Q4HRT PRN #30 nebu PRN Reason: Shortness Of Breath Apixaban [Eliquis] 2.5 mg PO Q12HR #60 tablet AtorvaSTATin [Lipitor] 80 mg PO QHS #30 tablet Ipratropium/Albuterol Sulfate [Duoneb 0.5 mg-3 mg/3 ml Soln] 1 ampul IH Q6HRT # 30 ampul.neb
[2016-12-21] MEDS: PROVENTIL IH PRN (17:34)
[2016-12-22] MEDS: DUONEB 0.5 MG-3 MG/3 ML SOLN IH SCH ×2 (02:16→08:09)
[2016-12-22] MEDS: PROAMATINE PO SCH ×2 (05:15→11:17)
[2016-12-22] MEDS: ELIQUIS PO SCH ×2 (05:16→11:17)
[2016-12-22 09:52] LABS: Basophils % (Auto) 0.6 % (0.0-1.8); Eosinophils % (Auto) 1.1 % (0.0-4.3); Hematocrit 41.4 % (35.5-45.6); Hemoglobin 13.7 gm/dl (11.8-15.2); Mean Corpuscular HGB Conc 33 % (32-34); Mean Corpuscular Hemoglobin 28 pg (28-32); Mean Corpuscular Volume 86 fl (84-94); Platelet Count 149 K/mm3 (140-440); Red Blood Count 4.84 M/mm3 (3.65-5.03); Red Cell Distribution Width 16.3 % (13.2-15.2)
[2016-12-22 10:09] LABS: BUN/Creatinine Ratio 16.66; Calcium 8.4 mg/dL (8.4-10.2); Chloride 100.2 mmol/L (98-107); Potassium 3.7 mmol/L (3.6-5.0)
[2016-12-22] MEDS: PEPCID PO SCH (11:17)
[2016-12-22] MEDS: FLOMAX PO SCH (11:17)
[2016-12-22] MEDS: PLAVIX PO SCH (11:17)
[2016-12-22] MEDS: TOPROL XL PO SCH (11:18)
[2016-12-22 12:52] VITALS: BP 127/81
--- NOTE | 2016-12-22 14:38 | Progress Note ---
Assessment and Plan Acute hypoxemic respiratory failure. Continue supplemental oxygen, nebulizer therapy, pulmonary toileting, supportive care and NIPPV as clinically indicated. Acute on chronic systolic CHF exacerbation. Cardiology following. Continue diuresis and afterload reducing agents. Bilateral pleural effusions. Continue as above. Paroxysmal atrial fibrillation/SVT. Continue IV amiodarone and transition to by mouth per cardiology. Continue eliquis 2.5 mg by mouth twice a day Ischemic cardiomyopathy, LVEF 20%. Chronic hypotension. On midodrine as an outpatient Diabetes mellitus type 2. Continue ADA diet, sliding scale insulin and Accu- Cheks. Nicotine dependence. Patient has been counseled. Coronary artery disease. Status post CABG. Not revascularizable. COPD. Compensated. DVT prophylaxis. Disposition. I discussed with case management overall poor prognosis. Hospice consultation initiated. Plans are for discharge to inpatient hospice. - Patient Problems (1) Atrial fibrillation with RVR Status: Acute (2) CHF (congestive heart failure) Status: Acute Qualifiers: Congestive heart failure type: C Congestive heart failure chronicity: C (3) Diabetes Status: Acute Qualifiers: Diabetes mellitus type: D Diabetes mellitus complication status: D Diabetes mellitus complication detail: D Diabetic retinopathy severity: D Proliferative retinopathy type: P Diabetes mellitus macular edema: D Diabetes mellitus correction insulin use: D Laterality: L Chronic kidney disease stage: C (4) Acute hypoxemic respiratory failure Status: Acute (5) Acute systolic CHF (congestive heart failure) Status: Acute (6) Hypotension Status: Acute Qualifiers: Hypotension type: orthostatic hypotension Trimester: T Qualified Code(s) : I95.1 - Orthostatic hypotension (7) CAD (coronary artery disease), autologous vein bypass graft Status: Chronic Qualifiers: Associated angina: without angina Qualified Code(s): I25.810 - Atherosclerosis of coronary artery bypass graft(s) without angina pectoris Subjective Date of service: 12/21/16 Principal diagnosis: Wide Complex Tachycardia; Altered Mental Status Interval history: No new issues overnight. Objective - Constitutional Vitals: Vital Signs - 12hr 12/22/16 12/22/16 12/22/16 04:07 04:08 05:00 Temperature 98 F Pulse Rate 89 Pulse Rate [ Anterior Bilateral Throughout] Pulse Rate [ 99 H Left Radial] Respiratory 19 Rate Respiratory Rate [Anterior Bilateral Throughout] Respiratory 20 Rate [Chest] Respiratory 20 Rate [tail bone ] Blood Pressure 121/79 [Left Arm] O2 Sat by Pulse 100 Oximetry 12/22/16 12/22/16 12/22/16 07:56 08:35 08:45 Temperature 98.2 F Pulse Rate Pulse Rate [ 69 72 Anterior Bilateral Throughout] Pulse Rate [ 98 H Left Radial] Respiratory 20 Rate Respiratory 18 18 Rate [Anterior Bilateral Throughout] Respiratory Rate [Chest] Respiratory Rate [tail bone ] Blood Pressure 112/70 [Left Arm] O2 Sat by Pulse 93 Oximetry 12/22/16 12/22/16 12/22/16 10:00 11:26 11:35 Temperature 98.8 F Pulse Rate 105 H Pulse Rate [ Anterior Bilateral Throughout] Pulse Rate [ 83 Left Radial] Respiratory 20 Rate Respiratory Rate [Anterior Bilateral Throughout] Respiratory Rate [Chest] Respiratory Rate [tail bone ] Blood Pressure 127/81 [Left Arm] O2 Sat by Pulse 95 92 Oximetry General appearance: Present: no acute distress, well-nourished - EENT Eyes: PERRL, EOM intact ENT: hearing intact, clear oral mucosa Ears: bilateral: normal - Neck Neck: supple, normal ROM - Respiratory Respiratory effort: normal Respiratory: bilateral: CTA - Breasts Breasts: normal - Cardiovascular Rhythm: regular Heart Sounds: Present: S1 & S2. Absent: gallop, rub Extremities: pulses intact, No edema, normal color, Full ROM - Gastrointestinal General gastrointestinal: Present: soft, non-tender, non-distended, normal bowel sounds - Genitourinary Male genitourinary: normal - Integumentary Integumentary: clear, warm, dry - Musculoskeletal Musculoskeletal: 1, strength equal bilaterally - Neurologic Neurologic: moves all extremities - Psychiatric Psychiatric: memory intact, appropriate mood/affect, intact judgment & insight - Labs CBC & Chem 7: 12/22/16 09:15 12/22/16 09:15 Labs: Abnormal lab results 12/21/16 12/21/16 12/22/16 Range/Units 09:14 13:16 09:15 RDW 16.3 H (13.2-15.2) % Lymph % (Auto) 9.0 L (13.4-35.0) % Holt % (Auto) 7.9 H (0.0-7.3) % Lymph # 0.9 L (1.2-5.4) K/mm3 Seg Neutrophils % 81.4 H (40.0-70.0) % Seg Neutrophils # 8.2 H (1.8-7.7) K/mm3 Glucose (75-100) mg/dL POC Glucose 146 H 147 H (70-105) 12/22/16 Range/Units 09:15 RDW (13.2-15.2) % Lymph % (Auto) (13.4-35.0) % Holt % (Auto) (0.0-7.3) % Lymph # (1.2-5.4) K/mm3 Seg Neutrophils % (40.0-70.0) % Seg Neutrophils # (1.8-7.7) K/mm3 Glucose 160 H (75-100) mg/dL POC Glucose (70-105)
== END 2016-12-22 13:57 | disposition hospice, inpatient (51) | DRG 291 ==
LOC: ED 13:51 → 4A 18:49 → CC1 12-18 19:06 → 4A 12-20 13:52 → CC1 12-20 14:22 → 4A 12-20 16:04
PROVIDERS: ADMIT Internal Medicine; ATTEND Hospitalist
PROC: 5A09457 Assistance with Respiratory Ventilation, 24-96 Consecutive Hours, Continuous Positive Airway Pressure (ICD-10-PCS; principal; 2016-12-17)
PROC: 4A033R1 Measurement of Arterial Saturation, Peripheral, Percutaneous Approach (ICD-10-PCS; 2016-12-17)
DX: I50.23 Acute on chronic systolic (congestive) heart failure (principal); J96.01 Acute respiratory failure with hypoxia; I25.810 Atherosclerosis of coronary artery bypass graft(s) without angina pectoris; I47.1 Supraventricular tachycardia; N17.9 Acute kidney failure, unspecified; J90 Pleural effusion, not elsewhere classified; I48.92 Unspecified atrial flutter; F17.200 Nicotine dependence, unspecified, uncomplicated; E11.9 Type 2 diabetes mellitus without complications; I25.5 Ischemic cardiomyopathy; E78.5 Hyperlipidemia, unspecified; I95.89 Other hypotension; N18.9 Chronic kidney disease, unspecified; E66.9 Obesity, unspecified; I48.0 Paroxysmal atrial fibrillation; J44.9 Chronic obstructive pulmonary disease, unspecified; Z66 Do not resuscitate; Z91.14 Patient's other noncompliance with medication regimen; Z95.5 Presence of coronary angioplasty implant and graft; Z95.1 Presence of aortocoronary bypass graft; Z83.3 Family history of diabetes mellitus; Z82.49 Family history of ischemic heart disease and other diseases of the circulatory system; I25.2 Old myocardial infarction; Z68.34 Body mass index [BMI] 34.0-34.9, adult
CPT/HCPCS: 36415; 36600; 71020; 76604; 80048; 80061; 81001; 82550; 82553; 82803; 82962; 83735; 83880; 84484; 85025; 85379; 85610; 93005; 93010; 94640; 94660; 94760; 96374; A9270-GY; J0282; J1815; J1940; J2060; J7060